=== PATIENT | male | born 1980 | race Two or more races ===

== ENCOUNTER → 2020-03-10 08:53 | Outpatient (BNVA) | payer BC, OTHER, SELFPAY | PROVIDERS: PCP Nurse Practitioner Family; Visit Provider Surgery Vascular Surgery | DX: Z76.89 Persons encountering health services in other specified circumstances (principal) ==

== ENCOUNTER 2020-03-29 12:49 | Outpatient (REF) | payer OTHER, BC, SELFPAY ==
--- NOTE | 2020-03-29 12:57 | US_ITS ---
EXAMINATION: US LOWER EXTREMITY VENOUS ULTRASOUND (REFLUX EXAM), BILATERAL CLINICAL INDICATION: Varicose veins of right lower extremity with inflammation. COMPARISON: 03/17/2019 TECHNIQUE: Color flow triplex imaging and compression Doppler was performed to evaluate both the deep and the superficial systems bilaterally. To evaluate the superficial system, the examination was performed in the upright position. Color-flow Doppler ultrasound and compression ultrasound were utilized. In addition, maneuvers were utilized to demonstrate reflux. FINDINGS: 1. DEEP VENOUS ULTRASOUND OF THE RIGHT LOWER EXTREMITY: Respiratory variation, normal compression and augmented flow are noted in the right common femoral vein as well as the right popliteal vein, and there is no evidence of deep venous thrombosis at these locations. There is no evidence of reflux in the deep system in either the common femoral vein or the popliteal vein. There is no evidence of a Wei's cyst. 2. SUPERFICIAL ULTRASOUND WITH DOPPLER OF RIGHT LOWER EXTREMITY: The right great saphenous vein at the saphenofemoral junction measures 8 mm, at the mid thigh 3 mm, gnmpg-ele-glbk 3 mm, dgpjl-zsx-bplq 3 mm, at mid calf 3 mm and at the ankle measures 2 mm. The only reflux is identified at the level just dzfkg-idz-xshj measuring 2.8 seconds in duration. No reflux is seen at the saphenofemoral junction. The right small saphenous vein measures 2 mm and shows no reflux. 3. DEEP VENOUS ULTRASOUND OF THE LEFT LOWER EXTREMITY: Respiratory variation, normal compression and augmented flow are noted in the left common femoral vein as well as the left popliteal vein, and there is no evidence of deep venous thrombosis at these locations. There is no evidence of reflux in the deep system in either the common femoral vein or the popliteal vein. There is no evidence of a Wei's cyst. 4. SUPERFICIAL ULTRASOUND WITH DOPPLER OF LEFT LOWER EXTREMITY: There is a duplicated left greater saphenous vein. The small accessory branch laterally measures approximately 3 mm in diameter and does have reflux at the saphenofemoral junction at 1.3 seconds duration. The dominant medial branch of the left great saphenous vein at the saphenofemoral junction measures 7 mm, at the mid thigh 3 mm, ijbds-omz-kxju 3 mm, nmmqx-clb-shmj 2 mm, at mid calf 2 mm and at the ankle measures 3 mm. There is no reflux demonstrated in the main left great saphenous vein. The left small saphenous vein measures 3 mm and shows no reflux. US/US venous duplex LE BI IMPRESSION: 1. No evidence of reflux or thrombus in the common femoral veins or popliteal veins bilaterally. 2. The only level of reflux of the right saphenous vein is at the nbhvu-uxp-bygk level. No reflux in the saphenofemoral junction. 3. The only site of reflux within the left superficial venous system is within a small accessory saphenous vein at the saphenofemoral junction for a duration of 1.3 seconds.
--- NOTE | 2020-03-29 12:57 | US_ITS ---
EXAMINATION: US EXTRACRANIAL CAROTID DUPLEX, BILATERAL CLINICAL INFORMATION: Carotid bruit. Question occlusion and stenosis. COMPARISON: None TECHNIQUE: Real-time ultrasound and Doppler techniques (integrating B-mode 2-D vascular images, Doppler spectral analysis and color-flow Doppler imaging) were utilized to interrogate the extracranial carotid arteries, the vertebral arteries and proximal subclavian arteries bilaterally. The degree of stenosis is determined by criteria similar to NASCET. FINDINGS: Right Side: 1. There is hard atherosclerotic plaque seen in the bifurcation/proximal ICA region. 2. The common carotid artery PSV proximally is 123 cm/s and distally 93.2 cm/s. 3. The proximal internal carotid artery velocities are 91.5 cm/s systolic and 75 cm/s diastolic. 4. The proximal external carotid artery PSV is 108 cm/s. 5. The vertebral artery shows antegrade flow. 6. The subclavian artery waveforms are normal. Left Side: 1. There is hard atherosclerotic plaque seen in the bifurcation/proximal ICA region. 2. The common carotid artery PSV proximally is 144 cm/s and distally 92.7 cm/s. 3. The proximal internal carotid artery velocities are 75 cm/s systolic and 26.4 cm/s diastolic. 4. The proximal external carotid artery PSV is 93.2 cm/s. 5. The vertebral artery shows antegrade flow. 6. The subclavian artery waveforms are normal. US/US carotid duplex BI IMPRESSION: 1. RIGHT: No hemodynamically significant stenosis. The range is 0-49% stenosis. 2. LEFT: No hemodynamically significant stenosis. The range is 0-49% stenosis. 3. Normal antegrade flow seen in both vertebral arteries..
[2020-03-29 15:43] LABS: Alanine Aminotransferase 47 U/L (0-40); Albumin Level 4.2 g/dL (3.5-5.0); Alkaline Phosphatase 67 U/L (39-117); Anion Gap 12 (12-20); Aspartate Amino Transferase 15 U/L (5-37); Bilirubin Total 0.8 mg/dL (0.0-1.0); Blood Urea Nitrogen 16 mg/dL (9-16); Calcium 9.1 mg/dL (8.4-10.2); Carbon Dioxide 31 mmol/L (22-29); Chloride 100 mmol/L (96-108); Estimated Glomerular Filt Rate > 60; Glucose Fasting 260 mg/dL (60-99); Potassium 4.7 mmol/l (3.3-5.1); Sodium 138 mmol/L (135-145); Total Protein 7.5 g/dL (6.5-8.0)
[2020-03-29 15:47] LABS: Estimated Average Glucose 258 mg/dL; Hemoglobin A1c % 10.6 %
[2020-03-29 16:11] LABS: Creatinine Urine 193.31 mg/dL; Protein/Creatinine Ratio, Ur 0.07 (<0.2); Total Protein Urine Random 14 mg/dL (<12)
== END 2020-03-29 12:50 | disposition home or self-care (01) ==
LOC: HO.US 12:49
PROVIDERS: Nurse Practitioner Family; Absent Provider Internal Medicine Hypertension Specialist; PCP Internal Medicine; Visit Provider Surgery Vascular Surgery
DX: I65.23 Occlusion and stenosis of bilateral carotid arteries (principal); I83.893 Varicose veins of bilateral lower extremities with other complications; I10 Essential (primary) hypertension; R80.9 Proteinuria, unspecified; E11.9 Type 2 diabetes mellitus without complications
CPT/HCPCS: 36415; 80053; 83036; 84156; 93880; 93970

== ENCOUNTER → 2020-04-07 09:00 | Outpatient (BNVA) | payer BC, SELFPAY | PROVIDERS: PCP Internal Medicine; Visit Provider Surgery Vascular Surgery ==

== ENCOUNTER → 2020-06-03 08:23 | Outpatient (BNVA) | payer BC, SELFPAY | PROVIDERS: PCP Internal Medicine; Visit Provider Nurse Practitioner Gerontology | DX: E11.9 Type 2 diabetes mellitus without complications (principal); I10 Essential (primary) hypertension; E78.5 Hyperlipidemia, unspecified; E66.01 Morbid (severe) obesity due to excess calories; Z68.39 Body mass index [BMI] 39.0-39.9, adult | CPT/HCPCS: 82947 ==

== ENCOUNTER 2020-11-11 23:01 | Inpatient (IN) | payer BC, SELFPAY ==
--- NOTE | ~2020-11-11 | CT_ITS ---
EXAMINATION: CTA NECK WITH CONTRAST (STROKE) CTA BRAIN WITH CONTRAST (STROKE) CLINICAL INFORMATION: Severe headache, dizziness, stroke in 2019. COMPARISON: 01/31/2019 TECHNIQUE: Initial noncontrast head CT was performed. Test bolus sequences followed by intravenous administration 70 mL of Omnipaque 350. Helical imaging was performed in the axial plane from the thoracic inlet to the skull vertex. Delayed postcontrast imaging of the head was also performed. The data was processed at the biochemistry technologist's workstation for generation of MIP sequences. Angled MIPs and volume rendered reformatted images were also generated at an offline 3D workstation. Stenoses are assessed in accordance with NASCET criteria unless otherwise indicated. DOSE LOWERING TECHNIQUES: This CT examination was performed using dose optimization techniques as appropriate, variously including the following: - Automated exposure control - Adjustment of mA and/or kV according to patient size (this includes techniques or standardized protocols for targeted exams were dose is matched to indication/reason for exam; i.e. extremities or head) - Use of iterative reconstruction technique DLP: 2775 mGy-cm FINDINGS: Neck CTA: There is common origin of the brachiocephalic and left common carotid arteries off the aortic arch. Normal appearance of the visualized aortic arch and proximal branches. No evidence of stenosis at the branch origins. Both vertebral arteries are widely patent throughout their extracranial cervical course. Normal appearance of the common and internal carotid arteries without focal stenosis. Brain CTA: Normal appearance of the intradural vertebral and posterior inferior cerebellar arteries. Redemonstrated persistent left trigeminal artery. Normal appearance of the basilar and superior cerebellar arteries. There is origin of the left posterior cerebral artery. And bilateral posterior cerebral arteries are well-opacified. Normal appearance of the intradural internal carotid arteries without focal stenosis. Normal appearance of the anterior cerebral and middle cerebral arteries without focal occlusion or stenosis. Normal anterior communicating artery. Normal arborization of the middle cerebral arteries. CT Head: There is no evidence of acute intracranial hemorrhage or territorial infarction. Chronic infarcts are noted in the posterior left basal ganglia and periventricular region, in keeping with infarcts seen on 01/31/2019 MRI. No abnormal mass-effect or midline shift is seen. Lee to white matter differentiation is well preserved. No extra-axial fluid collections are identified. The ventricles are normal in size. The osseous structures and soft tissues are normal. There is leftward deviation of the nasal septum. The mastoid air cells and visualized portions of the paranasal sinuses are well-aerated. CT Neck: The thyroid gland and remaining cervical soft tissues are normal in appearance. No cervical spine abnormalities demonstrated. Upper Chest: No abnormalities in the visualized lung apices or upper mediastinum. CT/CT angio head neck stroke IMPRESSION: 1. No acute intracranial findings. Chronic infarcts in the posterior left basal ganglia and periventricular region. 2. No hemodynamically significant stenosis in the major arteries of the neck. No large vessel occlusion or significant stenosis in the intracranial circulation. This stroke protocol result was discussed with Dr. Beryl Gan on 11/12/2020 12:16 AM.
--- NOTE | ~2020-11-11 | MR_ITS ---
EXAMINATION: MRI OF THE BRAIN WITHOUT CONTRAST CLINICAL INFORMATION: Assess for new CVA. COMPARISON: CTA of the head and neck 11/11/2020. MRI scan of the brain 01/31/2019. TECHNIQUE: MRI of the brain was obtained using routine sequences without contrast. FINDINGS: There is a small focus of increased diffusion signal in the right anterior centrum semiovale without restriction, consistent with subacute infarct. There are no diffusion changes suggestive of an acute infarct. No mass effect or midline shift is seen. The ventricles are normal in size. There has been evolution of an infarct adjacent to the trigone of the left lateral ventricle, now with gliosis and adjacent ex vacuo dilatation of the trigone. There are a few scattered foci of hyperintense T2 and FLAIR signal in the periventricular and subcortical white matter, consistent with chronic microvascular ischemic changes. Similar foci are noted in the left thalamus and there is a chronic lacunar infarct in the left basal ganglia. No extra-axial fluid collections are seen. The brainstem and cerebellum are normal. There is a punctate focus of low gradient signal anterior to the left thalamus medially, which is nonspecific. No evidence of acute hemorrhage is demonstrated. The craniovertebral junction, marrow signal, and midline structures are normal. The major intracranial flow-voids at the level of the little shell tribe of [place] are preserved. The dural venous sinus flow-voids are maintained. The mastoid air cells and paranasal sinuses are well-aerated. MR/MR head/brain wo con IMPRESSION: 1. There are no acute bleeds or infarcts. There is a small focus of increased diffusion signal in the right centrum semiovale body consistent with a subacute infarct. No masses are demonstrated. 2. There are sequelae of prior infarct adjacent to the trigone of the left lateral ventricle. There are chronic microvascular ischemic changes. There is a lacunar infarct in the left basal ganglia.
--- NOTE | 2020-11-11 23:00 | PC.NURSE ---
MD at bedside for primary eval due to ?CVA.
[2020-11-11 23:09] VITALS: BP 164/75; PULSE 65; RESP 16; TEMP 36.6; O2SAT 99; BMI 39.1
--- NOTE | 2020-11-11 23:23 | ECG_ITS ---
Test Reason : SYNCOPE Blood Pressure : / mmHG Vent. Rate : 062 BPM Atrial Rate : 062 BPM P-R Int : 226 ms QRS Dur : 094 ms QT Int : 418 ms P-R-T Axes : 024 042 010 degrees QTc Int : 424 ms Sinus rhythm with 1st degree A-V block Minimal voltage criteria for LVH, may be normal variant Cannot rule out Anterior infarct , age undetermined Abnormal ECG When compared with ECG of 02-MAR-2019 19:44, No significant change was found Referred By: Beryl Gan Electronically Signed By:ABDI SPANGLER
--- NOTE | 2020-11-11 23:25 | ED.GENADULT ---
HPI - General Adult General Chief complaint: Syncope Stated complaint: syncope ? tia Time Seen by Provider: 11/11/20 23:14 Source: patient and EMS Mode of arrival: EMS Limitations: no limitations History of Present Illness HPI narrative: Patient comes to the emergency room complaining sudden onset of headache, dizziness described as lightheadedness. Patient reports a syncopal episode that lasted 2-3 seconds. Patient states that his symptoms are similar than in 2019 when he had a stroke. However, last time patient had right-sided deficits, unable to move his right arm and leg. This time, patient has no neurological deficits other than the symptoms stated above. Related Data Home Medications Medication Instructions Recorded Confirmed atorvastatin 80 mg tablet 80 mg PO DAILY 02/22/20 11/12/20 metoprolol succinate 100 mg 100 mg PO DAILY 02/22/20 11/12/20 tablet,extended release 24 hr hydroxyzine HCl 25 mg tablet 50 tab PO BEDTIME 11/12/20 11/12/20 Previous Rx's Medication Instructions Recorded aspirin 81 mg chewable tablet 81 mg PO DAILY 90 Days #90 tab 02/13/20 pioglitazone 45 mg tablet 45 mg PO DAILY 90 Days #90 tab 10/17/20 Allergies Allergy/AdvReac Type Severity Reaction Status Date / Time bee pollen [BEE STINGS] Allergy Intermediate Swelling Verified 11/11/20 23:17 metoclopramide [From REGLAN] AdvReac Intermediate MUSCLE Verified 11/11/20 23:17 SPASMS dulaglutide [From Trulicity] AdvReac Diarrhea Verified 11/11/20 23:17 cymbalta Allergy Intermediate twitching Uncoded 11/11/20 23:17 Ketoconazole Allergy Intermediate urticaria Uncoded 11/11/20 23:17 lisinopril Allergy Intermediate cough Uncoded 11/11/20 23:17 tramadol Allergy Intermediate itchiness Uncoded 11/11/20 23:17 amoxicillin AdvReac Intermediate diarrhea Uncoded 11/11/20 23:17 metformin AdvReac Intermediate diarrhea Uncoded 11/11/20 23:17 [facility] Past Medical History Medical History Diabetes Essential hypertension History of stroke Hyperlipidemia LDL goal <70 Obesity due to excess calories Poison ramirez dermatitis Skin lesion Tinea pedis Type 2 diabetes mellitus without complications Surgical History Hx of vasectomy Family History Family History Father Diabetes Myocardial infarct Mother Diabetes Sister No problems noted. Sister No problems noted. Daughter No problems noted. Son No problems noted. Son No problems noted. Son No problems noted. Son No problems noted. Social History Social History Household Members: Family Alcohol intake: never Advance Directives: No Advance Directives Information Provided: No Physical Exam Vital Signs: Vital Signs: Last Vital Signs Temp 97.8 F 11/11/20 23:09 Pulse 60 11/12/20 04:48 Resp 14 11/12/20 04:48 BP 136/62 11/12/20 01:52 Pulse Ox 99 11/11/20 23:09 Body Mass Index 39.1 Const: Other: Appearance: Alert. Oriented X3. Seems uncomfortable, having headache Eyes: Pupils equal, round and reactive to light. Seems to have photophobia ENT: Pharynx normal. Neck: Normal inspection. Neck supple. No lymph nodes noted. No crepitus CVS: Normal heart rate and rhythm. Pulses normal. Normal S1 and S2 Respiratory: No respiratory distress. Breath sounds normal. No Wheezing. No rales Abdomen: Soft and nontender. No rigidity. No distention. good BS x4 Skin: Skin warm and dry. Normal skin color. Normal skin turgor. Extremities: No lower extremity edema. No lower extremity edema. No Lacerations. No Rash Neuro: Oriented X 3. Cranial nerves 2-12 grossly intact No motor deficit other than the residual weakness in the right and left arm No sensory deficit. Moving all extermities. No slurred speech. NIH Stroke Scale Level of Consciousness: Alert Level of Consciousness Questions: Answers both questions correctly Level of Consciousness Commands: Performs both tasks correctly Best Gaze: Normal Visual: No visual loss Facial Palsy: Normal Motor Arm (Right): No drift Motor Arm (Left): No drift Motor Leg (Right): No drift Motor Leg (Left): No drift Limb Ataxia: Absent Sensory: Normal Best Language: No aphasia Dysarthia: Normal Extinction and Inattention: No abnormality Score: 0 Course Course Course Narrative: At this time, patient having severe headache, only taking aspirin at home. No new neurological deficits, NIH score 0. Patient is very adamant that he is having a new stroke as he had similar symptoms except the neurological deficits. CT and CTA were negative this time, however, in [address] and CTA were normal and the CT and CTA were normal and the MRI did show a stroke. At this time, patient does not have any neurological deficits. MRI has been ordered for the morning. Patient likely being discharge if the MRI is negative. Sign out given to Dr. Dey Medical Decision Making Lab Data Result diagrams: 11/11/20 23:26 11/12/20 01:12 Labs: Lab Results 11/11/20 11/11/20 11/11/20 Range/Units 23:26 23:26 23:26 WBC 7.1 (4.8-10.8) X10*3/uL RBC 4.90 (4.60-5.80) X10*6/uL Hgb 13.3 L (14.0-18.0) g/dl Hct 42.5 (42-52) % MCV 86.7 (80-98) fL MCH 27.1 (27.0-33.0) pg MCHC 31.3 (31.0-36.0) g/dl RDW 14.1 (11.0-16.0) % Plt Count 177 (160-400) X10*3/uL MPV 11.4 (9.4-12.4) fL Immature Gran % (Auto) 0.3 (0.0-0.4) % Neut % (Auto) 35.3 L (45-73) % Lymph % (Auto) 51.2 H (20-40) % [place] % (Auto) 8.5 (2-11) % Eos % (Auto) 4.3 H (0-4) % Baso % (Auto) 0.4 (0-2) % Lymph # (Auto) 3.6 (1.2-4.9) X10*3/uL [place]ett # (Auto) 0.6 (0.1-1.2) X10*3/uL Eos # (Auto) 0.3 (0.0-0.4) X10*3/uL Baso # (Auto) 0.0 (0.0-0.2) X10*3/uL Abs Immat Gran (auto) 0.02 (0.00-0.03) X10*3/uL Absolute Neuts (auto) 2.5 (2.0-8.3) X10*3/uL Absolute Nucleated RBC 0.000 (0.0-0.012) X10*3/uL Nucleated RBC % (auto) 0.0 (0.0-0.2) /100WBC PT 11.9 (9.9-13.0) SEC INR 1.0 (0.9-1.1) Sodium (135-145) mmol/L Potassium (3.3-5.1) mmol/L Chloride (96-108) mmol/L Carbon Dioxide (22-29) mmol/L Anion Gap (12-20) BUN (9-16) mg/dL Creatinine (0.5-1.4) mg/dL Estim Creat Clear Calc Estimated GFR Random Glucose (60-115) mg/dL Calcium (8.4-10.2) mg/dL Total Bilirubin (0.0-1.0) mg/dL Direct Bilirubin (0.0-0.5) mg/dL AST (5-37) U/L ALT (0-40) U/L Alkaline Phosphatase (39-117) U/L Troponin I High Sens < 3.5 (<3.5-35.0) ng/L Total Protein (6.5-8.0) g/dL Albumin (3.5-5.0) g/dL Urine Color Urine Appearance Urine pH (5.0-8.0) Ur Specific [place] (1.005-1.025) Urine Protein (NEG-TRACE) MG/DL Urine Glucose (UA) (NEG) MG/DL Urine Ketones (NEG) MG/DL Urine Blood (NEG) Urine Nitrite (NEG) Ur Leukocyte Esterase (NEG) Urine RBC (0) /HPF Urine WBC (0-4) /HPF Ur Squamous Epith Cells /LPF Calcium Oxalate Crystal /LPF Urine Bacteria /LPF Urine Mucus /LPF Urine Opiates Screen (Not Detect) Urine Fentanyl Screen (Not Detect) Ur Barbiturates Screen (Not Detect) Ur Phencyclidine Scrn (Not Detect) Ur Amphetamines Screen (Not Detect) U Benzodiazepines Scrn (Not Detect) Urine Cocaine Screen (Not Detect) U Marijuana (THC) Screen (Not Detect) Ethyl Alcohol mg/dL COVID-19 (TELMA) (Negative) COVID-19 Clin Com 11/11/20 11/12/20 11/12/20 Range/Units 23:29 01:12 01:13 WBC (4.8-10.8) X10*3/uL RBC (4.60-5.80) X10*6/uL Hgb (14.0-18.0) g/dl Hct (42-52) % MCV (80-98) fL MCH (27.0-33.0) pg MCHC (31.0-36.0) g/dl RDW (11.0-16.0) % Plt Count (160-400) X10*3/uL MPV (9.4-12.4) fL Immature Gran % (Auto) (0.0-0.4) % Neut % (Auto) (45-73) % Lymph % (Auto) (20-40) % [place]ett % (Auto) (2-11) % Eos % (Auto) (0-4) % Baso % (Auto) (0-2) % Lymph # (Auto) (1.2-4.9) X10*3/uL [place] # (Auto) (0.1-1.2) X10*3/uL Eos # (Auto) (0.0-0.4) X10*3/uL Baso # (Auto) (0.0-0.2) X10*3/uL Abs Immat Gran (auto) (0.00-0.03) X10*3/uL Absolute Neuts (auto) (2.0-8.3) X10*3/uL Absolute Nucleated RBC (0.0-0.012) X10*3/uL Nucleated RBC % (auto) (0.0-0.2) /100WBC PT (9.9-13.0) SEC INR (0.9-1.1) Sodium 138 (135-145) mmol/L Potassium 3.9 (3.3-5.1) mmol/L Chloride 103 (96-108) mmol/L Carbon Dioxide 27 (22-29) mmol/L Anion Gap 12 (12-20) BUN 21 H (9-16) mg/dL Creatinine 1.34 (0.5-1.4) mg/dL Estim Creat Clear Calc 92.8 Estimated GFR 59 Random Glucose 171 H (60-115) mg/dL Calcium 9.0 (8.4-10.2) mg/dL Total Bilirubin 0.7 (0.0-1.0) mg/dL Direct Bilirubin 0.3 (0.0-0.5) mg/dL AST 18 (5-37) U/L ALT 21 (0-40) U/L Alkaline Phosphatase 55 (39-117) U/L Troponin I High Sens (<3.5-35.0) ng/L Total Protein 7.0 (6.5-8.0) g/dL Albumin 3.9 (3.5-5.0) g/dL Urine Color Urine Appearance Urine pH (5.0-8.0) Ur Specific [place] (1.005-1.025) Urine Protein (NEG-TRACE) MG/DL Urine Glucose (UA) (NEG) MG/DL Urine Ketones (NEG) MG/DL Urine Blood (NEG) Urine Nitrite (NEG) Ur Leukocyte Esterase (NEG) Urine RBC (0) /HPF Urine WBC (0-4) /HPF Ur Squamous Epith Cells /LPF Calcium Oxalate Crystal /LPF Urine Bacteria /LPF Urine Mucus /LPF Urine Opiates Screen (Not Detect) Urine Fentanyl Screen (Not Detect) Ur Barbiturates Screen (Not Detect) Ur Phencyclidine Scrn (Not Detect) Ur Amphetamines Screen (Not Detect) U Benzodiazepines Scrn (Not Detect) Urine Cocaine Screen (Not Detect) U Marijuana (THC) Screen (Not Detect) Ethyl Alcohol < 10 mg/dL COVID-19 (TELMA) Negative (Negative) COVID-19 Clin Com See Note 11/12/20 11/12/20 Range/Units 01:13 01:13 WBC (4.8-10.8) X10*3/uL RBC (4.60-5.80) X10*6/uL Hgb (14.0-18.0) g/dl Hct (42-52) % MCV (80-98) fL MCH (27.0-33.0) pg MCHC (31.0-36.0) g/dl RDW (11.0-16.0) % Plt Count (160-400) X10*3/uL MPV (9.4-12.4) fL Immature Gran % (Auto) (0.0-0.4) % Neut % (Auto) (45-73) % Lymph % (Auto) (20-40) % Harnett % (Auto) (2-11) % Eos % (Auto) (0-4) % Baso % (Auto) (0-2) % Lymph # (Auto) (1.2-4.9) X10*3/uL [place] # (Auto) (0.1-1.2) X10*3/uL Eos # (Auto) (0.0-0.4) X10*3/uL Baso # (Auto) (0.0-0.2) X10*3/uL Abs Immat Gran (auto) (0.00-0.03) X10*3/uL Absolute Neuts (auto) (2.0-8.3) X10*3/uL Absolute Nucleated RBC (0.0-0.012) X10*3/uL Nucleated RBC % (auto) (0.0-0.2) /100WBC PT (9.9-13.0) SEC INR (0.9-1.1) Sodium (135-145) mmol/L Potassium (3.3-5.1) mmol/L Chloride (96-108) mmol/L Carbon Dioxide (22-29) mmol/L Anion Gap (12-20) BUN (9-16) mg/dL Creatinine (0.5-1.4) mg/dL Estim Creat Clear Calc Estimated GFR Random Glucose (60-115) mg/dL Calcium (8.4-10.2) mg/dL Total Bilirubin (0.0-1.0) mg/dL Direct Bilirubin (0.0-0.5) mg/dL AST (5-37) U/L ALT (0-40) U/L Alkaline Phosphatase (39-117) U/L Troponin I High Sens (<3.5-35.0) ng/L Total Protein (6.5-8.0) g/dL Albumin (3.5-5.0) g/dL Urine Color DARK YELLOW Urine Appearance CLEAR Urine pH 6.0 (5.0-8.0) Ur Specific [place] 1.025 (1.005-1.025) Urine Protein TRACE (NEG-TRACE) MG/DL Urine Glucose (UA) NEG (NEG) MG/DL Urine Ketones NEG (NEG) MG/DL Urine Blood TRACE (NEG) Urine Nitrite NEG (NEG) Ur Leukocyte Esterase NEG (NEG) Urine RBC 0-2 (0) /HPF Urine WBC 0-2 (0-4) /HPF Ur Squamous Epith Cells TRACE /LPF Calcium Oxalate Crystal 2+ /LPF Urine Bacteria TRACE /LPF Urine Mucus 3+ /LPF Urine Opiates Screen Not Detected (Not Detect) Urine Fentanyl Screen Not Detected (Not Detect) Ur Barbiturates Screen Not Detected (Not Detect) Ur Phencyclidine Scrn Not Detected (Not Detect) Ur Amphetamines Screen Not Detected (Not Detect) U Benzodiazepines Scrn Not Detected (Not Detect) Urine Cocaine Screen Not Detected (Not Detect) U Marijuana (THC) Screen POSITIVE H (Not Detect) Ethyl Alcohol mg/dL COVID-19 (TELMA) (Negative) COVID-19 Clin Com Discharge Plan Discharge Clinical Impression: Near syncope, Headache Patient Disposition: Home, Self-Care Instructions: Near Syncope (ED) Additional Instructions: Please follow-up with your primary care physician tomorrow. If you have any worsening or new symptoms, please return to the emergency room or call 911 Prescriptions: No Action aspirin 81 mg tablet,chewable 81 mg PO DAILY 90 Days Qty: 90 RF: 3 pioglitazone 45 mg tablet 45 mg PO DAILY 90 Days Qty: 90 RF: 2 hydroxyzine HCl 25 mg tablet 50 tab PO BEDTIME RF: 0 metoprolol succinate 100 mg tablet extended release 24 hr 100 mg PO DAILY RF: 0 atorvastatin 80 mg tablet 80 mg PO DAILY RF: 0
[2020-11-11 23:34] LABS: MANUAL DIFF FLAG NO
--- NOTE | 2020-11-11 23:35 | PC.NURSE ---
IV established, labs and Covid obtained. oil heat technician at bedside for EKG. Pt off to CT on hospital bed.
[2020-11-11 23:36] LABS: Basophils Percent Auto 0.4 % (0-2); Eosinophils Absolute Auto 0.3 X10*3/uL (0.0-0.4); Eosinophils Percent Auto 4.3 % (0-4); Hematocrit 42.5 % (42-52); Hemoglobin 13.3 g/dl (14.0-18.0); Imm Gran Abs Auto 0.02 X10*3/uL (0.00-0.03); Imm Gran Pct Auto 0.3 % (0.0-0.4); Lymphocytes Absolute Auto 3.6 X10*3/uL (1.2-4.9); Lymphocytes Percent Auto 51.2 % (20-40); Mean Corpuscular HGB Conc 31.3 g/dl (31.0-36.0); Mean Corpuscular Hemoglobin 27.1 pg (27.0-33.0); Mean Corpuscular Volume 86.7 fL (80-98); Mean Platelet Volume 11.4 fL (9.4-12.4); Monocytes Absolute Auto 0.6 X10*3/uL (0.1-1.2); Monocytes Percent Auto 8.5 % (2-11); Neutrophils Absolute Auto 2.5 X10*3/uL (2.0-8.3); Neutrophils Percent Auto 35.3 % (45-73); Platelet Count 177 X10*3/uL (160-400); Red Cell Distribution Width 14.1 % (11.0-16.0); White Blood Count 7.1 X10*3/uL (4.8-10.8)
[2020-11-11 23:42] LABS: Prothrombin Time 11.9 SEC (9.9-13.0)
[2020-11-11] MEDS: iohexoL 350 MG/ML 100 ML INFUS..BTL 70 ML IV (23:55)
--- NOTE | 2020-11-11 23:55 | PC.NURSE ---
Pt returns from CT at this time. VSS. Pt aware of plan for UA, provided with bedside urinal.
[2020-11-11 23:56] VITALS: BP 134/70; PULSE 74; RESP 16
[2020-11-12] VITALS (8 sets, daily range): BP systolic 117–173; BP diastolic 52–97; PULSE 60–71; RESP 14–20; TEMP 36.3–36.8; O2SAT 96–99
[2020-11-12 00:03] LABS: COVID-19 Test Negative (Negative)
[2020-11-12 00:11] LABS: Troponin-I High Sensitivity < 3.5 ng/L (<3.5-35.0)
--- NOTE | 2020-11-12 01:20 | PC.NURSE ---
Repeat labs and UA obtained and sent. [facility] Rec completed at bedside with pt. VSS at this time.
--- NOTE | 2020-11-12 01:43 | PC.NURSE ---
Pt reports a recent miscarriage of twins on 09/15-09/16, states she underwent a D&C. Pt also reports having a f/u U/S to insure that she was not retaining. Pt reports having minimal bleeding afterwards with her LMP being 10/29. Pt reporting bilat lower abdominal pain beginning Saturday, worse on left side. Pt denies vaginal bleeding at this time. Labs and UA obtained by engineering technology instructor. Awaiting primary MD ramos.
[2020-11-12 01:59] LABS: Ethanol < 10 mg/dL
[2020-11-12 02:03] LABS: Alanine Aminotransferase 21 U/L (0-40); Albumin Level 3.9 g/dL (3.5-5.0); Alkaline Phosphatase 55 U/L (39-117); Anion Gap 12 (12-20); Aspartate Amino Transferase 18 U/L (5-37); Bilirubin Direct 0.3 mg/dL (0.0-0.5); Bilirubin Total 0.7 mg/dL (0.0-1.0); Blood Urea Nitrogen 21 mg/dL (9-16); Carbon Dioxide 27 mmol/L (22-29); Chloride 103 mmol/L (96-108); Creatinine Clr Calc Pharmacy 92.8; Estimated Glomerular Filt Rate 59; Glucose Random 171 mg/dL (60-115); Potassium 3.9 mmol/L (3.3-5.1); Sodium 138 mmol/L (135-145)
[2020-11-12 02:12] LABS: Appearance Urine CLEAR; Color Urine DARK YELLOW; Glucose Urine UA NEG (NEG); Leukocyte Esterase Urine NEG (NEG); Nitrite Urine NEG (NEG); Specific Gravity - Urine 1.025 (1.005-1.025); UACC Culture Trigger NO; Urine Blood TRACE (NEG); Urine Ketones NEG (NEG); Urine Protein TRACE MG/DL (NEG-TRACE)
[2020-11-12 02:24] LABS: Amphetamine Screen Urine Not Detected (Not Detect); Barbiturates, Urine Not Detected (Not Detect); Benzodiazepines Screen Urine Not Detected (Not Detect); Cannabinoid Screen Urine POSITIVE (Not Detect); Cocaine Screen Urine Not Detected (Not Detect); Fentanyl, urine Not Detected (Not Detect); Opiate Screen Urine Not Detected (Not Detect); Phencyclidine Screen Urine Not Detected (Not Detect)
[2020-11-12] MEDS: ondansetron HCL 4 MG/2 ML VIAL IVPUSH (02:34)
[2020-11-12] MEDS: diphenhydrAMINE HCL 50 MG/ML VIAL IVPUSH (02:34)
[2020-11-12] MEDS: Ketorolac Tromethamine 15 MG/ML VIAL 30 MG IVPUSH (02:35)
[2020-11-12 02:36] LABS: Bacteria Urine TRACE /LPF; Calcium Oxalate Crystals Urine 2+ /LPF; Mucus Urine 3+ /LPF; RBC Urine 0-2 /HPF (0); Squamous Epithelial Cell Urine TRACE /LPF; WBC Urine 0-2 /HPF (0-4)
--- NOTE | 2020-11-12 02:41 | PC.NURSE ---
Medicated per MAR for a 5/10 HANKINS. uncertain of dispo at this time.
--- NOTE | 2020-11-12 03:23 | PC.NURSE ---
Family calling this RN into room, stating pt is having a reaction to Toradol. Pt found sitting on the edge of the bed, cracking neck and turning head left to right. MD at bedside for eval. Pt reassured his symptoms were r/t anxiety. Plan for medicate for anxiety. Awaiting order.
[2020-11-12] MEDS: LORazepam 2 MG/ML VIAL IVPUSH (03:32)
--- NOTE | 2020-11-12 03:56 | PC.NURSE ---
Pts found sleeping in bed at this time, per family all reaction symptoms have subsided. Pt medicated per MAY with Ativan.
--- NOTE | 2020-11-12 04:47 | PC.NURSE ---
Family called this RN into room, stating that pt was twitching. Pt sleeping in bed in NAD at this time. VSS. Continue to monitor.
--- NOTE | 2020-11-12 05:36 | PC.NURSE ---
Per MD, plan for MRI in the morning. Pt remains asleep in bed at this time.
--- NOTE | 2020-11-12 09:04 | MHC.STROKE ---
EMS PRE-NOTIFIED POSSIBLE STROKE ON 11/11/20 2256. ARRIVED 2301. AT 2200 SUDDEN ONSET OF HANKINS, DIZZY, LIGHTHEADED THAT LASTED ONLY 2-[address] FOR CT HEAD AND CTA H/N. NO BLEED, NO LVO HOWEVER OLD LEFT POSTERIOR BASAL GANGLIA ISCHEMIC STROKE IDENTIFIED (RIGHT ARM AND LEG WEAKNESS AT THAT TIME). PATIENT IS KNOWN TO THE STROKE SERVICE AND DR CARLIN, FROM CVA IN 01/2019, (SEE PREVIOUS NOTES). RISK FACTORS INCLUDE PRIOR CVA, MIGRAINES, HTN, HLD, DM, AN MRI IN PENDING FOR THIS AM. NIHSS = 0, EXCLUDED FROM TPA DUE TO THIS. CHECK SWALLOW SCREEN (ADDED). I WILL CONTINUE TO FOLLOW.
--- NOTE | 2020-11-12 12:53 | PM.IMHP ---
History of Present Illness Date of Service: 11/12/20 Chief Complaint: Dizziness, syncope, weakness 40 years old male with PMH of CVA, diabetes, HTN, obesity among others who presented to the hospital after having a syncopal episode. The patient reports feeling unwell for the last 2 days with episodes of dizziness and lightheadedness. 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 This morning when he woke up he felt again dizzy and unsteady and called his for held. When she got there he was very sweaty and he collapse became almost syncopized for a minute with no abnormal movement or loss of sphincter control. He denies any focal deficit and report he is feeling to normal but overall weakness and afraid of standing for possible dizziness. He reports this is the 2nd time he is going through the same symptoms previously in 2019 which was found to be a stroke at the time with remnant right-sided weakness. The emergency CTA and MRI were done showing subacute stroke. Admitted for further evaluation and treatment. Review of Systems Review of Systems: No fever, chills but reports weakness No chest pain, palpitation No shortness of breath or coughing No abdominal pain, nausea or vomiting No urinary symptoms No any rash or wounds COUNTS INCLUDE 234 BEDS AT THE [facility] Medical History Diabetes Essential hypertension History of stroke Hyperlipidemia LDL goal <70 Obesity due to excess calories Poison ramirez dermatitis Skin lesion Tinea pedis Type 2 diabetes mellitus without complications Family History Father Diabetes Myocardial infarct Mother Diabetes Sister No problems noted. Sister No problems noted. Daughter No problems noted. Son No problems noted. Son No problems noted. Son No problems noted. Son No problems noted. Surgical History Hx of vasectomy Social History Household Members: Family Alcohol intake: never Smoked in Last 30 Days: No Use of substances other than those prescribed or required for medical reasons: No Advance Directives: No Advance Directives Information Provided: No Meds Allergies Allergy/AdvReac Type Severity Reaction Status Date / Time bee pollen [BEE STINGS] Allergy Intermediate Swelling Verified 11/11/20 23:17 metoclopramide [From REGLAN] AdvReac Intermediate MUSCLE Verified 11/11/20 23:17 SPASMS dulaglutide [From Trulicity] AdvReac Diarrhea Verified 11/11/20 23:17 cymbalta Allergy Intermediate twitching Uncoded 11/11/20 23:17 Ketoconazole Allergy Intermediate urticaria Uncoded 11/11/20 23:17 lisinopril Allergy Intermediate cough Uncoded 11/11/20 23:17 tramadol Allergy Intermediate itchiness Uncoded 11/11/20 23:17 amoxicillin AdvReac Intermediate diarrhea Uncoded 11/11/20 23:17 metformin AdvReac Intermediate diarrhea Uncoded 11/11/20 23:17 Active Medications: Current Medications Generic Name Dose Route Start Last Admin Trade Name Freq PRN Reason Stop Dose Admin Acetaminophen 650 mg 11/12/20 12:44 Acetaminophen 325 Mg Tablet PO Q6H PRN Pain, Mild (Pain Scale 1-3) Aspirin 81 mg 11/13/20 09:00 Aspirin 81 Mg Tab.Chew PO DAILY [facility] Atorvastatin Calcium 80 mg 11/13/20 09:00 Atorvastatin Calcium 80 Mg Tablet PO DAILY [facility] Clopidogrel Bisulfate 75 mg 11/12/20 12:50 Clopidogrel Bisulfate 75 Mg Tablet PO DAILY [facility] Heparin Sodium (Porcine) 5,000 unit 11/12/20 22:00 Heparin Sodium,Porcine 5,000 Unit/Ml Vial SUBCUT Q8H [facility] Hydroxyzine HCl 1,250 mg 11/12/20 21:00 Hydroxyzine Hcl 25 Mg Tablet PO BEDTIME [facility] Insulin Human Lispro 0 unit 11/12/20 16:30 Insulin Lispro 100 Unit/Ml 3 Ml Vial SUBCUT QIDACHS [facility] Protocol Metoprolol Succinate 100 mg 11/13/20 09:00 Metoprolol Succinate Er 100 Mg Tab.Er.24h PO DAILY [facility] Protocol Ondansetron HCl 4 mg 11/12/20 12:44 Ondansetron Hcl 4 Mg/2 Ml Vial IVPUSH Q8H PRN Nausea and Vomiting Pioglitazone HCl 45 mg 11/13/20 09:00 Pioglitazone Hcl 45 Mg Tablet PO DAILY [facility] Sodium Chloride 3 ml 11/12/20 16:00 0.9 % Sodium Chloride Flush 3 Ml Syringe IVFLUSH QSHIFT [facility] Home Medications Medication Instructions Recorded Confirmed Last Taken Type atorvastatin 80 mg tablet 80 mg PO DAILY 02/22/20 11/12/20 11/11/20 21:00 History metoprolol succinate 100 mg 100 mg PO DAILY 02/22/20 11/12/20 11/11/20 08:00 History tablet,extended release 24 hr hydroxyzine HCl 25 mg tablet 50 tab PO BEDTIME 11/12/20 11/12/20 11/11/20 21:00 History Physical Exam Vital Signs and Narrative: Vital Signs: Last Vital Signs Temp 97.8 F 11/12/20 12:03 Pulse 71 11/12/20 12:03 Resp 18 11/12/20 12:03 BP 126/65 11/12/20 12:03 Pulse Ox 98 11/12/20 12:03 Body Mass Index 39.1 Const: Other: Constitutional : Alert, oriented, not in distress Neck : Normal inspection, Supple Cardiovascular : RRR, S1 S2, no lower extremity edema Respiratory : Good bilateral air entry, no crackles, wheezes or rhonchi Gastrointestinal: soft, lax, Normal bowel sounds, Non tender Skin : Warm, Dry Neurological : Alert & oriented x3, right-sided mild weakness, cranial nerves within normal Results Labs CBC and Chem 7: 11/11/20 23:26 11/12/20 01:12 Labs: Laboratory Results - last 24 hr 11/11/20 11/11/20 11/11/20 23:26 23:26 23:26 MCV 86.7 MCH 27.1 MCHC 31.3 RDW 14.1 Plt Count 177 MPV 11.4 Immature Gran % (Auto) 0.3 Neut % (Auto) 35.3 L Lymph % (Auto) 51.2 H Shannon % (Auto) 8.5 Eos % (Auto) 4.3 H Baso % (Auto) 0.4 Lymph # (Auto) 3.6 Shannon # (Auto) 0.6 Eos # (Auto) 0.3 Baso # (Auto) 0.0 Abs Immat Gran (auto) 0.02 Absolute Neuts (auto) 2.5 Absolute Nucleated RBC 0.000 Nucleated RBC % (auto) 0.0 PT 11.9 INR 1.0 Anion Gap Estim Creat Clear Calc Estimated GFR Random Glucose Calcium Total Bilirubin Direct Bilirubin AST ALT Alkaline Phosphatase Troponin I High Sens < 3.5 Total Protein Albumin Urine Color Urine Appearance Urine pH Ur Specific [place] Urine Protein Urine Glucose (UA) Urine Ketones Urine Blood Urine Nitrite Ur Leukocyte Esterase Urine RBC Urine WBC Ur Squamous Epith Cells Calcium Oxalate Crystal Urine Bacteria Urine Mucus Urine Opiates Screen Urine Fentanyl Screen Ur Barbiturates Screen Ur Phencyclidine Scrn Ur Amphetamines Screen U Benzodiazepines Scrn Urine Cocaine Screen U Marijuana (THC) Screen Ethyl Alcohol COVID-19 ([facility]) COVID-19 Clin Com 11/11/20 11/12/20 11/12/20 23:29 01:12 01:13 MCV MCH MCHC RDW Plt Count MPV Immature Gran % (Auto) Neut % (Auto) Lymph % (Auto) Shannon % (Auto) Eos % (Auto) Baso % (Auto) Lymph # (Auto) Shannon # (Auto) Eos # (Auto) Baso # (Auto) Abs Immat Gran (auto) Absolute Neuts (auto) Absolute Nucleated RBC Nucleated RBC % (auto) PT INR Anion Gap 12 Estim Creat Clear Calc 92.8 Estimated GFR 59 Random Glucose 171 H Calcium 9.0 Total Bilirubin 0.7 Direct Bilirubin 0.3 AST 18 ALT 21 Alkaline Phosphatase 55 Troponin I High Sens Total Protein 7.0 Albumin 3.9 Urine Color Urine Appearance Urine pH Ur Specific [place] Urine Protein Urine Glucose (UA) Urine Ketones Urine Blood Urine Nitrite Ur Leukocyte Esterase Urine RBC Urine WBC Ur Squamous Epith Cells Calcium Oxalate Crystal Urine Bacteria Urine Mucus Urine Opiates Screen Urine Fentanyl Screen Ur Barbiturates Screen Ur Phencyclidine Scrn Ur Amphetamines Screen U Benzodiazepines Scrn Urine Cocaine Screen U Marijuana (THC) Screen Ethyl Alcohol < 10 COVID-19 ([facility]) Negative COVID-19 Clin Com See Note 11/12/20 11/12/20 01:13 01:13 MCV MCH MCHC RDW Plt Count MPV Immature Gran % (Auto) Neut % (Auto) Lymph % (Auto) Shannon % (Auto) Eos % (Auto) Baso % (Auto) Lymph # (Auto) Shannon # (Auto) Eos # (Auto) Baso # (Auto) Abs Immat Gran (auto) Absolute Neuts (auto) Absolute Nucleated RBC Nucleated RBC % (auto) PT INR Anion Gap Estim Creat Clear Calc Estimated GFR Random Glucose Calcium Total Bilirubin Direct Bilirubin AST ALT Alkaline Phosphatase Troponin I High Sens Total Protein Albumin Urine Color DARK YELLOW Urine Appearance CLEAR Urine pH 6.0 Ur Specific [place] 1.025 Urine Protein TRACE Urine Glucose (UA) NEG Urine Ketones NEG Urine Blood TRACE Urine Nitrite NEG Ur Leukocyte Esterase NEG Urine RBC 0-2 Urine WBC 0-2 Ur Squamous Epith Cells TRACE Calcium Oxalate Crystal 2+ Urine Bacteria TRACE Urine Mucus 3+ Urine Opiates Screen Not Detected Urine Fentanyl Screen Not Detected Ur Barbiturates Screen Not Detected Ur Phencyclidine Scrn Not Detected Ur Amphetamines Screen Not Detected U Benzodiazepines Scrn Not Detected Urine Cocaine Screen Not Detected U Marijuana (THC) Screen POSITIVE H Ethyl Alcohol COVID-19 ([facility]) COVID-19 Clin Com Imaging Radiologist's Impressions: Impressions Head/Neck CTA 11/11/20 23:22 IMPRESSION: 1. No acute intracranial findings. Chronic infarcts in the posterior left basal ganglia and periventricular region. 2. No hemodynamically significant stenosis in the major arteries of the neck. No large vessel occlusion or significant stenosis in the intracranial circulation. This stroke protocol result was discussed with Dr. Beryl Gan on 11/12/2020 12:16 AM. Brain MRI 11/12/20 05:13 IMPRESSION: 1. There are no acute bleeds or infarcts. There is a small focus of increased diffusion signal in the right centrum semiovale body consistent with a subacute infarct. No masses are demonstrated. 2. There are sequelae of prior infarct adjacent to the trigone of the left lateral ventricle. There are chronic microvascular ischemic changes. There is a lacunar infarct in the left basal ganglia. Assessment and Plan (1) Stroke: Status: Acute 40 years old male with PMH of CVA, diabetes, HTN, obesity among others who presented to the hospital after having a syncopal episode. Subacute stroke Underlying risk factors of obesity, diabetes, HTN and HLD MRI confirm diagnosis as above Secondary prevention with ASA, add Plavix Continue atorvastatin 80 mg To get an echo To get Neurology evaluation Stroke medication PT, OT Type 2 diabetes SSI Diabetic diet HTN continue metoprolol DVT PPX Heparin Quality Stroke Does the patient have a stroke diagnosis?: Yes Reason for No Anti-thrombotic by Day Two: N/A - Med Ordered VTE Prior VTE?: No VTE Risk Level:: Medical - moderate - high VTE Device Contraindication: N/A - Device Ordered VTE Drug Contraindication: N/A - Med Ordered
[2020-11-12] MEDS: Clopidogrel Bisulfate 75 MG TABLET PO (14:02)
[2020-11-12 15:59] LABS: Glucose, Whole Blood 226 mg/dL (60-115)
[2020-11-12] MEDS: Insulin Lispro 100 UNIT/ML 3 ML VIAL SUBCUT ×2 (16:29→21:20)
[2020-11-12] MEDS: 0.9 % Sodium Chloride Flush 3 ML SYRINGE IVFLUSH (17:23)
[2020-11-12 17:38] LABS: Glucose, Whole Blood 167 mg/dL (60-115)
[2020-11-12] MEDS: Metoprolol Succinate ER 100 MG TAB.ER.24H PO (18:32)
[2020-11-12 20:01] LABS: Glucose, Whole Blood 163 mg/dL (60-115)
[2020-11-12] MEDS: Acetaminophen 325 MG TABLET 650 MG PO (21:19)
[2020-11-12] MEDS: hydrOXYzine HCL 25 MG TABLET 50 MG PO (21:19)
[2020-11-12] MEDS: Atorvastatin Calcium 80 MG TABLET PO (21:19)
[2020-11-12] MEDS: Heparin Sodium,Porcine 5,000 UNIT/ML VIAL 5000 UNIT SUBCUT (21:27)
[2020-11-13] VITALS (9 sets, daily range): BP systolic 126–159; BP diastolic 71–82; PULSE 46–70; RESP 15–20; TEMP 36.2–37; O2SAT 95–99
[2020-11-13] MEDS: 0.9 % Sodium Chloride Flush 3 ML SYRINGE IVFLUSH ×3 (00:53→15:56)
[2020-11-13] MEDS: Heparin Sodium,Porcine 5,000 UNIT/ML VIAL 5000 UNIT SUBCUT ×3 (06:29→21:08)
[2020-11-13 07:21] LABS: Glucose, Whole Blood 125 mg/dL (60-115)
[2020-11-13] MEDS: Metoprolol Succinate ER 100 MG TAB.ER.24H PO (07:28)
[2020-11-13] MEDS: Clopidogrel Bisulfate 75 MG TABLET PO (07:28)
[2020-11-13] MEDS: Aspirin 81 MG TAB.CHEW PO (07:29)
[2020-11-13 07:51] LABS: Anion Gap 10 (12-20); Blood Urea Nitrogen 17 mg/dL (9-16); Calcium 8.6 mg/dL (8.4-10.2); Carbon Dioxide 27 mmol/L (22-29); Chloride 107 mmol/L (96-108); Cholesterol 120 mg/dL; Creatinine Clr Calc Pharmacy 105.4; Estimated Glomerular Filt Rate > 60; Glucose Random 125 mg/dL (60-115); HDL Cholesterol 28 mg/dL; LDL Cholesterol Calculated 77 mg/dl; Potassium 4.1 mmol/L (3.3-5.1); Sodium 140 mmol/L (135-145); Triglycerides 77 mg/dL
--- NOTE | 2020-11-13 10:43 | P.CNNE_ITS ---
History of Present Illness Data of Consult Service Date: 11/12/20 Primary Care Provider: Sheeba Smith MD HPI Reason for consult: Stroke 40 years old man with underlying history of hypertension and hyperlipidemia who had a left hemispheric infarct couple of years ago with right-sided weakness. Apparently no significant reason other than hypertension was found for the stroke. He came to hospital with a new set of symptoms thinking that he had another stroke. He said that he took a gummy laced with marijuana and at some point while he was working on his phone he suddenly felt lightheaded and dizzy. His family was around. He got up and continued to have this feeling. Apparently it continued for 15-20 minutes and during that he became unresponsive with a grunting or gurgling sound. Unresponsiveness lasted for about a minute or 2. Family helped him and give him aspirin afterwards. Whole event lasted for about 20 minutes and since then he was having headache. He denied having any significant headaches except that he had a headache when he had stroke and in young age she used to have headaches with right-sided blurred vision. Review of Systems Review of Systems: He used marijuana before this event started. There was no history of trauma. No cardiac symptoms were reported. [facility] Past Medical History Medical History Diabetes Essential hypertension History of stroke Hyperlipidemia LDL goal <70 Obesity due to excess calories Poison ramirez dermatitis Skin lesion Tinea pedis Type 2 diabetes mellitus without complications Family History Family History Father Diabetes Myocardial infarct Mother Diabetes Sister No problems noted. Sister No problems noted. Daughter No problems noted. Son No problems noted. Son No problems noted. Son No problems noted. Son No problems noted. Surgical History Surgical History Hx of vasectomy Social History Social History Household Members: Spouse and Family Housing: House Do you presently have visiting nurse or other home services: No Alcohol intake: never Patient Tobacco Use Status: Never used Tobacco Smoked in Last 30 Days: No Use of substances other than those prescribed or required for medical reasons: No Substance Use Type: Marijuana Substance Use Frequency: Daily Currently Displaying Signs/Symptoms of Drug Intoxication Withdrawal: No Have you been hit, kicked, punched, or otherwise hurt by someone within the past year? If so, by whom?: No Do you feel safe in your current relationship?: Yes Is there a partner from a previous relationship who is making you feel unsafe now?: No Are you made to feel afraid or neglected: No Advance Directives: No Advance Directives Information Provided: No Do you have thoughts of harming others: None Do you have a plan to hurt others: No Plan Recently lost weight without trying: No Nutrition Risks: No Nutritional Risk Meds Allergies Allergy/AdvReac Type Severity Reaction Status Date / Time bee pollen [BEE STINGS] Allergy Intermediate Swelling Verified 11/11/20 23:17 metoclopramide [From REGLAN] AdvReac Intermediate MUSCLE Verified 11/11/20 23:17 SPASMS dulaglutide [From Trulicity] AdvReac Diarrhea Verified 11/11/20 23:17 cymbalta Allergy Intermediate twitching Uncoded 11/11/20 23:17 Ketoconazole Allergy Intermediate urticaria Uncoded 11/11/20 23:17 lisinopril Allergy Intermediate cough Uncoded 11/11/20 23:17 tramadol Allergy Intermediate itchiness Uncoded 11/11/20 23:17 amoxicillin AdvReac Intermediate diarrhea Uncoded 11/11/20 23:17 metformin AdvReac Intermediate diarrhea Uncoded 11/11/20 23:17 Active Medications: Current Medications Generic Name Dose Route Start Last Admin Trade Name Freq PRN Reason Stop Dose Admin Acetaminophen 650 mg 11/12/20 12:44 11/12/20 21:19 Acetaminophen 325 Mg Tablet PO 650 mg Q6H PRN Administration Pain, Mild (Pain Scale 1-3) Aspirin 81 mg 11/13/20 09:00 11/13/20 07:29 Aspirin 81 Mg Tab.Chew PO 81 mg DAILY [facility] Administration Atorvastatin Calcium 80 mg 11/13/20 21:00 11/12/20 21:19 Atorvastatin Calcium 80 Mg Tablet PO 80 mg BEDTIME [facility] Administration Clopidogrel Bisulfate 75 mg 11/12/20 12:50 11/13/20 07:28 Clopidogrel Bisulfate 75 Mg Tablet PO 75 mg DAILY [facility] Administration Heparin Sodium (Porcine) 5,000 unit 11/12/20 22:00 11/13/20 06:29 Heparin Sodium,Porcine 5,000 Unit/Ml Vial SUBCUT 5,000 unit Q8H [facility] Administration Hydroxyzine HCl 50 mg 11/12/20 21:00 11/12/20 21:19 Hydroxyzine Hcl 25 Mg Tablet PO 50 mg BEDTIME [facility]END[facility] Administration Insulin Human Lispro 0 unit 11/12/20 16:30 11/13/20 07:24 Insulin Lispro 100 Unit/Ml 3 Ml Vial SUBCUT Not Given QIDACHS [facility] Protocol Metoprolol Succinate 100 mg 11/13/20 09:00 11/13/20 07:28 Metoprolol Succinate Er 100 Mg Tab.Er.24h PO 100 mg DAILY [facility] Administration Protocol Ondansetron HCl 4 mg 11/12/20 12:44 Ondansetron Hcl 4 Mg/2 Ml Vial IVPUSH Q8H PRN Nausea and Vomiting Sodium Chloride 3 ml 11/12/20 16:00 11/13/20 10:26 0.9 % Sodium Chloride Flush 3 Ml Syringe IVFLUSH 3 ml QSHIFT [facility] Administration Home Medications Medication Instructions Recorded Confirmed Last Taken Type atorvastatin 80 mg tablet 80 mg PO DAILY 02/22/20 11/12/20 11/11/20 21:00 History metoprolol succinate 100 mg 100 mg PO DAILY 02/22/20 11/12/20 11/11/20 08:00 History tablet,extended release 24 hr hydroxyzine HCl 25 mg tablet 50 mg PO BEDTIME 11/12/20 11/12/20 11/11/20 21:00 History Physical Exam Vital Signs: Vital Signs: Last Vital Signs Temp 98.6 F 11/13/20 07:33 Pulse 57 11/13/20 07:33 Resp 20 11/13/20 07:33 BP 126/71 11/13/20 07:33 Pulse Ox 97 11/13/20 07:33 Body Mass Index 39.1 Neuro: Other: He was alert and awake with normal spontaneity of speech fluency comprehension and affect. Pupils were round reactive to light. Extraocular muscles were intact. Visual yoon are full to confrontation. Face was symmetrical. There was no obvious focal weakness. Results Labs CBC & Chem 7: 11/11/20 23:26 11/13/20 06:23 Labs: BMP 11/13/20 06:23 Sodium 140 Potassium 4.1 Chloride 107 Carbon Dioxide 27 BUN 17 H Creatinine 1.18 Calcium 8.6 His noncontrast MRI of brain did not reveal any significant abnormality to suggest acute infarct. Radiologist suggested a right-sided lesion but I was not convinced that that was convincing enough to call it a new lesion. His MRI was compared to his previous MRI and few microvascular ischemic changes type of stroke in the past and a larger 1 in left hemisphere was noted. CTA did not rev eal any significant vascular lesion. EKG revealed PSC. Assessment and Plan (1) Near syncope: Status: Acute 40 years old man with underlying history of hypertension and treated hypercholesterolemia had a left hemispheric infarct in 2019 resulting in right- sided weakness but with almost complete resolution of symptoms. His MRI at that time had revealed few smaller ischemic lesions typically seen with hypertension. He also reported having episodes and young age that were suggestive of migraine with aura or complex migraine. This time he came to hospital with new onset of lightheadedness and dizziness after eating marijuana laced gummy. Few minutes later he was standing with the family when he was noted to have a gurgling or grunting sound and then he passed out for a minute or 2. After that he had headache that continued to next day. His MRI of brain did not reveal any acute infarct and reveal same lesions noted before. CTA did not reveal any vascular changes. EKG was okay. His blood pressure was not fully control. As far as this episode is concerned, it could be syncopal episode somehow triggered by what he took. Other possibilities would include a subsequent migraine or a seizure. Overall history was not suggestive of a stroke. My recommendation is this time is to inform him to not use any drugs of abuse including marijuana, have an outpatient electroencephalogram, continue anti-platelet agent and statin but pay more attention to blood pressure control. (2) Headache: Status: Acute Procedures Date of Service Date of Service: 11/13/20
--- NOTE | 2020-11-13 11:06 | MHC.CM.PN ---
DC PLAN HOME NO SERVCEIS PT IS INDEPENDT LIVES WITH ,HAS OWN TRANSPORTATION HOME
[2020-11-13 11:32] LABS: Glucose, Whole Blood 211 mg/dL (60-115)
--- NOTE | 2020-11-13 11:41 | PM.CNCAR ---
History of Present Illness History of Present Illness Date of Service: 11/13/20 Requesting physician: Radha Kumar Chief complaint: bradycardia, dizziness Narrative: 40-year-old gentleman with background history of stroke in 2019, diabetes and hypertension who is presenting with episode of dizziness and syncope. He said he ate dinner and then had marijuana laced gummy which she has been using for few months to help him relax and sleep. He said after that he was playing his game on his phone and started feeling somewhat lightheaded and had a mild headache. He said he started walking and felt dizzy at some stage he passed out. The said she was in the room and she did not notice any seizure activity. He on the [employer] service and was in the sun all week with the recent heat wave. He has been seen by Neurology who does not feel the presentation is due to stroke. Telemetry has shown bradycardia at times in 40s to 50s. In his sleep he is in 30s. Denying any symptoms right now. When he walks his heart rate goes up to 80s. No chest discomfort shortness of breath. He takes Toprol-XL 100 mg once a day as well as hydroxyzine at bedtime. [facility] Past Medical History Medical History Diabetes Essential hypertension History of stroke Hyperlipidemia LDL goal <70 Obesity due to excess calories Poison ramirez dermatitis Skin lesion Tinea pedis Type 2 diabetes mellitus without complications Family History Family History Father Diabetes Myocardial infarct Mother Diabetes Sister No problems noted. Sister No problems noted. Daughter No problems noted. Son No problems noted. Son No problems noted. Son No problems noted. Son No problems noted. Surgical History Surgical History Hx of vasectomy Social History Social History Household Members: Spouse and Family Housing: House Do you presently have visiting nurse or other home services: No Alcohol intake: never Patient Tobacco Use Status: Never used Tobacco Smoked in Last 30 Days: No Use of substances other than those prescribed or required for medical reasons: No Substance Use Type: Marijuana Substance Use Frequency: Daily Currently Displaying Signs/Symptoms of Drug Intoxication Withdrawal: No Have you been hit, kicked, punched, or otherwise hurt by someone within the past year? If so, by whom?: No Do you feel safe in your current relationship?: Yes Is there a partner from a previous relationship who is making you feel unsafe now?: No Are you made to feel afraid or neglected: No Advance Directives: No Advance Directives Information Provided: No Do you have thoughts of harming others: None Do you have a plan to hurt others: No Plan Recently lost weight without trying: No Nutrition Risks: No Nutritional Risk service: No Meds Allergies Allergy/AdvReac Type Severity Reaction Status Date / Time bee pollen [BEE STINGS] Allergy Intermediate Swelling Verified 11/11/20 23:17 metoclopramide [From REGLAN] AdvReac Intermediate MUSCLE Verified 11/11/20 23:17 SPASMS dulaglutide [From Trulicity] AdvReac Diarrhea Verified 11/11/20 23:17 cymbalta Allergy Intermediate twitching Uncoded 11/11/20 23:17 Ketoconazole Allergy Intermediate urticaria Uncoded 11/11/20 23:17 lisinopril Allergy Intermediate cough Uncoded 11/11/20 23:17 tramadol Allergy Intermediate itchiness Uncoded 11/11/20 23:17 amoxicillin AdvReac Intermediate diarrhea Uncoded 11/11/20 23:17 metformin AdvReac Intermediate diarrhea Uncoded 11/11/20 23:17 Active Medications: Current Medications Generic Name Dose Route Start Last Admin Trade Name Freq PRN Reason Stop Dose Admin Acetaminophen 650 mg 11/12/20 12:44 11/12/20 21:19 Acetaminophen 325 Mg Tablet PO 650 mg Q6H PRN Administration Pain, Mild (Pain Scale 1-3) Aspirin 81 mg 11/13/20 09:00 11/13/20 07:29 Aspirin 81 Mg Tab.Chew PO 81 mg DAILY WENDY Administration Clopidogrel Bisulfate 75 mg 11/12/20 12:50 11/13/20 07:28 Clopidogrel Bisulfate 75 Mg Tablet PO 75 mg DAILY WENDY Administration Heparin Sodium (Porcine) 5,000 unit 11/12/20 22:00 11/13/20 06:29 Heparin Sodium,Porcine 5,000 Unit/Ml Vial SUBCUT 5,000 unit Q8H WENDY Administration Hydroxyzine HCl 50 mg 11/12/20 21:00 11/12/20 21:19 Hydroxyzine Hcl 25 Mg Tablet PO 50 mg BEDTIME WENDY Administration Insulin Human Lispro 0 unit 11/12/20 16:30 11/13/20 07:24 Insulin Lispro 100 Unit/Ml 3 Ml Vial SUBCUT Not Given QIDACHS [facility] Protocol Metoprolol Succinate 100 mg 11/13/20 09:00 11/13/20 07:28 Metoprolol Succinate Er 100 Mg Tab.Er.24h PO 100 mg DAILY WENDY Administration Protocol Ondansetron HCl 4 mg 11/12/20 12:44 Ondansetron Hcl 4 Mg/2 Ml Vial IVPUSH Q8H PRN Nausea and Vomiting Sodium Chloride 3 ml 11/12/20 16:00 11/13/20 10:26 0.9 % Sodium Chloride Flush 3 Ml Syringe IVFLUSH 3 ml QSHIFT [facility] Administration Home Medications Medication Instructions Recorded Confirmed Last Taken Type atorvastatin 80 mg tablet 80 mg PO DAILY 02/22/20 11/12/20 11/11/20 21:00 History metoprolol succinate 100 mg 100 mg PO DAILY 02/22/20 11/12/20 11/11/20 08:00 History tablet,extended release 24 hr hydroxyzine HCl 25 mg tablet 50 mg PO BEDTIME 11/12/20 11/12/20 11/11/20 21:00 History Physical Exam Vital Signs: Vital Signs: Last Vital Signs Temp 98.6 F 11/13/20 07:33 Pulse 57 11/13/20 07:33 Resp 20 11/13/20 07:33 BP 126/71 11/13/20 07:33 Pulse Ox 97 11/13/20 07:33 Body Mass Index 39.1 GENERAL APPEARANCE: in no acute distress, pleasant. NECK: no carotid bruit, no jugular venous distention. SKIN: no suspicious lesions, warm and dry. HEART: no murmurs, regular rate and rhythm. LUNGS: clear to auscultation bilaterally. ABDOMEN: soft, nontender. EXTREMITIES: no edema. PERIPHERAL PULSES: equal. NEUROLOGIC: No gross deficits, AAO X 3 Results Labs and Meds Result diagrams: 11/11/20 23:26 11/13/20 06:23 Lab results: Laboratory Results - last 24 hr 11/12/20 11/12/20 11/12/20 15:52 17:35 19:50 Sodium Potassium Chloride Carbon Dioxide Anion Gap BUN Creatinine Estim Creat Clear Calc Estimated GFR POC Glucose 226 H 167 H 163 H Random Glucose Calcium Triglycerides Cholesterol LDL Cholesterol, Calc HDL Cholesterol 11/13/20 11/13/20 11/13/20 06:23 07:18 11:28 Sodium 140 Potassium 4.1 Chloride 107 Carbon Dioxide 27 Anion Gap 10 L BUN 17 H Creatinine 1.18 Estim Creat Clear Calc 105.4 Estimated GFR > 60 POC Glucose 125 H 211 H Random Glucose 125 H Calcium 8.6 Triglycerides 77 Cholesterol 120 LDL Cholesterol, Calc 77 HDL Cholesterol 28 Assessment and Plan (1) Near syncope: Status: Acute (2) Sinus bradycardia: Status: Acute 40-year-old gentleman who is presenting for dizziness and noticed to be bradycardic. He is on Toprol-XL 100 mg as well as hydroxyzine at bedtime. His presentation is unlikely due to bradycardia. He has been in the sun a lot and there was a he would favor recently. One possibility can be dehydration. I think we should check orthostatic vital signs and document them. If he truly has orthostasis and he should have fluid resuscitation. I think his Toprol-XL dose should be decreased to 50 mg once a day. He will monitor on telemetry for any heart block. Currently only thing noticed on telemetry is sinus bradycardia which responds to exercise. ECHO tomorrow. Thank you for allowing me to participate in the care of your patient. Please feel free to contact me if you have any questions. Procedures Date of Service Date of Service: 11/13/20
[2020-11-13] MEDS: Insulin Lispro 100 UNIT/ML 3 ML VIAL SUBCUT ×2 (11:49→16:52)
--- NOTE | 2020-11-13 12:46 | P.PNIM_ITS ---
Subjective Subjective Date of Service: 11/13/20 Interval History: The patient was seen and evaluated this morning Laying in bed, feels comfortable overall with no focal weakness reported No recurrence of the near-syncope experience Denies any fever, chills or shortness of breath No reported other overnight events. Systemic review: No fever, chills or weakness No chest pain, palpitation No shortness of breath or coughing No abdominal pain, nausea or vomiting No urinary symptoms No any rash or wounds Physical Exam Vital Signs: Vital Signs: Last Vital Signs Temp 98.6 F 11/13/20 07:33 Pulse 57 11/13/20 07:33 Resp 20 11/13/20 07:33 BP 126/71 11/13/20 07:33 Pulse Ox 97 11/13/20 07:33 Body Mass Index 39.1 Const: Other: Constitutional : Alert, oriented, not in distress Neck : Normal inspection, Supple Cardiovascular : RRR, S1 S2, no lower extremity edema Respiratory : Good bilateral air entry, no crackles, wheezes or rhonchi Gastrointestinal: soft, lax, Normal bowel sounds, Non tender Skin : Warm, Dry Neurological : Alert & oriented x3, no focal weakness, nerves within normal Objective Data Current Medications Generic Name Dose Route Start Last Admin Trade Name Freq PRN Reason Stop Dose Admin Acetaminophen 650 mg 11/12/20 12:44 11/12/20 21:19 Acetaminophen 325 Mg Tablet PO 650 mg Q6H PRN Administration Pain, Mild (Pain Scale 1-3) Aspirin 81 mg 11/13/20 09:00 11/13/20 07:29 Aspirin 81 Mg Tab.Chew PO 81 mg DAILY WENDY Administration Clopidogrel Bisulfate 75 mg 11/12/20 12:50 11/13/20 07:28 Clopidogrel Bisulfate 75 Mg Tablet PO 75 mg DAILY WENDY Administration Heparin Sodium (Porcine) 5,000 unit 11/12/20 22:00 11/13/20 06:29 Heparin Sodium,Porcine 5,000 Unit/Ml Vial SUBCUT 5,000 unit Q8H WENDY Administration Hydroxyzine HCl 50 mg 11/12/20 21:00 11/12/20 21:19 Hydroxyzine Hcl 25 Mg Tablet PO 50 mg BEDTIME WENDY Administration Insulin Human Lispro 0 unit 11/12/20 16:30 11/13/20 11:49 Insulin Lispro 100 Unit/Ml 3 Ml Vial SUBCUT 4 unit QIDACHS WENDY Administration Protocol Metoprolol Succinate 100 mg 11/13/20 09:00 11/13/20 07:28 Metoprolol Succinate Er 100 Mg Tab.Er.24h PO 100 mg DAILY [facility] Administration Protocol Ondansetron HCl 4 mg 11/12/20 12:44 Ondansetron Hcl 4 Mg/2 Ml Vial IVPUSH Q8H PRN Nausea and Vomiting Sodium Chloride 3 ml 11/12/20 16:00 11/13/20 10:26 0.9 % Sodium Chloride Flush 3 Ml Syringe IVFLUSH 3 ml QSHIFT [facility] Administration Labs CBC & Chem 7: 11/11/20 23:26 11/13/20 06:23 Labs: Laboratory Results - last 24 hr 11/12/20 11/12/20 11/12/20 15:52 17:35 19:50 Anion Gap Estim Creat Clear Calc Estimated GFR POC Glucose 226 H 167 H 163 H Random Glucose Calcium Triglycerides Cholesterol LDL Cholesterol, Calc HDL Cholesterol 11/13/20 11/13/20 11/13/20 06:23 07:18 11:28 Anion Gap 10 L Estim Creat Clear Calc 105.4 Estimated GFR > 60 POC Glucose 125 H 211 H Random Glucose 125 H Calcium 8.6 Triglycerides 77 Cholesterol 120 LDL Cholesterol, Calc 77 HDL Cholesterol 28 Assessment and Plan (1) Near syncope: Status: Acute (2) Sinus bradycardia: Status: Acute (3) Headache: Status: Acute Assessment and Plan: 40 years old male with PMH of CVA, diabetes, HTN, obesity among others who presented to the hospital after having a syncopal episode. Near-syncope Underlying risk factors of obesity, diabetes, HTN and HLD Neurologist Dr. Nicholson reviewed MRI and does not think there is a new stroke Secondary prevention with ASA and statin To get an echo Neurology input appreciated, could be secondary to cardiac or related elevated temperature, migraine but no stroke Cardiology input appreciated, decrease metoprolol and check orthostatics pending echo Stroke medication PT, OT Sinus bradycardia Likely result of beta-amisha To decrease the dose Monitor on tele Type 2 diabetes SSI Diabetic diet HTN continue metoprolol DVT PPX Heparin Quality Stroke Does the patient have a stroke diagnosis?: Yes Reason for No Anti-thrombotic by Day Two: N/A - Med Ordered VTE Prior VTE?: No VTE Risk Level:: Medical - moderate - high VTE Device Contraindication: N/A - Device Ordered VTE Drug Contraindication: N/A - Med Ordered
[2020-11-13 16:24] LABS: Glucose, Whole Blood 155 mg/dL (60-115)
[2020-11-13] MEDS: Acetaminophen 325 MG TABLET 650 MG PO (19:07)
[2020-11-13 20:40] LABS: Glucose, Whole Blood 140 mg/dL (60-115)
[2020-11-13] MEDS: hydrOXYzine HCL 25 MG TABLET 50 MG PO (21:08)
[2020-11-13] MEDS: Atorvastatin Calcium 80 MG TABLET PO (22:33)
[2020-11-14] VITALS (7 sets, daily range): BP systolic 138–194; BP diastolic 63–117; PULSE 50–76; RESP 18–20; TEMP 36.3–37; O2SAT 98–99
[2020-11-14] MEDS: 0.9 % Sodium Chloride Flush 3 ML SYRINGE IVFLUSH ×2 (00:47→07:59)
[2020-11-14] MEDS: diphenhydrAMINE HCL 50 MG/ML VIAL 25 MG IVPUSH (01:15)
[2020-11-14] MEDS: Aspirin 81 MG TAB.CHEW PO (07:55)
[2020-11-14] MEDS: Clopidogrel Bisulfate 75 MG TABLET PO (07:56)
[2020-11-14 08:09] LABS: Glucose, Whole Blood 145 mg/dL (60-115)
--- NOTE | 2020-11-14 10:00 | CA_ITS ---
Transthoracic Echocardiogram Patient (Last, First, Middle): Robin Rivera L Gender: Male Date of : 1980 Age: 40 Procedure Date: 11/14/2020 Procedure Type: Transthoracic Echocardiogram Location: [facility] [place] Height: 175.26 cm Weight: 120.2 kg BSA: 2.33 m2 Heart Rate: bpm BP: 138 / 63 mmHg Associate Professor Of Chemistry: Referring MD: Radha Kumar MD Carrier Driver: Nelson Last MD Symptoms: Evaluate for stroke Study Quality: Fair ECG Rhythm: Sinus Conclusions: - Normal study with no evidence of PFO Findings Procedure Information Contrast agent, definity, is being given per protocol without apparent complications. Left Ventricle Normal left ventricular size, thickness, and systolic function. The visually estimated ejection fraction is between 60-65%. There is no evidence of regional wall motion abnormalities. Diastolic function is normal for age. Right Ventricle Normal right ventricular cavity size and systolic function. Atria The left atrium is normal in size. There is no evidence of interatrial shunt by agitated saline. The right atrium is normal in size. Aortic Valve Normal aortic valve structure and function. There is no aortic valve stenosis. There is no aortic valve regurgitation. Mitral Valve Normal mitral valve structure and function. There is trace mitral valve regurgitation. There is no mitral valve stenosis. Pulmonic Valve The pulmonic valve is likely normal. Tricuspid Valve Likely normal tricuspid valve structure and function. There is trace tricuspid valve regurgitation. The right ventricular systolic pressure is normal. The right ventricular systolic pressure is 21 mmHg. Normal right atrial pressure. There is no evidence of pulmonary hypertension. Great Vessels All visible segments of the aorta are normal in size. The pulmonary artery was not well visualized. Venous The inferior vena cava is normal in size and collapses greater than 50% with inspiration. Pericardium/Pleural There is no evidence of pericardial effusion. Prior Study Comparison No significant change compared to prior study dated: 02/02/2019. Measurements 2D Linear Measurements IVSd: 1.06 0.6-0.9/0.6-1.0 cm LVIDd: 5.13 3.9-5.3/4.2-5.9 cm LVIDd Index: 2.20 2.4-3.2/2.2-3.1 cm/m2 LVIDs: 3.11 2.0-3.6 cm LVPWd: 1.04 0.7-1.1 cm Ao Root: 3.50 2.1-3.5 cm LA Diam: 4.30 2.7-3.8/3.0-4.0 cm LAIDs Index: 1.85 1.5-2.3 cm/m2 LV Mass: 252.64 67-162/88-224 g LV Mass Index: 108.43 43-95/49-115 g/m2 LVOT Diam: 2.20 3.0+(-)1.3 cm Mitral Valve MV Pk E: 0.86 MV PK A: 0.62 MV Decel Time: 251.00 E/A: 1.40 E'Medial: 9.79 E/E' Med: 8.80 PHT: 74.00 MVA PHT: 2.97 Decel Cole: 3.41 Aortic Valve AoV Pk Laureano: 1.71 AoV Mn Laureano: 1.00 AoV VTI: 0.41 AoV Pk Grad: 12.00 Aov Mn Grad: 5.00 NITIN Cont.VTI: 2.17 LVOT LVOT Pk Laureano: 1.05 LVOT Mn Laureano: 0.66 LVOT VTI: 0.23 LVOT Pk Grad: 4.00 LVOT Mn Grad: 2.00 LVOT Diam: 2.20 LVOT Area: 3.80 Diastolic Function MV Pk E: 0.86 MV Pk A: 0.62 E/A: 1.40 E'Medial: 9.79 E/E' Med: 8.80 Tricuspid Valve TR Pk Laureano: 2.11 TR Pk Grad: 18.00 RA Press: 3.00 RVSP: 21.00 Great Vessels Aorta Ao Root-2D: 3.50 2.0-3.7 cm Pulmonary Valve PV Pk Laureano: 1.26 Peak PV Grad: 6.00 Updated in Other Vendor System with Status of Final Nelson Last MD electronically signed on 11/14/2020 3:57:46 PM with status of Final
--- NOTE | 2020-11-14 11:11 | PM.PNCARD ---
Subjective Subjective Date of Service: 11/14/20 Principal diagnosis: Syncope Interval history: Patient overnight noted to have mild bradycardia with heart rate in the 50s. His metoprolol 50 mg withheld this morning. Blood pressure is slightly elevated. There is concern about possible subacute infarct on the brain MRI. Neurology input reviewed. Patient is confused about his recurrent stroke. Review of Systems Review of Systems Yes all other systems are reviewed and are negative Physical Exam Vital Signs: Last Vital Signs Temp 97.7 F 11/14/20 07:40 Pulse 55 11/14/20 10:04 Resp 20 11/14/20 07:40 BP 143/69 H 11/14/20 10:04 Pulse Ox 98 11/14/20 07:40 Body Mass Index 39.1 Const General: cooperative, comfortable, alert and awake Nutritional Appearance: obese Orientation/consciousness: patient oriented x3 Neck Neck: Yes trachea midline, Yes supple and Yes no JVD Resp Effort & Inspection: normal respiratory effort Auscultation: clear to auscultation bilaterally Cardio Jugular venous distension: no JVD Palpation: normal PMI Rate: regular rate Rhythm: regular rhythm Heart sounds: S1 normal heart sound present, S2 normal heart sound present, no click, no gallops and no murmurs GI Auscultation: normal bowel sounds Neuro General: patient oriented x3 and no focal motor deficits Extrem General: Yes no clubbing, cyanosis or edema Results Labs and Meds Result diagrams: 11/11/20 23:26 11/13/20 06:23 Lab results: Laboratory Results - last 24 hr 11/13/20 11/13/20 11/13/20 11:28 16:20 20:37 POC Glucose 211 H 155 H 140 H 11/14/20 07:39 POC Glucose 145 H Progress Note: A&P Assessment and plan (1) Near syncope: Status: Acute Assessment and Plan: Patient present with near syncope/syncope. This appears to be more related to orthostatic hypotension/vasovagal reaction. Probably contributed by dehydration. Advised to maintain adequate hydration when he is working especially in hot environments. He understands and agrees. If persists with symptoms, may require further workup with tilt-table testing as outpatient. Will also set up for outpatient Holter monitor for sinus bradycardia. See below. (2) Sinus bradycardia: Status: Acute Assessment and Plan: Patient sinus bradycardia which is asymptomatic. Not a cause for syncope. Reduce metoprolol XL to 25 mg daily. Outpatient Holter monitor as above. Advised to monitor blood pressures outpatient if has elevated blood pressure may add alternative medications such as Diovan/Norvasc to his regimen for better blood pressure control. (3) CVA (cerebral vascular accident): Status: Acute Assessment and Plan: Prior history of CVA with multiple lesions. This raises the concern for possible embolic source. Schedule for echocardiogram with saline bubble contrast. May even pursue CRISTOFER as outpatient. Consider implantable loop recorder if Holter monitor is unrevealing. Will follow with the patient as outpatient. Fall Risk Details Current Medications: Current Medications Generic Name Dose Route Start Last Admin Trade Name Freq PRN Reason Stop Dose Admin Acetaminophen 650 mg 11/12/20 12:44 11/13/20 19:07 Acetaminophen 325 Mg Tablet PO 650 mg Q6H PRN Administration Pain, Mild (Pain Scale 1-3) Aspirin 81 mg 11/13/20 09:00 11/14/20 07:55 Aspirin 81 Mg Tab.Chew PO 81 mg DAILY WENDY Administration Atorvastatin Calcium 80 mg 11/13/20 22:25 11/13/20 22:33 Atorvastatin Calcium 80 Mg Tablet PO 80 mg BEDTIME WENDY Administration Heparin Sodium (Porcine) 5,000 unit 11/12/20 22:00 11/14/20 05:34 Heparin Sodium,Porcine 5,000 Unit/Ml Vial SUBCUT Not Given Q8H WENDY Hydroxyzine HCl 50 mg 11/12/20 21:00 11/13/20 21:08 Hydroxyzine Hcl 25 Mg Tablet PO 50 mg BEDTIME WENDY Administration Insulin Human Lispro 0 unit 11/12/20 16:30 11/14/20 07:59 Insulin Lispro 100 Unit/Ml 3 Ml Vial SUBCUT Not Given QIDACHS WENDY Protocol Metoprolol Succinate 25 mg 11/15/20 09:00 Metoprolol Succinate Er 25 Mg Tab.Er.24h PO DAILY WENDY Protocol Ondansetron HCl 4 mg 11/12/20 12:44 Ondansetron Hcl 4 Mg/2 Ml Vial IVPUSH Q8H PRN Nausea and Vomiting Sodium Chloride 3 ml 11/12/20 16:00 11/14/20 07:59 0.9 % Sodium Chloride Flush 3 Ml Syringe IVFLUSH 3 ml QSHIFT WENDY Administration Time Spent With Patient Time: Total time spent is greater than 50% in coordination of care (as documented) at patient's floor/unit and/or counseling patient: Time with patient: 25 - 35 minutes Progress Note: Quality Stroke Does the patient have a stroke diagnosis?: Yes Reason for No Anti-thrombotic by Day Two: N/A - Med Ordered Procedures Date of Service Date of Service: 11/14/20
[2020-11-14 13:32] LABS: Glucose, Whole Blood 200 mg/dL (60-115)
--- NOTE | 2020-11-14 13:38 | MHC.CM.PN ---
Patient has not yet been medically cleared for dc (Mild Bradycardia overnight, BP slightly elevated). Home is the goal for dc and CM will continue to follow for possible need to adjust the dc plan.
[2020-11-14] MEDS: Metoprolol Succinate ER 25 MG TAB.ER.24H PO (13:42)
[2020-11-14] MEDS: amLODIPine Besylate 5 MG TABLET PO (13:42)
[2020-11-14] MEDS: Heparin Sodium,Porcine 5,000 UNIT/ML VIAL 5000 UNIT SUBCUT (13:43)
[2020-11-14] MEDS: Insulin Lispro 100 UNIT/ML 3 ML VIAL SUBCUT (13:43)
[2020-11-14 16:12] LABS: Glucose, Whole Blood 230 mg/dL (60-115)
--- NOTE | 2020-11-14 16:28 | P.DS_ITS ---
DS: Providers Provider Date of Service: 11/14/20 Date of admission: 11/12/20 12:45 Primary care physician: Sheeba Smith MD Consults: 11/12/20 12:45 Consult to Neurology Routine Consulting Provider: Elena Nicholson Reason for consultation: Subacute stroke 11/13/20 10:59 Consult to Cardiology Routine Consulting Provider: Dario Ewing Reason for consultation: Near syncope episode, for your kind eval. DS: Diagnosis Discharge Diagnosis (1) Near syncope: Status: Acute (2) Sinus bradycardia: Status: Acute DS: Medications Discharge Medications Home Medications: Home Medications Medication Instructions Recorded Confirmed atorvastatin 80 mg tablet 80 mg PO DAILY 02/22/20 11/12/20 hydroxyzine HCl 25 mg tablet 50 mg PO BEDTIME 11/12/20 11/12/20 Previous Rx's Medication Instructions Recorded aspirin 81 mg chewable tablet 81 mg PO DAILY 90 Days #90 tab 02/13/20 pioglitazone 45 mg tablet 45 mg PO DAILY 90 Days #90 tab 10/17/20 amlodipine 5 mg tablet 5 mg PO DAILY 30 Days #30 tab 11/14/20 metoprolol succinate 25 mg 25 mg PO DAILY 30 Days #30 tab 11/14/20 tablet,extended release 24 hr DS: Summary Hospital Course Hospital Course: Admission note HPI 40 years old male with PMH of CVA, diabetes, HTN, obesity among others who presented to the hospital after having a syncopal episode. The patient reports feeling unwell for the last 2 days with episodes of dizziness and lightheadedness.? 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 This morning when he woke up he felt again dizzy and unsteady and called his for held.? When she got there he was very sweaty and he collapse became almost syncopized for a minute with no abnormal movement or loss of sphincter control.? He denies any focal deficit and report he is feeling to normal but overall weakness and afraid of standing for possible dizziness. He reports this is the 2nd time he is going through the same symptoms previously in 2019 which was found to be a stroke at the time with remnant right-sided weakness. The emergency CTA and MRI were done showing subacute stroke. Admitted for further evaluation and treatment. Hospital course Patient was admitted for presumed diagnosis of stroke. started on Plavix on top of Aspirin with high dose steroids. CTA negative for any significant stenosis. Neurology consulted and dr Nicholson does not think the MRI showing a new stroke only the old reported one. His recommendations were to continue ASA and Statin only for secondary prevention. Noticed to have bradycardia as low as 30s mainly at rest and sleeping. Believed to be partially result of Metoprolol home dose which was decreased from 100 to 25 XL. Amlodipine added for BP control. Cardiology recommended outpatient follow up for holter monitoring. Time Spent with Patient Time attestation: Total time spent providing and/or coordinating discharge services: Discharge coordination time: Greater than 30 minutes Quality: Stroke Does the patient have a stroke diagnosis?: No Physical Exam Vital Signs: Vital Signs: Last Vital Signs Temp 97.6 F 11/14/20 15:05 Pulse 50 11/14/20 15:05 Resp 20 11/14/20 15:05 BP 151/72 H 11/14/20 15:05 Pulse Ox 98 11/14/20 15:05 Body Mass Index 39.1 Const: Other: Constitutional : Alert, oriented, not in distress Neck : Normal inspection, Supple Cardiovascular : RRR, S1 S2, no lower extremity edema Respiratory : Good bilateral air entry, no crackles, wheezes or rhonchi Gastrointestinal: soft, lax, Normal bowel sounds, Non tender Skin : Warm, Dry Neurological : Alert & oriented x3, no focal weakness, nerves within normal DS: Data Data Completed and Pending Labs on day of discharge: Laboratory Results - last 24 hr 11/13/20 11/14/20 11/14/20 20:37 07:39 12:53 POC Glucose 140 H 145 H 200 H 11/14/20 16:04 POC Glucose [address] scan - head: Radiologist's impression: ITS Impressions Head/Neck CTA 11/11/20 23:22 IMPRESSION: 1. No acute intracranial findings. Chronic infarcts in the posterior left basal ganglia and periventricular region. 2. No hemodynamically significant stenosis in the major arteries of the neck. No large vessel occlusion or significant stenosis in the intracranial circulation. This stroke protocol result was discussed with Dr. Beryl Gan on 11/12/2020 12:16 AM. Brain MRI 11/12/20 05:13 IMPRESSION: 1. There are no acute bleeds or infarcts. There is a small focus of increased diffusion signal in the right centrum semiovale body consistent with a subacute infarct. No masses are demonstrated. 2. There are sequelae of prior infarct adjacent to the trigone of the left lateral ventricle. There are chronic microvascular ischemic changes. There is a lacunar infarct in the left basal ganglia. Discharge Plan Discharge Patient Disposition: Home, Self-Care Discharge Diagnosis: Near syncope Bradycardia Referrals: Sheeba Reza MD [Primary Care Provider] - 1 Week Discharge Medications: New amlodipine 5 mg Tablet 5 mg PO DAILY 30 Days Qty: 30 RF: 0 metoprolol succinate 25 mg Tablet Extended Release 24 Hr 25 mg PO DAILY 30 Days Qty: 30 RF: 0 Continued aspirin 81 mg tablet,chewable 81 mg PO DAILY 90 Days Qty: 90 RF: 3 pioglitazone 45 mg tablet 45 mg PO DAILY 90 Days Qty: 90 RF: 2 hydroxyzine HCl 25 mg tablet 50 mg PO BEDTIME RF: 0 atorvastatin 80 mg tablet 80 mg PO DAILY RF: 0 Discontinued metoprolol succinate 100 mg tablet extended release 24 hr 100 mg PO DAILY RF: 0 Discharge Orders: Discharge Order (Routine); Ordered 11/14/20 Ordered By: Radha Kumar Diet: advance to usual diet and low salt diet Activity on Discharge: As tolerated Stand Alone Forms: Patient Portal Discharge page Care Plan Goals: Read below Health Concerns: Read below Plan of Treatment: You were admitted to the hospital for evaluation of near syncope episode. MRI images for the brain were concerning for possible stroke. You were evaluated by neurologist dr Nicholson who doesnt think you have a stroke based on his reading for the MRI and your presenting symptoms. ECHO was normal. Your heart rate noted to be slow. evaluated by cosmetic assembler who recommended outpatient follow up for further work up Assessment: Discontinue Metoprolol 100XL Start Amlodipine 5 mg daily with Metoprolol XL 25 mg daily Keep hydrated To follow as outpatient with cardiology office for further work up
== END 2020-11-14 16:52 | disposition home or self-care (01) | DRG 204 ==
LOC: HO.ED 11-12 11:49 → HO.EDOVER 11-12 12:57 → HO.IMC 11-12 14:10
PROVIDERS: Emergency Medicine; Admitting Provider Student in an Organized Health Care Education/Training Program; Emergency Provider Emergency Medicine; PCP Internal Medicine; Visit Provider Student in an Organized Health Care Education/Training Program
DX: R55 Syncope and collapse (principal); I10 Essential (primary) hypertension; R00.1 Bradycardia, unspecified; E78.5 Hyperlipidemia, unspecified; E11.9 Type 2 diabetes mellitus without complications; E66.9 Obesity, unspecified; Z68.39 Body mass index [BMI] 39.0-39.9, adult; T44.7X5A Adverse effect of beta-adrenoreceptor antagonists, initial encounter; Y92.9 Unspecified place or not applicable; Z20.822 Contact with and (suspected) exposure to COVID-19; Z86.73 Personal history of transient ischemic attack (TIA), and cerebral infarction without residual deficits; Z88.0 Allergy status to penicillin; Z88.5 Allergy status to narcotic agent; Z79.899 Other long term (current) drug therapy
CPT/HCPCS: 36415; 70450; 70496; 70498; 70551; 80048; 80061; 80076; 80307; 81001; 81003; 82077; 82947; 84484; 85025; 85610; 87635; 93005; 93306; 96374; 96375; 97162; 97166; 99285; J1200; J1885; J2060; J2405; Q9957; Q9967

== ENCOUNTER → 2020-12-05 11:02 | Outpatient (REF) | payer BC, SELFPAY ==
--- NOTE | 2020-12-05 11:08 | HM_ITS ---
ENROLLMENT PERIOD: From 12/05/2020 to 01/04/2021. REQUESTING PROVIDERS: Nelson Last MD. REASON FOR TEST: Atrial fibrillation. The patient was monitored for a total period of 30 days. Baseline rhythm was normal sinus rhythm with heart rate varying from 62 to 124 beats per minute. There were no atrial fibrillation episode noted. There was 1 episode of PVC noted. The patient reported multiple events of dizziness, which correlated with sinus rhythm. The patient had 1 episode of fluttering correlated with isolated PVCs. The patient's symptoms of chest pain correlated with sinus rhythm. CONCLUSION: 1. Event monitor is remarkable. 2. Baseline normal sinus rhythm. 3. No episodes of atrial fibrillation. 4. One isolated PVCs correlating with patient's symptoms of fluttering. 5. Other patient reported symptoms correlated with sinus rhythm. Nelson Last MD NRS/MODL / [id number]
== END ==
LOC: HO.CARD 11:02
PROVIDERS: PCP Internal Medicine; Visit Provider Internal Medicine Cardiovascular Disease
DX: I48.91 Unspecified atrial fibrillation (principal)
CPT/HCPCS: 93270

== ENCOUNTER → 2020-12-12 11:30 | Outpatient (BNVA) | payer BC, SELFPAY | PROVIDERS: PCP Internal Medicine; Referring Provider Internal Medicine; Visit Provider Internal Medicine Cardiovascular Disease ==

== ENCOUNTER 2020-12-23 09:29 | Emergency (ER) | payer BC, SELFPAY ==
--- NOTE | ~2020-12-23 | CT_ITS ---
EXAMINATION: CT HEAD WITHOUT CONTRAST (STROKE PROTOCOL) CLINICAL INFORMATION: Stroke protocol. Right-sided numbness COMPARISON: Previous head CTA and brain MRI October 2020 TECHNIQUE: Contiguous axial imaging was performed from the skull base to vertex without intravenous administration of contrast. This CT examination was performed using dose optimization techniques as appropriate, variously including the following: *Automated exposure control *Adjustment of mA and/or kV according to patient size (this includes techniques or standardized protocols for targeted exams where dose is matched to indication/reason for exam; i.e. extremities or head) *Use of iterative reconstruction technique DLP: 835 mGy-cm FINDINGS: There is no evidence of an extra-axial collection. There is no evidence of intra or extra-axial hemorrhage. The ventricles and extra-axial CSF spaces are appropriate. There are old left basal ganglia and left periventricular white matter lacunar infarcts that appear unchanged. No mass, mass effect or acute infarct is seen. Review at bone windows is normal. No skull fracture is seen. Paranasal sinuses, mastoid air cells and middle ears are clear. CT/CT head for stroke IMPRESSION: No acute findings. Old left basal ganglia and periventricular white matter lacunar infarcts similar to October 2020 exam. This critical result was discussed with Dr. Bond at 1018 hours on 12/23/2020. It was ascertained that the content and urgency of the report was understood at the time of direct communication.
--- NOTE | ~2020-12-23 | MR_ITS ---
MRI OF THE BRAIN WITHOUT IV CONTRAST INDICATION: Weakness. COMPARISON: Head CT 12/23/2020 and brain MRI 11/12/2020. TECHNIQUE: Multiplanar multisequence MR imaging of the brain was obtained without IV contrast. FINDINGS: There is no hydrocephalus, extra-axial surface collection, or herniation. A chronic left retrolenticular infarct and a chronic lacunar infarct within the left putamen are again noted. There is mild background chronic microangiopathy. The major flow voids at the skull base are preserved. There is no acute infarct on diffusion-weighted imaging. There is no intracranial hemorrhage on the gradient recalled echo acquisition. The midline structures are normal. The cerebellar tonsils are normally positioned. The cerebellum and brainstem are normal. The craniocervical junction is normal. Osseous marrow signal intensity is homogenous. The visualized soft tissues are unremarkable. MR/MR head/brain wo con IMPRESSION: - No acute intracranial findings. No acute infarcts. - A chronic left retrolenticular infarct and a chronic lacunar infarct within the left putamen are again noted. There is mild background chronic microangiopathy.
--- NOTE | 2020-12-23 09:41 | ECG_ITS ---
Test Reason : CHEST PAIN Blood Pressure : / mmHG Vent. Rate : 058 BPM Atrial Rate : 058 BPM P-R Int : 190 ms QRS Dur : 090 ms QT Int : 390 ms P-R-T Axes : 032 063 024 degrees QTc Int : 382 ms Sinus bradycardia Normal ECG When compared with ECG of 11-NOV-2020 23:31, [place] interval has decreased Referred By: Generic ED Physician Electronically Signed By:EVA TYLER MD
--- NOTE | 2020-12-23 09:42 | PC.NURSE ---
EKG DELAYED DUE TO BOTH MACHINES BEING IN USE
[2020-12-23 09:48] VITALS: BP 162/87; PULSE 74; RESP 18; TEMP 36.7; O2SAT 100; BMI 38.0
[2020-12-23 10:02] LABS: Glucose, Whole Blood 131 mg/dL (60-115)
[2020-12-23 10:02] LABS: MANUAL DIFF FLAG NO
[2020-12-23 10:03] LABS: Basophils Percent Auto 0.6 % (0-2); Eosinophils Absolute Auto 0.2 X10*3/uL (0.0-0.4); Eosinophils Percent Auto 2.8 % (0-4); Hematocrit 43.6 % (42-52); Hemoglobin 13.8 g/dl (14.0-18.0); Imm Gran Abs Auto 0.01 X10*3/uL (0.00-0.03); Imm Gran Pct Auto 0.2 % (0.0-0.4); Lymphocytes Percent Auto 36.7 % (20-40); Mean Corpuscular HGB Conc 31.7 g/dl (31.0-36.0); Mean Corpuscular Hemoglobin 26.8 pg (27.0-33.0); Mean Corpuscular Volume 84.7 fL (80-98); Mean Platelet Volume 11.4 fL (9.4-12.4); Monocytes Absolute Auto 0.3 X10*3/uL (0.1-1.2); Monocytes Percent Auto 5.9 % (2-11); Neutrophils Absolute Auto 2.9 X10*3/uL (2.0-8.3); Neutrophils Percent Auto 53.8 % (45-73); Platelet Count 209 X10*3/uL (160-400); Red Blood Count 5.15 X10*6/uL (4.60-5.80); White Blood Count 5.4 X10*3/uL (4.8-10.8)
[2020-12-23 10:08] LABS: INTERNATIONAL NORM RATIO 1.1 (0.9-1.1); Prothrombin Time 12.3 SEC (9.9-13.0)
[2020-12-23 10:26] LABS: Troponin-I High Sensitivity < 3.5 ng/L (<3.5-35.0)
[2020-12-23 10:31] LABS: COVID-19 Test Negative (Negative)
[2020-12-23 10:43] LABS: Alanine Aminotransferase 34 U/L (0-40); Albumin Level 4.3 g/dL (3.5-5.0); Alkaline Phosphatase 61 U/L (39-117); Anion Gap 9 (12-20); Aspartate Amino Transferase 20 U/L (5-37); Bilirubin Total 1.1 mg/dL (0.0-1.0); Blood Urea Nitrogen 15 mg/dL (9-16); Calcium 9.6 mg/dL (8.4-10.2); Carbon Dioxide 31 mmol/L (22-29); Chloride 103 mmol/L (96-108); Creatinine Clr Calc Pharmacy 93.6; Estimated Glomerular Filt Rate > 60; Glucose Random 174 mg/dL (60-115); Potassium 4.2 mmol/L (3.3-5.1); Sodium 139 mmol/L (135-145); Total Protein 7.7 g/dL (6.5-8.0)
--- NOTE | 2020-12-23 10:56 | ED_ITS ---
HPI - Neuro Symptoms/Deficit General Chief Complaint: Stroke Stated Complaint: chest pain Time Seen by Provider: 12/23/20 09:57 History of Present Illness HPI Narrative: 40-year-old male presents today with having tingling sensation to his right hand. Also right chest pain. Patient was sitting at the time has sudden onset of symptoms. Had a previous history of stroke which left him with tingling sensation to that right hand in the past. Patient thinks that it is slightly worse. Came into the ED for further evaluation. He has a history of diabete, hypertension, previous history of CVA. No cough no congestion or upper respiratory symptoms. No diaphoresis. Patient is from home. No nausea no vomiting. No specific trigger. History of similar symptoms in the past. Patient also complaining of headache on the right side of his head. Patient not on blood thinners. Immunized for COVID no cough no congestion no upper respiratory symptoms. Related Data Previous Rx's Medication Instructions Recorded aspirin 81 mg chewable tablet 81 mg PO DAILY 90 Days #90 tab 02/13/20 pioglitazone 45 mg tablet 45 mg PO DAILY 90 Days #90 tab 10/17/20 amlodipine 5 mg tablet 5 mg PO BID 90 Days #180 tab 11/23/20 atorvastatin 80 mg tablet 80 mg PO DAILY 90 Days #90 tab 11/23/20 metoprolol succinate 25 mg 25 mg PO DAILY 90 Days #90 tab 12/04/20 tablet,extended release 24 hr Allergies Allergy/AdvReac Type Severity Reaction Status Date / Time bee pollen [BEE STINGS] Allergy Intermediate Swelling Verified 12/12/20 11:39 metoclopramide [From REGLAN] AdvReac Intermediate MUSCLE Verified 12/12/20 11:39 SPASMS dulaglutide [From Trulicity] AdvReac Diarrhea Verified 12/12/20 11:39 cymbalta Allergy Intermediate twitching Uncoded 12/12/20 11:39 Ketoconazole Allergy Intermediate urticaria Uncoded 12/12/20 11:39 lisinopril Allergy Intermediate cough Uncoded 12/12/20 11:39 tramadol Allergy Intermediate itchiness Uncoded 12/12/20 11:39 amoxicillin AdvReac Intermediate diarrhea Uncoded 12/12/20 11:39 metformin AdvReac Intermediate diarrhea Uncoded 12/12/20 11:39 Review of Systems Review of Systems: Positive tingling sensation to the right hand. No nausea no vomiting No focal weakness Yes all other systems are reviewed and are negative [facility] Past Medical History Attestation statement: The following information was validated with the patient. Medical History CVA (cerebral vascular accident) Diabetes Essential hypertension History of stroke Hyperlipidemia LDL goal <70 Obesity due to excess calories Poison ramirez dermatitis Skin lesion Tinea pedis Type 2 diabetes mellitus without complications Surgical History Hx of vasectomy Family History Family History Father Diabetes Myocardial infarct Mother Diabetes Mental health disorder Sister No problems noted. Sister No problems noted. Daughter No problems noted. Son No problems noted. Son No problems noted. Son No problems noted. Son No problems noted. Social History Social History Household Members: Spouse and Family Housing: House Do you presently have visiting nurse or other home services: No Alcohol intake: never Patient Tobacco Use Status: Never used Tobacco e-Cigarette/Vaping Use: Never Used Second Hand Smoke Exposure: No Use of substances other than those prescribed or required for medical reasons: No Substance Use Type: Marijuana Advance Directives: Yes Advance Directives Information Provided: Yes Advance Directives on File: No service: No Current occupational status: employed Current occupational exposures/hazards: No Physical Exam Vital Signs: Vital Signs: Last Vital Signs Temp 98.0 F 12/23/20 09:48 Pulse 64 12/23/20 11:49 Resp 12 12/23/20 11:49 BP 150/84 H 12/23/20 11:49 Pulse Ox 100 12/23/20 11:49 Body Mass Index 38.0 Appearance: Alert. Oriented X3. No acute distress. Eyes: Pupils equal, round and reactive to light. ENT: Pharynx normal. Neck: Normal inspection. Neck supple. No lymph nodes noted. No crepitus CVS: Normal heart rate and rhythm. Pulses normal. Normal S1 and S2 Respiratory: No respiratory distress. Breath sounds normal. No Wheezing. No rales Abdomen: Soft and nontender. No rigidity. No distention. good BS x4 Skin: Skin warm and dry. Normal skin color. Normal skin turgor. Extremities: No lower extremity edema. Neurovascular intact to all extremities. No Lacerations. No Rash Neuro: Oriented X 3. No motor deficit. No sensory deficit. Moving all extermities. No slurred speech MDM - Neuro Symptoms/Deficit MDM Narrative Medical decision making narrative: 40 years old presented today with have sing some numbness that is similar to previous bouts of CVA. Associated with nonspecific chest tightness that is been ongoing. Two sets of cardiac enzymes are negative. Patient's EKG showed sinus pattern heart rate is 60 LA QRS QT within normal limits. CT scan of the head was grossly negative for any acute evidence of bleeding. MRI of the head done showed no acute evidence of stroke. Patient's neurological exam intact. NIH stroke scale was 0. Symptoms resolved. Will discharge patient home. Patient seems extremely anxious feels very uncomfortable given. Given history of CVA at such an early young age. Patient reassured told to follow up on an outpatient basis. In stable condition Differential Diagnosis Differential diagnosis: Likely cerebrovascular accident Medical Records Attestation: I reviewed the patient's medical records. Lab Data Attestation: I reviewed the patient's lab results. Result diagrams: 12/23/20 09:57 12/23/20 09:57 Labs: Lab Results 12/23/20 12/23/20 12/23/20 Range/Units 09:54 09:57 09:57 WBC 5.4 (4.8-10.8) X10*3/uL RBC 5.15 (4.60-5.80) X10*6/uL Hgb 13.8 L (14.0-18.0) g/dl Hct 43.6 (42-52) % MCV 84.7 (80-98) fL MCH 26.8 L (27.0-33.0) pg MCHC 31.7 (31.0-36.0) g/dl RDW 14.0 (11.0-16.0) % Plt Count 209 (160-400) X10*3/uL MPV 11.4 (9.4-12.4) fL Immature Gran % (Auto) 0.2 (0.0-0.4) % Neut % (Auto) 53.8 (45-73) % Lymph % (Auto) 36.7 (20-40) % Mcduffie % (Auto) 5.9 (2-11) % Eos % (Auto) 2.8 (0-4) % Baso % (Auto) 0.6 (0-2) % Lymph # (Auto) 2.0 (1.2-4.9) X10*3/uL [place]duffie # (Auto) 0.3 (0.1-1.2) X10*3/uL Eos # (Auto) 0.2 (0.0-0.4) X10*3/uL Baso # (Auto) 0.0 (0.0-0.2) X10*3/uL Abs Immat Gran (auto) 0.01 (0.00-0.03) X10*3/uL Absolute Neuts (auto) 2.9 (2.0-8.3) X10*3/uL Absolute Nucleated RBC 0.000 (0.0-0.012) X10*3/uL Nucleated RBC % (auto) 0.0 (0.0-0.2) /100WBC PT 12.3 (9.9-13.0) SEC INR 1.1 (0.9-1.1) Sodium (135-145) mmol/L Potassium (3.3-5.1) mmol/L Chloride (96-108) mmol/L Carbon Dioxide (22-29) mmol/L Anion Gap (12-20) BUN (9-16) mg/dL Creatinine (0.5-1.4) mg/dL Estim Creat Clear Calc Estimated GFR POC Glucose 131 H (60-115) mg/dL Random Glucose (60-115) mg/dL Calcium (8.4-10.2) mg/dL Total Bilirubin (0.0-1.0) mg/dL AST (5-37) U/L ALT (0-40) U/L Alkaline Phosphatase (39-117) U/L Troponin I High Sens (<3.5-35.0) ng/L Total Protein (6.5-8.0) g/dL Albumin (3.5-5.0) g/dL COVID-19 (TELMA) (Negative) COVID-19 Clin Com 12/23/20 12/23/20 12/23/20 Range/Units 09:57 09:57 09:57 WBC (4.8-10.8) X10*3/uL RBC (4.60-5.80) X10*6/uL Hgb (14.0-18.0) g/dl Hct (42-52) % MCV (80-98) fL MCH (27.0-33.0) pg MCHC (31.0-36.0) g/dl RDW (11.0-16.0) % Plt Count (160-400) X10*3/uL MPV (9.4-12.4) fL Immature Gran % (Auto) (0.0-0.4) % Neut % (Auto) (45-73) % Lymph % (Auto) (20-40) % Mcduffie % (Auto) (2-11) % Eos % (Auto) (0-4) % Baso % (Auto) (0-2) % Lymph # (Auto) (1.2-4.9) X10*3/uL [place]duffie # (Auto) (0.1-1.2) X10*3/uL Eos # (Auto) (0.0-0.4) X10*3/uL Baso # (Auto) (0.0-0.2) X10*3/uL Abs Immat Gran (auto) (0.00-0.03) X10*3/uL Absolute Neuts (auto) (2.0-8.3) X10*3/uL Absolute Nucleated RBC (0.0-0.012) X10*3/uL Nucleated RBC % (auto) (0.0-0.2) /100WBC PT (9.9-13.0) SEC INR (0.9-1.1) Sodium 139 (135-145) mmol/L Potassium 4.2 (3.3-5.1) mmol/L Chloride 103 (96-108) mmol/L Carbon Dioxide 31 H (22-29) mmol/L Anion Gap 9 L (12-20) BUN 15 (9-16) mg/dL Creatinine 1.31 (0.5-1.4) mg/dL Estim Creat Clear Calc 93.6 Estimated GFR > 60 POC Glucose (60-115) mg/dL Random Glucose 174 H D (60-115) mg/dL Calcium 9.6 D (8.4-10.2) mg/dL Total Bilirubin 1.1 H (0.0-1.0) mg/dL AST 20 (5-37) U/L ALT 34 (0-40) U/L Alkaline Phosphatase 61 (39-117) U/L Troponin I High Sens < 3.5 (<3.5-35.0) ng/L Total Protein 7.7 (6.5-8.0) g/dL Albumin 4.3 (3.5-5.0) g/dL COVID-19 (TELMA) Negative (Negative) COVID-19 Clin Com See Note 12/23/20 Range/Units 12:58 WBC (4.8-10.8) X10*3/uL RBC (4.60-5.80) X10*6/uL Hgb (14.0-18.0) g/dl Hct (42-52) % MCV (80-98) fL MCH (27.0-33.0) pg MCHC (31.0-36.0) g/dl RDW (11.0-16.0) % Plt Count (160-400) X10*3/uL MPV (9.4-12.4) fL Immature Gran % (Auto) (0.0-0.4) % Neut % (Auto) (45-73) % Lymph % (Auto) (20-40) % [place]duffie % (Auto) (2-11) % Eos % (Auto) (0-4) % Baso % (Auto) (0-2) % Lymph # (Auto) (1.2-4.9) X10*3/uL [place]ff[place] # (Auto) (0.1-1.2) X10*3/uL Eos # (Auto) (0.0-0.4) X10*3/uL Baso # (Auto) (0.0-0.2) X10*3/uL Abs Immat Gran (auto) (0.00-0.03) X10*3/uL Absolute Neuts (auto) (2.0-8.3) X10*3/uL Absolute Nucleated RBC (0.0-0.012) X10*3/uL Nucleated RBC % (auto) (0.0-0.2) /100WBC PT (9.9-13.0) SEC INR (0.9-1.1) Sodium (135-145) mmol/L Potassium (3.3-5.1) mmol/L Chloride (96-108) mmol/L Carbon Dioxide (22-29) mmol/L Anion Gap (12-20) BUN (9-16) mg/dL Creatinine (0.5-1.4) mg/dL Estim Creat Clear Calc Estimated GFR POC Glucose (60-115) mg/dL Random Glucose (60-115) mg/dL Calcium (8.4-10.2) mg/dL Total Bilirubin (0.0-1.0) mg/dL AST (5-37) U/L ALT (0-40) U/L Alkaline Phosphatase (39-117) U/L Troponin I High Sens < 3.5 (<3.5-35.0) ng/L Total Protein (6.5-8.0) g/dL Albumin (3.5-5.0) g/dL COVID-19 (TELMA) (Negative) COVID-19 Clin Com NIH Stroke Scale Internal: Initial- Upon Arrival Level of Consciousness: Alert Level of Consciousness Questions: Answers both questions correctly Level of Consciousness Commands: Performs both tasks correctly Best Gaze: Normal Visual: No visual loss Facial Palsy: Normal Motor Arm (Right): No drift Motor Arm (Left): No drift Motor Leg (Right): No drift Motor Leg (Left): No drift Limb Ataxia: Absent Sensory: Normal Best Language: No aphasia Dysarthia: Normal Extinction and Inattention: No abnormality Score: 0 Discharge Plan Discharge Clinical Impression: CVA (cerebral vascular accident) Patient Disposition: Home, Self-Care Instructions: Ischemic Stroke (DC) Prescriptions: No Action aspirin 81 mg tablet,chewable 81 mg PO DAILY 90 Days Qty: 90 RF: 3 pioglitazone 45 mg tablet 45 mg PO DAILY 90 Days Qty: 90 RF: 2 atorvastatin 80 mg tablet 80 mg PO DAILY 90 Days Qty: 90 RF: 2 metoprolol succinate 25 mg tablet extended release 24 hr 25 mg PO DAILY 90 Days Qty: 90 RF: 2 amlodipine 5 mg tablet 5 mg PO BID 90 Days Qty: 180 RF: 1 Referrals: Sheeba Reza MD [Primary Care Provider] - 2 days
[2020-12-23 11:49] VITALS: BP 150/84; PULSE 64; RESP 12; O2SAT 100
[2020-12-23 13:25] LABS: Troponin-I High Sensitivity < 3.5 ng/L (<3.5-35.0)
[2020-12-23] MEDS: ondansetron HCL 4 MG/2 ML VIAL IVPUSH (13:57)
--- NOTE | 2020-12-23 13:59 | PHA.MEDREC ---
Pharmacy Consult ? Medication Reconciliation Pharmacy has completed the medication reconciliation. There are no remarkable issues for provider's attention. Jelly Up, FabricioD
[2020-12-23] MEDS: Acetaminophen 325 MG TABLET 650 MG PO (14:25)
--- NOTE | 2020-12-24 10:07 | MHC.STROKE ---
CLARIFICATION ON DISCHARGE DIAGNOSIS: MRI DOES NOT REVEAL A NEW ACUTE STROKE, CHRONIC STROKE NOTED. DR HAZEL NOTIFIED AND HE WILL PUT IN AN ADDENDUM.
== END 2020-12-23 15:42 | disposition home or self-care (01) ==
PROVIDERS: Emergency Provider Emergency Medicine Emergency Medical Services; PCP Internal Medicine
DX: R07.9 Chest pain, unspecified (principal); R29.700 NIHSS score 0; R51.9 Headache, unspecified; R20.0 Anesthesia of skin; F12.90 Cannabis use, unspecified, uncomplicated; I10 Essential (primary) hypertension; E11.9 Type 2 diabetes mellitus without complications; E78.5 Hyperlipidemia, unspecified; Z86.73 Personal history of transient ischemic attack (TIA), and cerebral infarction without residual deficits; Z20.822 Contact with and (suspected) exposure to COVID-19; Z79.899 Other long term (current) drug therapy; Z79.82 Long term (current) use of aspirin
CPT/HCPCS: 36415; 70450; 70551; 80053; 82947; 84484; 85025; 85610; 87635; 93005; 99285; J2405

== ENCOUNTER 2021-03-21 14:09 | Outpatient (REF) | payer BC, SELFPAY ==
[2021-03-21 15:34] LABS: Influenza A PCR NEGATIVE (Negative); Influenza B PCR NEGATIVE (Negative); Resp Syncy Virus RNA Qual PCR NEGATIVE (Negative); SARS COV2 PCR INHOUSE POSITIVE (Negative)
== END 2021-03-21 14:10 | disposition home or self-care (01) ==
LOC: HO.LNP 14:09
PROVIDERS: Visit Provider Family Medicine
DX: B34.9 Viral infection, unspecified (principal); Z20.822 Contact with and (suspected) exposure to COVID-19
CPT/HCPCS: 0241U

== ENCOUNTER 2021-04-10 09:39 | Outpatient (REF) | payer BC, SELFPAY ==
[2021-04-10 12:20] LABS: Alanine Aminotransferase 43 U/L (0-40); Albumin Level 4.3 g/dL (3.5-5.0); Alkaline Phosphatase 63 U/L (39-117); Anion Gap 12 (12-20); Aspartate Amino Transferase 23 U/L (5-37); Blood Urea Nitrogen 18 mg/dL (9-16); Calcium 9.9 mg/dL (8.4-10.2); Carbon Dioxide 31 mmol/L (22-29); Chloride 102 mmol/L (96-108); Estimated Glomerular Filt Rate 60; Glucose Random 112 mg/dL (60-115); Potassium 4.5 mmol/L (3.3-5.1); Sodium 140 mmol/L (135-145)
== END 2021-04-10 09:40 | disposition home or self-care (01) ==
LOC: HO.LAB 09:39
PROVIDERS: Absent Provider Nurse Practitioner Family; PCP Internal Medicine; Referring Provider Internal Medicine; Visit Provider Internal Medicine Cardiovascular Disease
DX: I10 Essential (primary) hypertension (principal)
CPT/HCPCS: 36415; 80053

== ENCOUNTER → 2021-04-19 11:04 | Outpatient (BNVA) | payer SELFPAY | PROVIDERS: PCP Internal Medicine; Visit Provider Physician Assistant Medical | DX: Z02.79 Encounter for issue of other medical certificate (principal) ==

== ENCOUNTER → 2021-04-25 09:30 | Outpatient (BNVA) | payer BC, SELFPAY | PROVIDERS: PCP Internal Medicine; Referring Provider Internal Medicine; Visit Provider Psychiatry & Neurology Neurology ==

== ENCOUNTER → 2021-06-08 20:28 | Outpatient (REF) | payer BC, SELFPAY | LOC: HO.SL 20:28 | PROVIDERS: PCP Internal Medicine; Visit Provider Psychiatry & Neurology Neurology | DX: R25.8 Other abnormal involuntary movements (principal); G47.9 Sleep disorder, unspecified; R40.0 Somnolence; I48.91 Unspecified atrial fibrillation | CPT/HCPCS: 95810 ==

== ENCOUNTER → 2021-06-27 10:55 | Outpatient (BNVA) | payer BC, SELFPAY | PROVIDERS: PCP Internal Medicine; Visit Provider Psychiatry & Neurology Neurology | DX: Z13.89 Encounter for screening for other disorder (principal) ==

== ENCOUNTER 2021-07-07 01:43 | Emergency (ER) | payer BC, SELFPAY ==
[2021-07-07] VITALS (11 sets, daily range): BP systolic 105–139; BP diastolic 73–82; PULSE 82–112; RESP 14–20; TEMP 37.1; O2SAT 95–99; BMI 37.4
--- NOTE | 2021-07-07 01:53 | ECG_ITS ---
Test Reason : SYNCOPE Blood Pressure : / mmHG Vent. Rate : 091 BPM Atrial Rate : 091 BPM P-R Int : 202 ms QRS Dur : 096 ms QT Int : 368 ms P-R-T Axes : 041 072 006 degrees QTc Int : 452 ms Normal sinus rhythm Normal ECG When compared with ECG of 23-DEC-2020 09:42, Vent. rate has increased BY 33 BPM QT has lengthened Referred By: Beryl Gan Electronically Signed By:LULU THOMSON MD
--- NOTE | 2021-07-07 01:56 | ED_ITS ---
HPI - General Adult General Chief complaint: Syncope Stated complaint: syncope Time Seen by Provider: 07/07/21 01:53 Source: patient Mode of arrival: ambulatory Limitations: no limitations History of Present Illness HPI narrative: Patient's emergency room complaining of a near syncopal episode. Patient states that he has been having copious amount of diarrhea today. Patient's family has had similar GI issues throughout the week. Patient denies any fever, no chills, no vomiting or abdominal pain. Patient states that he was in the bathroom having a bowel movement, patient stood up, patient had to lean against the wall because he started feeling lightheaded. Patient did not fall, did not lose consciousness. Patient denies chest pain or shortness of breath. Related Data Previous Rx's Medication Instructions Recorded pioglitazone 45 mg tablet 45 mg PO DAILY 90 Days #90 tab 10/17/20 atorvastatin 80 mg tablet 80 mg PO DAILY 90 Days #90 tab 11/23/20 losartan 100 mg tablet 100 mg PO DAILY 90 Days #90 tab 01/17/21 hydrochlorothiazide 12.5 mg tablet 12.5 mg PO DAILY 30 Days #30 tab 02/16/21 aspirin 81 mg chewable tablet 81 mg PO DAILY 90 Days #90 tab 02/17/21 scopolamine base 1 mg over 3 days 1 patch TRANSDERMAL Q3D PRN 5 Days 04/26/21 transdermal patch #4 ea Allergies Allergy/AdvReac Type Severity Reaction Status Date / Time bee pollen [BEE STINGS] Allergy Intermediate Swelling Verified 06/27/21 11:14 metoclopramide [From REGLAN] AdvReac Intermediate MUSCLE Verified 06/27/21 11:14 SPASMS dulaglutide [From Trulicity] AdvReac Diarrhea Verified 06/27/21 11:14 cymbalta Allergy Intermediate twitching Uncoded 06/27/21 11:14 Ketoconazole Allergy Intermediate urticaria Uncoded 06/27/21 11:14 lisinopril Allergy Intermediate cough Uncoded 06/27/21 11:14 tramadol Allergy Intermediate itchiness Uncoded 06/27/21 11:14 amoxicillin AdvReac Intermediate diarrhea Uncoded 06/27/21 11:14 metformin AdvReac Intermediate diarrhea Uncoded 06/27/21 11:14 Review of Systems Review of Systems: Constitutional : No Weight loss, No Fever, No Chills, No Night Sweats, No Fatigue, No Malaise ENT/Mouth : No Hearing loss, No Ear Pain, No Nasal Congestion, No Sinus Pain, No Hoarseness, No sore throat, No Rhinorrhea, No Swallowing Difficulty Eyes: No Eye Pain, No Swelling, No Redness, No Foreign Body, No Discharge, No Vision Changes Cardiovascular : No Chest Pain, No SOB, No Dyspnea on Exertion, No Orthopnea, No Edema, No Palpitations Respiratory : No Cough, No Sputum, No Wheezing, No Smoke Exposure, No Dyspnea Gastrointestinal : No Nausea, No Vomiting, complaining Diarrhea, No Constipat ion, No abdominal Pain, No Hematochezia, No Melena Genitourinary : No Dysuria, No Urinary Frequency, No Hematuria, No Urinary Incontinence, No Urgency, No Flank Pain, No Urinary Flow Changes, No Hesitancy Musculoskeletal : No joint pain, No Myalgias, No Joint Swelling Skin : No Skin Lesions, No rash Neuro : No Weakness, No Numbness, No Paresthesias, complaining of a near syncopal event, patient did not fall Psych : No Anxiety/Panic, No Depression, No SI/HI/AH/VH, No Social Issues, Heme/Lymph: No Bruising, No Bleeding,No Lymphadenopathy Endocrine : No Polyuria, No Polydipsia, No Temperature Intolerance PMFSH Past Medical History Medical History CVA (cerebral vascular accident) Daytime sleepiness Diabetes Essential hypertension History of stroke Hyperlipidemia LDL goal <70 Obesity due to excess calories Poison ramirez dermatitis Skin lesion Tinea pedis Type 2 diabetes mellitus without complications Surgical History Hx of vasectomy Family History Family History Father Diabetes Myocardial infarct Mother Diabetes Mental health disorder Sister No problems noted. Sister No problems noted. Daughter No problems noted. Son No problems noted. Son No problems noted. Son No problems noted. Son No problems noted. Social History Social History Household Members: Spouse and Family Housing: House Do you presently have visiting nurse or other home services: No Alcohol intake: never Patient Tobacco Use Status: Never used Tobacco e-Cigarette/Vaping Use: Never Used Second Hand Smoke Exposure: No Use of substances other than those prescribed or required for medical reasons: No Substance Use Type: Marijuana Advance Directives: No service: No Current occupational status: employed Current occupational exposures/hazards: No Physical Exam ED Vital Signs: Vital Signs - 24 hr 07/07/21 01:52 07/07/21 01:55 07/07/21 02:32 Temperature 98.7 F 98.7 F Pulse Rate 84 82 85 Respiratory Rate 18 20 Blood Pressure 138/81 114/78 127/74 Pulse Oximetry 97 99 07/07/21 02:34 07/07/21 02:36 07/07/21 03:37 Temperature Pulse Rate 86 88 Respiratory Rate Blood Pressure 136/73 128/74 Pulse Oximetry 98 07/07/21 05:01 07/07/21 05:18 07/07/21 05:45 Temperature 98.7 F Pulse Rate 112 H 92 83 Respiratory Rate 14 Blood Pressure 105/78 121/74 127/73 Pulse Oximetry 95 07/07/21 05:49 07/07/21 05:52 Temperature Pulse Rate 88 112 H Respiratory Rate Blood Pressure 139/82 105/78 Pulse Oximetry BMI result Body Mass Index 37.4 Const Other: Appearance: Alert. Oriented X3. No acute distress. Eyes: Pupils equal, round and reactive to light. ENT: Pharynx normal. Neck: Normal inspection. Neck supple. No lymph nodes noted. No crepitus CVS: Normal heart rate and rhythm. Pulses normal. Normal S1 and S2 Respiratory: No respiratory distress. Breath sounds normal. No Wheezing. No rales Abdomen: Soft and nontender. No rigidity. No distention. Skin: Skin warm and dry. Normal skin color. Normal skin turgor. Extremities: No lower extremity edema. No Lacerations. No Rash Neuro: Oriented X 3. No motor deficit. No sensory deficit. Moving all extremities. No slurred speech. CN 2 through 12 grossly intact Psych: calm, cooperative, normal affect Course Course Course Narrative: Patient receiving IV fluids, loperamide. Labs pending. I discussed the labs with the patient, white blood cell count 13.5 likely reactive leukocytosis from viral syndrome. EKG shows no changes from previous EKGs. Patient asymptomatic now. Patient likely had orthostatic hypotension secondary to the diarrhea. Medical Decision Making Lab Data Result diagrams: 07/07/21 02:07 07/07/21 02:07 Labs: Lab Results 07/07/21 07/07/21 07/07/21 Range/Units 02:07 02:07 02:07 WBC 13.5 H (4.8-10.8) X10*3/uL RBC 5.29 (4.60-5.80) X10*6/uL Hgb 14.4 (14.0-18.0) g/dl Hct 45.1 (42.0-52.0) % MCV 85.3 (80.0-98.0) fL MCH 27.2 (27.0-33.0) pg MCHC 31.9 (31.0-36.0) g/dl RDW 13.7 (11.0-16.0) % Plt Count 194 (160-400) X10*3/uL MPV 11.7 (9.4-12.4) fL Immature Gran % (Auto) 0.2 (0.0-0.4) % Neut % (Auto) 85.8 H (45-73) % Lymph % (Auto) 7.9 L (20-40) % Hudspeth % (Auto) 5.4 (2-11) % Eos % (Auto) 0.5 (0-4) % Baso % (Auto) 0.2 (0-2) % Lymph # (Auto) 1.1 L (1.2-4.9) X10*3/uL [place]eth # (Auto) 0.7 (0.1-1.2) X10*3/uL Eos # (Auto) 0.1 (0.0-0.4) X10*3/uL Baso # (Auto) 0.0 (0.0-0.2) X10*3/uL Abs Immat Gran (auto) 0.03 (0.00-0.03) X10*3/uL Absolute Neuts (auto) 11.6 H (2.0-8.3) x10*3/uL Absolute Nucleated RBC 0.000 (0.0-0.012) X10*3/uL Nucleated RBC % (auto) 0.0 (0.0-0.2) /100WBC PT (9.9-13.0) SEC INR (0.9-1.1) Sodium 137 (135-145) mmol/L Potassium 4.7 (3.3-5.1) mmol/L Chloride 101 (96-108) mmol/L Carbon Dioxide 26 (22-29) mmol/L Anion Gap 15 (12-20) BUN 22 H (9-16) mg/dL Creatinine 1.29 (0.5-1.4) mg/dL Estim Creat Clear Calc 93.2 Estimated GFR > 60 Random Glucose 202 H D (60-115) mg/dL Calcium 9.6 (8.4-10.2) mg/dL Magnesium 1.8 (1.6-2.6) mg/dL Total Bilirubin 1.0 (0.0-1.0) mg/dL Direct Bilirubin 0.3 (0.0-0.5) mg/dL AST 31 (5-37) U/L ALT 41 H (0-40) U/L Alkaline Phosphatase 65 (39-117) U/L Troponin I High Sens < 3.5 (<3.5-35.0) ng/L Total Protein 7.7 (6.5-8.0) g/dL Albumin 4.1 (3.5-5.0) g/dL Lipase 19 (8-78) U/L COVID-19 (TELMA) COVID-19 Clin Com Influenza Type A (ROSA) (Negative) Influenza Type B (ROSA) (Negative) Influenza A & B Note 07/07/21 07/07/21 07/07/21 Range/Units 02:07 02:07 02:07 WBC (4.8-10.8) X10*3/uL RBC (4.60-5.80) X10*6/uL Hgb (14.0-18.0) g/dl Hct (42.0-52.0) % MCV (80.0-98.0) fL MCH (27.0-33.0) pg MCHC (31.0-36.0) g/dl RDW (11.0-16.0) % Plt Count (160-400) X10*3/uL MPV (9.4-12.4) fL Immature Gran % (Auto) (0.0-0.4) % Neut % (Auto) (45-73) % Lymph % (Auto) (20-40) % Hudspeth % (Auto) (2-11) % Eos % (Auto) (0-4) % Baso % (Auto) (0-2) % Lymph # (Auto) (1.2-4.9) X10*3/uL [place] # (Auto) (0.1-1.2) X10*3/uL Eos # (Auto) (0.0-0.4) X10*3/uL Baso # (Auto) (0.0-0.2) X10*3/uL Abs Immat Gran (auto) (0.00-0.03) X10*3/uL Absolute Neuts (auto) (2.0-8.3) x10*3/uL Absolute Nucleated RBC (0.0-0.012) X10*3/uL Nucleated RBC % (auto) (0.0-0.2) /100WBC PT (9.9-13.0) SEC INR (0.9-1.1) Sodium (135-145) mmol/L Potassium (3.3-5.1) mmol/L Chloride (96-108) mmol/L Carbon Dioxide (22-29) mmol/L Anion Gap (12-20) BUN (9-16) mg/dL Creatinine (0.5-1.4) mg/dL Estim Creat Clear Calc Estimated GFR Random Glucose (60-115) mg/dL Calcium (8.4-10.2) mg/dL Magnesium (1.6-2.6) mg/dL Total Bilirubin (0.0-1.0) mg/dL Direct Bilirubin (0.0-0.5) mg/dL AST (5-37) U/L ALT (0-40) U/L Alkaline Phosphatase (39-117) U/L Troponin I High Sens (<3.5-35.0) ng/L Total Protein (6.5-8.0) g/dL Albumin (3.5-5.0) g/dL Lipase (8-78) U/L COVID-19 (TELMA) Cancelled Negative COVID-19 Clin Com Cancelled See Note Influenza Type A (ROSA) Negative (Negative) Influenza Type B (ROSA) Negative (Negative) Influenza A & B Note See Note 07/07/21 Range/Units 03:43 WBC (4.8-10.8) X10*3/uL RBC (4.60-5.80) X10*6/uL Hgb (14.0-18.0) g/dl Hct (42.0-52.0) % MCV (80.0-98.0) fL MCH (27.0-33.0) pg MCHC (31.0-36.0) g/dl RDW (11.0-16.0) % Plt Count (160-400) X10*3/uL MPV (9.4-12.4) fL Immature Gran % (Auto) (0.0-0.4) % Neut % (Auto) (45-73) % Lymph % (Auto) (20-40) % [place]udspeth % (Auto) (2-11) % Eos % (Auto) (0-4) % Baso % (Auto) (0-2) % Lymph # (Auto) (1.2-4.9) X10*3/uL [place] # (Auto) (0.1-1.2) X10*3/uL Eos # (Auto) (0.0-0.4) X10*3/uL Baso # (Auto) (0.0-0.2) X10*3/uL Abs Immat Gran (auto) (0.00-0.03) X10*3/uL Absolute Neuts (auto) (2.0-8.3) x10*3/uL Absolute Nucleated RBC (0.0-0.012) X10*3/uL Nucleated RBC % (auto) (0.0-0.2) /100WBC PT 12.3 (9.9-13.0) SEC INR 1.1 (0.9-1.1) Sodium (135-145) mmol/L Potassium (3.3-5.1) mmol/L Chloride (96-108) mmol/L Carbon Dioxide (22-29) mmol/L Anion Gap (12-20) BUN (9-16) mg/dL Creatinine (0.5-1.4) mg/dL Estim Creat Clear Calc Estimated GFR Random Glucose (60-115) mg/dL Calcium (8.4-10.2) mg/dL Magnesium (1.6-2.6) mg/dL Total Bilirubin (0.0-1.0) mg/dL Direct Bilirubin (0.0-0.5) mg/dL AST (5-37) U/L ALT (0-40) U/L Alkaline Phosphatase (39-117) U/L Troponin I High Sens (<3.5-35.0) ng/L Total Protein (6.5-8.0) g/dL Albumin (3.5-5.0) g/dL Lipase (8-78) U/L COVID-19 (TEMLA) COVID-19 Clin Com Influenza Type A (ROSA) (Negative) Influenza Type B (ROSA) (Negative) Influenza A & B Note Discharge Plan Discharge Clinical Impression: Diarrhea, Near syncope Patient Disposition: Home, Self-Care Instructions: Near Syncope (ED), Acute Diarrhea (ED) Additional Instructions: Please follow-up with your primary care physician tomorrow. If you have any worsening or new symptoms, please return to the emergency room or call 911 Prescriptions: No Action pioglitazone 45 mg tablet 45 mg PO DAILY 90 Days Qty: 90 2RF atorvastatin 80 mg tablet 80 mg PO DAILY 90 Days Qty: 90 2RF losartan 100 mg tablet 100 mg PO DAILY 90 Days Qty: 90 1RF hydrochlorothiazide 12.5 mg tablet 12.5 mg PO DAILY 30 Days Qty: 30 6RF aspirin 81 mg tablet,chewable 81 mg PO DAILY 90 Days Qty: 90 3RF scopolamine base 1 mg over 3 days patch 3 day 1 patch transdermal Q3D PRN (Reason: nausea and vomiting) 5 Days Qty: 4 0RF
[2021-07-07] MEDS: Loperamide HCl 2 MG CAPSULE 4 MG PO (02:50)
[2021-07-07] MEDS: 0.9 % Sodium Chloride 1,000 ML 999 ML IVCONT (02:51)
[2021-07-07 02:55] LABS: COVID-19 Test Negative (Negative); IDNOW Serial# 55D5AD1C; Influenza A Negative (Negative); Influenza B2 Negative (Negative)
--- NOTE | 2021-07-07 03:03 | PC.NURSE ---
difficult iv stick. multiple attempts by 3 rns.
[2021-07-07 03:13] LABS: Basophils Percent Auto 0.2 % (0-2); Eosinophils Absolute Auto 0.1 X10*3/uL (0.0-0.4); Eosinophils Percent Auto 0.5 % (0-4); Hematocrit 45.1 % (42.0-52.0); Hemoglobin 14.4 g/dl (14.0-18.0); Imm Gran Abs Auto 0.03 X10*3/uL (0.00-0.03); Imm Gran Pct Auto 0.2 % (0.0-0.4); Lymphocytes Absolute Auto 1.1 X10*3/uL (1.2-4.9); Lymphocytes Percent Auto 7.9 % (20-40); MANUAL DIFF FLAG NO; Mean Corpuscular HGB Conc 31.9 g/dl (31.0-36.0); Mean Corpuscular Hemoglobin 27.2 pg (27.0-33.0); Mean Corpuscular Volume 85.3 fL (80.0-98.0); Mean Platelet Volume 11.7 fL (9.4-12.4); Monocytes Absolute Auto 0.7 X10*3/uL (0.1-1.2); Monocytes Percent Auto 5.4 % (2-11); Neutrophils Absolute Auto 11.6 x10*3/uL (2.0-8.3); Neutrophils Percent Auto 85.8 % (45-73); Platelet Count 194 X10*3/uL (160-400); Red Blood Count 5.29 X10*6/uL (4.60-5.80); Red Cell Distribution Width 13.7 % (11.0-16.0); White Blood Count 13.5 X10*3/uL (4.8-10.8)
[2021-07-07 03:35] LABS: Alanine Aminotransferase 41 U/L (0-40); Albumin Level 4.1 g/dL (3.5-5.0); Alkaline Phosphatase 65 U/L (39-117); Anion Gap 15 (12-20); Aspartate Amino Transferase 31 U/L (5-37); Bilirubin Direct 0.3 mg/dL (0.0-0.5); Blood Urea Nitrogen 22 mg/dL (9-16); Calcium 9.6 mg/dL (8.4-10.2); Carbon Dioxide 26 mmol/L (22-29); Chloride 101 mmol/L (96-108); Creatinine Clr Calc Pharmacy 93.2; Estimated Glomerular Filt Rate > 60; Glucose Random 202 mg/dL (60-115); Lipase 19 U/L (8-78); Magnesium 1.8 mg/dL (1.6-2.6); Potassium 4.7 mmol/L (3.3-5.1); Sodium 137 mmol/L (135-145); Total Protein 7.7 g/dL (6.5-8.0)
[2021-07-07 03:42] LABS: Troponin-I High Sensitivity < 3.5 ng/L (<3.5-35.0)
[2021-07-07 03:55] LABS: INTERNATIONAL NORM RATIO 1.1 (0.9-1.1); Prothrombin Time 12.3 SEC (9.9-13.0)
--- NOTE | 2021-07-07 04:00 | PC.NURSE ---
Pt IV infiltrated, IV discontinued, Dr Gan made aware.
== END 2021-07-07 06:16 | disposition home or self-care (01) ==
PROVIDERS: Emergency Provider Emergency Medicine; PCP Internal Medicine
DX: R55 Syncope and collapse (principal); R19.7 Diarrhea, unspecified; Z20.822 Contact with and (suspected) exposure to COVID-19; Z79.899 Other long term (current) drug therapy
CPT/HCPCS: 36415; 80048; 80076; 83690; 83735; 84484; 85025; 85610; 87502; 87635; 93005; 96360; 99284; 99285

== ENCOUNTER 2021-08-02 08:29 | Outpatient (REF) | payer BC, SELFPAY ==
[2021-08-02 09:37] LABS: Alanine Aminotransferase 31 U/L (0-40); Alkaline Phosphatase 63 U/L (39-117); Anion Gap 9 (12-20); Aspartate Amino Transferase 19 U/L (5-37); Blood Urea Nitrogen 15 mg/dL (9-16); Calcium 9.5 mg/dL (8.4-10.2); Carbon Dioxide 31 mmol/L (22-29); Chloride 103 mmol/L (96-108); Cholesterol 118 mg/dL; Estimated Glomerular Filt Rate > 60; Glucose Fasting 142 mg/dL (60-99); HDL Cholesterol 29 mg/dL; LDL Cholesterol Calculated 77 mg/dl; Potassium 4.3 mmol/L (3.3-5.1); Sodium 139 mmol/L (135-145); Total Protein 7.4 g/dL (6.5-8.0); Triglycerides 62 mg/dL
[2021-08-02 10:49] LABS: Creatinine Urine 513.44 mg/dL; Microalbum/Creatinine Ratio Ur 4.4 ug/mg cr
== END 2021-08-02 08:30 | disposition home or self-care (01) ==
LOC: HO.LAB 08:29
PROVIDERS: PCP Internal Medicine; Visit Provider Student in an Organized Health Care Education/Training Program
DX: I63.9 Cerebral infarction, unspecified (principal); E11.9 Type 2 diabetes mellitus without complications; E78.5 Hyperlipidemia, unspecified
CPT/HCPCS: 36415; 80053; 80061; 82043

== ENCOUNTER 2021-12-20 08:08 | Outpatient (REF) | payer BC, SELFPAY ==
[2021-12-20 09:36] LABS: Alanine Aminotransferase 83 U/L (0-40); Albumin Level 4.3 g/dL (3.5-5.0); Alkaline Phosphatase 76 U/L (39-117); Anion Gap 17 (12-20); Aspartate Amino Transferase 43 U/L (5-37); Bilirubin Total 0.8 mg/dL (0.0-1.0); Blood Urea Nitrogen 10 mg/dL (9-16); Calcium 9.4 mg/dL (8.4-10.2); Carbon Dioxide 27 mmol/L (22-29); Chloride 99 mmol/L (96-108); Cholesterol 120 mg/dL; Estimated Glomerular Filt Rate > 60; Glucose Fasting 223 mg/dL (60-99); HDL Cholesterol 26 mg/dL; LDL Cholesterol Calculated 77 mg/dl; Potassium 5.1 mmol/L (3.3-5.1); Sodium 138 mmol/L (135-145); Total Protein 7.7 g/dL (6.5-8.0); Triglycerides 85 mg/dL
[2021-12-20 10:52] LABS: Microalbum/Creatinine Ratio Ur 3.9 ug/mg cr
== END 2021-12-20 08:09 | disposition home or self-care (01) ==
LOC: HO.LAB 08:08
PROVIDERS: PCP Internal Medicine; Visit Provider Internal Medicine
DX: E11.9 Type 2 diabetes mellitus without complications (principal); E78.5 Hyperlipidemia, unspecified
CPT/HCPCS: 36415; 80053; 80061; 82043

== ENCOUNTER → 2022-03-21 14:41 | Outpatient (BNVA) | payer BC, SELFPAY | PROVIDERS: PCP Internal Medicine; Visit Provider Internal Medicine Cardiovascular Disease | DX: I10 Essential (primary) hypertension (principal); G43.909 Migraine, unspecified, not intractable, without status migrainosus; Z86.73 Personal history of transient ischemic attack (TIA), and cerebral infarction without residual deficits | CPT/HCPCS: 93005 ==

== ENCOUNTER 2022-04-04 08:49 | Outpatient (REF) | payer BC, SELFPAY ==
--- NOTE | ~2022-04-04 | MR_ITS ---
EXAMINATION: MR head/brain wo con CLINICAL INFORMATION: Stroke. Self-reported episodes of nausea and feeling like passing out. History of stroke in 2019. History of right-sided weakness with prior stroke which came back but not to 100%. COMPARISON: MRI brain 12/23/2020, CT head 12/23/2020, MRI brain 11/12/2020. TECHNIQUE: Routine unenhanced MRI of the brain FINDINGS: Diffusion-weighted images demonstrate no evidence of acute infarcts. Focal encephalomalacia is again noted in the left retrolenticular region extending into the posterior limb of left internal capsule. Punctate focal encephalomalacia is present in the posterior aspect of the left lentiform nucleus. These findings are unchanged compared with 12/23/2020. Elsewhere, a minimal number of punctate subcortical and periventricular white matter T2 hyperintensities are noted and may represent minimal chronic microangiopathic ischemic changes. These findings are nonspecific in appearance, for example punctate T2 hyperintensity within the anterior right frontal lobe series 5 image 20. Aside from findings above, the ventricles and sulci are normal in size and configuration. Susceptibility weighted images reveal no evidence of acute or chronic hemorrhage within the brain parenchyma. The craniocervical junction cerebellar tonsils are normal in configuration. No suspicious marrow abnormalities. Normal flow-related signal intensity is identified in the major intracranial vessels and dural sinuses. Normal appearance of the orbits and globes. No significant mucosal thickening or retained secretions within the paranasal sinuses, mastoid air cells and middle ear cavities. MR/MR head/brain wo con IMPRESSION: 1. No change compared with 12/23/2020. Chronic left retrolenticular infarct and chronic lacunar infarct within the left lentiform nucleus.
== END 2022-04-04 08:50 | disposition home or self-care (01) ==
LOC: HO.MRI 08:49
PROVIDERS: PCP Internal Medicine; Visit Provider Psychiatry & Neurology Neurology
DX: I63.9 Cerebral infarction, unspecified (principal)
CPT/HCPCS: 70551

== ENCOUNTER → 2022-05-04 10:32 | Outpatient (BNVA) | payer SELFPAY | PROVIDERS: PCP Internal Medicine; Visit Provider Physician Assistant Medical | DX: Z02.79 Encounter for issue of other medical certificate (principal) ==

== ENCOUNTER 2022-05-05 07:11 | Outpatient (REF) | payer BC, SELFPAY ==
[2022-05-05 08:25] LABS: Creatinine Urine 295.97 mg/dL; Microalbum/Creatinine Ratio Ur 4.3 ug/mg cr
[2022-05-05 08:27] LABS: Alanine Aminotransferase 46 U/L (0-40); Albumin Level 4.2 g/dL (3.5-5.0); Alkaline Phosphatase 67 U/L (39-117); Anion Gap 13 (12-20); Aspartate Amino Transferase 21 U/L (5-37); Blood Urea Nitrogen 14 mg/dL (9-16); Calcium 9.5 mg/dL (8.4-10.2); Carbon Dioxide 31 mmol/L (22-29); Chloride 101 mmol/L (96-108); Cholesterol 139 mg/dL; Estimated Glomerular Filt Rate > 60; Glucose Fasting 133 mg/dL (60-99); HDL Cholesterol 28 mg/dL; LDL Cholesterol Calculated 98 mg/dl; Potassium 4.5 mmol/L (3.3-5.1); Sodium 140 mmol/L (135-145); Total Protein 7.2 g/dL (6.5-8.0); Triglycerides 66 mg/dL
== END 2022-05-05 07:12 | disposition home or self-care (01) ==
LOC: HO.LAB 07:11
PROVIDERS: PCP Internal Medicine; Visit Provider Internal Medicine
DX: I63.9 Cerebral infarction, unspecified (principal); E78.5 Hyperlipidemia, unspecified; E11.9 Type 2 diabetes mellitus without complications
CPT/HCPCS: 36415; 80053; 80061; 82043

== ENCOUNTER 2022-05-07 11:01 | Outpatient (REF) | payer BC, SELFPAY ==
[2022-05-07 12:10] LABS: Appearance Urine Clear; Color Urine Yellow; Glucose Urine UA 500 mg/dL (Negative); Leukocyte Esterase Urine Negative (Negative); Nitrite Urine Negative (Negative); Specific Gravity - Urine 1.025 (1.005-1.025); Urine Blood Negative (Negative); Urine Ketones Trace mg/dL (Negative); Urine Protein Trace mg/dL (Neg-Trace)
== END 2022-05-07 11:02 | disposition home or self-care (01) ==
LOC: HO.LAB 11:01
PROVIDERS: PCP Internal Medicine; Visit Provider Internal Medicine
DX: R30.0 Dysuria (principal)
CPT/HCPCS: 81003

== ENCOUNTER 2022-07-21 07:47 | Outpatient (REF) | payer BC, SELFPAY ==
[2022-07-21 08:53] LABS: Estimated Average Glucose 209 mg/dL; Hemoglobin A1c % 8.9 %
[2022-07-21 09:45] LABS: Folate 13.1 ng/mL (> or = 4.0); Vitamin B12 345 pg/mL (200-900)
== END 2022-07-21 07:48 | disposition home or self-care (01) ==
LOC: HO.LAB 07:47
PROVIDERS: Visit Provider Nurse Practitioner Family
DX: E11.9 Type 2 diabetes mellitus without complications (principal); E55.9 Vitamin D deficiency, unspecified; D72.829 Elevated white blood cell count, unspecified; G43.909 Migraine, unspecified, not intractable, without status migrainosus; R42 Dizziness and giddiness; I48.91 Unspecified atrial fibrillation
CPT/HCPCS: 36415; 82306; 82607; 82746; 83036; 84443

== ENCOUNTER → 2022-09-06 13:30 | Outpatient (BNVA) | payer BC, SELFPAY | PROVIDERS: PCP Internal Medicine; Referring Provider Internal Medicine; Visit Provider Internal Medicine Cardiovascular Disease ==

== ENCOUNTER 2022-10-03 09:30 | Outpatient (AMB) | payer BC, SELFPAY ==
[2022-10-03 09:34] VITALS: BP 126/84; BMI 34.3
--- NOTE | 2022-10-03 09:34 | MHC.PC.OV ---
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 Accompanied by: Self / Same As Patient Allergies pioglitazone Allergy (Severe, Verified 10/03/22 09:43) Dizziness bee pollen [BEE STINGS] Allergy (Intermediate, Verified 10/03/22 09:43) Swelling metoclopramide [From REGLAN] Adverse Reaction (Intermediate, Verified 10/03/22 09:43) MUSCLE SPASMS dulaglutide [From Trulicity] Adverse Reaction (Verified 10/03/22 09:43) Diarrhea cymbalta Allergy (Intermediate, Uncoded 10/03/22 09:43) twitching Ketoconazole Allergy (Intermediate, Uncoded 10/03/22 09:43) urticaria lisinopril Allergy (Intermediate, Uncoded 10/03/22 09:43) cough tramadol Allergy (Intermediate, Uncoded 10/03/22 09:43) itchiness amoxicillin Adverse Reaction (Intermediate, Uncoded 10/03/22 09:43) diarrhea metformin Adverse Reaction (Intermediate, Uncoded 10/03/22 09:43) diarrhea Medication List - Last Reconciled 10/03/22 by Sheeba Smith MD acarbose 50 mg PO TID 30 days amlodipine 2.5 mg PO DAILY aspirin 81 mg PO DAILY 90 days atorvastatin 80 mg PO DAILY 90 days cholecalciferol (vitamin D3) 25 mcg PO DAILY dulaglutide (Trulicity) 0.75 mg (0.5 mL) subcut QWEEK 90 days ezetimibe 10 mg PO DAILY 90 days flash glucose scanning reader (FreeStyle Gabriel 14 Day [place]ons) As directed flash glucose sensor (FreeStyle Gabriel 14 Day Sensor kit) As directed hydrochlorothiazide 12.5 mg PO DAILY 30 days insulin glargine (Basaglar KwikPen U-100 Insulin) 12 units (0.12 mL) subcut QPM 90 days losartan 100 mg PO DAILY 90 days pen needle, diabetic (1st Tier Unifine Pentips) Use 1 pen needle once a day Tobacco use date assessed: 05/25/22 Dental Screening Dental Screen Date: 10/03/22 Did you have a dental visit in the last 12 months?: No Did you have a dental problem in the last 6 months where you did not have access to dental care?: No Was dental information given to patient?: Patient has dentist HPI HPI Comments History of Present Illness Details This is a 42-year-old male with diabetes mellitus type 2 on long-term current use of insulin, hypertension, hyperlipidemia and low vitamin-D that comes today for follow-up on his conditions. A1c elevated but has improved and insulin was recently increased from 10 units to 12 units. Blood pressure stable. LDL close to goal. Vitamin-D has improved with supplements. No chest pain or shortness of breath. [facility] Medical History CVA (cerebral vascular accident) Daytime sleepiness Diabetes Essential hypertension History of stroke Hyperlipidemia LDL goal <70 Obesity due to excess calories Poison ramirez dermatitis Skin lesion Tinea pedis Type 2 diabetes mellitus without complications Surgical History Hx of vasectomy Family History Father Diabetes Myocardial infarct Mother Diabetes Mental health disorder Sister No problems noted. Sister No problems noted. Daughter No problems noted. Son No problems noted. Son No problems noted. Son No problems noted. Son No problems noted. Social History Household Members: Spouse and Family Housing: House Do you presently have visiting nurse or other home services: No Alcohol intake: never Patient Tobacco Use Status: Never used Tobacco e-Cigarette/Vaping Use: Never Used Second Hand Smoke Exposure: No Substance Use Type: Marijuana service: No Current occupational status: employed Current occupational exposures/hazards: No Cognitive needs: No Hearing needs: No Vision needs: No Questionnaire Thrive Questionnaire Date Thrive assessed: 05/25/22 ZACH-7 AMB Questionnaire ZACH-7 Date ZACH - 7 assessed: 05/25/22 Source: Developed by Drs. Jatinder Silva, Keyana Potts, Jorge Del Toro and colleagues, with an educational nate from [employer] Review of Systems Const All systems reviewed & are unremarkable except as noted in HPI and below Eyes Reports no additional complaints, Denies change in vision and Denies other visual disturbances Card Denies chest pain at rest, Denies chest pain with activity, Denies edema, Denies irregular heart rhythm, Denies claudication, Denies dyspnea, Denies dyspnea on exertion, Denies orthopnea, Denies paroxysmal nocturnal dyspnea and Denies slow heart rate Resp Denies cough, Denies dyspnea and Denies dyspnea on exertion GI Denies abdominal pain, Denies change in bowel habits, Denies excessive flatus, Denies nausea and Denies vomiting Denies urinary hesitancy, Denies urinary incontinence and Denies urinary urgency Musc Denies abnormal gait, Denies atrophy, Denies deformity and Denies limited range of motion Skin/Breast Denies bleeding lesions, Denies changing lesions and Denies rash Neuro Denies abnormal gait and Denies lack of coordination Physical exam (Primary Care) Vital Signs: Last Vital Signs BP 126/84 10/03/22 09:34 BMI result Body Mass Index 34.3 Tobacco/Smoking Status: Tobacco use Status Tobacco use date assessed 05/25/22 10/03/22 09:39 Patient Tobacco Use Status Never used Tobacco 10/03/22 09:39 e-Cigarette/Vaping Use Never Used 10/03/22 09:39 Thrive Assessment: Date of Thrive Assessment Date Thrive assessed 05/25/22 10/03/22 09:39 Eyes General: appearance normal, both eyes and all related structures Eyelids: Yes eyelids normal Conjunctivae: conjunctivae normal Neck Neck: Yes normal visual inspection and Yes supple Resp Effort & Inspection: normal respiratory effort Auscultation: clear to auscultation bilaterally Cardio Jugular venous distension: no JVD Rate: regular rate Rhythm: regular rhythm Heart sounds: S1 normal heart sound present and S2 normal heart sound present Extrem General: Yes full ROM Assessment and Plan Assessment & Plan (1) Type 2 diabetes mellitus without complications: Code(s): E11.9 - Type 2 diabetes mellitus without complications Qualifiers: Diabetes mellitus skilled nursing insulin use: without skilled nursing use Qualified Code(s): E11.9 - Type 2 diabetes mellitus without complications Plan: Be compliant with acarbose. Continue Trulicity and insulin. A1c goal is equal or less than 7%. (2) Hyperlipidemia LDL goal <70: Code(s): E78.5 - Hyperlipidemia, unspecified Plan: Continue statins. LDL goal is less than 70. (3) Essential hypertension: Code(s): I10 - Essential (primary) hypertension Plan: Continue amlodipine, losartan and hydrochlorothiazide. Blood pressure goal is equal or less than 130/80. (4) Low vitamin D level: Code(s): R79.89 - Other specified abnormal findings of blood chemistry Plan: Continue vitamin-D supplements. Orders: Orders Comprehensive [place]. Panel Fast 4 Months E11.9 - Type 2 diabetes mellitus without complications Lipid Panel 4 Months E78.5 - Hyperlipidemia, unspecified Vitamin D 25-OH Total 4 Months E55.9 - Vitamin D deficiency, unspecified Microalbumin, Random (w Creat) 4 Months E11.9 - Type 2 diabetes mellitus without complications Complete Blood Count Auto Diff 4 Months D72.829 - Elevated white blood cell count, unspecified Medications: Refilled cholecalciferol (vitamin D3) 25 mcg PO DAILY 90 tabs 0RF R79.89 - Other specified abnormal findings of blood chemistry Coding Level of Care Code Est Pt Level 4 (22307) Diagnoses Type 2 diabetes mellitus without complications E11.9 Diabetes mellitus skilled nursing insulin use: without ocean transportation intermediary use Hyperlipidemia LDL goal <70 E78.5 Essential hypertension I10 Low vitamin D level R79.89 Time Spent (min) 23
== END 2022-10-03 10:00 | disposition home or self-care (01) ==
PROVIDERS: PCP Internal Medicine; Visit Provider Internal Medicine
DX: E11.9 Type 2 diabetes mellitus without complications (principal); E78.5 Hyperlipidemia, unspecified; I10 Essential (primary) hypertension; R79.89 Other specified abnormal findings of blood chemistry
CPT/HCPCS: 99214

== ENCOUNTER 2023-01-07 09:13 | Emergency (ER) | payer BC, SELFPAY ==
[2023-01-07 09:39] VITALS: BP 156/93; PULSE 60; RESP 18; TEMP 36.6; O2SAT 99; BMI 34.7
[2023-01-07 11:04] LABS: Anion Gap 14 (12-20); Blood Urea Nitrogen 15 mg/dL (9-16); Calcium 9.4 mg/dL (8.4-10.2); Carbon Dioxide 26 mmol/L (22-29); Chloride 105 mmol/L (96-108); Creatinine Clr Calc Pharmacy 105.1; Estimated Glomerular Filt Rate > 60; Glucose Random 166 mg/dL (60-115); Potassium 4.5 mmol/L (3.3-5.1); Sodium 140 mmol/L (135-145)
[2023-01-07 13:55] VITALS: BP 191/106; PULSE 68; RESP 18; O2SAT 100
--- NOTE | 2023-01-07 13:55 | ED.GENADULT ---
HPI - General Adult General Chief complaint: General Medical Stated complaint: blood in stools Time Seen by Provider: 01/07/23 16:11 Source: patient Mode of arrival: ambulatory Limitations: no limitations History of Present Illness HPI narrative: 42 yo male with history of CVA on ASA 81, HTN, DM, HLD, obesity who presents to the ER for evaluation of bloody BM's x3 since yesterday. He states he has had bright red blood in the toilet and when he wipes with his last 3 bowel movements. He has had some rectal pain and itching as well. He reports history of hemorrhoids in the past. No abdominal pain, N/V. He was lightheaded when he saw the blood. He is not on blood thinners. No melena. MD complaint: rectal bleeding Onset (ago): day(s) (1) Location: buttocks Radiation: non-radiation Severity: moderate Pain Consistency: intermittent Relieving factors: none Exacerbating factors: none Associated symptoms: denies other symptoms Treatments prior to arrival: none Related Data Previous Rx's Medication Instructions Recorded pen needle, diabetic 31 gauge x #100 ea 12/20/2107/31 (1st Tier Unifine Pentips) amlodipine 2.5 mg tablet 2.5 mg PO DAILY #90 tabs 03/21/22 losartan 100 mg tablet 100 mg PO DAILY 90 days #90 tabs 04/19/22 flash glucose scanning reader #1 ea 05/07/22 (FreeStyle Gabriel 14 Day [place]) atorvastatin 80 mg tablet 80 mg PO DAILY 90 days #90 tabs 05/22/22 hydrochlorothiazide 12.5 mg tablet 12.5 mg PO DAILY 30 days #30 tabs 07/08/22 acarbose 50 mg tablet 50 mg PO TID 30 days #90 tabs 09/16/22 ezetimibe 10 mg tablet 10 mg PO DAILY 90 days #90 tabs 11/01/22 flash glucose sensor (FreeStyle #6 kits 11/06/22 Gabriel 14 Day Sensor kit) insulin glargine 100 unit/mL (3 12 unit (0.12 mL) subcut QPM 90 11/12/22 mL) subcutaneous pen (agl #10.8 mL KwikPen U-100 Insulin) aspirin 81 mg chewable tablet 81 mg PO DAILY 90 days #90 tabs 11/19/22 cholecalciferol (vitamin D3) 25 25 mcg PO DAILY #90 tabs 01/04/23 mcg (1,000 unit) tablet dulaglutide 0.75 mg/0.5 mL 0.75 mg (0.5 mL) subcut QWEEK 90 01/05/23 subcutaneous pen injector days #6.5 mL (Trulicity) hydrocortisone 1 %-pramoxine 1 % 1 appl [place] DAILY #10 grams 01/07/23 rectal foam (Proctofoam HC) Allergies Allergy/AdvReac Type Severity Reaction Status Date / Time pioglitazone Allergy Severe Dizziness Verified 10/03/22 09:43 bee pollen [BEE STINGS] Allergy Intermediate Swelling Verified 10/03/22 09:43 metoclopramide [From REGLAN] AdvReac Intermediate MUSCLE Verified 10/03/22 09:43 SPASMS dulaglutide [From Trulicity] AdvReac Diarrhea Verified 10/03/22 09:43 cymbalta Allergy Intermediate twitching Uncoded 10/03/22 09:43 Ketoconazole Allergy Intermediate urticaria Uncoded 10/03/22 09:43 lisinopril Allergy Intermediate cough Uncoded 10/03/22 09:43 tramadol Allergy Intermediate itchiness Uncoded 10/03/22 09:43 amoxicillin AdvReac Intermediate diarrhea Uncoded 10/03/22 09:43 metformin AdvReac Intermediate diarrhea Uncoded 10/03/22 09:43 Review of Systems Review of Systems: Yes all other systems are reviewed and are negative [facility] Past Medical History Medical History CVA (cerebral vascular accident) Daytime sleepiness Diabetes Essential hypertension History of stroke Hyperlipidemia LDL goal <70 Obesity due to excess calories Poison ramirez dermatitis Skin lesion Tinea pedis Type 2 diabetes mellitus without complications Surgical History Hx of vasectomy Family History Family History Father Diabetes Myocardial infarct Mother Diabetes Mental health disorder Sister No problems noted. Sister No problems noted. Daughter No problems noted. Son No problems noted. Son No problems noted. Son No problems noted. Son No problems noted. Social History Social History (Reviewed 10/03/22 @ 09:50 by JESSICA Tobin Household Members: Spouse and Family Housing: House Do you presently have visiting nurse or other home services: No Alcohol intake: never Patient Tobacco Use Status: Never used Tobacco e-Cigarette/Vaping Use: Never Used Second Hand Smoke Exposure: No Substance Use Type: Marijuana Advance Directives: Yes Advance Directives on File: Yes Advance Directives Date on File: 10/18/20 service: No Current occupational status: employed Current occupational exposures/hazards: No Cognitive needs: No Hearing needs: No Vision needs: No Physical Exam ED Vital Signs: Vital Signs - 24 hr 01/07/23 09:39 01/07/23 13:55 01/07/23 16:50 Temperature 97.9 F Pulse Rate 60 68 72 Respiratory Rate 18 18 18 Blood Pressure 156/93 H 191/106 H 145/84 H Pulse Oximetry 99 100 98 Oxygen Delivery Method Room Air Room Air Room Air BMI result Body Mass Index 34.7 Appearance: Alert. Oriented X3. No acute distress. HEENT: normal external inspection Neck: Normal inspection. CVS: Normal heart rate and rhythm. Pulses normal. Respiratory: No respiratory distress. Breath sounds normal. Abdomen: Soft and nontender. +BS x4 JOSE LUIS: small nonthrombosed hemorrhoid, not bleeding at 4 oclock. nontender rectal exam with no stool in rectal vault Skin: Skin warm and dry. Normal skin color. Normal skin turgor. No rashes. Extremities: No lower extremity edema. No joint swelling. Neuro/psych: Oriented X 3. grossly normal, nonfocal Course Course Course Narrative: RME performed by Deena Boateng PA-C. Patient is a 42 year old assigned male at presenting to the emergency department with bright red blood in his stools. Labs ordered. Patient placed back in the waiting room pending room availability and results. Medical Decision Making Medical Decision Making MDM Narrative: 42 yo male presenting with BRBPR x3 at home. Hypertensive on arrival, did not take his meds today. Repeat VS improved without treatment. no chest pain, headache or abd pain. JOSE LUIS w/ nonbleeding, nonthrombosed hemorrhoids. no stool in rectal vault. H/H normal. comfortable w/ discharge home w/ treatment for hemorrhoids. dx, tx and return precautions discussed with the patient. Differential Diagnosis Differential Diagnoses: The differential diagnosis associated with the presentation includes hemorrhoidal bleeding. diverticular bleeding, rectal mass, FB, low clinical suspicion for brisk upper UGIB Admission/Observation Consideration of admission/observation: Escalation of care including admission/observation considered gi bleeding, considered observation vs admit on arrival however workup and exam reassuring Lab Data MDM Lab Attestation statement: I reviewed the patient's lab results. no anemia 01/07/23 16:38 01/07/23 10:25 Labs: Lab Results 01/07/23 01/07/23 Range/Units 10:25 16:38 WBC 9.0 (4.8-10.8) X10*3/uL RBC 5.23 (4.60-5.80) X10*6/uL Hgb 13.8 L (14.0-18.0) g/dl Hct 43.2 (42.0-52.0) % MCV 82.6 (80.0-98.0) fL MCH 26.4 L (27.0-33.0) pg MCHC 31.9 (31.0-36.0) g/dl RDW 13.1 (11.0-16.0) % Plt Count 223 (160-400) X10*3/uL MPV 11.0 (9.4-12.4) fL Immature Gran % (Auto) 0.3 (0.0-0.4) % Neut % (Auto) 65.5 (45-73) % Lymph % (Auto) 27.0 (20-40) % [place] % (Auto) 5.1 (2-11) % Eos % (Auto) 1.7 (0-4) % Baso % (Auto) 0.4 (0-2) % Lymph # (Auto) 2.4 (1.2-4.9) X10*3/uL [place] # (Auto) 0.5 (0.1-1.2) X10*3/uL Eos # (Auto) 0.2 (0.0-0.4) X10*3/uL Baso # (Auto) 0.0 (0.0-0.2) X10*3/uL Abs Immat Gran (auto) 0.03 (0.00-0.03) X10*3/uL Absolute Neuts (auto) 5.9 (2.0-8.3) x10*3/uL Absolute Nucleated RBC 0.000 (0.0-0.012) X10*3/uL Nucleated RBC % (auto) 0.0 (0.0-0.2) /100WBC Sodium 140 (135-145) mmol/L Potassium 4.5 (3.3-5.1) mmol/L Chloride 105 (96-108) mmol/L Carbon Dioxide 26 (22-29) mmol/L Anion Gap 14 (12-20) BUN 15 (9-16) mg/dL Creatinine 1.09 (0.5-1.4) mg/dL Estim Creat Clear Calc 105.1 Estimated GFR > 60 Random Glucose 166 H (60-115) mg/dL Calcium 9.4 (8.4-10.2) mg/dL External Record Review External record reviewed: Prior outpatient labs Tests considered The following testing was considered but not selected: CT scan GI Bleed protocol considered but no active bleeding at this time Prescription Management I considered prescription management with: Other (proctofoam) Chronic Conditions Patient?s care impacted by: Hypertension Critical Care Time Critical Care Time Critical Care Time: No Discharge Plan Discharge Clinical Impression: Bleeding hemorrhoids Patient Disposition: Home, Self-Care Instructions: Hemorrhoids (DC) Additional Instructions: You lab workup today was unremarkable. no anemia Use the prescribed medication as directed for hemorrhoids Recommend over the counter colace 100 mg two times per day to keep the stools soft Also recommend miralax as needed to keep stools soft Follow up with General Surgyer for further evaluation and treatment if symptoms persist If you develop new or worsening symptoms call 911 or come back to the ER for further evaluation. Prescriptions: New Proctofoam HC 1-1 % foam 1 appl [place] DAILY Qty: 10 0RF No Action losartan 100 mg tablet 100 mg PO DAILY 90 Days Qty: 90 1RF (DME) FreeStyle Gabriel 14 Day [place] Misc See Rx Instructions .ROUTE .MEDSUPPLY Qty: 1 0RF Rx Instructions: As directed atorvastatin 80 mg tablet 80 mg PO DAILY 90 Days Qty: 90 2RF hydrochlorothiazide 12.5 mg tablet 12.5 mg PO DAILY 30 Days Qty: 30 6RF acarbose 50 mg tablet 50 mg PO TID 30 Days Qty: 90 1RF ezetimibe 10 mg tablet 10 mg PO DAILY 90 Days Qty: 90 1RF (DME) FreeStyle Gabriel 14 Day Sensor Kit See Rx Instructions .ROUTE .MEDSUPPLY Qty: 6 3RF Rx Instructions: As directed insulin glargine [Basaglar KwikPen U-100 Insulin] 100 unit/mL (3 mL) insulin pen 12 unit subcut QPM 90 Days Qty: 10.8 0RF aspirin 81 mg tablet,chewable 81 mg PO DAILY 90 Days Qty: 90 3RF cholecalciferol (vitamin D3) 25 mcg (1,000 unit) tablet 25 mcg PO DAILY Qty: 90 0RF Trulicity 0.75 mg/0.5 mL pen injector 0.75 mg subcut QWEEK 90 Days Qty: 6.5 1RF (DME) pen needle, diabetic [1st Tier Unifine Pentips] 31 gauge x 5/16 needle See Rx Instructions .Route Qty: 100 3RF Rx Instructions: Use 1 pen needle once a day amlodipine 2.5 mg tablet 2.5 mg PO DAILY Qty: 90 3RF [place] [facility] [place] [facility] [place] Group] (hemorrhoids) Sheeba Reza MD [Primary Care Provider] - Interventions: ED Discharge Assessment Last Done: 01/07/23 17:55 Discharge Date/Time: 01/07/23 17:55
[2023-01-07 16:47] LABS: MANUAL DIFF FLAG NO
[2023-01-07 16:50] VITALS: BP 145/84; PULSE 72; RESP 18; O2SAT 98
[2023-01-07 16:56] LABS: Basophils Percent Auto 0.4 % (0-2); Eosinophils Absolute Auto 0.2 X10*3/uL (0.0-0.4); Eosinophils Percent Auto 1.7 % (0-4); Hematocrit 43.2 % (42.0-52.0); Hemoglobin 13.8 g/dl (14.0-18.0); Imm Gran Abs Auto 0.03 X10*3/uL (0.00-0.03); Imm Gran Pct Auto 0.3 % (0.0-0.4); Lymphocytes Absolute Auto 2.4 X10*3/uL (1.2-4.9); Mean Corpuscular HGB Conc 31.9 g/dl (31.0-36.0); Mean Corpuscular Hemoglobin 26.4 pg (27.0-33.0); Mean Corpuscular Volume 82.6 fL (80.0-98.0); Monocytes Absolute Auto 0.5 X10*3/uL (0.1-1.2); Monocytes Percent Auto 5.1 % (2-11); Neutrophils Absolute Auto 5.9 x10*3/uL (2.0-8.3); Neutrophils Percent Auto 65.5 % (45-73); Platelet Count 223 X10*3/uL (160-400); Red Blood Count 5.23 X10*6/uL (4.60-5.80); Red Cell Distribution Width 13.1 % (11.0-16.0)
== END 2023-01-07 17:55 | disposition home or self-care (01) ==
PROVIDERS: Emergency Provider Emergency Medicine Emergency Medical Services; PCP Internal Medicine
DX: K64.8 Other hemorrhoids (principal); I10 Essential (primary) hypertension; Z79.899 Other long term (current) drug therapy; Z86.73 Personal history of transient ischemic attack (TIA), and cerebral infarction without residual deficits
CPT/HCPCS: 36415; 80048; 85025; 99282; 99283

== ENCOUNTER 2023-03-16 04:14 | Emergency (ER) | payer BC, SELFPAY ==
--- NOTE | 2023-03-16 | ECG_ITS ---
Test Reason : NEURO Blood Pressure : / mmHG Vent. Rate : 108 BPM Atrial Rate : 108 BPM P-R Int : 198 ms QRS Dur : 094 ms QT Int : 312 ms P-R-T Axes : 053 072 015 degrees QTc Int : 418 ms Sinus tachycardia with occasional Premature ventricular complexes Nonspecific ST abnormality Abnormal ECG When compared with ECG of 07-JUL-2021 01:53, Premature ventricular complexes are now Present Referred By: Generic ED Physician Electronically Signed By:LEOPOLDO BOWERS
[2023-03-16 04:18] VITALS: PULSE 102; O2SAT 98; BMI 34.3
[2023-03-16 04:22] VITALS: BP 128/90; PULSE 99; RESP 14; TEMP 37.6; O2SAT 94
--- NOTE | 2023-03-16 04:33 | PC.NURSE ---
#20 PIV initiated to right forearm. Dr Gan made aware of pt based on pt previous presentations with syncope.
[2023-03-16 04:34] LABS: MANUAL DIFF FLAG NO
[2023-03-16 04:35] LABS: Basophils Percent Auto 0.5 % (0-2); Eosinophils Absolute Auto 0.1 X10*3/uL (0.0-0.4); Eosinophils Percent Auto 1.6 % (0-4); Hematocrit 43.1 % (42.0-52.0); Hemoglobin 14.3 g/dl (14.0-18.0); Imm Gran Abs Auto 0.02 X10*3/uL (0.00-0.03); Imm Gran Pct Auto 0.3 % (0.0-0.4); Lymphocytes Absolute Auto 1.4 X10*3/uL (1.2-4.9); Lymphocytes Percent Auto 21.4 % (20-40); Mean Corpuscular HGB Conc 33.2 g/dl (31.0-36.0); Mean Corpuscular Hemoglobin 26.5 pg (27.0-33.0); Mean Corpuscular Volume 79.8 fL (80.0-98.0); Monocytes Absolute Auto 0.7 X10*3/uL (0.1-1.2); Monocytes Percent Auto 11.3 % (2-11); Neutrophils Absolute Auto 4.2 x10*3/uL (2.0-8.3); Neutrophils Percent Auto 64.9 % (45-73); Platelet Count 176 X10*3/uL (160-400); Red Cell Distribution Width 12.8 % (11.0-16.0); White Blood Count 6.4 X10*3/uL (4.8-10.8)
[2023-03-16 04:40] LABS: INTERNATIONAL NORM RATIO 1.1 (0.9-1.1); Prothrombin Time 13.3 SEC (11.1-13.3)
--- NOTE | 2023-03-16 04:42 | ED.NEUROSD ---
HPI - Neuro Symptoms/Deficit General Chief Complaint: Neuro Symptoms/Deficit Stated Complaint: SYNCOPE Time Seen by Provider: 03/16/23 04:32 Source: patient and family Mode of arrival: ambulatory Limitations: no limitations History of Present Illness HPI Narrative: Patient came to the emergency room complaining a syncopal episode around 3 in the morning. Patient states that he got up to the bathroom, urinated, on his way back, started feeling lightheaded and nearly passed out. Patient states that his was with him, this lasted about 3 seconds. Patient states that he was able to lower himself to the ground, did not hit his head or lost consciousness. Patient has had many similar episodes in the past. The 1st time this happened, patient had a stroke. The subsequent times that this happened, patient was brought to the emergency room, admitted to hospital, MRIs done, no new strokes. Patient states that at this time he feels back to baseline, has no new neurological deficits, no numbness or tingling extremities or face, no chest pain or shortness of breath. Related Data Previous Rx's Medication Instructions Recorded pen needle, diabetic 31 gauge x #100 ea 12/20/2107/31 (1st Tier Unifine Pentips) amlodipine 2.5 mg tablet 2.5 mg PO DAILY #90 tabs 03/21/22 atorvastatin 80 mg tablet 80 mg PO DAILY 90 days #90 tabs 05/22/22 acarbose 50 mg tablet 50 mg PO TID 30 days #90 tabs 09/16/22 flash glucose sensor (FreeStyle #6 kits 11/06/22 Gabriel 14 Day Sensor kit) insulin glargine 100 unit/mL (3 12 unit (0.12 mL) subcut QPM 90 11/12/22 mL) subcutaneous pen (Basaglar days #10.8 mL KwikPen U-100 Insulin) cholecalciferol (vitamin D3) 25 25 mcg PO DAILY #90 tabs 01/04/23 mcg (1,000 unit) tablet dulaglutide 0.75 mg/0.5 mL 0.75 mg (0.5 mL) subcut QWEEK 90 01/05/23 subcutaneous pen injector days #6.5 mL (Trulicity) hydrocortisone 1 %-pramoxine 1 % 1 appl [place] DAILY #10 grams 01/07/23 rectal foam (Proctofoam HC) losartan 100 mg tablet 100 mg PO DAILY 90 days #90 tabs 01/22/23 ezetimibe 10 mg tablet 10 mg PO DAILY 90 days #90 tabs 02/05/23 hydrochlorothiazide 12.5 mg tablet 12.5 mg PO DAILY 30 days #30 tabs 02/18/23 aspirin 81 mg chewable tablet 81 mg PO DAILY 90 days #90 tabs 03/13/23 flash glucose scanning reader #1 ea 03/13/23 ([employer] Gabriel 14 Day [place]) Allergies Allergy/AdvReac Type Severity Reaction Status Date / Time pioglitazone Allergy Severe Dizziness Verified 10/03/22 09:43 bee pollen [BEE STINGS] Allergy Intermediate Swelling Verified 10/03/22 09:43 metoclopramide [From REGLAN] AdvReac Intermediate MUSCLE Verified 10/03/22 09:43 SPASMS dulaglutide [From Trulicity] AdvReac Diarrhea Verified 10/03/22 09:43 cymbalta Allergy Intermediate twitching Uncoded 10/03/22 09:43 Ketoconazole Allergy Intermediate urticaria Uncoded 10/03/22 09:43 lisinopril Allergy Intermediate cough Uncoded 10/03/22 09:43 tramadol Allergy Intermediate itchiness Uncoded 10/03/22 09:43 amoxicillin AdvReac Intermediate diarrhea Uncoded 10/03/22 09:43 metformin AdvReac Intermediate diarrhea Uncoded 10/03/22 09:43 Review of Systems Review of Systems: Constitutional : No Weight loss, No Fever, No Chills, No Night Sweats, No Fatigue, No Malaise ENT/Mouth : No Hearing loss, No Ear Pain, No Nasal Congestion, No Sinus Pain, No Hoarseness, No sore throat, No Rhinorrhea, No Swallowing Difficulty Eyes: No Eye Pain, No Swelling, No Redness, No Foreign Body, No Discharge, No Vision Changes Cardiovascular : No Chest Pain, No SOB, No Dyspnea on Exertion, No Orthopnea, No Edema, No Palpitations Respiratory : No Cough, No Sputum, No Wheezing, No Smoke Exposure, No Dyspnea Gastrointestinal : No Nausea, No Vomiting, No Diarrhea, No Constipation, No abdominal Pain, No Hematochezia, No Melena Genitourinary : no irregular bleeding, No Dysuria, No Urinary Frequency, No Hematuria, No Urinary Incontinence, No Urgency, No Flank Pain, No Urinary Flow Changes, No Hesitancy Musculoskeletal : No joint pain, No Myalgias, No Joint Swelling Skin : No Skin Lesions, No rash Neuro : No Weakness, No Numbness, No Paresthesias, complaining of 1 syncopal episode, lightheadedness, no headache, denies any new neurological deficits Psych : No Anxiety/Panic, No Depression, No SI/HI/AH/VH, No Social Issues, Heme/Lymph: No Bruising, No Bleeding,No Lymphadenopathy Endocrine : No Polyuria, No Polydipsia, No Temperature Intolerance [facility] Past Medical History Medical History Daytime sleepiness CVA (cerebral vascular accident) Poison ramirez dermatitis Skin lesion Obesity due to excess calories Type 2 diabetes mellitus without complications Essential hypertension Hyperlipidemia LDL goal <70 History of stroke Tinea pedis Diabetes Surgical History Hx of vasectomy Family History Family History Father Diabetes Myocardial infarct Mother Diabetes Mental health disorder Sister No problems noted. Sister No problems noted. Daughter No problems noted. Son No problems noted. Son No problems noted. Son No problems noted. Son No problems noted. Social History Social History Household Members: Spouse and Family Housing: House Do you presently have visiting nurse or other home services: No Alcohol intake: never Patient Tobacco Use Status: Never used Tobacco e-Cigarette/Vaping Use: Never Used Second Hand Smoke Exposure: No Substance Use Type: Marijuana Advance Directives: Yes Advance Directives on File: Yes Advance Directives Date on File: 10/18/20 service: No Current occupational status: employed Current occupational exposures/hazards: No Cognitive needs: No Hearing needs: No Vision needs: No Physical Exam Vital Signs: Vital Signs: Last Vital Signs Temp 99.7 F 03/16/23 04:22 Pulse 116 H 03/16/23 05:01 Resp 14 03/16/23 04:22 BP 139/83 03/16/23 05:01 Pulse Ox 94 03/16/23 04:22 O2 Del Method Room Air 03/16/23 04:22 BMI result Body Mass Index 34.3 Const: Other: Appearance: Alert. Oriented X3. No acute distress. Eyes: Pupils equal, round and reactive to light. ENT: Pharynx normal. Neck: Normal inspection. Neck supple. No lymph nodes noted. No crepitus CVS: Normal heart rate and rhythm. Pulses normal. Normal S1 and S2 Respiratory: No respiratory distress. Breath sounds normal. No Wheezing. No rales Abdomen: Soft and nontender. No rigidity. No distention. Skin: Skin warm and dry. Normal skin color. Normal skin turgor. Extremities: No lower extremity edema. No Lacerations. No Rash Neuro: Oriented X 3. No motor deficit. No sensory deficit. Moving all extremities. No slurred speech. CN 2 through 12 grossly intact Psych: calm, cooperative, normal affect Course Course Course Narrative: -patient likely had a vasovagal episode. Possible orthostatic hypotension -patient asymptomatic at this time -of patient's vital stable -of patient's labs pending Medical Decision Making Medical Decision Making [facility] Narrative: -my interpretation of labs, normal hematology, normal chemistry, negative dimer, troponin negative, ETOH negative -my interpretation of EKG: Normal sinus rhythm, heart rate 108, incomplete left bundle-branch block, nonspecific ST abnormalities, QTC 418 -orthostatic vitals negative -patient has history of vasovagal syncope after micturition. Differential Diagnosis Differential Diagnoses: The differential diagnosis associated with the presentation includes (Vasovagal syncope, orthostatic hypotension) Lab Data [facility] Lab Attestation statement: I reviewed the patient's lab results. 03/16/23 04:30 03/16/23 04:30 Labs: Lab Results 03/16/23 Range/Units 04:30 WBC 6.4 (4.8-10.8) X10*3/uL RBC 5.40 (4.60-5.80) X10*6/uL Hgb 14.3 (14.0-18.0) g/dl Hct 43.1 (42.0-52.0) % MCV 79.8 L (80.0-98.0) fL MCH 26.5 L (27.0-33.0) pg MCHC 33.2 (31.0-36.0) g/dl RDW 12.8 (11.0-16.0) % Plt Count 176 (160-400) X10*3/uL MPV 11.0 (9.4-12.4) fL Immature Gran % (Auto) 0.3 (0.0-0.4) % Neut % (Auto) 64.9 (45-73) % Lymph % (Auto) 21.4 (20-40) % [place] % (Auto) 11.3 H (2-11) % Eos % (Auto) 1.6 (0-4) % Baso % (Auto) 0.5 (0-2) % Lymph # (Auto) 1.4 (1.2-4.9) X10*3/uL [place] # (Auto) 0.7 (0.1-1.2) X10*3/uL Eos # (Auto) 0.1 (0.0-0.4) X10*3/uL Baso # (Auto) 0.0 (0.0-0.2) X10*3/uL Abs Immat Gran (auto) 0.02 (0.00-0.03) X10*3/uL Absolute Neuts (auto) 4.2 (2.0-8.3) x10*3/uL Absolute Nucleated RBC 0.000 (0.0-0.012) X10*3/uL Nucleated RBC % (auto) 0.0 (0.0-0.2) /100WBC PT 13.3 (11.1-13.3) SEC INR 1.1 (0.9-1.1) APTT 27.4 (26.0-36.4) SEC D-Dimer High Sensitivty 174 NG/ML Sodium 136 (135-145) mmol/L Potassium 3.7 (3.3-5.1) mmol/L Chloride 101 (96-108) mmol/L Carbon Dioxide 23 (22-29) mmol/L Anion Gap 16 (12-20) BUN 14 (9-16) mg/dL Creatinine 1.34 (0.5-1.4) mg/dL Estim Creat Clear Calc 85.0 Estimated GFR 58 Random Glucose 236 H (60-115) mg/dL Calcium 8.9 (8.4-10.2) mg/dL Magnesium 1.6 (1.6-2.6) mg/dL Total Bilirubin 0.5 (0.0-1.0) mg/dL AST 27 (5-37) U/L ALT 38 (0-40) U/L Alkaline Phosphatase 62 (39-117) U/L Troponin I High Sens < 2.7 (<3.5-35.0) ng/L Total Protein 7.4 (6.5-8.0) g/dL Albumin 3.8 (3.5-5.0) g/dL Ethyl Alcohol < 10 mg/dL Independent Interpretation I performed an independent interpretation of an: EKG NIH Stroke Scale Internal: Initial- Upon Arrival Level of Consciousness: Alert Level of Consciousness Questions: Answers both questions correctly Level of Consciousness Commands: Performs both tasks correctly Best Gaze: Normal Visual: No visual loss Facial Palsy: Normal Motor Arm (Right): No drift Motor Arm (Left): No drift Motor Leg (Right): No drift Motor Leg (Left): No drift Limb Ataxia: Absent Sensory: Normal Best Language: No aphasia Dysarthia: Normal Extinction and Inattention: No abnormality Score: 0 Discharge Plan Discharge Clinical Impression: Vasovagal syncope Patient Disposition: Home, Self-Care Instructions: Syncope (ED) Additional Instructions: Please follow-up with your primary care physician tomorrow. If you have any worsening or new symptoms, please return to the emergency room or call 911 Prescriptions: No Action atorvastatin 80 mg tablet 80 mg PO DAILY 90 Days Qty: 90 2RF acarbose 50 mg tablet 50 mg PO TID 30 Days Qty: 90 1RF (DME) FreeStyle Gabriel 14 Day Sensor Kit See Rx Instructions .ROUTE .MEDSUPPLY Qty: 6 3RF Rx Instructions: As directed insulin glargine [Basaglar KwikPen U-100 Insulin] 100 unit/mL (3 mL) insulin pen 12 unit subcut QPM 90 Days Qty: 10.8 0RF cholecalciferol (vitamin D3) 25 mcg (1,000 unit) tablet 25 mcg PO DAILY Qty: 90 0RF Trulicity 0.75 mg/0.5 mL pen injector 0.75 mg subcut QWEEK 90 Days Qty: 6.5 1RF losartan 100 mg tablet 100 mg PO DAILY 90 Days Qty: 90 1RF ezetimibe 10 mg tablet 10 mg PO DAILY 90 Days Qty: 90 1RF hydrochlorothiazide 12.5 mg tablet 12.5 mg PO DAILY 30 Days Qty: 30 6RF (DME) FreeStyle Gabriel 14 Day [place] Misc See Rx Instructions .ROUTE .MEDSUPPLY Qty: 1 11RF Rx Instructions: As directed aspirin 81 mg tablet,chewable 81 mg PO DAILY 90 Days Qty: 90 3RF Proctofoam HC 1-1 % foam 1 appl [place] DAILY Qty: 10 0RF (DME) pen needle, diabetic [1st Tier Unifine Pentips] 31 gauge x 5/16 needle See Rx Instructions .Route Qty: 100 3RF Rx Instructions: Use 1 pen needle once a day amlodipine 2.5 mg tablet 2.5 mg PO DAILY Qty: 90 3RF Referrals: Phil Rosenthal MD [Physician] - 03/19/23 (Multiple episodes of syncope)
[2023-03-16 04:43] LABS: Partial Thromboplastin Time 27.4 SEC (26.0-36.4)
[2023-03-16 04:50] LABS: Alanine Aminotransferase 38 U/L (0-40); Albumin Level 3.8 g/dL (3.5-5.0); Alkaline Phosphatase 62 U/L (39-117); Anion Gap 16 (12-20); Aspartate Amino Transferase 27 U/L (5-37); Bilirubin Total 0.5 mg/dL (0.0-1.0); Blood Urea Nitrogen 14 mg/dL (9-16); Calcium 8.9 mg/dL (8.4-10.2); Carbon Dioxide 23 mmol/L (22-29); Chloride 101 mmol/L (96-108); Estimated Glomerular Filt Rate 58; Ethanol < 10 mg/dL; Glucose Random 236 mg/dL (60-115); Magnesium 1.6 mg/dL (1.6-2.6); Potassium 3.7 mmol/L (3.3-5.1); Sodium 136 mmol/L (135-145); Total Protein 7.4 g/dL (6.5-8.0)
[2023-03-16 05:00] VITALS: BP 125/77; PULSE 96
[2023-03-16 05:01] VITALS: BP 129/78; BP 139/83; PULSE 113; PULSE 116
[2023-03-16 05:04] LABS: Troponin-I High Sensitivity < 2.7 ng/L (<3.5-35.0)
[2023-03-16 05:24] LABS: D Dimer High Sensitivity 174 NG/ML
[2023-03-16 08:12] LABS: Glucose, Whole Blood 222 mg/dL (60-115)
== END 2023-03-16 06:51 | disposition home or self-care (01) ==
PROVIDERS: Emergency Provider Emergency Medicine
DX: R55 Syncope and collapse (principal); R00.0 Tachycardia, unspecified; Z79.899 Other long term (current) drug therapy
CPT/HCPCS: 36415; 80053; 80307; 82947; 83735; 84484; 85025; 85379; 85610; 85730; 93005; 99283; 99285

== ENCOUNTER → 2023-03-16 04:28 | Outpatient (BNV) | payer BC, SELFPAY | PROVIDERS: Emergency Provider Emergency Medicine; Visit Provider Internal Medicine | DX: R00.0 Tachycardia, unspecified (principal) | CPT/HCPCS: 93010 ==

== ENCOUNTER 2023-03-22 09:34 | Outpatient (AMB) | payer BC, SELFPAY ==
--- NOTE | 2023-03-22 09:50 | MHC.OFFVIS ---
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: No Accompanied by: Self / Same As Patient Allergies pioglitazone Allergy (Severe, Verified 03/22/23 09:53) Dizziness bee pollen [BEE STINGS] Allergy (Intermediate, Verified 03/22/23 09:53) Swelling metoclopramide [From REGLAN] Adverse Reaction (Intermediate, Verified 03/22/23 09:53) MUSCLE SPASMS dulaglutide [From Trulicity] Adverse Reaction (Verified 03/22/23 09:53) Diarrhea cymbalta Allergy (Intermediate, Uncoded 03/22/23 09:53) twitching Ketoconazole Allergy (Intermediate, Uncoded 03/22/23 09:53) urticaria lisinopril Allergy (Intermediate, Uncoded 03/22/23 09:53) cough tramadol Allergy (Intermediate, Uncoded 03/22/23 09:53) itchiness amoxicillin Adverse Reaction (Intermediate, Uncoded 03/22/23 09:53) diarrhea metformin Adverse Reaction (Intermediate, Uncoded 03/22/23 09:53) diarrhea Medication List - Last Reconciled 03/22/23 by Amita Chaparro NP-C acarbose 50 mg PO TID amlodipine 2.5 mg PO DAILY aspirin 81 mg PO DAILY 90 days atorvastatin 80 mg PO DAILY 90 days cholecalciferol (vitamin D3) 25 mcg PO DAILY dulaglutide (Trulicity) 0.75 mg (0.5 mL) subcut QWEEK 90 days ezetimibe 10 mg PO DAILY 90 days flash glucose scanning reader (FreeStyle Gabriel 14 Day Spring) As directed flash glucose sensor (FreeStyle Gabriel 14 Day Sensor kit) As directed hydrochlorothiazide 12.5 mg PO DAILY 30 days hydrocortisone-pramoxine 1-1 % (Proctofoam HC) 1 appl CA DAILY insulin glargine (Basaglar KwikPen U-100 Insulin) 12 units (0.12 mL) subcut QPM 90 days losartan 100 mg PO DAILY 90 days pen needle, diabetic (1st Tier Unifine Pentips) Use 1 pen needle once a day HPI 6 month f/u HPI Details Robin is 42-year-old male with past medical history of obesity, diabetes, hyperlipidemia, hypertension, CVA who presents for follow-up after recent ER visit for syncopal event. Today he reports that he got up in the night to urinate and proceeded to have lightheadedness, sweating and syncopal event. His called EMS and he was evaluated in the emergency room without acute findings. He tells me he has had a similar event before. He describes that on other times he will feel the lightheadedness and sweaty however does not have full syncope. He does not have symptoms like this in the daytime. He denies any heart palpitations, shortness of breath or chest discomfort. No PND, orthopnea or edema. He is taking all meds as directed. He monitored his blood pressure at home and finds it averages around 120/80. He is fearful that his events are indicative of another CVA. He reports with his prior CVA they did not identify a cause for it. He does have residual right-sided weakness which he says is 80% back to normal. [facility] Medical History Daytime sleepiness CVA (cerebral vascular accident) Poison ramirez dermatitis Skin lesion Obesity due to excess calories Type 2 diabetes mellitus without complications Essential hypertension Hyperlipidemia LDL goal <70 History of stroke Tinea pedis Diabetes Surgical History Hx of vasectomy Family History Father Diabetes Myocardial infarct Mother Diabetes Mental health disorder Sister No problems noted. Sister No problems noted. Daughter No problems noted. Son No problems noted. Son No problems noted. Son No problems noted. Son No problems noted. Social History Household Members: Spouse and Family Housing: House Do you presently have visiting nurse or other home services: No Alcohol intake: never Patient Tobacco Use Status: Never used Tobacco e-Cigarette/Vaping Use: Never Used Second Hand Smoke Exposure: No Substance Use Type: Marijuana Advance Directives Date on File: 10/18/20 service: No Current occupational status: employed Current occupational exposures/hazards: No Cognitive needs: No Hearing needs: No Vision needs: No Review of Systems Const All systems reviewed & are unremarkable except as noted in HPI and below Card Denies chest pain, Denies dyspnea and Denies dyspnea on exertion Resp Denies dyspnea and Denies dyspnea on exertion Details: Lightheaded after urination in the nighttime Psych Reports anxiety Physical Exam Vital Signs: Last Vital Signs Pulse 88 03/22/23 09:52 BP 108/70 03/22/23 09:52 BMI result Body Mass Index 33.5 Const General: cooperative, healthy appearing, comfortable and no acute distress Orientation/consciousness: patient oriented x3 Neck Neck: Yes normal visual inspection Resp Effort & Inspection: normal respiratory effort Auscultation: clear to auscultation bilaterally, no crackles, no rales, no rhonchi and no wheezes Cardio Jugular venous distension: no JVD Rate: regular rate Rhythm: regular rhythm Heart sounds: S1 normal heart sound present, S2 normal heart sound present, no murmurs and no rubs Neuro General: patient oriented x3 Extrem General: Yes normal to inspection and No no pedal edema Psych Appearance: grossly normal Mental Status: mental status grossly normal Speech and movement: Normal speech and movement present Assessment & Plan Assessment & Plan (1) Syncope: Code(s): R55 - Syncope and collapse Plan: 2 reported episodes of syncope after urinating in the night. He describes having other episodes of lightheadedness but no full syncope. Recent ER evaluation for this showed no acute findings. EKG showed sinus tachycardia, no acute ST or T-wave abnormalities. Blood pressure in the ER 139/83, heart rate 116. At that time suspected to have micturition syncope, vasovagal syncope. Today he reports that his episodes have only occurred during the night. Instructed on using caution when getting up in the night for urination, sit to urinate. Lay down if he becomes symptomatic. Instructed on good hydration. He is orthostatic on my examination with blood pressure 122/76 sitting and 108/68 standing. He is currently on hydrochlorothiazide for hypertension. Will have him stop that and monitor blood pressure at home. If home readings become more elevated then his amlodipine dose can be increased. Currently on 2.5 mg daily. Will update an echocardiogram on him as well as Holter monitor to assess for other causes of syncope. If he continues to have recurrent events will check a tilt-table test. Cardiology follow-up in 2 months, sooner if needed (2) CVA (cerebral vascular accident): Code(s): I63.9 - Cerebral infarction, unspecified Plan: Report of prior CVA with residual right-sided weakness. He states unknown cause of the CVA, possibly stress. Cardiac evaluation done at that time, 2020, did not reveal cardiac findings Plan Time spent on chart review, documentation, interview and assessment Medications: Changed From acarbose 50 mg PO TID 30 days 90 tabs 1RF E11.9 - Type 2 diabetes mellitus without complications To acarbose 50 mg PO TID E11.9 - Type 2 diabetes mellitus without complications Coding Level of Care Code Est Pt Level 4 (51748) Diagnoses Syncope R55 Cerebrovascular accident (CVA) due to embolism of other cerebral artery I63.9 Time Spent (min) 28
[2023-03-22 09:52] VITALS: BP 108/70; PULSE 88; BMI 33.5
== END 2023-03-22 10:38 | disposition home or self-care (01) ==
PROVIDERS: PCP Internal Medicine; Visit Provider Nurse Practitioner Family
DX: R55 Syncope and collapse (principal); I63.9 Cerebral infarction, unspecified
CPT/HCPCS: 99214

== ENCOUNTER → 2023-03-22 09:34 | Outpatient (BNVA) | payer BC, SELFPAY | PROVIDERS: PCP Internal Medicine; Visit Provider Nurse Practitioner Family ==

== ENCOUNTER 2023-04-09 14:05 | Outpatient (AMB) | payer BC, SELFPAY ==
[2023-04-09 14:06] VITALS: BP 144/90; PULSE 66; O2SAT 99; BMI 34.1
--- NOTE | 2023-04-09 14:06 | A.OFFPC_ITS ---
Vital Signs 04/09/23 14:06 Height 5 ft 9 in Weight 231 lb BMI 34.1 BP 144/90 H Blood Pressure Location Lt brachial Position Sitting Pulse 66 Pulse Source Pulse Oximeter Pulse Oximetry (%) 99 Oxygen Delivery Method Room Air Intake Visit Reasons: Problem with my hands Intake Note: pt states bilateral hand pain [id number] Allergies pioglitazone Allergy (Severe, Verified 04/09/23 14:11) Dizziness bee pollen [BEE STINGS] Allergy (Intermediate, Verified 04/09/23 14:11) Swelling metoclopramide [From REGLAN] Adverse Reaction (Intermediate, Verified 04/09/23 14:11) MUSCLE SPASMS dulaglutide [From Trulicity] Adverse Reaction (Verified 04/09/23 14:11) Diarrhea cymbalta Allergy (Intermediate, Uncoded 04/09/23 14:11) twitching Ketoconazole Allergy (Intermediate, Uncoded 04/09/23 14:11) urticaria lisinopril Allergy (Intermediate, Uncoded 04/09/23 14:11) cough tramadol Allergy (Intermediate, Uncoded 04/09/23 14:11) itchiness amoxicillin Adverse Reaction (Intermediate, Uncoded 04/09/23 14:11) diarrhea metformin Adverse Reaction (Intermediate, Uncoded 04/09/23 14:11) diarrhea Tobacco use date assessed: 04/09/23 Dental Screening Dental Screen Date: 04/09/23 HPI Problem with my hands HPI Details 42-year-old obese male with multiple med ical problems diabetes mellitus hypercholesterolemia hypertension history of CVA. Last hemoglobin A1c was in July with 8.9. Patient sees Cardiology March 2023 CVA with right-sided weakness at the present time concern about vasovagal syncope patient was orthostatic on that examination on hydrochlorothiazide for hypertension and advised to stop that medication. for months complains of R 2ng finger pain on moving medially and deny fall or trauma also on the L 4th finger trigger finger PFSH Medical History Daytime sleepiness CVA (cerebral vascular accident) Poison ramirez dermatitis Skin lesion Obesity due to excess calories Type 2 diabetes mellitus without complications Essential hypertension Hyperlipidemia LDL goal <70 History of stroke Tinea pedis Diabetes Surgical History Hx of vasectomy Family History Father Diabetes Myocardial infarct Mother Diabetes Mental health disorder Sister No problems noted. Sister No problems noted. Daughter No problems noted. Son No problems noted. Son No problems noted. Son No problems noted. Son No problems noted. Social History Household Members: Spouse and Family Housing: House Do you presently have visiting nurse or other home services: No Alcohol intake: never Patient Tobacco Use Status: Never used Tobacco e-Cigarette/Vaping Use: Never Used Second Hand Smoke Exposure: No Substance Use Type: Marijuana Advance Directives Date on File: 10/18/20 service: No Current occupational status: employed Current occupational exposures/hazards: No Cognitive needs: No Hearing needs: No Vision needs: No Questionnaire Thrive Questionnaire Date Thrive assessed: 04/09/23 ZACH-7 AMB Questionnaire ZACH-7 Date ZACH - 7 assessed: 04/09/23 Source: Developed by Drs. Jatinder Silva, Keyana Potts, Jorge Del Toro and colleagues, with an educational nate from [employer]. Physical exam (Primary Care) Vital Signs: Last Vital Signs Pulse 66 04/09/23 14:06 BP 144/90 H 04/09/23 14:06 Pulse Ox 99 04/09/23 14:06 Oxygen Delivery Method Room Air 04/09/23 14:06 BMI result Body Mass Index 34.1 Tobacco/Smoking Status: Tobacco use Status Tobacco use date assessed 04/09/23 04/09/23 14:13 Patient Tobacco Use Status Never used Tobacco 04/09/23 14:13 e-Cigarette/Vaping Use Never Used 04/09/23 14:13 Thrive Assessment: Date of Thrive Assessment Date Thrive assessed 04/09/23 04/09/23 14:13 Const General: alert; No acute distress Eyes Conjunctivae: conjunctivae normal Resp Auscultation: clear to auscultation bilaterally Cardio Rate: regular rate Rhythm: regular rhythm GI Inspection: Yes normal to inspection Extrem General: Yes normal to inspection and No edema Assessment and Plan Assessment & Plan (1) Type 2 diabetes mellitus with hyperglycemia: Comment: [place] Code(s): E11.65 - Type 2 diabetes mellitus with hyperglycemia Plan: Decrease the amount of carbohydrate intake, pasta, bread, rice and potatoes are all sugar and that is aside from all the sweet stuff, remember that fruits are good but they are Sweet also. Hemoglobin A1c goal of less than 6.5. Patient on carbo 50 mg t.i.d. Trulicity 0.75 mg every week Basaglar insulin 12 units at bedtime (2) Essential hypertension: Code(s): I10 - Essential (primary) hypertension Plan: Continue with blood pressure medication. Decrease salt intake and exercise patient was recently taken off hydrochlorothiazide. Presently on losartan 100 mg once a day amlodipine 2.5 mg once a day (3) CVA (cerebral vascular accident): Code(s): I63.9 - Cerebral infarction, unspecified Plan: Aspirin to continue, Control the cholesterol, weight, blood pressure, diabetes (4) Obesity (BMI 30-39.9): Code(s): E66.9 - Obesity, unspecified Plan: Diet and exercise (5) Hyperlipidemia LDL goal <70: Code(s): E78.5 - Hyperlipidemia, unspecified Plan: Avoid fried foods, chicken skin, eggs, butter margarine, pastries and meat. Be it pork or beef they have a lot of cholesterol LDL goal of less than 70 and triglyceride of less than 150. Patient on atorvastatin 80 mg once a day (6) Finger pain, right: Code(s): M79.644 - Pain in right finger(s) Plan: With the 2 months of having pain will order for an x-ray of the fingers. (7) Trigger finger of left hand: Code(s): M65.30 - Trigger finger, unspecified finger Plan: Trigger finger discussed about conservative management of popsicle stick/splint, if persist though will need referral to orthopedics. (8) Renal insufficiency: Code(s): N28.9 - Disorder of kidney and ureter, unspecified Plan: Concern about the elevated renal function and advised to retest this keep well hydrated avoid NSAID Orders: Orders AMB Hemoglobin A1c Today E11.9 - Type 2 diabetes mellitus without complications XR hand RT 2V Today M79.644 - Pain in right finger(s) Comprehensive Met. Panel Today N28.9 - Disorder of kidney and ureter, unspecified Lipid Panel Today E11.9 - Type 2 diabetes mellitus without complications, E78.00 - Pure hypercholesterolemia, unspecified Creatinine Urine Today E11.65 - Type 2 diabetes mellitus with hyperglycemia, E11.9 - Type 2 diabetes mellitus without complications Free T4 (Free Thyroxine) Today E11.9 - Type 2 diabetes mellitus without complications Thyroid Stimulating Hormone Today E11.9 - Type 2 diabetes mellitus without complications Hemoglobin A1c Today E11.9 - Type 2 diabetes mellitus without complications Microalbumin, Random (w Creat) Today E11.65 - Type 2 diabetes mellitus with hyperglycemia, E11.9 - Type 2 diabetes mellitus without complications Complete Blood Count Auto Diff Today E11.9 - Type 2 diabetes mellitus without complications Vitamin B12 and Folate Today E11.9 - Type 2 diabetes mellitus without complications Medications: Changed From dulaglutide (Trulicity) 0.75 mg (0.5 mL) subcut QWEEK 90 days 6.5 mL 1RF E11.9 - Type 2 diabetes mellitus without complications To dulaglutide 1.5 mg (0.5 mL) subcut QWEEK 90 days 6.5 mL 1RF E11.9 - Type 2 diabetes mellitus without complications Refilled flash glucose sensor (FreeStyle Gabriel 14 Day Sensor kit) As directed 6 kits 3RF E11.65 - Type 2 diabetes mellitus with hyperglycemia Coding Level of Care Code Est Pt Level 4 (03569) Diagnoses Type 2 diabetes mellitus with hyperglycemia E11.65 Essential hypertension I10 Cerebrovascular accident (CVA) due to embolism of other cerebral artery I63.9 Obesity (BMI 30-39.9) E66.9 Hyperlipidemia LDL goal <70 E78.5 Finger pain, right M79.644 Trigger finger of left hand M65.30 Renal insufficiency N28.9
== END 2023-04-09 14:44 | disposition home or self-care (01) ==
PROVIDERS: PCP Internal Medicine; Visit Provider Internal Medicine
DX: E11.65 Type 2 diabetes mellitus with hyperglycemia (principal); I10 Essential (primary) hypertension; I69.351 Hemiplegia and hemiparesis following cerebral infarction affecting right dominant side; E78.5 Hyperlipidemia, unspecified; M79.644 Pain in right finger(s); M65.30 Trigger finger, unspecified finger; N28.9 Disorder of kidney and ureter, unspecified
CPT/HCPCS: 99214

== ENCOUNTER 2023-04-12 07:53 | Outpatient (REF) | payer BC, SELFPAY ==
--- NOTE | ~2023-04-12 | XR_ITS ---
EXAMINATION: XR HAND, RIGHT CLINICAL INFORMATION: Pain in right index finger. COMPARISON: None available. TECHNIQUE: PA, lateral, and oblique views of the right hand. FINDINGS: The bones and soft tissues are normal. No fracture. Alignment is anatomic. Joint spaces are maintained. No erosions or soft tissue calcifications. XR/XR hand RT min 3V IMPRESSION: Normal right hand.
[2023-04-12 08:29] LABS: MANUAL DIFF FLAG NO
[2023-04-12 09:20] LABS: Basophils Percent Auto 0.3 % (0-2); Eosinophils Absolute Auto 0.2 X10*3/uL (0.0-0.4); Eosinophils Percent Auto 3.4 % (0-4); Hematocrit 43.2 % (42.0-52.0); Hemoglobin 13.9 g/dl (14.0-18.0); Imm Gran Abs Auto 0.01 X10*3/uL (0.00-0.03); Imm Gran Pct Auto 0.2 % (0.0-0.4); Lymphocytes Absolute Auto 1.7 X10*3/uL (1.2-4.9); Lymphocytes Percent Auto 26.8 % (20-40); Mean Corpuscular HGB Conc 32.2 g/dl (31.0-36.0); Mean Corpuscular Hemoglobin 26.4 pg (27.0-33.0); Mean Corpuscular Volume 82.1 fL (80.0-98.0); Mean Platelet Volume 11.1 fL (9.4-12.4); Monocytes Absolute Auto 0.4 X10*3/uL (0.1-1.2); Monocytes Percent Auto 5.6 % (2-11); Neutrophils Percent Auto 63.7 % (45-73); Platelet Count 187 X10*3/uL (160-400); Red Blood Count 5.26 X10*6/uL (4.60-5.80); White Blood Count 6.2 X10*3/uL (4.8-10.8)
[2023-04-12 09:26] LABS: Estimated Average Glucose 263 mg/dL; Hemoglobin A1c % 10.8 % (<6.0)
[2023-04-12 10:11] LABS: Creatinine Urine 202.13 mg/dL; Microalbum/Creatinine Ratio Ur 4.4 ug/mg cr (<30)
[2023-04-12 10:32] LABS: Alanine Aminotransferase 29 U/L (0-40); Albumin Level 3.8 g/dL (3.5-5.0); Alkaline Phosphatase 60 U/L (39-117); Anion Gap 13 (12-20); Aspartate Amino Transferase 16 U/L (5-37); Bilirubin Total 0.9 mg/dL (0.0-1.0); Blood Urea Nitrogen 16 mg/dL (9-16); Calcium 8.9 mg/dL (8.4-10.2); Carbon Dioxide 24 mmol/L (22-29); Chloride 107 mmol/L (96-108); Cholesterol 83 mg/dL (<200); Estimated Glomerular Filt Rate > 60; Glucose Random 161 mg/dL (60-115); HDL Cholesterol 23 mg/dL (>40); LDL Cholesterol Calculated 53 mg/dL (<100); Potassium 4.1 mmol/L (3.3-5.1); Sodium 140 mmol/L (135-145); Triglycerides 36 mg/dL (<150)
[2023-04-12 10:40] LABS: Folate 10.5 ng/mL (> or = 4.0); Free T4 (Free Thyroxine) 0.96 ng/dL (0.71-1.85); Thyroid Stimulating Hormone 1.73 uIU/mL (0.32-4.0); Vitamin B12 336 pg/mL (200-900)
== END 2023-04-12 07:54 | disposition home or self-care (01) ==
LOC: HO.XRAY 07:53
PROVIDERS: PCP Internal Medicine; Visit Provider Internal Medicine
DX: E11.65 Type 2 diabetes mellitus with hyperglycemia (principal); N28.9 Disorder of kidney and ureter, unspecified; E78.00 Pure hypercholesterolemia, unspecified; M79.644 Pain in right finger(s)
CPT/HCPCS: 36415; 73130; 80053; 80061; 82043; 82570; 82607; 82746; 83036; 84439; 84443; 85025

== ENCOUNTER → 2023-04-15 09:00 | Outpatient (REF) | payer BC, SELFPAY ==
--- NOTE | 2023-04-15 09:03 | CA_ITS ---
Transthoracic Echocardiogram Patient (Last, First, Middle): Robin Rivera L Gender: Male Date of : 1980 Age: 42 Procedure Date: 04/15/2023 Procedure Type: Transthoracic Echocardiogram Location: OP Height: 175.26 cm Weight: 104.33 kg BSA: 2.19 m2 Heart Rate: bpm BP: 128 / 80 mmHg [employer] Contractor: MARIA ELENA Referring MD: Amita Chaparro NP-Alexey Document Clerk: Nelson Last MD Symptoms: R55 - Syncope and collapse Study Quality: Good ECG Rhythm: Sinus Conclusions: - 1. Low normal LV ejection fraction 50-55% 2. Normal cardiac valvular Doppler 3. Normal RV systolic pressure 4. No gross pericardial effusion Findings Left Ventricle Normal left ventricular cavity size. There is normal left ventricular wall thickness. The left ventricular systolic function is low normal. The visually estimated ejection fraction is between 50-55%. Spectral Doppler is indicative of a normal filling pattern. Right Ventricle Normal right ventricular cavity size and systolic function. Atria The left atrium is likely dilated. There is no evidence of interatrial shunt. The right atrium is normal in size. Aortic Valve Normal aortic valve structure and function. There is no aortic valve stenosis. There is no aortic valve regurgitation. Mitral Valve Normal mitral valve structure and function. There is trace mitral valve regurgitation. There is no mitral valve stenosis. Pulmonic Valve The pulmonic valve is likely normal. Tricuspid Valve Normal tricuspid valve structure. There is trace tricuspid valve regurgitation. The right ventricular systolic pressure is normal. The right ventricular systolic pressure is 20 mmHg. Normal right atrial pressure. There is no evidence of pulmonary hypertension. Great Vessels The pulmonary artery was not well visualized. There is no dilatation of the ascending aorta measuring 3.10 cm. Venous The inferior vena cava is normal in size and collapses greater than 50% with inspiration. Pericardium/Pleural There is no evidence of pericardial effusion. Prior Study Comparison Changes noted compared to prior study dated: 11/14/2020. LV systolic function is marginally reduced. Delayed reporting due to technical issues Measurements 2D Linear Measurements IVSd: 1.02 0.6-0.9/0.6-1.0 cm LVIDd: 4.45 3.9-5.3/4.2-5.9 cm LVIDd Index: 2.03 2.4-3.2/2.2-3.1 cm/m2 LVIDs: 2.91 2.0-3.6 cm LVPWd: 1.02 0.7-1.1 cm Ao Root: 3.10 2.1-3.5 cm LA Diam: 3.80 2.7-3.8/3.0-4.0 cm LAIDs Index: 1.74 1.5-2.3 cm/m2 LV Mass: 192.65 67-162/88-224 g LV Mass Index: 87.97 43-95/49-115 g/m2 LVOT Diam: 2.20 3.0+(-)1.3 cm 2D Systolic Function EF 4C: 49.10 >55% EF 2C: 53.00 >55% EF BiP: 50.50 >55% Mitral Valve MV Pk E: 0.74 MV PK A: 0.57 MV Decel Time: 170.00 E/A: 1.30 E'Lateral: 13.40 E'Medial: 8.16 E/E' Med: 9.00 E/E' Lat: 5.50 PHT: 50.00 MVA PHT: 4.40 Decel Leon: 4.34 Aortic Valve AoV Pk Laureano: 1.26 AoV Mn Laureano: 0.84 AoV VTI: 0.25 AoV Pk Grad: 6.00 Aov Mn Grad: 3.00 NITIN Cont.VTI: 2.62 LVOT LVOT Pk Laureano: 0.89 LVOT Mn Laureano: 0.54 LVOT VTI: 0.17 LVOT Pk Grad: 3.00 LVOT Mn Grad: 1.00 LVOT Diam: 2.20 LVOT Area: 3.80 Diastolic Function MV Pk E: 0.74 MV Pk A: 0.57 E/A: 1.30 E'Medial: 8.16 E/E' Med: 9.00 E' Laterial: 13.40 E/E' Lat: 5.50 Right Ventricle TAPSE (mm): 25.00 TVS' Laureano: 11.00 Tricuspid Valve TR Pk Laureano: 2.07 TR Pk Grad: 17.00 RA Press: 3.00 RVSP: 20.00 Great Vessels Aorta Ao Root-2D: 3.10 2.0-3.7 cm Ao Asc: 3.10 2.1-3.4 cm Pulmonary Valve PV Pk Laureano: 0.98 Peak PV Grad: 4.00 Updated in Other Vendor System with Status of Final Nelson Last MD electronically signed on 04/18/2023 1:31:14 PM with status of Final
--- NOTE | 2023-04-15 09:03 | HM_ITS ---
Conclusion: 1. Patient was monitored for total period of 2 days and 23 hours 2. Baseline was normal sinus with average heart of 77 beats per minute 3. Rare PACs noted 4. No significant pauses noted 5. No patient reported events MTDD
== END ==
LOC: HO.CARD 09:00
PROVIDERS: PCP Internal Medicine; Visit Provider Nurse Practitioner Family
DX: R55 Syncope and collapse (principal)
CPT/HCPCS: 93242; 93306

== ENCOUNTER → 2023-04-15 09:03 | Outpatient (BNV) | payer BC, SELFPAY | PROVIDERS: PCP Internal Medicine; Visit Provider Internal Medicine Cardiovascular Disease | DX: I49.1 Atrial premature depolarization (principal) | CPT/HCPCS: 93244; 93306 ==

== ENCOUNTER 2023-05-21 09:17 | Outpatient (AMB) | payer BC, SELFPAY ==
[2023-05-21 09:52] VITALS: BP 132/74; PULSE 75; BMI 34.4
--- NOTE | 2023-05-21 09:52 | A.OFFVIS_ITS ---
Intake Vital Signs 05/21/23 09:52 Height 5 ft 9 in Weight 232 lb 12.93 oz BMI 34.4 BP 132/74 Blood Pressure Location Lt brachial Position Sitting Pulse 75 Pulse Source Pulse Oximeter Intake Visit Reasons: 2 month fu after holter/echo Tobacco Shaker Required: No Allergies pioglitazone Allergy (Severe, Verified 05/21/23 09:54) Dizziness bee pollen [BEE STINGS] Allergy (Intermediate, Verified 05/21/23 09:54) Swelling metoclopramide [From REGLAN] Adverse Reaction (Intermediate, Verified 05/21/23 09:54) MUSCLE SPASMS dulaglutide [From Trulicity] Adverse Reaction (Verified 05/21/23 09:54) Diarrhea cymbalta Allergy (Intermediate, Uncoded 05/21/23 09:54) twitching Ketoconazole Allergy (Intermediate, Uncoded 05/21/23 09:54) urticaria lisinopril Allergy (Intermediate, Uncoded 05/21/23 09:54) cough tramadol Allergy (Intermediate, Uncoded 05/21/23 09:54) itchiness amoxicillin Adverse Reaction (Intermediate, Uncoded 05/21/23 09:54) diarrhea metformin Adverse Reaction (Intermediate, Uncoded 05/21/23 09:54) diarrhea HPI 2 month fu after holter/echo HPI Details Robin is a 42-year-old male with past medical history of obesity, diabetes, hyperlipidemia, hypertension, CVA, syncope who presents for follow-up after recent echocardiogram and Holter monitor. Today he reports he has not had any recurrent syncopal events since his last visit. He has been feeling well with no concerning symptoms. 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 Currently no chest discomfort at rest or with activity. No shortness of breath, palpitations, lightheaded ness, presyncope, syncope, PND, orthopnea or edema. Taking meds as directed. Reports home blood pressures typically range in the 120 systolic. [facility] Medical History Daytime sleepiness CVA (cerebral vascular accident) Poison ramirez dermatitis Skin lesion Obesity due to excess calories Type 2 diabetes mellitus without complications Essential hypertension Hyperlipidemia LDL goal <70 History of stroke Tinea pedis Diabetes Surgical History Hx of vasectomy Family History Father Diabetes Myocardial infarct Mother Diabetes Mental health disorder Sister No problems noted. Sister No problems noted. Daughter No problems noted. Son No problems noted. Son No problems noted. Son No problems noted. Son No problems noted. Social History Household Members: Spouse and Family Housing: House Do you presently have visiting nurse or other home services: No Alcohol intake: never Patient Tobacco Use Status: Never used Tobacco e-Cigarette/Vaping Use: Never Used Second Hand Smoke Exposure: No Substance Use Type: Marijuana Advance Directives Date on File: 10/18/20 service: No Current occupational status: employed Current occupational exposures/hazards: No Cognitive needs: No Hearing needs: No Vision needs: No Review of Systems Const All systems reviewed & are unremarkable except as noted in HPI and below ENT Denies dizziness Card Denies chest pain, Denies chest pain at rest, Denies chest pain with activity, Denies rapid heart rate, Denies pedal edema, Denies edema, Denies leg edema, Denies lightheadedness, Denies palpitations, Denies dyspnea, Denies dyspnea on exertion and Denies orthopnea Resp Denies cough, Denies dyspnea and Denies dyspnea on exertion GI Denies hematochezia and Denies change in stool character Musc Denies abnormal gait, Denies limited range of motion, Denies muscle cramps, Denies muscle weakness, Denies numbness, Denies radiating pain into limb, Denies stiffness and Denies tingling Neuro Denies abnormal gait, Denies dizziness, Denies numbness and Denies tingling Endo Denies palpitations Physical Exam Vital Signs: Last Vital Signs Pulse 75 05/21/23 09:52 BP 132/74 05/21/23 09:52 BMI result Body Mass Index 34.4 Const General: cooperative, healthy appearing, comfortable and no acute distress Orientation/consciousness: patient oriented x3 Neck Neck: Yes normal visual inspection Resp Effort & Inspection: normal respiratory effort Auscultation: clear to auscultation bilaterally, no crackles, no rales, no rhonchi and no wheezes Cardio Jugular venous distension: no JVD Rate: regular rate Rhythm: regular rhythm Heart sounds: S1 normal heart sound present, S2 normal heart sound present, no murmurs and no rubs Neuro General: patient oriented x3 Extrem General: Yes normal to inspection and No no pedal edema Psych Appearance: grossly normal Mental Status: mental status grossly normal Speech and movement: Normal speech and movement present Assessment & Plan Assessment & Plan (1) Syncope: Code(s): R55 - Syncope and collapse Plan: 2 reported episodes of syncope after urinating in the night. He describes jimenez ving other episodes of lightheadedness but no full syncope. Recent ER evaluation for this showed no acute findings. EKG showed sinus tachycardia, no acute ST or T-wave abnormalities. Blood pressure in the ER 139/83, heart rate 116. At that time suspected to have micturition syncope, vasovagal syncope. Today he reports that his episodes have only occurred during the night. Instructed on using caution when getting up in the night for urination, sit to urinate. Lay down if he becomes symptomatic. Instructed on good hydration. He was orthostatic on my examination with blood pressure 122/76 sitting and 108/68 standing. On last visit his hydrochlorothiazide was discontinued. He has been monitoring his blood pressure at home and tells me is still in the normal range. He has not had any recurrent syncopal events in the last 3 months. A Holter monitor was done on 04/15/2023 for 3 days showing sinus rhythm with average heart rate 77, rare PACs. An echocardiogram was done 04/15/2023 showing EF 50-55%, normal valves. Unclear cause of his mildly reduced EF. He denies any known sleep apnea. No alcohol use. Blood pressure seems well controlled. He will continue to monitor symptoms and notify this office if anything concerning. Cardiology office visit in 6 months, sooner if needed. (2) CVA (cerebral vascular accident): Code(s): I63.9 - Cerebral infarction, unspecified Plan: Report of prior CVA with residual right-sided weakness. He states unknown cause of the CVA, possibly stress. Cardiac evaluation done at that time, 2020, did not reveal cardiac findings Plan Time spent on chart review, documentation, interview and assessment Coding Level of Care Code Est Pt Level 3 (17681) Diagnoses Syncope R55 Cerebrovascular accident (CVA) due to embolism of other cerebral artery I63.9 Time Spent (min) 24
== END 2023-05-21 10:23 | disposition home or self-care (01) ==
PROVIDERS: PCP Internal Medicine; Referring Provider Internal Medicine; Visit Provider Nurse Practitioner Family
DX: R55 Syncope and collapse (principal); I63.9 Cerebral infarction, unspecified
CPT/HCPCS: 99213

== ENCOUNTER → 2023-05-21 09:17 | Outpatient (BNVA) | payer BC, SELFPAY | PROVIDERS: PCP Internal Medicine; Visit Provider Nurse Practitioner Family ==

== ENCOUNTER 2023-06-05 09:13 | Outpatient (AMB) | payer BC, SELFPAY ==
--- NOTE | 2023-06-05 09:15 | A.OFFPC_ITS ---
Vital Signs 06/05/23 09:16 Height 5 ft 9 in Weight 231 lb BMI 34.1 BP 130/80 Blood Pressure Location Lt brachial Position Sitting Intake Visit Reasons: Annual exam Intake Note: Patient here for an annual physical exam Development And Housing Director Required: No Accompanied by: Self / Same As Patient Allergies pioglitazone Allergy (Severe, Verified 06/05/23 09:29) Dizziness bee pollen [BEE STINGS] Allergy (Intermediate, Verified 06/05/23 09:29) Swelling metoclopramide [From REGLAN] Adverse Reaction (Intermediate, Verified 06/05/23 09:29) MUSCLE SPASMS dulaglutide [From Trulicity] Adverse Reaction (Verified 06/05/23 09:29) Diarrhea cymbalta Allergy (Intermediate, Uncoded 06/05/23 09:29) twitching Ketoconazole Allergy (Intermediate, Uncoded 06/05/23 09:29) urticaria lisinopril Allergy (Intermediate, Uncoded 06/05/23 09:29) cough tramadol Allergy (Intermediate, Uncoded 06/05/23 09:29) itchiness amoxicillin Adverse Reaction (Intermediate, Uncoded 06/05/23 09:29) diarrhea metformin Adverse Reaction (Intermediate, Uncoded 06/05/23 09:29) diarrhea Medication List - Last Reconciled 06/05/23 by Sheeba Smith MD acarbose 50 mg PO TID amlodipine 2.5 mg PO DAILY aspirin 81 mg PO DAILY 90 days atorvastatin 80 mg PO DAILY 90 days cholecalciferol (vitamin D3) 25 mcg PO DAILY dulaglutide 1.5 mg (0.5 mL) subcut QWEEK 90 days ezetimibe 10 mg PO DAILY 90 days flash glucose scanning reader (FreeStyle Gabriel 14 Day [place]) As directed flash glucose sensor (FreeStyle Gabriel 14 Day Sensor kit) As directed hydrocortisone-pramoxine 1-1 % (Proctofoam HC) 1 appl IA DAILY insulin glargine (Basaglar KwikPen U-100 Insulin) 12 units (0.12 mL) subcut QPM 90 days losartan 100 mg PO DAILY 90 days pen needle, diabetic (1st Tier Unifine Pentips) Use 1 pen needle once a day Tobacco use date assessed: 04/09/23 Dental Screening Dental Screen Date: 06/05/23 Did you have a dental visit in the last 12 months?: No Did you have a dental problem in the last 6 months where you did not have access to dental care?: No Was dental information given to patient?: Patient has dentist HPI HPI Comments History of Present Illness Details This is a 42-year-old male with diabetes mellitus type 2 on long-term current use of insulin and history of cerebrovascular accident few years ago with no significant residual deficit that comes for his physical exam. A1c is not on goal and I will change Trulicity to Ozempic. Blood pressure stable. LDL within goal. On aspirin for secondary prophylaxis of stroke. [facility] Medical History (Updated 06/05/23 @ 10:52 by Sheeba Smith MD) Afib Daytime sleepiness CVA (cerebral vascular accident) Poison ramirez dermatitis Skin lesion Obesity due to excess calories Type 2 diabetes mellitus without complications Essential hypertension Hyperlipidemia LDL goal <70 History of stroke Tinea pedis Diabetes Surgical History Hx of vasectomy Family History (Updated 06/05/23 @ 09:36 by Sheeba Smith MD) Father Diabetes Myocardial infarct Mother Diabetes Mental health disorder Lung cancer Sister No problems noted. Sister No problems noted. Daughter No problems noted. Son No problems noted. Son No problems noted. Son No problems noted. Son No problems noted. Social History Household Members: Spouse and Family Housing: House Do you presently have visiting nurse or other home services: No Alcohol intake: never Patient Tobacco Use Status: Never used Tobacco e-Cigarette/Vaping Use: Never Used Second Hand Smoke Exposure: No Substance Use Type: Marijuana Advance Directives Date on File: 10/18/20 service: No Current occupational status: employed Current occupational exposures/hazards: No Cognitive needs: No Hearing needs: No Vision needs: No Questionnaire PHQ-9 Over the last 2 weeks, how often have you been bothered by any of the following problems? 1. Little interest or pleasure in doing things: not at all 2. Feeling down, depressed, or hopeless: more than half the days 3. Trouble falling or staying asleep, or sleeping too much: not at all 4. Feeling tired or having little energy: several days 5. Poor appetite or overeating: not at all 6. Feeling bad about yourself - or that you are a failure or have let yourself or your family down: not at all 7. Trouble concentrating on things, such as reading the newspaper or watching television: not at all 8. Moving or speaking so slowly that other people could have noticed. Or the opposite - being so fidgety or restless that you have been moving around a lot more than usual: not at all 9. Thoughts that you would be better off or of hurting yourself in some way: not at all Total score: 3 Depression Screening Interpretation: Negative Depression Screening Done: Yes 61188 - PHQ-9 Billing: Yes Source: Developed by Drs. Jatinder Silva, Keyana Potts, Jorge Del Toro and colleagues, with an educational nate from [employer]. Thrive Questionnaire Date Thrive assessed: 06/05/23 I am a: Patient What is your living situation today?: I have a steady place to live Within the past 12 months, did the food you bought not last and you didn't have the money to get more?: Never true Within the past 12 months, did you worry whether your food would run out before you got money to buy more?: Never true Do you have trouble paying for medicines?: No Do you have trouble getting transportation to medical appointments?: No Do you have trouble paying your heating and electricity bill?: No Do you have trouble taking care of your child, family member or friend?: No Do you have trouble with day-to-day activities such as bathing, preparing meals, shopping, managing finances, etc.?: No Are you currently unemployed and looking for a job?: No Are you interested in more education?: No Please select the resources that you would like help with: None Currently or been in a relationship where the following occur: no concerns reported THRIVE Score: 0 AUDIT C Alcohol Use Questionnaire (AUDIT-C) 1. How often do you have a drink containing alcohol?: Never Total Score: 0 ZACH-7 AMB Questionnaire ZACH-7 Date ZACH - 7 assessed: 04/09/23 Feeling nervous, anxious, or on edge: 1 = Several days Not being able to stop or control worryin = Not at all Worrying too much about different things: 1 = Several days Trouble relaxin = Not at all Being so restless that it is hard to sit still: 0 = Not at all Becoming easily annoyed or irritable: 0 = Not at all Feeling afraid as if something awful might happen: 0 = Not at all Total ZACH-7 score (0-4 normal; 5-9 mild; 10-14 moderate; 15-21 severe): 2 Source: Developed by Drs. Jatinder Silva, Keyana Potts, Jorge Del Toro and colleagues, with an educational nate from [employer]. ZACH-7 Assessment Billing ZACH-7 Assessment Tool: ZACH-7 Assessment 21602 Review of Systems Const All systems reviewed & are unremarkable except as noted in HPI and below Eyes Reports no additional complaints, Denies change in vision and Denies other visual disturbances Card Denies chest pain at rest, Denies chest pain with activity, Denies edema, Denies irregular heart rhythm, Denies claudication, Denies dyspnea, Denies dyspnea on exertion, Denies orthopnea, Denies paroxysmal nocturnal dyspnea and Denies slow heart rate Resp Denies cough, Denies dyspnea and Denies dyspnea on exertion GI Denies abdominal pain, Denies change in bowel habits, Denies excessive flatus, Denies nausea and Denies vomiting Denies urinary hesitancy, Denies urinary incontinence and Denies urinary urgency Musc Denies abnormal gait, Denies atrophy, Denies deformity and Denies limited range of motion Neuro Denies abnormal gait, Denies behavioral changes, Denies confusion and Denies lack of coordination Psych Denies behavioral changes and Denies confusion Physical exam (Primary Care) Vital Signs: Last Vital Signs BP 130/80 06/05/23 09:16 BMI result Body Mass Index 34.1 Tobacco/Smoking Status: Tobacco use Status Tobacco use date assessed 04/09/23 06/05/23 09:24 Patient Tobacco Use Status Never used Tobacco 06/05/23 09:24 e-Cigarette/Vaping Use Never Used 06/05/23 09:24 PHQ-9: PHQ-9 Score PHQ-9: Total score 3 06/05/23 09:36 Depression Screening Interpretation: Negative Thrive Assessment: Date of Thrive Assessment Date Thrive assessed 06/05/23 06/05/23 09:24 Currently or been in a relationship where the following occur: no concerns reported Const General: No confusion Orientation/consciousness: patient oriented x3 and No confusion HENID Head: Yes normal to inspection, Yes normocephalic and Yes atraumatic Ears: external ears normal Eyes General: appearance normal, both eyes and all related structures Eyelids: Yes eyelids normal Conjunctivae: conjunctivae normal Neck Neck: Yes normal visual inspection and Yes supple Resp Effort & Inspection: normal respiratory effort Auscultation: clear to auscultation bilaterally Cardio Jugular venous distension: no JVD Rate: regular rate Rhythm: regular rhythm Heart sounds: S1 normal heart sound present and S2 normal heart sound present GI Inspection: Yes normal to inspection Palpation (GI): Soft to palpation and nontender Auscultation: normal bowel sounds Skin General skin exam: no rashes or lesions noted Neuro General: patient oriented x3, no focal motor deficits and No confusion Extrem General: Yes full ROM Psych Appearance: grossly normal Assessment and Plan Assessment & Plan (1) Adult general medical exam: Code(s): Z00.00 - Encounter for general adult medical examination without abnormal findings Plan: Repeat in a year. (2) Type 2 diabetes mellitus without complications: Code(s): E11.9 - Type 2 diabetes mellitus without complications Qualifiers: Diabetes mellitus intermediate manager insulin use: without intermediate manager use Qualified Code(s): E11.9 - Type 2 diabetes mellitus without complications Plan: Continue insulin. Start Ozempic. A1c goal is equal or less than 7% (3) CVA (cerebral vascular accident): Code(s): I63.9 - Cerebral infarction, unspecified Plan: Continue aspirin for secondary prophylaxis. Keep LDL less than 70. Orders: Orders Lipid Panel Today E78.5 - Hyperlipidemia, unspecified Microalbumin, Random (w Creat) Today E11.9 - Type 2 diabetes mellitus without complications Vitamin D 25-OH Total Today E55.9 - Vitamin D deficiency, unspecified Comprehensive [place]. Panel Fast Today Z00.00 - Encounter for general adult medical examination without abnormal findings Medications: New semaglutide (Ozempic) for 4 weeks 0.25 mg (0.368 mL) subcut QWEEK 30 days 1.84 mL 0RF E11.9 - Type 2 diabetes mellitus without complications Changed 2 From insulin glargine (Basaglar KwikPen U-100 Insulin) 12 units (0.12 mL) subcut QPM 90 days 10.8 mL 0RF E11.9 - Type 2 diabetes mellitus without complications To insulin glargine (Basaglar KwikPen U-100 Insulin) 14 units (0.14 mL) subcut QPM 90 days 12.6 mL 3RF E11.9 - Type 2 diabetes mellitus without complications Discontinued dulaglutide Discontinued Reason: Patient Completed Course 1.5 mg (0.5 mL) subcut QWEEK 90 days 6.5 mL 1RF E11.9 - Type 2 diabetes mellitus without complications Coding Level of Care Code Est Pt Prev Care 40-64y(38710) Diagnoses Adult general medical exam Z00.00 Type 2 diabetes mellitus without complication, without long-term current use of insulin E11.9 Diabetes mellitus detention insulin use: without intermediate manager use Cerebrovascular accident (CVA) due to embolism of other cerebral artery I63.9 Additional Codes ZACH-7 Assessment Billing - ZACH-7 Assessment Tool: ZACH-7 Assessment 13987 ([id number]) Time Spent (min) 34
[2023-06-05 09:16] VITALS: BP 130/80; BMI 34.1
== END 2023-06-05 09:43 | disposition home or self-care (01) ==
PROVIDERS: Visit Provider Internal Medicine
DX: Z00.00 Encounter for general adult medical examination without abnormal findings (principal); E11.9 Type 2 diabetes mellitus without complications; I63.9 Cerebral infarction, unspecified
CPT/HCPCS: 99396

== ENCOUNTER 2023-10-07 08:12 | Outpatient (AMB) | payer BC, SELFPAY ==
[2023-10-07 08:17] VITALS: BP 130/86; BMI 33.7
--- NOTE | 2023-10-07 08:17 | A.OFFPC_ITS ---
Vital Signs 10/07/23 08:17 Height 5 ft 9 in Weight 228 lb BMI 33.7 BP 130/86 Blood Pressure Location Lt brachial Position Sitting Intake Visit Reasons: dm Intake Note: patient here for a follow up DM [employer] Manager Required: No Accompanied by: Self / Same As Patient Allergies pioglitazone Allergy (Severe, Verified 10/07/23 08:24) Dizziness bee pollen [BEE STINGS] Allergy (Intermediate, Verified 10/07/23 08:24) Swelling metoclopramide [From REGLAN] Adverse Reaction (Intermediate, Verified 10/07/23 08:24) MUSCLE SPASMS dulaglutide [From Trulicity] Adverse Reaction (Verified 10/07/23 08:24) Diarrhea cymbalta Allergy (Intermediate, Uncoded 10/07/23 08:24) twitching Ketoconazole Allergy (Intermediate, Uncoded 10/07/23 08:24) urticaria lisinopril Allergy (Intermediate, Uncoded 10/07/23 08:24) cough tramadol Allergy (Intermediate, Uncoded 10/07/23 08:24) itchiness amoxicillin Adverse Reaction (Intermediate, Uncoded 10/07/23 08:24) diarrhea metformin Adverse Reaction (Intermediate, Uncoded 10/07/23 08:24) diarrhea Medication List - Last Reconciled 10/07/23 by Sheeba Smith MD acarbose 50 mg PO TID 30 days amlodipine 2.5 mg PO DAILY aspirin 81 mg PO DAILY 90 days atorvastatin 80 mg PO DAILY 90 days cholecalciferol (vitamin D3) 25 mcg PO DAILY ezetimibe 10 mg PO DAILY 90 days flash glucose scanning reader (FreeStyle Gabriel 14 Day [place]) As directed flash glucose sensor (FreeStyle Gabriel 14 Day Sensor kit) As directed hydrocortisone-pramoxine 1-1 % (Proctofoam HC) 1 appl [place] DAILY insulin glargine (Basaglar KwikPen U-100 Insulin) 14 units (0.14 mL) subcut QPM 90 days losartan 100 mg PO DAILY 90 days pen needle, diabetic (1st Tier Unifine Pentips) Use 1 pen needle once a day semaglutide (Ozempic) 0.5 mg (0.736 mL) subcut QWEEK 4 weeks Tobacco use date assessed: 04/09/23 Dental Screening Dental Screen Date: 06/05/23 HPI HPI Comments History of Present Illness Details This is a 43-year-old male with diabetes mellitus type 2 on long-term current use of insulin, hypertension, hyperlipidemia and low vitamin-D that comes today for follow-up on his conditions. A1c elevated and I will increase Ozempic from 0.5 to 1 mg. I will also increase insulin from 14 units to 17 units once a day. Will be referred to Endocrinology. Blood pressure stable. Last LDL was within goal. On vitamin-D supplements for his low vitamin-D. Complains of occasional light-headedness when changing from sitting to standing position or moving his head. Had a stroke few years ago with mild right-sided weakness but able to walk with no assistive device. [facility] Medical History (Updated 10/07/23 @ 09:04 by Sheeba Smith MD) Afib Daytime sleepiness CVA (cerebral vascular accident) Poison ramirez dermatitis Skin lesion Obesity due to excess calories Type 2 diabetes mellitus without complications Essential hypertension Hyperlipidemia LDL goal <70 History of stroke Tinea pedis Diabetes Surgical History Hx of vasectomy Family History Father Diabetes Myocardial infarct Mother Diabetes Mental health disorder Lung cancer Sister No problems noted. Sister No problems noted. Daughter No problems noted. Son No problems noted. Son No problems noted. Son No problems noted. Son No problems noted. Social History Household Members: Spouse and Family Housing: House Do you presently have visiting nurse or other home services: No Alcohol intake: never Patient Tobacco Use Status: Never used Tobacco e-Cigarette/Vaping Use: Never Used Second Hand Smoke Exposure: No Substance Use Type: Marijuana Advance Directives Date on File: 10/18/20 service: No Current occupational status: employed Current occupational exposures/hazards: No Cognitive needs: No Hearing needs: No Vision needs: No Questionnaire Thrive Questionnaire Date Thrive assessed: 06/05/23 ZACH-7 AMB Questionnaire ZACH-7 Date ZACH - 7 assessed: 04/09/23 Source: Developed by Drs. Jatinder Silva, Keyana Potts, Jorge Del Toro and colleagues, with an educational nate from [employer]. Review of Systems Const All systems reviewed & are unremarkable except as noted in HPI and below Card Denies chest pain at rest, Denies chest pain with activity, Denies edema, Denies irregular heart rhythm, Denies claudication, Denies dyspnea, Denies dyspnea on exertion, Denies orthopnea, Denies paroxysmal nocturnal dyspnea and Denies slow heart rate Resp Denies cough, Denies dyspnea and Denies dyspnea on exertion Physical exam (Primary Care) Vital Signs: Last Vital Signs BP 130/86 10/07/23 08:17 BMI result Body Mass Index 33.7 BMI Assessment/Plan discussion: High BMI High, discussed plan: lifestyle, weight reduction, dietary and physical activity Tobacco/Smoking Status: Tobacco use Status Tobacco use date assessed 04/09/23 10/07/23 08:24 Patient Tobacco Use Status Never used Tobacco 10/07/23 08:24 e-Cigarette/Vaping Use Never Used 10/07/23 08:24 Thrive Assessment: Date of Thrive Assessment Date Thrive assessed 06/05/23 10/07/23 08:24 Resp Effort & Inspection: normal respiratory effort Auscultation: clear to auscultation bilaterally Cardio Jugular venous distension: no JVD Rate: regular rate Rhythm: regular rhythm Heart sounds: S1 normal heart sound present and S2 normal heart sound present Extrem General: Yes full ROM Results AMB Hemoglobin A1c AMB Hemoglobin A1c 10.1 % Last Edit by ALEXX Michelle on 10/07/23 08: 34 Results Reviewed Results Reviewed: Laboratory Last Values Hgb A1c (Clinic) 10.1 % (4.0-6.0) H 10/07/23 08:16 Assessment and Plan Assessment & Plan (1) Diabetes mellitus with hyperglycemia, with long-term current use of insulin: Code(s): E11.65 - Type 2 diabetes mellitus with hyperglycemia; Z79.4 - intermediate card tender (current) use of insulin Qualifiers: Diabetes mellitus type: type 2 Qualified Code(s): E11.65 - Type 2 diabetes mellitus with hyperglycemia; Z79.4 - intermediate card tender (current) use of insulin Plan: Increase Ozempic to 1 mg. Increase insulin to 17 units. Referred to Endocrinology. A1c goal is equal or less than 7%. (2) Low vitamin D level: Code(s): R79.89 - Other specified abnormal findings of blood chemistry Plan: Continue vitamin-D supplements. (3) Essential hypertension: Code(s): I10 - Essential (primary) hypertension Plan: Continue losartan and amlodipine. Blood pressure goal is equal or less than 130/80. (4) Hyperlipidemia LDL goal <70: Code(s): E78.5 - Hyperlipidemia, unspecified Plan: Continue statins and Zetia. LDL goal is less than 70. Orders: Orders Lipid Panel 4 Months E78.5 - Hyperlipidemia, unspecified Microalbumin, Random (w Creat) 4 Months E11.9 - Type 2 diabetes mellitus without complications AMB Hemoglobin A1c Today E11.9 - Type 2 diabetes mellitus without complications Vitamin D 25-OH Total 4 Months E55.9 - Vitamin D deficiency, unspecified Comprehensive [place]. Panel Fast 4 Months E11.65 - Type 2 diabetes mellitus with hyperglycemia, Z79.4 - [facility] (current) use of insulin Referrals Endocrinology Referral E11.65 - Type 2 diabetes mellitus with hyperglycemia, Z79.4 - [facility]PC (current) use of insulin Medications: New semaglutide (Ozempic) 1 mg (0.75 mL) subcut QWEEK 4 weeks 3 mL 0RF E11.9 - Type 2 diabetes mellitus without complications Changed From insulin glargine (Basaglar KwikPen U-100 Insulin) 14 units (0.14 mL) subcut QPM 90 days 12.6 mL 3RF E11.9 - Type 2 diabetes mellitus without complications To insulin glargine (Basaglar KwikPen U-100 Insulin) 17 units (0.17 mL) subcut QPM 90 days 15.3 mL 3RF E11.9 - Type 2 diabetes mellitus without complications Discontinued semaglutide (Ozempic) Discontinued Reason: Patient Completed Course 0.5 mg (0.736 mL) subcut QWEEK 4 weeks 2.944 mL 0RF Coding Level of Care Code Est Pt Level 4 (69802) Complex EM visit Add On G2211 Diagnoses Type 2 diabetes mellitus with hyperglycemia, with long-term current use of insulin E11.65; Z79.4 Diabetes mellitus type: type 2 Low vitamin D level R79.89 Essential hypertension I10 Hyperlipidemia LDL goal <70 E78.5 Time Spent (min) 23
== END 2023-10-07 08:45 | disposition home or self-care (01) ==
PROVIDERS: PCP Internal Medicine; Visit Provider Internal Medicine
DX: E11.65 Type 2 diabetes mellitus with hyperglycemia (principal); Z79.4 Long term (current) use of insulin; R79.89 Other specified abnormal findings of blood chemistry; I10 Essential (primary) hypertension; E78.5 Hyperlipidemia, unspecified; E11.9 Type 2 diabetes mellitus without complications
CPT/HCPCS: 83036; 99214

== ENCOUNTER 2023-10-09 14:18 | Outpatient (AMB) | payer BC, SELFPAY ==
--- NOTE | 2023-10-09 14:24 | A.OFFVIS_ITS ---
Vital Signs 10/09/23 14:26 Height 5 ft 9 in Weight 227 lb 1.218 oz BMI 33.5 BP 118/80 Blood Pressure Location Rt brachial Position Sitting Pulse 75 Pulse Source Pulse Oximeter Intake Visit Reasons: T2DM/LVM Intake Note: New Patient presents today for to estabish treatment for Type 2 Diabetes Mellitus: Last Diabetic eye exam was on:: DUE Last Podiatry exam was on: Does not see a Grazing Aide Most recent HbA1c: 10.1%, 10/07/2023 Random Glucose- 127mg/dL, Today Treasury Agent Required: No Accompanied by: Self / Same As Patient Allergies pioglitazone Allergy (Severe, Verified 10/09/23 14:25) Dizziness bee pollen [BEE STINGS] Allergy (Intermediate, Verified 10/09/23 14:25) Swelling metoclopramide [From REGLAN] Adverse Reaction (Intermediate, Verified 10/09/23 14:25) MUSCLE SPASMS dulaglutide [From Trulicity] Adverse Reaction (Verified 10/09/23 14:25) Diarrhea cymbalta Allergy (Intermediate, Uncoded 10/09/23 14:25) twitching Ketoconazole Allergy (Intermediate, Uncoded 10/09/23 14:25) urticaria lisinopril Allergy (Intermediate, Uncoded 10/09/23 14:25) cough tramadol Allergy (Intermediate, Uncoded 10/09/23 14:25) itchiness amoxicillin Adverse Reaction (Intermediate, Uncoded 10/09/23 14:25) diarrhea metformin Adverse Reaction (Intermediate, Uncoded 10/09/23 14:25) diarrhea Medication List - Last Reconciled 10/13/23 by Afsaneh Flores MD acarbose 50 mg PO TID 30 days amlodipine 2.5 mg PO DAILY aspirin 81 mg PO DAILY 90 days atorvastatin 80 mg PO DAILY 90 days cholecalciferol (vitamin D3) 25 mcg PO DAILY ciclopirox 8% (Ciclodan) 1 appl topical BEDTIME 4 weeks ezetimibe 10 mg PO DAILY 90 days flash glucose scanning reader (FreeStyle Gabriel 14 Day [place]) As directed flash glucose sensor (FreeStyle Gabriel 14 Day Sensor kit) As directed hydrocortisone-pramoxine 1-1 % (Proctofoam HC) 1 appl [place] DAILY insulin glargine (Basaglar KwikPen U-100 Insulin) 20 units (0.2 mL) subcut QPM 90 days losartan 100 mg PO DAILY 90 days pen needle, diabetic (1st Tier Unifine Pentips) Use 1 pen needle once a day semaglutide (Ozempic) 1 mg (0.75 mL) subcut QWEEK 4 weeks HPI Comments Details: This is a 43-year-old male with IDDM, hypertension, hyperlipidemia CVA presenting for follow up diabetes Micro and macrovascular complications: +neuropathy, +h/o CVA Current medication prescribed: acarbose, basaglar 17u (just increased from 14u), ozempic 1mg (has not started the 1mg, last dose of 0.5mg) Last A1C 10/07/23-10.1% CGM has not put on new sensor. Did not bring in. Reports last 4 readings 203, 281, 162, 148. Lowest readings 130s prior to increasing basaglar from 14. Hypoglycemia: Feels when BG 130s. Has seen ophtho but overdue No podiatry. Has mild toenail fungus Exercise: work/labor ROS CONSTITUTIONAL: Denies weight loss, fever and chills. HEENT: Denies changes in vision and hearing. RESPIRATORY: Denies SOB and cough. CV: Denies palpitations and CP GI: Denies abdominal pain, nausea, vomiting and diarrhea. : Denies dysuria and urinary frequency. MSK: Denies new myalgia and joint pain. SKIN: see HPI NEUROLOGICAL: Denies headache PSYCHIATRIC: Denies recent changes in mood. PHYSICAL EXAM: GENERAL: Alert and oriented x 3. NAD EYES: EOMI. Anicteric. HENT: Moist mucous membranes. No scleral icterus. No cervical lymphadenopathy. LUNGS: Clear to auscultation bilaterally. CARDIOVASCULAR: Regular rate and rhythm. No murmur. No JVD. ABDOMEN: Soft, non-tender +bs EXTREMITIES: No edema. Non-tender. +dp pulses SKIN: mild onychomycoses NEUROLOGIC: No new focal neurological deficits. PSYCHIATRIC: Cooperative. Appropriate mood and affect [facility] Medical History Afib Daytime sleepiness CVA (cerebral vascular accident) Poison ramierz dermatitis Skin lesion Obesity due to excess calories Type 2 diabetes mellitus without complications Essential hypertension Hyperlipidemia LDL goal <70 History of stroke Tinea pedis Diabetes Surgical History Hx of vasectomy Family History Father Diabetes Myocardial infarct Mother Diabetes Mental health disorder Lung cancer Sister No problems noted. Sister No problems noted. Daughter No problems noted. Son No problems noted. Son No problems noted. Son No problems noted. Son No problems noted. Social History Household Members: Spouse and Family Housing: House Do you presently have visiting nurse or other home services: No Alcohol intake: never Patient Tobacco Use Status: Never used Tobacco e-Cigarette/Vaping Use: Never Used Second Hand Smoke Exposure: No Substance Use Type: Marijuana Advance Directives Date on File: 10/18/20 service: No Current occupational status: employed Current occupational exposures/hazards: No Cognitive needs: No Hearing needs: No Vision needs: No Physical Exam Vital Signs: Last Vital Signs Pulse 75 10/09/23 14:26 BP 118/80 10/09/23 14:26 BMI result Body Mass Index 33.5 Results Reviewed Results Reviewed: Laboratory Last Values Glucose (Clinic) 127 mg/dL (60-115) H 10/09/23 14:31 Assessment & Plan Assessment & Plan (1) Diabetes mellitus with hyperglycemia, with long-term current use of insulin: Code(s): E11.65 - Type 2 diabetes mellitus with hyperglycemia; Z79.4 - long term care social worker (current) use of insulin Category: Medical Qualifiers: Diabetes mellitus type: type 2 Qualified Code(s): E11.65 - Type 2 diab etes mellitus with hyperglycemia; Z79.4 - long term care social worker (current) use of insulin Plan: Recent changes with improved glycemic control Will increase basaglar to 20u He will start the ozempic 1mg with next injection Continue acarbose Ongoing efforts for weight loss. (2) CVA (cerebral vascular accident): Code(s): I63.9 - Cerebral infarction, unspecified Category: Medical Qualifiers: CVA mechanism: unspecified Qualified Code(s): I63.9 - Cerebral infarction, unspecified Plan: History of CVA On lipitor 80mg daily (3) Tinea pedis: Code(s): B35.3 - Tinea pedis Category: Medical Qualifiers: Laterality: unspecified laterality Qualified Code(s): B35.3 - Tinea pedis Plan: topical lacquer sent Advised antifungal cream (4) Carotid stenosis, bilateral: Code(s): I65.23 - Occlusion and stenosis of bilateral carotid arteries Category: Medical Plan: High dose statin. Strict LDL goal Orders: Orders Microalbumin, Random (w Creat) 3 Months E11.65 - Type 2 diabetes mellitus with hyperglycemia, Z79.4 - skilled nursing (current) use of insulin Hemoglobin A1c 3 Months E11.65 - Type 2 diabetes mellitus with hyperglycemia, Z79.4 - skilled nursing (current) use of insulin Lipid Panel 3 Months E11.65 - Type 2 diabetes mellitus with hyperglycemia, Z79.4 - long term care social worker (current) use of insulin Comprehensive Met. Panel 3 Months E11.65 - Type 2 diabetes mellitus with hyperglycemia, Z79.4 - long term care social worker (current) use of insulin Medications: New ciclopirox 8% (Ciclodan) 1 appl topical BEDTIME 4 weeks 6.6 mL 6RF Changed From insulin glargine (Basaglar KwikPen U-100 Insulin) 17 units (0.17 mL) subcut QPM 90 days 15.3 mL 3RF E11.9 - Type 2 diabetes mellitus without complications To insulin glargine (Basaglar KwikPen U-100 Insulin) 20 units (0.2 mL) subcut QPM 90 days 18 mL 3RF E11.9 - Type 2 diabetes mellitus without complications Coding Level of Care Code Est Pt Level 5 (75896) Diagnoses Type 2 diabetes mellitus with hyperglycemia, with long-term current use of insulin E11.65; Z79.4 Diabetes mellitus type: type 2 Cerebrovascular accident (CVA), unspecified mechanism I63.9 CVA mechanism: unspecified Tinea pedis, unspecified laterality B35.3 Laterality: unspecified laterality Carotid stenosis, bilateral I65.23 Time Spent (min) 48
[2023-10-09 14:26] VITALS: BP 118/80; PULSE 75; BMI 33.5
[2023-10-09 14:37] LABS: Glucose, Whole Blood 127 mg/dL (60-115)
== END 2023-10-09 15:01 | disposition home or self-care (01) ==
PROVIDERS: PCP Internal Medicine; Referring Provider Internal Medicine; Visit Provider Internal Medicine
DX: E11.65 Type 2 diabetes mellitus with hyperglycemia (principal); Z79.4 Long term (current) use of insulin; I63.9 Cerebral infarction, unspecified; B35.3 Tinea pedis; I65.23 Occlusion and stenosis of bilateral carotid arteries
CPT/HCPCS: 99215

== ENCOUNTER → 2023-10-09 14:18 | Outpatient (BNVA) | payer BC, SELFPAY | PROVIDERS: PCP Internal Medicine; Visit Provider Internal Medicine | DX: E11.65 Type 2 diabetes mellitus with hyperglycemia (principal); B35.3 Tinea pedis; I65.23 Occlusion and stenosis of bilateral carotid arteries; Z86.73 Personal history of transient ischemic attack (TIA), and cerebral infarction without residual deficits; Z79.4 Long term (current) use of insulin; Z79.899 Other long term (current) drug therapy | CPT/HCPCS: 82947 ==

== ENCOUNTER 2023-11-03 02:49 | Emergency (ER) | payer BC, SELFPAY ==
[2023-11-03 02:55] VITALS: BP 172/94; PULSE 70; O2SAT 100
[2023-11-03 03:06] VITALS: BP 141/89; PULSE 69; RESP 14; TEMP 36.7; O2SAT 97; BMI 33.8
--- NOTE | 2023-11-03 03:26 | ED.NAVMDI ---
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 working in the heat lately Related Data Previous Rx's ?Medication ?Instructions ?Recorded hydrocortisone 1 %-pramoxine 1 % 1 appl [place] DAILY #10 grams 01/07/23 rectal foam (Proctofoam HC) aspirin 81 mg chewable tablet 81 mg PO DAILY 90 days #90 tabs 03/13/23 flash glucose scanning reader #1 ea 03/13/23 (FreeStyle Gabriel 14 Day Arbuckle) amlodipine 2.5 mg tablet 2.5 mg PO DAILY #90 tabs 03/19/23 atorvastatin 80 mg tablet 80 mg PO DAILY 90 days #90 tabs 04/21/23 pen needle, diabetic 31 gauge x #100 ea 05/01/2307/31 (1st Tier Unifine Pentips) acarbose 50 mg tablet 50 mg PO TID 30 days #90 tabs 06/15/23 losartan 100 mg tablet 100 mg PO DAILY 90 days #90 tabs 07/22/23 ezetimibe 10 mg tablet 10 mg PO DAILY 90 days #90 tabs 08/04/23 flash glucose sensor (FreeStyle #6 kits 09/11/23 Gabriel 14 Day Sensor kit) ciclopirox 8 % topical solution 1 appl topical BEDTIME 4 weeks 10/09/23 (Ciclodan) #6.6 mL insulin glargine 100 unit/mL (3 20 unit (0.2 mL) subcut QPM 90 10/09/23 mL) subcutaneous pen (agl days #18 mL KwikPen U-100 Insulin) semaglutide 1 mg/dose (4 mg/3 mL) 1 mg (0.75 mL) subcut QWEEK 4 10/14/23 subcutaneous pen injector (Ozempic) weeks #3 mL cholecalciferol (vitamin D3) 25 25 mcg PO DAILY #90 tabs 10/20/23 mcg (1,000 unit) tablet lorazepam 0.5 mg tablet (Ativan) 0.5 mg PO BEDTIME PRN 11/03/23 anxiety/sleep #14 tabs Allergies Allergy/AdvReac Type Severity Reaction Status Date / Time pioglitazone Allergy Severe Dizziness Verified 11/03/23 03:09 bee pollen [BEE STINGS] Allergy Intermediate Swelling Verified 11/03/23 03:09 metoclopramide [From REGLAN] AdvReac Intermediate MUSCLE Verified 11/03/23 03:09 SPASMS dulaglutide [From Trulicity] AdvReac Diarrhea Verified 11/03/23 03:09 cymbalta Allergy Intermediate twitching Uncoded 11/03/23 03:09 Ketoconazole Allergy Intermediate urticaria Uncoded 11/03/23 03:09 lisinopril Allergy Intermediate cough Uncoded 11/03/23 03:09 tramadol Allergy Intermediate itchiness Uncoded 11/03/23 03:09 amoxicillin AdvReac Intermediate diarrhea Uncoded 11/03/23 03:09 metformin AdvReac Intermediate diarrhea Uncoded 11/03/23 03:09 Review of Systems Review of Systems: Yes all other systems are reviewed and are negative [facility] Past Medical History Medical History Afib Daytime sleepiness CVA (cerebral vascular accident) Poison ramirez dermatitis Skin lesion Obesity due to excess calories Type 2 diabetes mellitus without complications Essential hypertension Hyperlipidemia LDL goal <70 History of stroke Tinea pedis Diabetes Surgical History Hx of vasectomy Family History Family History Father Diabetes Myocardial infarct Mother Diabetes Mental health disorder Lung cancer Sister No problems noted. Sister No problems noted. Daughter No problems noted. Son No problems noted. Son No problems noted. Son No problems noted. Son No problems noted. Social History Social History Household Members: Spouse and Family Housing: House Do you presently have visiting nurse or other home services: No Alcohol intake: never Patient Tobacco Use Status: Never used Tobacco Smoked in Last 30 Days: No e-Cigarette/Vaping Use: Never Used Second Hand Smoke Exposure: No Use of substances other than those prescribed or required for medical reasons: No Substance Use Type: Marijuana Advance Directives: Yes Advance Directives on File: Yes Advance Directives Date on File: 10/18/20 service: No Current occupational status: employed Current occupational exposures/hazards: No Cognitive needs: No Hearing needs: No Vision needs: No Physical Exam Vital Signs: Vital Signs: Last Vital Signs Temp 98.3 F 11/03/23 05:01 Pulse 67 11/03/23 05:01 Resp 16 11/03/23 05:01 BP 133/94 H 11/03/23 05:01 Pulse Ox 100 11/03/23 05:01 O2 Del Method Room Air 11/03/23 05:01 BMI result Body Mass Index 33.8 Appearance: Alert. Oriented X3. No acute distress. Eyes: PERRLA, No Nystagmus ENT: Pharynx normal. Oral Mucosa moist Neck: Normal inspection. Neck supple. CVS: Normal heart rate and rhythm. Pulses normal. Respiratory: No respiratory distress. Equal air entry bilateral, no wheezing/rales/rhonchi Abdomen: Soft and nontender. Bowel sounds are present, no mass palpable, no CVA tenderness Skin: Skin warm and dry. Normal skin color. Normal skin turgor. Extremities: No lower extremity edema. No calf tenderness Neuro: Oriented X 3. No motor deficit. No sensory deficit.No cerebellar signs , cranial nerves II-XII intact Medications Administered Discontinued Medications Generic Name Dose Route Start Last Admin Trade Name Freq PRN Reason Stop Dose Admin Acetaminophen 650 mg 11/03/23 04:37 11/03/23 04:47 Acetaminophen 325 Mg Tablet PO 11/03/23 04:38 650 mg ONCE ONE Administration Sodium Chloride 1,000 mls @ 999 mls/hr 11/03/23 03:36 11/03/23 04:46 Ns IV 11/03/23 04:36 Not Given .Q1H1M ONE Lorazepam 1 mg 11/03/23 04:37 11/03/23 04:48 Lorazepam 1 Mg Tablet PO 11/03/23 04:38 1 mg ONCE ONE Administration Medical Decision Making Medical Decision Making [facility] Narrative: Patient with diffuse body aches with increased stress and poor sleep workup essentially negative patient refused IV fluids possibly had heat exhaustion Differential Diagnosis Differential Diagnoses: The differential diagnosis associated with the presentation includes Lab Data [facility] Lab Attestation statement: I reviewed the patient's lab results. 11/03/23 03:58 11/03/23 03:58 Labs: Lab Results 11/03/23 11/03/23 Range/Units 03:52 03:58 WBC 7.6 (4.8-10.8) X10*3/uL RBC 4.87 (4.60-5.80) X10*6/uL Hgb 13.1 L (14.0-18.0) g/dl Hct 40.1 L (42.0-52.0) % MCV 82.3 (80.0-98.0) fL MCH 26.9 L (27.0-33.0) pg MCHC 32.7 (31.0-36.0) g/dl RDW 13.1 (11.0-16.0) % Plt Count 219 (160-400) X10*3/uL MPV 10.3 (9.4-12.4) fL Immature Gran % (Auto) 0.3 (0.0-0.4) % Neut % (Auto) 63.7 (45-73) % Lymph % (Auto) 24.3 (20-40) % [place] % (Auto) 8.0 (2-11) % Eos % (Auto) 3.2 (0-4) % Baso % (Auto) 0.5 (0-2) % Lymph # (Auto) 1.8 (1.2-4.9) X10*3/uL [place] # (Auto) 0.6 (0.1-1.2) X10*3/uL Eos # (Auto) 0.2 (0.0-0.4) X10*3/uL Baso # (Auto) 0.0 (0.0-0.2) X10*3/uL Abs Immat Gran (auto) 0.02 (0.00-0.03) X10*3/uL Absolute Neuts (auto) 4.8 (2.0-8.3) x10*3/uL Absolute Nucleated RBC 0.000 (0.0-0.012) X10*3/uL Nucleated RBC % (auto) 0.0 (0.0-0.2) /100WBC Sodium 141 (135-145) mmol/L Potassium 4.0 (3.3-5.1) mmol/L Chloride 105 (96-108) mmol/L Carbon Dioxide 30 H (22-29) mmol/L Anion Gap 10 L (12-20) BUN 15 (9-16) mg/dL Creatinine 1.22 (0.5-1.4) mg/dL Estim Creat Clear Calc 91.6 Estimated GFR > 60 Random Glucose 169 H (60-115) mg/dL Calcium 9.2 (8.4-10.2) mg/dL Magnesium 1.8 (1.6-2.6) mg/dL Total Bilirubin 0.9 (0.0-1.0) mg/dL AST 21 (5-37) U/L ALT 34 (0-40) U/L Alkaline Phosphatase 61 (39-117) U/L Total Protein 7.0 (6.5-8.0) g/dL Albumin 3.9 (3.5-5.0) g/dL Lipase 22 (8-78) U/L Urine Color Yellow Urine Appearance Clear Urine pH 5.5 (5.0-9.0) Ur Specific [place] 1.015 (1.005-1.025) Urine Protein Negative (Neg-Trace) mg/dL Urine Glucose (UA) Negative (Negative) mg/dL Urine Ketones Negative (Negative) mg/dL Urine Blood Negative (Negative) Urine Nitrite Negative (Negative) Ur Leukocyte Esterase Negative (Negative) COVID-19 (TELMA) Negative (Negative) COVID-19 Clin Com See Note Discharge Plan Discharge Clinical Impression: Heat exhaustion, Anxiety Patient Disposition: Home, Self-Care Instructions: Heat Exhaustion (ED), Anxiety (ED) Additional Instructions: Your symptoms likely from anxiety and lack of fluid intake and working outside in the heat Drink plenty of fluids stay in cool shaded area Take medication for anxiety/sleep as prescribed Follow up with your PCP Prescriptions: New lorazepam [Ativan] 0.5 mg tablet 0.5 mg PO BEDTIME PRN (Reason: anxiety/sleep) Qty: 14 0RF No Action (DME) FreeStyle Gabriel 14 Day Arbuckle Misc See Rx Instructions .ROUTE .MEDSUPPLY Qty: 1 11RF Rx Instructions: As directed aspirin 81 mg tablet,chewable 81 mg PO DAILY 90 Days Qty: 90 3RF amlodipine 2.5 mg tablet 2.5 mg PO DAILY Qty: 90 3RF atorvastatin 80 mg tablet 80 mg PO DAILY 90 Days Qty: 90 2RF (DME) pen needle, diabetic [1st Tier Unifine Pentips] 31 gauge x 5/16 needle See Rx Instructions .Route Qty: 100 3RF Rx Instructions: Use 1 pen needle once a day acarbose 50 mg tablet 50 mg PO TID 30 Days Qty: 90 1RF losartan 100 mg tablet 100 mg PO DAILY 90 Days Qty: 90 1RF ezetimibe 10 mg tablet 10 mg PO DAILY 90 Days Qty: 90 1RF (DME) FreeStyle Gabriel 14 Day Sensor Kit See Rx Instructions .ROUTE .MEDSUPPLY Qty: 6 3RF Rx Instructions: As directed Ozempic 1 mg/dose (4 mg/3 mL) pen injector 1 mg subcut QWEEK 28 Days Qty: 3 0RF cholecalciferol (vitamin D3) 25 mcg (1,000 unit) tablet 25 mcg PO DAILY Qty: 90 0RF Proctofoam HC 1-1 % foam 1 appl [place] DAILY Qty: 10 0RF insulin glargine [Basaglar KwikPen U-100 Insulin] 100 unit/mL (3 mL) insulin pen 20 unit subcut QPM 90 Days Qty: 18 3RF ciclopirox [Ciclodan] 8 % solution 1 appl topical BEDTIME 28 Days Qty: 6.6 6RF Interventions: ED Discharge Assessment Last Done: 11/03/23 05:01 Discharge Date/Time: 11/03/23 05:01 Print Language: Tunisian
--- NOTE | 2023-11-03 03:54 | PC.NURSE ---
pt refusing medication for nausea, refusing IV for IVF. lab work being obtained, UA sent. pt encouraged to drink fluids PO. aware
[2023-11-03 04:00] VITALS: BP 132/87; PULSE 63; RESP 16; TEMP 37; O2SAT 98
[2023-11-03 04:05] LABS: Basophils Percent Auto 0.5 % (0-2); Eosinophils Absolute Auto 0.2 X10*3/uL (0.0-0.4); Eosinophils Percent Auto 3.2 % (0-4); Hematocrit 40.1 % (42.0-52.0); Hemoglobin 13.1 g/dl (14.0-18.0); Imm Gran Abs Auto 0.02 X10*3/uL (0.00-0.03); Imm Gran Pct Auto 0.3 % (0.0-0.4); Lymphocytes Absolute Auto 1.8 X10*3/uL (1.2-4.9); Lymphocytes Percent Auto 24.3 % (20-40); MANUAL DIFF FLAG NO; Mean Corpuscular HGB Conc 32.7 g/dl (31.0-36.0); Mean Corpuscular Hemoglobin 26.9 pg (27.0-33.0); Mean Corpuscular Volume 82.3 fL (80.0-98.0); Mean Platelet Volume 10.3 fL (9.4-12.4); Monocytes Absolute Auto 0.6 X10*3/uL (0.1-1.2); Neutrophils Absolute Auto 4.8 x10*3/uL (2.0-8.3); Neutrophils Percent Auto 63.7 % (45-73); Platelet Count 219 X10*3/uL (160-400); Red Blood Count 4.87 X10*6/uL (4.60-5.80); Red Cell Distribution Width 13.1 % (11.0-16.0); White Blood Count 7.6 X10*3/uL (4.8-10.8)
[2023-11-03 04:06] LABS: Appearance Urine Clear; Color Urine Yellow; Glucose Urine UA Negative (Negative); Leukocyte Esterase Urine Negative (Negative); Nitrite Urine Negative (Negative); PH 5.5 (5.0-9.0); Specific Gravity - Urine 1.015 (1.005-1.025); Urine Blood Negative (Negative); Urine Ketones Negative (Negative); Urine Protein Negative (Neg-Trace)
[2023-11-03 04:18] LABS: Alanine Aminotransferase 34 U/L (0-40); Albumin Level 3.9 g/dL (3.5-5.0); Alkaline Phosphatase 61 U/L (39-117); Anion Gap 10 (12-20); Aspartate Amino Transferase 21 U/L (5-37); Bilirubin Total 0.9 mg/dL (0.0-1.0); Blood Urea Nitrogen 15 mg/dL (9-16); Calcium 9.2 mg/dL (8.4-10.2); Carbon Dioxide 30 mmol/L (22-29); Chloride 105 mmol/L (96-108); Creatinine Clr Calc Pharmacy 91.6; Estimated Glomerular Filt Rate > 60; Glucose Random 169 mg/dL (60-115); Lipase 22 U/L (8-78); Magnesium 1.8 mg/dL (1.6-2.6); Sodium 141 mmol/L (135-145)
[2023-11-03 04:19] LABS: COVID-19 Test Negative (Negative); IDNOW Serial# 152EDE1D
[2023-11-03] MEDS: Acetaminophen 325 MG TABLET 650 MG PO (04:47)
[2023-11-03] MEDS: LORazepam 1 MG TABLET PO (04:48)
[2023-11-03 05:00] VITALS: BP 133/94; PULSE 67; RESP 16; TEMP 36.8; O2SAT 100
[2023-11-03 05:01] VITALS: BP 133/94; PULSE 67; RESP 16; TEMP 36.8; O2SAT 100
== END 2023-11-03 05:01 | disposition home or self-care (01) ==
PROVIDERS: Emergency Provider Internal Medicine; PCP Internal Medicine
DX: R11.2 Nausea with vomiting, unspecified (principal); F41.9 Anxiety disorder, unspecified; T67.3XXA Heat exhaustion, anhydrotic, initial encounter; X58.XXXA Exposure to other specified factors, initial encounter; Y93.89 Activity, other specified; Y92.89 Other specified places as the place of occurrence of the external cause; Y99.8 Other external cause status; Z11.52 Encounter for screening for COVID-19; Z79.899 Other long term (current) drug therapy
CPT/HCPCS: 80053; 81003; 83690; 83735; 85025; 87635; 96361; 96374; 99284

== ENCOUNTER 2024-01-08 13:39 | Outpatient (AMB) | payer BC, SELFPAY ==
--- NOTE | 2024-01-08 13:49 | A.OFFVIS_ITS ---
Vital Signs 01/08/24 13:53 Height 5 ft 9 in Weight 224 lb 13.944 oz BMI 33.2 BP 120/80 Blood Pressure Location Rt brachial Position Sitting Pulse 85 Pulse Source Pulse Oximeter Intake Visit Reasons: DM/LVM Intake Note: Patient presents today for a follow-up on Type 2 Diabetes Mellitus: Last Diabetic eye exam was on: DUE Last Podiatry exam was on: Does not see a Section Chief Most recent HbA1c: 9.7%, 01/08/2024 Random Glucose- 245 mg/dL, Today Train Braker Required: No Accompanied by: Self / Same As Patient Allergies pioglitazone Allergy (Severe, Verified 01/08/24 13:50) Dizziness bee pollen [BEE STINGS] Allergy (Intermediate, Verified 01/08/24 13:50) Swelling metoclopramide [From REGLAN] Adverse Reaction (Intermediate, Verified 01/08/24 13:50) MUSCLE SPASMS dulaglutide [From Trulicity] Adverse Reaction (Verified 01/08/24 13:50) Diarrhea cymbalta Allergy (Intermediate, Uncoded 01/08/24 13:50) twitching Ketoconazole Allergy (Intermediate, Uncoded 01/08/24 13:50) urticaria lisinopril Allergy (Intermediate, Uncoded 01/08/24 13:50) cough tramadol Allergy (Intermediate, Uncoded 01/08/24 13:50) itchiness amoxicillin Adverse Reaction (Intermediate, Uncoded 01/08/24 13:50) diarrhea metformin Adverse Reaction (Intermediate, Uncoded 01/08/24 13:50) diarrhea HPI Comments Details: This is a 43-year-old male with IDDM, hypertension, hyperlipidemia CVA presenting for follow up diabetes Current medication prescribed: acarbose, basaglar 20u (increased from 17 which was increased from 14u), ozempic 0.5mg (increased to 1mg but got nausea, vomiting) Last A1C today at 9.7%, previous 10/07/23-10.1% CGM has not put on new sensor. Did not bring in. Asking for refills. Denies hypoglycemia with the exception Micro and macrovascular complications: +neuropathy, +h/o CVA Hypoglycemia: Feels when BG 130s. Has seen ophtho but overdue No podiatry. Has mild toenail fungus Exercise: work/labor ROS CONSTITUTIONAL: Denies weight loss, fever and chills. HEENT: Denies changes in vision and hearing. RESPIRATORY: Denies SOB and cough. CV: Denies palpitations and CP GI: Denies abdominal pain, nausea, vomiting and diarrhea. : Denies dysuria and urinary frequency. MSK: Denies new myalgia and joint pain. SKIN: see HPI NEUROLOGICAL: Denies headache PSYCHIATRIC: Denies recent changes in mood. PHYSICAL EXAM: GENERAL: Alert and oriented x 3. NAD EYES: EOMI. Anicteric. HENT: Moist mucous membranes. No scleral icterus. No cervical lymphadenopathy. LUNGS: Clear to auscultation bilaterally. CARDIOVASCULAR: Regular rate and rhythm. No murmur. No JVD. ABDOMEN: Soft, non-tender +bs EXTREMITIES: No edema. Non-tender. +dp pulses SKIN: mild onychomycoses NEUROLOGIC: No new focal neurological deficits. PSYCHIATRIC: Cooperative. Appropriate mood and affect [facility] Medical History Afib Daytime sleepiness CVA (cerebral vascular accident) Poison ramirez dermatitis Skin lesion Obesity due to excess calories Type 2 diabetes mellitus without complications Essential hypertension Hyperlipidemia LDL goal <70 History of stroke Tinea pedis Diabetes Surgical History Hx of vasectomy Family History Father Diabetes Myocardial infarct Mother Diabetes Mental health disorder Lung cancer Sister No problems noted. Sister No problems noted. Daughter No problems noted. Son No problems noted. Son No problems noted. Son No problems noted. Son No problems noted. Social History Household Members: Spouse and Family Housing: House Do you presently have visiting nurse or other home services: No Alcohol intake: never Patient Tobacco Use Status: Never used Tobacco e-Cigarette/Vaping Use: Never Used Second Hand Smoke Exposure: No Substance Use Type: Marijuana Advance Directives Date on File: 10/18/20 service: No Current occupational status: employed Current occupational exposures/hazards: No Cognitive needs: No Hearing needs: No Vision needs: No Physical Exam Vital Signs: BMI result Body Mass Index 33.2 Results AMB Hemoglobin A1c AMB Hemoglobin A1c 9.7 % Last Edit by ALEXX Lopez on 01/08/24 14:11 Assessment & Plan Assessment & Plan (1) Diabetes mellitus with hyperglycemia, with long-term current use of insulin: Code(s): E11.65 - Type 2 diabetes mellitus with hyperglycemia; Z79.4 - USP (current) use of insulin Category: Medical Qualifiers: Diabetes mellitus type: type 2 Qualified Code(s): E11.65 - Type 2 diabetes mellitus with hyperglycemia; Z79.4 - USP (current) use of insulin Plan: uncontrolled Different options for med increases/additions discussed with patient He really wants to try going up on the ozempic again to 1mg. sent him some zofran. said 0.5 initially made him nauseous then he acclimated to it. Increase insulin to 26 units Sensors sent. Return in 4 weeks Orders: Orders AMB Hemoglobin A1c Today E11.9 - Type 2 diabetes mellitus without complications Medications: New Ozempic (semaglutide) 1 mg (0.75 mL) subcut QWEEK 3 mL 3RF NS E11.65 - Type 2 diabetes mellitus with hyperglycemia, Z79.4 - oil heaterman (current) use of insulin ondansetron HCl 4 mg PO Q8H PRN 60 tabs 3RF nausea and vomiting Changed From insulin glargine (Basaglar KwikPen U-100 Insulin) 20 units (0.2 mL) subcut QPM 90 days 18 mL 3RF E11.9 - Type 2 diabetes mellitus without complications To Basaglar KwikPen U-100 Insulin (insulin glargine) 26 units (0.26 mL) subcut QPM 26 days 30 mL 3RF NS E11.9 - Type 2 diabetes mellitus without complications From flash glucose sensor (FreeStyle Gabriel 14 Day Sensor kit) As directed 6 kits 0RF E11.65 - Type 2 diabetes mellitus with hyperglycemia To FreeStyle Gabriel 14 Day Sensor (flash glucose sensor) every 14 days 6 ea 3RF NS E11.65 - Type 2 diabetes mellitus with hyperglycemia Refilled FreeStyle Gabriel 14 Day Sensor (flash glucose sensor) every 14 days 6 ea 3RF NS E11.65 - Type 2 diabetes mellitus with hyperglycemia Discontinued Ozempic (semaglutide) Discontinued Reason: Doctor's Order 0.5 mg (0.736 mL) subcut QWEEK 3 mL 3RF NS E11.65 - Type 2 diabetes mellitus with hyperglycemia, Z79.4 - USP (current) use of insulin Coding Level of Care Code Est Pt Level 4 (66391) Diagnoses Type 2 diabetes mellitus with hyperglycemia, with long-term current use of insulin E11.65; Z79.4 Diabetes mellitus type: type 2
[2024-01-08 13:53] VITALS: BP 120/80; PULSE 85; BMI 33.2
[2024-01-08 14:05] LABS: Glucose, Whole Blood 245 mg/dL (60-115)
== END 2024-01-08 14:33 | disposition home or self-care (01) ==
PROVIDERS: PCP Internal Medicine; Visit Provider Internal Medicine
DX: E11.65 Type 2 diabetes mellitus with hyperglycemia (principal); Z79.4 Long term (current) use of insulin; E11.9 Type 2 diabetes mellitus without complications

== ENCOUNTER → 2024-01-08 13:39 | Outpatient (BNVA) | payer BC, SELFPAY | PROVIDERS: PCP Internal Medicine; Visit Provider Internal Medicine | DX: E11.65 Type 2 diabetes mellitus with hyperglycemia (principal); Z79.4 Long term (current) use of insulin; Z79.85 Long-term (current) use of injectable non-insulin antidiabetic drugs | CPT/HCPCS: 82947; 83036 ==

== ENCOUNTER 2024-02-20 14:23 | Outpatient (AMB) | payer BC, SELFPAY ==
--- NOTE | 2024-02-20 14:37 | A.OFFVIS_ITS ---
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 Accompanied by: Self / Same As Patient Allergies pioglitazone Allergy (Severe, Verified 02/20/24 14:41) Dizziness bee pollen [BEE STINGS] Allergy (Intermediate, Verified 02/20/24 14:41) Swelling metoclopramide [From REGLAN] Adverse Reaction (Intermediate, Verified 02/20/24 14:41) MUSCLE SPASMS dulaglutide [From Trulicity] Adverse Reaction (Verified 02/20/24 14:41) Diarrhea cymbalta Allergy (Intermediate, Uncoded 02/20/24 14:41) twitching Ketoconazole Allergy (Intermediate, Uncoded 02/20/24 14:41) urticaria lisinopril Allergy (Intermediate, Uncoded 02/20/24 14:41) cough tramadol Allergy (Intermediate, Uncoded 02/20/24 14:41) itchiness amoxicillin Adverse Reaction (Intermediate, Uncoded 02/20/24 14:41) diarrhea metformin Adverse Reaction (Intermediate, Uncoded 02/20/24 14:41) diarrhea HPI Comments Details: This is a 43-year-old male with IDDM, hypertension, hyperlipidemia CVA presenting for follow up diabetes Current medication prescribed: acarbose, lantus 6-14u, ozempic 1mg. Latter does cause some nausea-usually day after shot, more with any greasy foods. Last A1C today at 9.7%, previous 10/07/23-10.1% CGM -GMI 7.7%, TGT 57%, high 43% no lows. Micro and macrovascular complications: +neuropathy, +h/o CVA Hypoglycemia: Feels when BG 130s. Has seen ophtho but overdue No podiatry. Has mild toenail fungus Exercise: work/labor ROS CONSTITUTIONAL: Denies weight loss, fever and chills. HEENT: Denies changes in vision and hearing. RESPIRATORY: Denies SOB and cough. CV: Denies palpitations and CP GI: Denies abdominal pain, nausea, vomiting and diarrhea. : Denies dysuria and urinary frequency. MSK: Denies new myalgia and joint pain. SKIN: see HPI NEUROLOGICAL: Denies headache PSYCHIATRIC: Denies recent changes in mood. PHYSICAL EXAM: GENERAL: Alert and oriented x 3. NAD EYES: EOMI. Anicteric. HENT: Moist mucous membranes. No scleral icterus. No cervical lymphadenopathy. LUNGS: Clear to auscultation bilaterally. CARDIOVASCULAR: Regular rate and rhythm. No murmur. No JVD. ABDOMEN: Soft, non-tender +bs EXTREMITIES: No edema. Non-tender. +dp pulses SKIN: mild onychomycoses NEUROLOGIC: No new focal neurological deficits. PSYCHIATRIC: Cooperative. Appropriate mood and affect [facility] Medical History Afib Daytime sleepiness CVA (cerebral vascular accident) Poison ramirez dermatitis Skin lesion Obesity due to excess calories Type 2 diabetes mellitus without complications Essential hypertension Hyperlipidemia LDL goal <70 History of stroke Tinea pedis Diabetes Surgical History Hx of vasectomy Family History Father Diabetes Myocardial infarct Mother Diabetes Mental health disorder Lung cancer Sister No problems noted. Sister No problems noted. Daughter No problems noted. Son No problems noted. Son No problems noted. Son No problems noted. Son No problems noted. Social History Household Members: Spouse and Family Housing: House Do you presently have visiting nurse or other home services: No Alcohol intake: never Patient Tobacco Use Status: Never used Tobacco e-Cigarette/Vaping Use: Never Used Second Hand Smoke Exposure: No Substance Use Type: Marijuana Advance Directives Date on File: 10/18/20 service: No Current occupational status: employed Current occupational exposures/hazards: No Cognitive needs: No Hearing needs: No Vision needs: No Physical Exam Vital Signs: Last Vital Signs Pulse 78 02/20/24 14:38 BP 130/82 02/20/24 14:38 BMI result Body Mass Index 33.2 Results Reviewed Results Reviewed: Laboratory Last Values Glucose (Clinic) 164 mg/dL (60-115) H 02/20/24 14:40 Assessment & Plan Assessment & Plan (1) Diabetes mellitus with hyperglycemia, with long-term current use of insulin: Code(s): E11.65 - Type 2 diabetes mellitus with hyperglycemia; Z79.4 - long-term (current) use of insulin Category: Medical Qualifiers: Diabetes mellitus type: type 2 Qualified Code(s): E11.65 - Type 2 diabetes mellitus with hyperglycemia; Z79.4 - terminal gauger (current) use of insulin Plan: Improving glycemic control Increase lantus up to 14 u daily as tolerated. continue ozempic 1mg Return in 3 months or sooner as needed (2) Type 2 diabetes mellitus without complications: Code(s): E11.9 - Type 2 diabetes mellitus without complications Category: Medical Qualifiers: Diabetes mellitus fdc insulin use: without fdc use Qualified Code(s): E11.9 - Type 2 diabetes mellitus without complications Plan: see above Medications: Refilled cholecalciferol (vitamin D3) 25 mcg PO DAILY 90 tabs 3RF R79.89 - Other specified abnormal findings of blood chemistry Coding Level of Care Code Est Pt Level 4 (19051) Diagnoses Type 2 diabetes mellitus with hyperglycemia, with long-term current use of insulin E11.65; Z79.4 Diabetes mellitus type: type 2 Type 2 diabetes mellitus without complication, without long-term current use of insulin E11.9 Diabetes mellitus fdc insulin use: without long term care administrator use
[2024-02-20 14:38] VITALS: BP 130/82; PULSE 78; BMI 33.2
[2024-02-20 14:48] LABS: Glucose, Whole Blood 164 mg/dL (60-115)
--- OUTSIDE RECORDS SUMMARY | 2024-02-26 03:57 | XMS_ITS | Encounter Summary ---
Author Name [facility] [place] [facility] [place] Address [address] [place] [address] Care Team Providers Care Clay Molder Name Role Phone MILLIE EUGENE Primary Care Provider Unavailabl e Insurance Providers: All historical and current Section Date Range: From patient's date of to the date document was created. This section includes the names of all active insurance providers for the patient. Insurance Provider Type of Coverage Plan Name Start of Policy Coverage End of Policy Coverage Group Number Member ID Insurance Provider's Telephone Number Policy Young's Name Patient's Relationship to Policy Young [place] [employer] (OPT/PROF ) [facility] Sep 16, 2015 [id number] GRANT OCASIO SPOUSE [place] (BLU[place]ARD) [facility] CE ORGANIZAT ION [facility] Sep 16, 2015 [id number] [phone] GRANT OCASIO SPOUSE [facility] CE ORGANIZAT ION [facility] Sep 16, 2015 [id number] [phone] GRANT OCASIO SPOUSE MARCELABS MA [facility] CE ORGANIZ [facility] Jun 02, 2013 [id number] [phone] GRANT OCASIO SPOUSE BCBS MA [facility] CE ORGANIZ [facility] Jun 02, 2013 [id number] [phone] GRANT OCASIO SPOUSE BCBS OF [facility] CE ORGANIZAT ION [place] [facility] Sep 16, 2015 [id number] [phone] AMARJIT ,GRANT SPOUSE [place] PRES[employer] ION RX Mar 18, 2022 [id number] [phone] LIS OCASIO PATIENT [place] PRES[employer] [place] Mar 18, 2022 [id number] [phone] AMARJIT ,GRANT SPOUSE [place] PRESCRIPT ION RX22M B Mar 18, 2022 [id number] GRANT OCASIO SPOUSE [place] [facility] Sep 16, 2015 [id number] AMARJIT ,GRANT SPOUSE [employer] ([id number]) PRESCRIPT ION NONE Sep 16, 2015 [id number] AMARJIT ,GRANT SPOUSE [employer] ([id number]) PRESCRIPT ION L4TA* Jun 02, 2013 [id number] GRANT OCASIO SPOUSE [employer] ([id number]) PRESCRIPT ION L4TA* Jun 02, 2013 [id number] GRANT OCASIO SPOUSE Selected Encounter This section includes the information on record at [place] for the Encounter. Date/Time Encounter Type Encounter Description Reason Provider Source Apr 11, 2023 09:30 AM OFFICE O/P EST MOD 30 MIN PRIMARY CARE/MEDICINE ICD-10-CM E78.5 Hyperlipidemia, unspecified MILLIE EUGENE Sha Encounter Template Text not used by [place] Assessments - Encounter Diagnoses This section includes the primary and secondary diagnoses documented for the Encounter. Date/Time Primary/Secondary Diagnosis Diagnosis Name Provider Source Apr 20, 2023 08:42 AM PRIMARY Hyperlipidemia, unspecified REJI MARLEY Apr 20, 2023 08:42 AM SECONDARY Gastro-esophageal reflux disease without esophagitis REJI MARLEY MAIN[facility] Apr 20, 2023 08:42 AM SECONDARY Obesity, unspecified REJI MARLEY MAINOR Apr 20, 2023 08:42 AM SECONDARY Type 2 diabetes mellitus without complications REJI MARLEY [facility] Social History: Smoking Status (Most current) and Tobacco Use (All prior to encounter date) This section includes the most current, and the historical, smoking and tobacco- related health factors from the [place] facility where the Encounter took place. Current Smoking Status This section includes the most current smoking, or tobacco-related health factor, from the [place] facility where the Encounter took place. Date/Time Current Smoking Status Comment Susana ity Apr 11, 2023 09:30 AM VA-TOBACCO NEVER USED [facility] Tobacco Use History This section includes a history of the smoking, or tobacco-related health factors, that were collected on or before the date of the Encounter. The data comes from the [place] facility where the Encounter took place. Date/Time Smoking Status/Tobacco Use Comment F acsusan Apr 11, 2022 11:00 AM AL-TOBACCO NEVER USED [facility] Apr 11, 2018 09:24 AM VA-TOBACCO NEVER USED [facility] Feb 26, 2017 10:29 AM LIFETIME NON-TOBACCO USER [facility] Mar 16, 2010 10:48 AM LIFETIME NON-TOBACCO USER [facility] Encounter Notes: All associated encounter notes This section contains the clinical notes associated to the Encounter. Date/Time Encounter Note(s) Provider Source Apr 11, 2023 09:52 AM PREVENTIVE MEDICIN E NURSING NOTE: LOCAL TITLE: CLINICAL REMINDERS/NURSING STANDARD TITLE: PREVENTIVE MEDICINE NURSING NOTE DATE OF NOTE: APR 11, 2023@09:52 ENTRY DATE: APR 11, 2023@09:52:24 AUTHOR: MAYA MARLEY EXP COSIGNER: URGENCY: STATUS: COMPLETED Advance Directive Screen MH AD: Patient does not have a completed advance directive on file at any facility, [place] or outside. S/he is not interested in completing one at this time. The patient received education about Advance Directives and written notification of his/her rights. Suicide Screen: C-SSRS Screening [place] Suicide Severity Rating Scale (C-SSRS) screener 1. Over the past month, have you wished you were or wished you could go to sleep and not wake up? No 2. Over the past month, have you had any actual thoughts of killing yourself? No 3. Over the past month, have you been thinking about how you might do this? Response not required due to responses to other questions. 4. Over the past month, have you had these thoughts and had some intention of acting on them? Response not required due to responses to other questions. 5. Over the past month, have you started to work out or worked out the details of how to kill yourself? Response not required due to responses to other questions. 6. If yes, at any time in the past month did you intend to carry out this plan? Response not required due to responses to other questions. 7. In your lifetime, have you ever done anything, started to do anything, or prepared to do anything to end your life (for example, collected pills, obtained a gun, gave away valuables, went to the roof but didn't jump)? No 8. If YES, was this within the past 3 months? Response not required due to responses to other questions. Homelessness/Food Insecurity Screen: In the past 2 months, have you been living in stable housing that you own, rent, or stay in as part of a household? Yes - Living in stable housing. Are you worried or concerned that in the next 2 months you may NOT have stable housing that you own, rent, or stay in as part of a household? No - Not worried about housing near future The reports the following: Within the past 12 months, you worried whether your food would run out before you got money to buy more. Never true Within the past 12 months, the food you bought just didn't last and you didn't have money to get more. Never true Depression Screening: Perform PHQ-2 A PHQ-2 screen was performed. The score was 0 which is a negative screen for depression. Over the past two weeks, how often have you been bothered by the following problems? 1. Little interest or pleasure in doing things Not at all 2. Feeling down, depressed, or hopeless Not at all Hepatitis B Serology/Immunization: The patient declines to receive the recommended dose of Hepatitis B vaccine. Immunization: HEP B, UNSPECIFIED FORMULATION Refusal Reason: PATIENT DECISION Patient refuses all immunization(s) in the HepB group Date Documented: 04/11/23 09:53 Pneumococcal Conjugate Vaccine (PCV15/PCV20): Refuses PCV vaccine Immunization: PNEUMOCOCCAL CONJUGATE, UNSPECIFIED FORMULATION Refusal Reason: PATIENT DECISION Patient refuses all immunization(s) in the PneumoPCV group Date Documented: 04/11/23 09:53 Tobacco Use Screening: The patient has never used tobacco. Influenza Immunization: The patient declines to receive the recommended dose of seasonal influenza vaccine. Immunization: INFLUENZA, UNSPECIFIED FORMULATION Refusal Reason: PATIENT DECISION Patient refuses all immunization(s) in the FLU group Date Documented: 04/11/23 09:55 Td / Tdap Immunization: The patient declines to receive the recommended dose of Td/Tdap vaccine. Immunization: TD(ADULT) UNSPECIFIED FORMULATION Refusal Reason: PATIENT DECISION Patient refuses all immunization(s) in the Td group Date Documented: 04/11/23 09:55 Alcohol Use Screen (AUDIT-C): Alcohol Screen: SCREEN FOR ALCOHOL (AUDIT-C) An alcohol screening test (AUDIT-C) was negative (score=0). 1. How often did you have a drink containing alcohol in the past year? Consider a drink to be a 12 ounce can or bottle of regular beer, 8 ounces of malt liquor, a 5 ounce glass of table wine, or a 1.5 ounce shot of liquor (like scotch, gin, or vodka). Never 2. How many drinks containing alcohol did you have on a typical day when you were drinking in the past year? Response not required due to responses to other questions. 3. How often did you have six or more drinks on one occasion in the past year? Response not required due to responses to other questions. COVID-19 Immunization: Defer vaccine, reassess in 1 year Reason: decline Sexual Orientation: The patient thinks of their sexual orientation as: Straight or Heterosexual Diabetes: Kidney Health Evaluation: Last eGFR: EGFR No data available for: eGFR(CKD-EPI 2020) eGFR Last uACR: No uACR found within the past year eGFR and uACR (estimated Glomerular Filtration Rate and Urine Albumin-Creatinine Ratio)* Patient declines having lab(s) done PAVE Foot Check: Patient refused limb care exam. : decline The patient was advised the [facility] mandates all patients with diabetes mellitus, end stage renal disease, peripheral vascular disease, or sensory neuropathy should have a complete foot check completed annually. This includes a visual exam of the skin, pedal pulses and a sensory exam. Patients with any abnormality noted during the foot check should be referred to a specialist. Eye Care At-Risk Screen : Patient identified to be at risk for the following eye condition(s): DIABETIC RETINOPATHY: Diabetes Diagnosis Information: Encounter Diagnosis: 04/11/2023@09:30 E11.9 (ICD-10-CM) Type 2 Diabetes Mellitus without Complications rank: SECONDARY Prov. Narr. - Type 2 diabetes mellitus controlled by diet ([facility] [id number]) Action: Referral Ordered: Comprehensive Eye Exam Patient has an exclusion to Tele-Eye Screening. Schedule for a comprehensive eye exam ordered. /tiffany/ MAYA MARLEY LPN PACPraful 10 Signed: 04/11/2023 09:58 MAYA MARLEY [facility] Apr 11, 2023 06:05 AM PHYSICIAN NOTE: LOCAL TITLE: MD NOTE STANDARD TITLE: PHYSICIAN NOTE DATE OF NOTE: APR 11, 2023@06:05 ENTRY DATE: APR 11, 2023@06:05:14 AUTHOR: MILLIE EUGENE EXP COSIGNER: URGENCY: STATUS: COMPLETED HISTORY OF PRESENT ILLNESS: VIKBRYAN OCASIO, is a 42 yo MALE [place], who presents at the [facility] for his annual visit. [facility] maintains a nonVA PCP: Dr Funes in [place]. He utilizes and optometry services at the [place]. He had labs completed at [facility] on 03/16/23 which I reviewed in detail. Active problems - Computerized Problem List is the source for the followin. Cerebrovascular accident 2. Type 2 diabetes mellitus controlled by diet 3. Insomnia 4. Posttraumatic stress disorder 5. Obesity 6. Anxiety disorder 7. History of Kidney Stones 8. Primary Care Physician 9. Gastroesophageal reflux disease 10. Depressive disorder 11. Low back pain 12. Hyperlipidemia Active and Recently Outpatient Medications (including Supplies): Active Non-VA Medications Status ======= 1) Non-VA ACARBOSE 50MG TAB 50MG BY MOUTH ONCE DAILY ACTIVE 2) Non-VA AMLODIPINE BESYLATE 2.5MG TAB 2.5MG BY MOUTH ACTIVE 3) Non-VA ASPIRIN 81MG EC TAB 81MG BY MOUTH ONCE DAILY ACTIVE 4) Non-VA ATORVASTATIN CALCIUM 80MG TAB 80MG BY MOUTH AT ACTIVE BEDTIME 5) Non-VA DULAGLUTIDE 1.5MG/0.5ML INJ PEN 1.5MG ACTIVE SUBCUTANEOUSLY ONCE A WEEK 6) Non-VA HYDROCHLOROTHIAZIDE 25MG TAB 12.5MG BY MOUTH ACTIVE EVERY MORNING ALLERGIES: ========= Patient has answered NKA HISTORY: PERIOD OF SERVICE - SYRIACPhotos to Photos FROM Feb TO Mar COMBAT SERVICE INDICATED: No VITAL SIGNS: Blood Pressure 117/81 (04/11/2023 09:51) Pulse 68 (04/11/2023 09:51) Respiration 16 (04/11/2023 09:51) Pulse Oximetry 100% (04/11/2023 09:51) Temperature 98.2 F [36.8 C] (04/11/2023 09:51) Pain 0 (04/11/2023 09:51) Height 69 in [175.3 cm] (04/11/2023 09:51) Weight 230.2 lb [104.42 kg] (04/11/2023 09:51) BMI BMI: 34.1 REVIEW OF SYSTEMS: ENT: No sore throat, no cough CARDIOVASCULAR: No chest pain, no palpitations RESPIRATORY: No SOB, no wheezing GASTROINTESTINAL: No abd pain, no N/V/D GENITOURINARY: No dysuria, no hematuria MUSCULOSKELETAL: No joint pain, no joint swelling PSYCHIATRIC: + anxiety, no trouble sleeping, + depression NEUROLOGIC: No H/A, no numbness, no weakness, no tingling EXAMINATION: GENERAL: WD/WN , pleasant & in NAD HEENT: Moist mucosa NECK: Supple,no carotid bruits HEART: RRR, S1-S2, no murmurs LUNGS: CTA B/L, no wheezes ABDOMEN: Soft, NT/ND, + BS x 4 Quads PERIPH PULSES: 2+ B/L EXTREMITIES: FROM x 4, no edema NEUROLOGIC: AAO x3, no focal findings PSYCHIATRIC: Good eye contact, affect normal ASSESSMENT/PLAN: 1. Hx CVA - 02/03/19 w/right sided hemiparesis, managed by Dr Amaya in [place], on ASA 81mg/day 2. Hypertension: well controlled on amlodipine 2.5mg/day and HCTZ 12.5mg/day 3. Hyperlipidemia: on atorvastatin 80mg/QHS 4. DM II: dxed 2017, both parents have DM, seen by nutrition & DM education previously, (intolerant to metformin), on Trulicity 1.5mg Qwkly and acarbose 50mg/day Eye Exam: 06/06/21 [facility] Podiatry Exam: 2021 - nonVA PCP - neg DPN or PVD 5. Obesity: BMI 34, counseled on weight loss 6. Depression and Anxiety: managed by [facility] FOLLOW UP 1 year - Annual - vet to bring PCP labs ========= No barriers; Patient understands and agrees to current treatment plan. If pt has any questions, concerns, or changes in current health status he/she will call or come in to the VA. BMI>30/>24.99 High Risk: Patient declines to discuss weight management. Patient declined weight discussion. Discussed revisiting at a future visit. Hemoglobin A1C: Patient declines Hemoglobin A1C testing at this time. Hepatitis C Testing: Patient declines HCV lab test. Lipid Screening: Patient was educated about cardiac risk factors related to cholesterol control, which includes, all elements of the Lipid Panel including HDL, LDL and Triglycerides. The declined testing at this time. Medication Reconciliation: Outpatient: Has the patient been taking medications as documented in the EMLR? YES: The patient has been taking medications as documented in the EMLR. Essential Medication List for Review used to complete this medication reconciliation. INCLUDED IN THIS LIST: Alphabetical list of active outpatient prescriptions dispensed from this VA (local) and dispensed from another AL or DoD facility (remote) as well as inpatient orders (local, pending and active), local clinic medications, locally documented non-VA medications, and local prescriptions that have or been discontinued in the past 90 days. - All changes in medications, including all non-VA/Herbal/OTC medications were entered into CPRS. - If there were any medications the patient should no longer take, they were discontinued. - The patient/caregiver was instructed to update this list, discard old lists, and take this list to the next appointment, whether with a VA or non-VA provider. JLV Link Data on this list may not be complete. Please check JLV. Allergies/ADRs (Tool #5) FACILITY ALLERGY/ADR -------- No Remote Allergy/ADR Data available for this patient [place] [facility] No Known Allergies Med Recon NoGloary (Tool #1) INCLUDED IN THIS LIST: Alphabetical list of active outpatient prescriptions dispensed from this AL (local) and dispensed from another AL or DoD facility (remote) as well as inpatient orders (local pending and active), local clinic medications, locally documented non-VA medications, and local prescriptions that have or been discontinued in the past 90 days. Non-VA Meds Last Documented On: Apr 11, 2022 NOTE The display of VA prescriptions dispensed from another VA or DoD facility (remote) is limited to active outpatient prescription entries matched to National Drug File at the originating site and may not include some items such as investigational drugs, compounds, etc. NOT INCLUDED IN THIS LIST: Medications self-entered by the patient into personal health records (i.e. Card Capture Services) are NOT included in this list. Non-VA medications documented outside this AL, remote inpatient orders (regardless of status) and remote clinic medications are NOT included in this list. The patient and provider must always discuss medications the patient is taking, regardless of where the medication was dispensed or obtained. ------ Non-VA ACARBOSE 50MG TAB TAKE ONE TABLET BY MOUTH ONCE DAILY Patient wants to buy from Non-VA pharmacy. Medication prescribed by Non-VA provider. Non-VA ASPIRIN 81MG EC TAB TAKE ONE TABLET BY MOUTH ONCE DAILY Medication prescribed by Non-VA provider. Non-VA ATORVASTATIN CALCIUM 80MG TAB TAKE ONE TABLET BY MOUTH AT BEDTIME Medication prescribed by Non-VA provider. Non-VA DULAGLUTIDE 0.75MG/0.5ML INJ PEN INJECT 0.75MG SUBCUTANEOUSLY ONCE A WEEK Medication prescribed by Non-VA provider. Non-VA HYDROCHLOROTHIAZIDE 25MG TAB TAKE ONE-HALF TABLET BY MOUTH EVERY MORNING Patient wants to buy from Non-VA pharmacy. Medication prescribed by Non-VA provider. Non-VA LOSARTAN 100MG TAB TAKE ONE TABLET BY MOUTH ONCE DAILY Patient wants to buy from Non-VA pharmacy. Medication prescribed by Non-VA provider. ------ SUPPLIES ------ /tiffany/ MILLIE EUGENE MD Primary Care Physician Signed: 04/11/2023 10:20 MILLIE EUGENE [facility]
--- OUTSIDE RECORDS SUMMARY | 2024-02-26 03:57 | XMS_ITS | Continuity of Care Document ---
Author Name [facility] Organization [facility] Care Team Providers Care Senior Industrial Engineer Name Role Phone [facility] Unavailable Unavailable Problems Combined list of problems from Department of Defense and Veterans Affairs facilities. It does not include entries that were removed or entered in error. Problem Status Onset Date Problem Type Date of Resolution Comments Source Anxiety disorder Active [facility] Cerebrovascular accident Active Condition May 12, 2020 Entered By: MILLIE EUGENE Comment: 02/03/19 - right sided hemiparesis, CTA Head did not show any atherosclerotic lesionsFe2020 Entered By: MILLIE EUGENE Comment: Brain MRI: small areas of restricted diffusion c/w acute infarction in left post basal ganglia and post left periventricular region, no evidence of hemorrhagic transformationFe2020 Entered By: MILLIE EUGENE Comment: CTA Neck revealed patent vessels in anterior & posterior circulations [facility] Depressive disorder [facility] Gastroesophageal reflux disease Active Condition Feb 26, 2017 Entered By: MILLIE EUGENE Comment: Dr Joaquin Rodriguez [facility] [place] History of Kidney Stones Active Condition [facility] Hyperlipidemia Active Condition [facility] Insomnia Active Condition [facility] Low back pain Active Condition Feb Entered By: MILLIE EUGENE Comment: Intermittent [facility] Obesity Active Condition [facility] Posttraumatic stress disorder Active Condition Apr 11, 2018 Entered By: OLENA SINGH Comment: reviewed [facility] Primary Care Physician Active Condition Feb 26, 2017 Entered By: MILLIE EUGNEE Comment: Dr. Candi Funes----[facility] [place] [facility] Type 2 diabetes mellitus controlled by diet Active Condition Mar 14, 2 021 Entered By: TEJINDER MEDEIROS Comment: Last Eye Exam Erin MAR 07; [facility] Hand Injuries * (ICD-9-CM 959.4) Inactive Condition 02/26/2017 [facility] [place] [facility] Retinal Disorder (ICD-9-CM 362.89/362.9) Inactive Condition 02/26/2017 [facility] [place] [facility] Rotator cuff (capsule) sprain or strain (ICD-9-CM 840.4) Inactive Condition 02/26/2017 [facility] [place] [facility] Other Physical Therapy Active Condition DoD Combined Systolic And Diastolic Elevation Inactive Condition DoD numbness (hypesthesia) Inactive Condition DoD limb pain Active Condition DoD joint pain, localized in the knee Active Condition DoD accident caused by exposure to radiation - lasers Inactive Condition DoD astigmatism Inactive Condition DoD refractive error - hypermetropia Inactive Condition DoD seeing objects distorted in size or shape Inactive Condition DoD hordeolum externum Inactive Condition Do D eye pain Inactive Condition DoD myalgia and myositis Active Condition DoD vomiting Inactive Condition DoD diarrhea Active Condition DoD rhinitis Active Condition DoD foot sprain left Inactive Condition DoD prehypertension Active Condition DoD viral syndrome Inactive Condition DoD other specified family circumstances Active Condition DoD keratoconus Active Condition Mild OD. Recommend pt. be fit in conatact lens OD in an attempt to resolve diplopia. Consult to network to be fit by doctor in [place]. DoD Need For Vaccination Typhoid Inactive Condition DoD visit for: services physical Inactive Condition DoD exposure to streptococcus group A Active Condition DoD lower back sprain Inactive Condition DoD pharyngitis Inactive Condition DoD Need For Vaccination Against Bacterial Diseases Inactive Condition DoD closed fracture right ring finger MCP Active Condition DoD headache Active Condition Pt. subjec tive complaints greater than objective findings. No ocular abnormalities found to indicate pathology ie. no dry eye, no pupil abnormalities, no uveitis. Pt. ed. to follow up with PCM if HANKINS continue or worsen. Small refraction found on retinoscopy (-0.50 - 1.00 x 180) no improvement in vision. No evidence of keratoconus or corneal abnormalities noted today on topography. Possible malingerer. DoD Patient Training And Self-Care Skills Active Condition DoD vision problems Active Condition INST RUCTED ON DISCHARGE SHEET TO GO [facility] AT NEXT AVAIL TIME. DoD closed fx R 4th metacarpal base intra-articular w/ disloc Active Condition [facility] joint pain, localized Inactive Condition [facility] fracture metacarpal bone(s) Active Condition [facility] backache Inactive Condition [facility] Diagnosis: ICD-10-CM K08.9 Disorder of teeth and supporting structures, unspecified [facility] Diagnosis: ICD-10-CM E78.5 Hyperlipidemia, unspecified Active Diagnosis [facility] Medications Combined list of outpatient medications from Department of Defense and Veterans Affairs facilities.Medications provided include 1) outpatient medications from the last 15 months, and 2) patient-reported medications. Medication Details Route Status Patient Instructions Prescription Expires Prescription Number Last Dispense Date Ordering Provider Order Date Order Qty Source ACARBOSE 50MG TAB TAKE ONE TABLET BY MOUTH ONCE DAILY ORAL ACTIVE ОЛЕГ EUGENE SA REE [facility] AMLODIPINE BESYLATE 2.5MG TAB TAKE ONE TABLET BY MOUTH ORAL ACTIVE ОЛЕГ EUGENE SA REE 2023 [facility] IELD ASPIRIN 81MG TAB,EC TAKE ONE TABLET BY MOUTH ONCE DAILY ORAL ACTIVE ОЛЕГ EUGENE SA REE [facility] ATORVASTATI N [place] 80MG TAB TAKE ONE TABLET BY MOUTH AT BEDTIME ORAL ACTIVE ОЛЕГ EUGENE SA REE [facility] DULAGLUTIDE 1.5MG/0.5ML INJ,SOLN,PE N INJECT 1.5MG SUBCUTAN EOUSLY ONCE A WEEK SUBCUT ANEOUS ACTIVE ОЛЕГ EUGENE SA 2023 [facility] IELD HYDROCHLORO THIAZIDE 25MG TAB TAKE ONE-HALF TABLET BY MOUTH EVERY MORNING ORAL ACTIVE ОЛЕГ EUGENE SA 2022 [facility] [place] Allergies, Adverse Reactions, Alerts Combined list of allergies from Department of Defense and Veterans Affairs facilities. It does not include entries that were removed or entered in error. Substance Category Reaction Severity Reaction type Status Date Reported Comments Source NO OUTPUT FOR NCID [id number] Drug allergy (disorder) active 05/27/2006 Luisa MOHAN Immunizations Combined list of available immunizations from the Department of Defense and Veterans Affairs facilities. Immunization Series Date Given Administered By Site Reaction Lot Number CVX Code Drug Bulk Station Operator Status Comments Source INFLUENZA, UNSPECIFIED FORMULATION 2022 88 complet ed [facility] COVID-19 (PFIZER), MRNA, LNP-S, PF, 30 MCG/0.3 ML DOSE 3 2020 208 complet ed [facility] COVID-19 (PFIZER), MRNA, LNP-S, PF, 30 MCG/0.3 ML DOSE 2 2020 208 complet ed [facility] COVID-19 (PFIZER), MRNA, LNP-S, PF, 30 MCG/0.3 ML DOSE 1 2020 208 complet ed [facility] INFLUENZA, SEASONAL, INJECTABLE [address] Funes [facility] [place] INFLUENZA, SEASONAL, INJECTABLE 2016 141 complet ed [facility] FLU,3 YRS (HISTORICAL) 2010 88 complet ed [facility] DTAP, UNSPECIFIED FORMULATION 2009 107 complet ed [place] [facility] FLU,3 YRS (HISTORICAL) 2009 88 complet ed [place] [facility] TD(ADULT) UNSPECIFIED FORMULATION 2009 139 complet ed [place] NON-CAT CHMENT FLU,3 YRS (HISTORICAL) 2009 88 complet ed [employer] anthrax vaccine 2 2008 [id number] [employer] [place] ([facility]) complet ed anthrax vaccine DoD Novel influenza-H1N 1-09, injectable 1 2008 [id number] 127 [employer] Stevie. (NOV) complet ed Novel influenza -H1Q7-72, injectabl e DoD influenza virus vaccine, split virus (incl. purified surface antigen)-reti red CODE 1 2008 [id number] 15 Unknown (UNK) complet ed influenza virus vaccine, split virus (incl. purified surface antigen)- retired CODE DoD anthrax vaccine 1 2008 [id number] [employer] [place] (MIP) complet ed anthrax vaccine DoD hepatitis A vaccine, adult dosage 3 2008 [id number] 52 Smithine (SKB) complet ed hepatitis A vaccine, adult dosage DoD typhoid Vi capsular polysaccharid e vaccine 1 2008 [id number] Sanofi Pasteur ([facility]) complet ed typhoid Vi capsular polysacch aride vaccine DoD hepatitis B vaccine, adult dosage 3 2008 [id number] 43 Smithine (SKB) complet ed hepatitis B vaccine, adult dosage DoD influenza virus vaccine, split virus (incl. purified surface antigen)-reti red CODE 1 2007 UNK 15 Unknown (UNK) comple t ed influenza virus vaccine, split virus (incl. purified surface antigen)- retired CODE DoD typhoid Vi capsular polysaccharid e vaccine 1 2006 [id number] Sanofi Pasteur ([facility]) complet ed typhoid Vi capsular polysacch aride vaccine DoD hepatitis A and hepatitis B vaccine 2 2005 [id number] 104 [place] (SK) complet ed hepatitis A and hepatitis B vaccine DoD measles, mumps and rubella virus vaccine 1 2005 UNK 03 Unknown (UNK) Not Given measles, mumps and rubella virus vaccine DoD varicella virus vaccine 1 2005 UNK 21 Unknown (UNK) Not Given varicella virus vaccine DoD influenza virus vaccine, live, attenuated, for intranasal use 1 2005 [id number] [employer] (MED) complet ed influenza virus vaccine, live, attenuate d, for intranasa l use DoD hepatitis A and hepatitis B vaccine 1 2005 UNK 104 Unknown (UNK) comple t ed hepatitis A and hepatitis B vaccine DoD tetanus and diphtheria toxoids, adsorbed, preservative free, for adult use (2 Lf of tetanus toxoid and 2 Lf of diphtheria toxoid) 1 2005 UNK 09 Unknown (UNK) comple t ed tetanus and diphtheri a toxoids, adsorbed, preservat lynnette free, for adult use (2 Lf of tetanus toxoid and 2 Lf of diphtheri a toxoid) DoD poliovirus vaccine, inactivated 1 2005 UNK 10 Unknown (UNK) comple t ed polioviru s vaccine, inactivat ed DoD meningococcal polysaccharid e vaccine (MPSV4) 1 2005 UNK 32 Unknown (UNK) comple t ed meningoco ccal polysacch aride vaccine (MPSV4) DoD vaccinia (smallpox) vaccine 1 2005 UNK 75 Unknown (UNK) comple t ed vaccinia (smallpox ) vaccine DoD Vital Signs Combined list of inpatient and outpatient Vital Signs from Department of Defense and Veterans Affairs, ranging from 12 months to all on record, depending upon the facility. Vital Sign Value Date Comments Source SYSTOLIC BLOOD PRESSURE 130 12/10/19 24 10:42:29 [facility] DIASTOLIC BLOOD PRESSURE 83 024 10:42:29 [facility] PULSE OXIMETRY 100 12/10/2023 10:42:29 [facility] PAIN 0 12/10/2023 10:42:29 [facility] PULSE 78 12/10/2023 10:42:29 [facility] SYSTOLIC BLOOD PRESSURE 117 04/11/19 24 09:51:37 [facility] [place] DIASTOLIC BLOOD PRESSURE 81 024 09:51:37 [facility] PULSE OXIMETRY 100 04/11/2023 09:51:37 [facility] WEIGHT 230.2 04/11/2023 09:51:37 [facility] BMI 34kg/m2 04/11/2023 09:51:37 [facility] PAIN 0 04/11/2023 09:51:37 [facility] HEIGHT 69 04/11/2023 09:51:37 [facility] TEMPERATURE 98.2 04/11/2023 09:51:37 [facility] PULSE 68 04/11/2023 09:51:37 [facility] RESPIRATION 16 04/11/2023 09:51:37 [facility] Encounters Combined list of: 1) Encounters from Department of Veterans Affairs facilities going back up to thelast 18 months. 2) Encounters from the Department of Defense facilities going back up to 280 months. Location Location Details Encounter Type Encounter Number Reason For Visit Attending Provider ADM Date DC Date Status Disposition Source MARQUES Aviles([facility]) OUTPATIENT [id number] f/u from er ZOHAIB GENE A 10/22 Released w/o Limitations Luisa Mainox, [place]([facility]) Luisa Mainox, [place]([facility]) OUTPATIENT [id number] f/u ZOHAIB GENE Lawson 10/23 Released w/o Limitations Luisa Mainox, [place]([facility]) Luisa Mainox, [place]([facility]) OUTPATIENT [id number] MILAN BANKS 11/26 Released with Work/Duty Limitations Luisa Mainox, [place](Orth opedic) Luisa Mainox, [place](Orthop edic) OUTPATIENT [id number] ABDI RAMACHANDRAN 11/27 Released with Work/Duty Limitations Lu[place] [id number] xop ABDI RAMACHANDRAN 12/13 Released with Work/Duty Limitations [place] [facility] [place]C-T[facility] Er Module[place] OUTPATIENT [id number] bad headach e and vision problem KEO MAZA 12/28 Released w/o Limitations [facility] [place] [facility] [place] ) OUTPATIENT [id number] Blurry vision/ Headach es GUILLE MACKAY 12/31 Released w/o Limitations [facility] [place] [facility] [place]) OUT[place] [id number] Cast removal -traine e from PATRICIA Pardo 01/15 Released w/o Limitations [facility] [place] [facility](C-TMC Er Module) OUTPATIENT [id number] SINDY Handy 01/29 Released w/o Limitations [facility] N[facility] [place](C-TM C Er Module) [facility] [place](C-TMC Er Module) OUTPATIENT [id number] IVETTE Hicks XENIA FLANNERY W 02/02 Released w/o Limitations [facility] [place](C-TM C Er Module) [facility] [place](C-TMC Er Module) OUTPATIENT [id number] fever/s ore throat SUSY BRISCOE 02/06 Sick at Home/Quarter s [facility] [place](C-TM C Er Module) [facility] [place](C-TMC Er Module) OUTPATIENT [id number] BACK PAIN XENIA FLANNERY W 02/13 Released with Work/Duty Limitations [facility] [place](C-TM C Er Module) [employer] [facility](VC[facility] Physical Exam) OUTPATIENT [id number] inYVES Amaya 04/09 Released w/o Limitations [facility] Physica l Exam) [employer] [facility] Optometry ) OUTPATIENT [id number] double vision GARRETT GREY 04/09 Released w/o Limitations [facility] C(VCZ Optomet ry) [employer] [facility](ZZZVS K Social Work) OUTPATIENT [id number] initial appoint ment RAMONITA RODRIGUEZ 04/17 Released w/o Limitations [facility](ZZZ VSK Social Work) [employer]([facility]) OUTPATIENT [id number] flu symptom s AVILES, POORLORENZA V 01/11 Sick at Home/Quarter s [employer](F [facility] Primary Care) [employer]([facility]) OUTPATIENT [id number] left foot injury and dry fingers JANE FRAGOSO 01/17 Released with Work/Duty Limitations [employer](F D [facility] Primary Care) [employer](FD [facility] Primary Care) OUTPATIENT [id number] flu like symptom s x 3 days FERN, FERN N 04/06 Sick at Home/Quarter s [employer](F D [facility] Primary Care) [facility] OUTPATIENT [id number] 06/23 Released w/o Limitations [facility] OUT[facility] [id number] 06/30 Immediate Referral [facility] OUTPATIENT [id number] 06/30 Released w/o Limitations [facility] OUTPATIENT [id number] 07/13 Released w/o Limitations [facility] OUTPATIENT [id number] 08/03 Sick at Home/Quarter s [facility] OUTPATIENT [id number] 08/06 Released with Work/Duty Limitations [facility] OUTPATIENT [id number] 08/08 Sick at Home/Quarter s [facility] OUTPATIENT [id number] 08/11 Released with Work/Duty Limitations [facility] OUTPATIENT [id number] 09/03 Released w/o Limitations [facility] OUTPATIENT [id number] 09/12 Released with Work/Duty Limitations [facility] OUTPATIENT [id number] 09/14 Released w/o Limitations [facility] OUTPATIENT [id number] 10/06 Released w/o Limitations [facility] OUTPATIENT [id number] 10/19 Released w/o Limitations [facility] OUTPATIENT [id number] 10/20 Released with Work/Duty Limitations [facility] OUTPATIENT [id number] 10/25 Released w/o Limitations [facility] OUTPATIENT [id number] 10/27 Released w/o Limitations [facility] OUTPATIENT [id number] 11/01 Released w/o Limitations [facility] OUTPATIENT [id number] 11/03 Released w/o Limitations [facility] Outpatient Encounter [id number] 03/16 [facility] [place] OFF[facility] O/P EST MOD 30 MIN [id number] Diagnos is: ICD-10- CM E78.5 Hyperli pidemia , unspeci fied
ANGELICA EUGENE 04/11 [place] [facility] Out[facility] Encounter [id number] 11/26 [facility] En[facility] [id number] 11/27 [facility] Encounter [id number] 12/08 [facility] DENTAL BITEWING SINGLE IMAGE [id number] Diagnos is: ICD-10- CM K08.9 Disorde r of teeth and support ing structu res, unspeci fied
YAHAIRA RAIN AM 12/09 [facility] En[facility] [id number] 12/23 [facility] Out[facility] Encounter [id number] [facility] Procedures Combined list of: 1) Procedures from Department of Veterans Affairs facilities going back up to thelast 18 months, not all VA non-surgical procedures are included; 2) All procedures from the Department of Defense facilities. Procedure Procedure Type Code Date Perfomer Comments [facility] Clinical Social Work Individual Outpatient Counseling 75-80 Minutes Clinical Social Work Individual Outpatient Counseling 75-80 Minutes 41137 7 RAMONITA RODRIGUEZ [facility] Clinical Social Work Individual Outpatient Counseling 45 Minutes Clinical Social Work Individual Outpatient Counseling 45 Minutes 38858 7 RAMONITA RODRIGUEZ [facility] Determination Of Refractive State Determination Of Refractive State 11550 7 GARRETT GREY [facility] Ophthalmological New Patient Start Intermediate Level Care Ophthalmological New Patient Start Intermediate Level Care [id number] 7 GARRETT GREY [facility] Audiogram (Screening) Audiogram (Screening) 86387 7 YVES TONG [facility] Typhoid Vaccine Acetone-Killed, Dried (U.S. ) Typhoid Vaccine Acetone-Killed, Dried (U.S. ) 75699 7 YVES TONG [facility] Physician Supervised Injection Intramuscular Antibiotic Physician Supervised Injection Intramuscular Antibiotic 27329 6 XENIA FLANNERY Patient Training And Self-Care Skills Patient Training And Self-Care Skills 50630 6 XENIA FLANNERY Patient Training And Self-Care Skills Patient Training And Self-Care Skills 72167 6 SUSY BRISCOE [facility] Physician Supervised Injection Intramuscular Antibiotic Physician Supervised Injection Intramuscular Antibiotic 58351 6 SINDY OBRIEN [facility] Closed Treatment Of Fracture Of Metacarpal Bone Closed Treatment Of Fracture Of Metacarpal Bone 86505 6 PATRICIA VICKERS [facility] Computerized corneal topography, unilateral 6 GUILLE MILES [facility] Ophthalmological New Patient Start Comprehensive Care Ophthalmological New Patient Start Comprehensive Care 79584 6 GUILLE MILES Determination Of Refractive State Determination Of Refractive State 97662 6 GUILLE MILES [facility] Orthopedic Casting Short Arm Orthopedic Casting Short Arm 20325 6 ABDI RAMACHANDRAN [facility] SELF-CARE/HOME MANAGMENT TRAIN (EG,ACT OF DAILY LIVING (ADL) &COMPENSAT TRAIN,MEAL PREPARATION,SAFETY PROCS,AND INSTRUCT IN USE OF ASST TECHNOLOGY DEV/ADPT EQUIP) DIR ONE-ON-ONE CONT,EA 15 MINUTES 6 [facility] HEPATITIS A AND HEPATITIS B VACCINE (HEPA-HEPB), ADULT DOSAGE, FOR INTRAMUSCULAR USE 6 [facility] SELF-CARE/HOME MANAGMENT TRAIN (EG,ACT OF DAILY LIVING (ADL) &COMPENSAT TRAIN,MEAL PREPARATION,SAFETY PROCS,AND INSTRUCT IN USE OF ASST TECHNOLOGY DEV/ADPT EQUIP) DIR ONE-ON-ONE CONT,EA 15 MINUTES 6 [facility] THERAPEUTIC, PROPHYLACTIC OR DIAGNOSTIC INJECTION (SPECIFY SUBSTANCE OR DRUG); SUBCUTANEOUS OR INTRAMUSCULAR 6 [facility] THERAPEUTIC, PROPHYLACTIC OR DIAGNOSTIC INJECTION (SPECIFY SUBSTANCE OR DRUG); SUBCUTANEOUS OR INTRAMUSCULAR 6 [facility] INFLUENZA VIRUS VACCINE, TRIVALENT, LIVE (LAIV3), FOR INTRANASAL USE 6 [facility] CLOSED TREATMENT OF METACARPAL FRACTURE, SINGLE; WITHOUT MANIPULATION, EACH BONE 6 [facility] COMPUTERIZED CORNEAL TOPOGRAPHY, UNILATERAL 6 [facility] THERAPEUTIC, PROPHYLACTIC OR DIAGNOSTIC INJECTION (SPECIFY SUBSTANCE OR DRUG); SUBCUTANEOUS OR INTRAMUSCULAR 6 [facility] APPLICATION, CAST; ELBOW TO FINGER 6 [facility] APPLICATION OF SHORT ARM SPLINT (FOREARM TO HAND); STATIC 6 [facility] OSTEOPATHIC MANIPULATIVE TREATMENT (OMT); 1-2 BODY REGIONS INVOLVED 6 [facility] OSTEOPATHIC MANIPULATIVE TREATMENT (OMT); 1-2 BODY REGIONS INVOLVED 6 [facility] SKIN TEST; TUBERCULOSIS, INTRADERMAL 0 [facility] SCREENING TEST OF VISUAL ACUITY, QUANTITATIVE, BILATERAL 9 [facility] INDIVIDUAL PSYCHOTHERAPY, INSIGHT ORIENTED, BEHAVIOR MODIFYING AND/OR SUPPORTIVE, IN AN OFFICE OR OUTPATIENT FACILITY, APPROXIMATELY 45 TO 50 MINUTES [id number] WITH THE PATIENT 7 [facility] DETERMINATION OF REFRACTIVE STATE 7 [facility] TYPHOID VACCINE, ACETONE-KILLED, DRIED (AKD), FOR SUBCUTANEOUS USE (U.S. ) 7 [facility] Social History Combined list of available smoking, tobacco, and other social history from Department of Defense and Veterans Affairs facilities. Social History Type Response Date Comment [facility] e Tobacco smoking status ALIS NE-TOBACCO NEVER USED 04/11/19 24 [place] History of tobacco use NE-TOBACCO NEVER USED 04/11/2022 [place] History of tobacco use NE-TOBACCO NEVER USED 04/11/2018 [place] History of tobacco use LIFETIME NON-TOBACCO USER 7 [place] History of tobacco use LIFETIME NON-TOBACCO USER 0 [place] This section is an empty social history section. [facility] Plan of Care List of future care activities from [facility] facilities. Additional future care activities may be listed in the Assessment and Plan section. Date/Time Care Activity Care Activity Detail Facili ty 04/09/2024 AMBULATORY - MEDICINE AMBULATORY - MEDICI NE [facility] 01/13/2024 Consult Order COMMUNITY CARE-D ENTAL GENERAL Cons [employer] Delivery Driver's Choice [facility]
--- OUTSIDE RECORDS SUMMARY | 2024-02-26 03:59 | XMS_ITS ---
Author Name [facility] [place] Organization [place] Address [address] [place] [address] Care Team Providers Care Store Team Member Name Role Phone MILLIE EUGENE Primary Care [...] BCBS OF CT MEDICAL EXPENSE (OPT/PROF ) [facility] Sep 16, 2015 [id number] [phone] GRANT OCASIO SPOUSE MYRON BCBS OF CT (BLUECARD) [facility] CE ORGANIZAT ION [facility] Sep 16, 2015 [id number] AMARJIT ,GRANT SPOUSE BCBS [place] [facility] CE ORGANIZAT ION [facility] Sep 16, 2015 [id number] GRANT OCASIO SPOUSE BCBS [facility] CE ORGANIZ [facility] SHARE ACTIV E Jun 02, 2013 [id number] [phone] GRANT OCASIO SPOUSE BCBS [facility] CE ORGANIZ [facility] RETI Jun 02, 2013 [id number] [phone] AMARJIT ,GRANT SPOUSE [facility] CE ORGANIZAT ION [facility] Sep 16, 2015 [id number] AMARJIT ,GRANT SPOUSE CAREMARK PRESCRIPT ION RX Mar 18, 2022 [id number] [phone] LIS OCASIO PATIENT CAREMARK PRESCRIPT ION RX22M B Mar 18, 2022 [id number] GRANT OCASIO SPOUSE [place] PRESCRIPT ION [place] OF [place] Mar 18, 2022 [id number] [phone] GRANT OCASIO SPOUSE [place]EM[place] PRESCRIPT [facility]ON [facility] Sep 16, 2015 [id number] GRANT OCASIO SPOUSE EXPRESS SCRIPTS ([id number]) PRESCRIPT ION NONE Sep 16, 2015 L4TA [id number] GRANT OCASIO SPOUSE EXPRESS SCRIPTS ([id number]) PRESCRIPT ION L4TA* Jun 02, 2013 L4TA [id number] GRANT OCASIO SPOUSE EXPRESS SCRIPTS ([id number]) PRESCRIPT ION L4TA* Jun 02, 2013 L4TA [id number] GRANT OCASIO SPOUSE Selected Encounter This section includes the information on record at [place] for the Encounter. Date/Time Encounter Type Encounter Description Reason Pro vider Source Mar 16, 2023 12:00 AM Outpatient Encounter EVENT (HISTORICAL) IHE Encounter Template Text not used by [facility] Plan of Treatment: Future Appointments (+ 6 months) and Future Tests (+/- 45 days) The Plan of Treatment section includes future care activities for the patient from all VA treatmentfacilities. This section includes future appointments and future orders which are active, pending or scheduled. Future Appointments This section includes appointments that were scheduled to occur 6 months from the date of the Encounter, up to a maximum of 20 appointments. The data comes from all [place] treatment facilities. Appointment Date/Time Appointment Type Appointme nt Facility Name Apr 11, 2023 09:30 AM AMBULATORY - MEDICINE [facility] [place] [facility] Encounter Notes: All associated encounter notes This section contains the clinical notes associated to the Encounter. Date/Time Encounter Note(s) Provider Source Mar 16, 2023 12:00 AM NONVA NOTE: LOCAL TITLE: NON-VA HOSPITALIZATIONS/ER STANDARD TITLE: NONVA NOTE DATE OF NOTE: MAR 16, 2023 ENTRY DATE: APR 15, 2023@11:20:28 AUTHOR: MIGDALIA THOMPSON EXP COSIGNER: URGENCY: STATUS: COMPLETED VistA Imaging - Scanned Document SCANNED DOCUMENT SIGNATURE NOT REQUIRED Electronically Filed: 04/15/2023 by: MIGDALIA THOMPSON KEY CARRIER MIGDALIA THOMPSON DE [facility]
--- OUTSIDE RECORDS SUMMARY | 2024-02-26 04:00 | XMS_ITS | Encounter Summary ---
Author Name [place] Organization [place] Address [address] [place] [address] Care Team Providers Care Dental Practice Manager Name Role Phone MILLIE EUGENE Primary Care [...] BCBS OF CT MEDICAL EXPENSE (OPT/PROF ) [facility] Sep 16, 2015 [id number] GRANT OCASIO SPOUSE MY[place] BCBS OF CT (BLUECARD) [facility] CE ORGANIZAT ION [facility] Sep 16, 2015 [id number] [phone] GRANT OCASIO SPOUSE MARCELABS BIN [facility] CE ORGANIZAT ION [facility] Sep 16, 2015 [id number] [phone] GRANT OCASIO SPOUSE MARCELABS [facility] CE ORGANIZ [facility] SHARE ACTIV E Jun 02, 2013 [id number] GRANT OCASIO SPOUSE MARCELABS [facility] CE ORGANIZ [facility] RETI Jun 02, 2013 [id number] [phone] GRANT OCASIO SPOUSE BCBS [facility] CE ORGANIZAT ION [facility] Sep 16, 2015 [id number] AMARJIT ,GRANT SPOUSE CAREMARK PRESCRIPT ION RX Mar 18, 2022 [id number] [phone] LIS OCASIO PATIENT [place]ARK PRESCRIPT ION [place] Mar 18, 2022 [id number] AMARJIT ,GRANT SPOUSE CAREMARK PRESCRIPT ION RX22M B Mar 18, 2022 [id number] GRANT OCASIO SPOUSE CAREMARK PRESCRIPT ION [facility] Sep 16, 2015 [id number] GRANT OCASIO SPOUSE EXPRESS SCRIPTS ([id number]) PRESCRIPT ION NONE Sep 16, 2015 [id number] GRANT OCASIO SPOUSE EXPRESS SCRIPTS ([id number]) PRESCRIPT ION L4TA* Jun 02, 2013 L4TA [id number] GRANT OCASIO SPOUSE EXPRESS SCRIPTS ([id number]) PRESCRIPT ION L4TA* Jun 02, 2013 L4TA [id number] [phone] GRANT OCASIO SPOUSE Selected Encounter This section includes the information on record at [place] for the Encounter. Date/Time Encounter Type Encounter Description Reason Provider Source Dec 10, 2023 10:00 AM DENTAL BITEWING SINGLE IMAGE DENTAL ICD-10-CM K08.9 Disorder of teeth and supporting structures, unspecified KEANU RAIN Sha Encounter Template Text not used by [place] Assessments - Encounter Diagnoses This section includes the primary and secondary diagnoses documented for the Encounter. Date/Time Primary/Secondary Diagnosis Diagnosis Name Provider Source Dec 10, 2023 03:15 PM PRIMARY Disorder of teeth and supporting structures, unspecified KEANU RAIN [facility] [facility] Plan of Treatment: Future Appointments (+ 6 [...] 20 appointments. The data comes from all [facility]. Appointment Date/Time Appointment Type Appointme nt Facility Name Dec 24, 2023 01:45 PM AMBULATORY - MEDICINE [facility] Dec 26, 2023 02:00 PM AMBULATORY MEDICINE [facility] [place] [facility] Jan 24, 2024 11:00 AM AMBULATORY MEDICINE [facility] [place] [facility] Apr 09, 2024 09:30 AM [facility]ORY [facility] Active, Pending, and Scheduled Orders This section includes a listing of several types of active, pending, and scheduled orders, including clinic medications orders, diagnostic test orders, procedure orders and consult orders; where the start date of the order is 45 days before the date of the Encounter or 45 days after the date of theEncounter. The data comes from all [facility]. Test Date/Time Test Type Test Details Facility Name Jan 13, 2024 12:52 PM Consult Order COMMUNITY CARE-DENTAL GENERAL Cons [employer] Repairer's Choice [facility] Vital Signs: All taken on the encounter date This section contains inpatient and outpatient Vital Signs collected on the date of the Encounter. Date/Time Temperature Pulse Blood Pressure Respiratory Rate SP02 Pain Height Weight Body Mass Index Source Dec 10, 2023 10:42 AM 78 130/83 100 0 [facility] Encounter Notes: All associated encounter notes This section contains the clinical notes associated to the Encounter. Date/Time Encounter Note(s) Provider Source Dec 10, 2023 03:25 PM DENTISTRY CONSULT: LOCAL TITLE: CONSULT REPORT/DENTAL STANDARD TITLE: DENTISTRY CONSULT DATE OF NOTE: DEC 10, 2023@15:25 ENTRY DATE: DEC 10, 2023@15:25:22 AUTHOR: KEANU RAIN EXP COSIGNER: URGENCY: STATUS: COMPLETED was seen for dental evaluation. /tiffany/ KEANU RAIN DMD Staff Dentist Signed: 12/10/2023 15:25 KEANU RAIN [facility] Dec 10, 2023 03:15 PM DENTISTRY CONSULT: LOCAL TITLE: CONSULT REPORT/DENTAL STANDARD TITLE: DENTISTRY CONSULT DATE OF NOTE: DEC 10, 2023@15:15 ENTRY DATE: DEC 10, 2023@15:15:40 AUTHOR: KEANU RAIN EXP COSIGNER: URGENCY: STATUS: COMPLETED Please refer to dental note. /tiffany/ KEANU RAIN DMD Staff Dentist Signed: 12/10/2023 15:16 KEANU RAIN [facility] [place] [facility] Dec 10, 2023 03:00 PM DENTISTRY NOTE: LOCAL TITLE: DENTAL NOTE STANDARD TITLE: DENTISTRY NOTE DATE OF NOTE: DEC 10, 2023@15:00 ENTRY DATE: DEC 10, 2023@15:15:25 AUTHOR: KEANU RAIN EXP COSIGNER: URGENCY: STATUS: COMPLETED Patient Name: LIS OCASIO, : 1980, Age: 43 Visit: S: Dec 10, 2023@10:00 [facility] DENTAL DMD 1. Primary PCE Diagnosis: K08.9 (DISORDER OF TEETH AND SUPPORTING STRUCTURES, UNSPECIFIED). Dental Category: 15-OPC, Class IV. Treatment Status: Active. Completed Care: (D0140) LIMIT ORAL EVAL PROBLM FOCUS. DX: K08.9 Disorder of Teeth and Supporting Structures, unspecified (D0220) INTRAORAL PERIAPICAL FIRST. Tooth: 5. DX: K08.9 Disorder of Teeth and Supporting Structures, unspecified (D0230) INTRAORAL PERIAPICAL EA ADD. Tooth: 9. DX: K08.9 Disorder of Teeth and Supporting Structures, unspecified (D0230) INTRAORAL PERIAPICAL EA ADD. Tooth: 14. DX: K08.9 Disorder of Teeth and Supporting Structures, unspecified (D0270) DENTAL BITEWING SINGLE IMAGE. DX: K08.9 Disorder of Teeth and Supporting Structures, unspecified Presentation/Chief Complaint: Patient presented to dental clinic for limited oral evaluation. Pain in upper left back tooth, hurts when eating. Doesn't hurt as much now. Broke front tooth (points to tooth #9), and broken root canal tooth (points to tooth #5). In the past they did root canal on that tooth to save it but the tooth broke. Time out performed. Used full name and date. Checked and confirmed sterilization monitors in instrument packs. Vital Signs: Dental Pain (0-10): 6 12/10/2023 10:42 General Pain (0-10): 0 12/10/2023 10:42 Blood Pressure (mmHg): 130/83 12/10/2023 10:42 Pulse (BPM): 78 12/10/2023 10:42 POX: 100% 12/10/2023 10:42 Reviewed medical history. Medications and allergies were reviewed and reconciled within scope of dental service. Past Medical History and Medications: No significant changes since the last dental visit Active Problems: Cerebrovascular accident ([facility] [id number]) Type 2 diabetes mellitus controlled by diet ([facility] [id number]) Insomnia ([facility] [id number]) Posttraumatic stress disorder ([facility] [id number]) Obesity ([facility] [id number]) Anxiety disorder ([facility] [id number]) History of Kidney Stones (ICD-10-CM R69.) Primary Care Physician (ICD-10-CM R69.) Gastroesophageal reflux disease ([facility] [id number]) Depressive disorder ([facility] [id number]) Low back pain ([facility] [id number]) Hyperlipidemia ([facility] [id number]) Active Medications: ---- Outpatient Medication ---- ASPIRIN 81MG EC TAB - (ACTIVE) ATORVASTATIN CALCIUM 80MG TAB - (ACTIVE) HYDROCHLOROTHIAZIDE 25MG TAB - (ACTIVE) ACARBOSE 50MG TAB - (ACTIVE) DULAGLUTIDE 1.5MG/0.5ML INJ PEN - (ACTIVE) AMLODIPINE BESYLATE 2.5MG TAB - (ACTIVE) Active Allergies: No Known Allergies Intraoral and Extraoral Screening Exam Findings: 12/10/2023 Head and neck assessment with oral cancer screening is negative: no apparent pathology noted. No swelling. Limited Oral Examination: Dental Examination: Missing Teeth: 13, 16, 18. Caries: 4(M), 5, 8(ML), 9(MID), 14(DOL), 17(O). Endodontically Treated: 5(bl) Javier Percha. Cracked: 9(F). Chipped: 5(MODBL), 9(MIFDL), 14(DOL). #14 is sensitive on percussion. Teeth #5 and #9 are asymptomatic. No swelling. No significant tooth mobility noted. Existing Dental Restorations: Restored: 19(OB) Amalgam, 14(DO) Amalgam, 15(O) Amalgam, 10(M) Resin. Assessment/Plan: Caries risk: high Tooth #9: Caries, significant coronal portion of tooth #9 fractured off, cracked facial wall prone to further fracture, insufficient ferrule for restoring successfully Tooth #14: Distal-lingual caries extending subgingivally to alveolar bone. Tooth #5: Endodontically-treated roots of tooth #5 remain, root caries. Plan: Extractions of teeth #5, #9, #14. No contraindications for planned procedure(s). Final treatment plan to be completed at a later time Planned Procedures: Phase 1 (D0150) COMPREHENSVE ORAL EVALUATION: . DX: (). (D7210) SURG REM ERUPTED TOOTH: 5. DX: (). (D7210) SURG REM ERUPTED TOOTH: 9. DX: (). (D7210) SURG REM ERUPTED TOOTH: 14. DX: (). Sequencing Notes: 12/10/2023: Referring to [facility] for extractions of teeth #5, #9, #14. Due to wait time, patient opted into course of general dental community care. Referring to [facility]. Reviewed findings, risks/benefits/alternatives associated with the proposed treatment plan. Discussed need for additional radiographs, comprehensive oral evaluation and further treatment planning. Discussed phased care and that current priority and phase of treatment is disease management, and that planning for definitive replacement of teeth is in later phase. Patient indicated understanding and agreement to treatment plan as discussed. Opportunity was provided for questions. Questions answered. Advised him to call if he has concerns. Disposition: Next dental visits: - Comprehensive oral evaluation in general dental community care ([facility]) - Consult for extractions at [facility]. Patient to follow up here after completion of dental community care. - - - - - - - - - - - - - - - - - - - - - - - - - - - - - - /tiffany/ KEANU RAIN DMD Staff Dentist Signed: 12/10/2023 15:15 KEANU RAIN [facility]
--- OUTSIDE RECORDS SUMMARY | 2024-02-26 04:00 | XMS_ITS | Encounter Summary ---
Author Name [place] Address [address] [place] [address] Care Team Providers Care Agriculture Internship Name Role Phone MILLIE EUGENE Primary Care [...] BCBS OF CT MEDICAL EXPENSE (OPT/PROF ) [facility] Sep 16, 2015 [id number] GRANT OCASIO SPOUSE MY[place] BCBS OF CT (BLUECARD) [facility] ORGANIZAT ION [facility] Sep 16, 2015 [id number] [phone] GRANT OCASIO SPOUSE MARCELABS [place] [facility] ORGAN[facility] ION [facility] Sep 16, 2015 [id number] [phone] GRANT OCASIO SPOUSE MARCELABS [facility] CE ORGANIZ [facility] SHARE ACTIV E Jun 02, 2013 [id number] [phone] GRANT OCASIO SPOUSE BCBS [place] [facility] CE ORGANIZ [facility] Jun 02, 2013 [id number] [phone] GRANT OCASIO SPOUSE BCBS OF [facility] CE ORGANIZAT ION [facility] Sep 16, 2015 [id number] [phone] AMARJIT ,GRANT SPOUSE CAREMARK PRESCRIPT ION RX Mar 18, 2022 [id number] LIS OCASIO PATIENT CAREMARK PRESCRIPT ION [place] Mar 18, 2022 [id number] AMARJIT ,GRANT SPOUSE CAREMARK PRESCRIPT ION RX22M B Mar 18, 2022 [id number] GRANT OCASIO SPOUSE CAREMARK PRESCRIPT ION [facility] Sep 16, 2015 [id number] GRANT OCASIO SPOUSE EXPRESS SCRIPTS ([id number]) PRESCRIPT ION NONE Sep 16, 2015 L4TA [id number] GRANT OCASIO SPOUSE EXPRESS SCRIPTS ([id number]) PRESCRIPT ION L4TA* Jun 02, 2013 L4TA [id number] GRANT OCASIO SPOUSE EXPRESS SCRIPTS ([id number]) PRESCRIPT ION L4TA* Jun 02, 2013 L4TA [id number] GRANT OCASIO SPOUSE Selected Encounter This section includes the information on record at [place] for the Encounter. Date/Time Encounter Type Encounter Description Reason Pro vider Source Nov 28, 2023 08:31 AM Outpatient Encounter DENTAL IHE Encounter Template Text not used by [place] Plan of Treatment: Future Appointments (+ 6 months) and Future Tests (+/- 45 days) The Plan of Treatment section includes future care activities for the patient from all [place] treatmentfacilities. This section includes future appointments and future orders which are active, pending or scheduled. Future Appointments This section includes appointments that were scheduled to occur 6 months from the date of the Encounter, up to a maximum of 20 appointments. The data comes from all [place] treatment facilities. Appointment Date/Time Appointment Type Appointme nt Facility Name Dec 10, 2023 10:00 AM AMBULATORY - NONE [place] [facility] Dec 24, 2023 01:45 PM AMBULATORY - MEDICINE [facility] Dec 26, 2023 02:00 PM AMBULATORY - MEDICINE [facility] Jan 24, 2024 11:00 AM AMBULATORY - MEDICINE [facility] Apr 09, 2024 09:30 AM AMBULATORY - MEDICINE [facility] Encounter Notes: All associated encounter notes This section contains the clinical notes associated to the Encounter. Date/Time Encounter Note(s) Provider Source Nov 28, 2023 08:31 AM DENTISTRY TELEPHON E ENCOUNTER NOTE: LOCAL TITLE: TELEPHONE NOTE/DENTAL STANDARD TITLE: DENTISTRY TELEPHONE ENCOUNTER NOTE DATE OF NOTE: NOV 28, 2023@08:31 ENTRY DATE: NOV 28, 2023@08:31:33 AUTHOR: MAI RUIZ COSIGNER: URGENCY: STATUS: COMPLETED [facility] Toll Free Number Primary Care Telephone Assistance can be reached at ext. [phone] option 2 [facility] scheduling can be reached at ext. [phone] option 2 [facility] scheduling can be reached at ext. [phone] option 3 NOV 28, 2023 LIS OCASIO [address] [place], [place] [address] Dear LIS OCASIO Our records indicate you are due for an appointment in Dental Clinic Thank you for choosing the Department of [facility] ([place]) [facility] as your primary choice for health care. As a partner in your health care, we are contacting you in writing since we have been unsuccessful in our attempts to reach you to date. We want to assure you we are doing everything possible to schedule Veterans for their VA medical care appointments. If you would like to be seen, please contact [place] Call Center at [phone] Ext. [phone] Option 3 to schedule an appointment. Thank you for your service to our nation, and we look forward to hearing from you soon. Sincerely, [facility] [address] [facility] [address] [place] [address] [place] [address] ext. [phone] [facility] [address] [place] [address] [address] [place], [place] [id number] [place] [address] [phone] [facility] [address] [address] [place] [address] ext. [phone] [facility] [address] [place] [address] ext. [phone] /es/ MAI RUIZ ADVANCED DEVELOPMENT EDUCATOR Signed: 11/28/2023 08:31 MAI URIZ CN[facility]L [facility]
--- OUTSIDE RECORDS SUMMARY | 2024-02-26 04:00 | XMS_ITS | Encounter Summary ---
Author Name [place] Address [address] [place] [address] Care Team Providers Care Mobile Equipment Operator Name Role Phone MILLIE EUGENE Primary Care [...] BCBS OF [place] MEDICAL EXPENSE (OPT/PROF ) [facility] Sep 16, 2015 [id number] [phone] GRANT OCASIO SPOUSE [place] BCBS OF CT (BLUECARD) [facility] ORGANIZAT ION [facility] Sep 16, 2015 [id number] GRANT OCASIO SPOUSE MARCELABS [place] [facility] ORGANIZAT ION [facility] Sep 16, 2015 [id number] [phone] GRANT OCASIO SPOUSE MARCELABS [facility] ORGANIZ [facility] SHARE ACTIV E Jun 02, 2013 [id number] GRANT OCASIO SPOUSE BCBS [place] [facility] CE ORGANIZ [facility] Jun 02, 2013 [id number] GRANT OCASIO SPOUSE BC[facility] OF [facility] ORGANIZAT ION [facility] Sep 16, 2015 [id number] AMARJIT ,GRANT SPOUSE CAR[place]ARK PRESCRIPT ION RX Mar 18, 2022 [id number] [phone] LIS OCASIO PATIENT [place] PRESCRIPT ION [place] OF [place] Mar 18, 2022 [id number] [phone] AMARJIT ,GRANT SPOUSE CAR[place]ARK PRESCRIPT ION RX22M B Mar 18, 2022 [id number] GRANT OCASIO SPOUSE CAREM[place] PRESCRIPT [facility] Sep 16, 2015 [id number] GRANT OCASIO SPOUSE EXPRESS SCRIPTS ([id number]) PRESCRIPT ION NONE Sep 16, 2015 L4TA [id number] GRANT OCASIO SPOUSE EXPRESS SCRIPTS ([id number]) PRESCRIPT ION L4TA* Jun 02, 2013 L4TA [id number] GRANT OCASIO SPOUSE EXPRESS SCRIPTS ([id number]) PRESCRIPT ION L4TA* Jun 02, 2013 L4TA [id number] GRANT OCASIO SPOUSE Selected Encounter This section includes the information on record at [place] for the Encounter. Date/Time Encounter Type Encounter Description Reason Pro vider Source Dec 09, 2023 08:34 AM Outpatient Encounter DENTAL IHE Encounter Template Text not used by [place] Plan of Treatment: Future Appointments (+ 6 months) and Future Tests (+/- 45 days) The Plan of Treatment section includes future care activities for the patient from all [place] treatmentfacilities. This section includes future appointments and future orders which are active, pending or scheduled. Future Appointments This section includes appointments that were scheduled to occur 6 months from the date of the Encounter, up to a maximum of 20 appointments. The data comes from all [place] treatment facilities. Appointment Date/Time Appointment Type Appointme nt Facility Name Dec 10, 2023 10:00 AM AMBULATORY - NONE [place] [facility] Dec 24, 2023 01:45 PM AM[place]UL[place]ORY [place]ICINE [place] [facility] [facility] Dec 26, 2023 02:00 PM [place]ICINE [place] [facility] [facility] Jan 24, 2024 11:00 AM AMBULATORY - MEDICINE [facility] Apr 09, 2024 09:30 AM AMBULATORY - MEDICINE [facility] Active, Pending, and Scheduled Orders This section includes a listing of several types of active, pending, and scheduled orders, including clinic medications orders, diagnostic test orders, procedure orders and consult orders; where the start date of the order is 45 days before the date of the Encounter or 45 days after the date of theEncounter. The data comes from all [place] treatment facilities. Test Date/Time Test Type Test Details Facility Name Jan 13, 2024 12:52 PM Consult Order COMMUNITY CARE-DENTAL GENERAL Cons Recording Artist's Choice [facility] Encounter Notes: All associated encounter notes This section contains the clinical notes associated to the Encounter. Date/Time Encounter Note(s) Provider Source Dec 09, 2023 08:34 AM DENTISTRY TELEPHON E ENCOUNTER NOTE: LOCAL TITLE: TELEPHONE NOTE/DENTAL STANDARD TITLE: DENTISTRY TELEPHONE ENCOUNTER NOTE DATE OF NOTE: DEC 09, 2023@08:34 ENTRY DATE: DEC 09, 2023@08:35:19 AUTHOR: MAI RUIZ EXP COSIGNER: URGENCY: STATUS: COMPLETED Called pt and LM to confirm dental appointment on 12/10/2023 at 10:00 am. /tiffany/ MAI RUIZ [employer] Signed: 12/09/2023 08:35 MAI RUIZ [facility]
--- OUTSIDE RECORDS SUMMARY | 2024-02-26 04:00 | XMS_ITS | Encounter Summary ---
Author Name [place] Address [address] [place] [address] Care Team Providers Care Combination Worker Name Role Phone MILLIE EUGENE Primary [facility] Provider [facility] Insurance Providers: All historical and current [...] BCBS OF CT MEDICAL EXPENSE (OPT/PROF ) [facility] Sep 16, 2015 [id number] [phone] GRANT OCASIO SPOUSE MY[place] BCBS OF CT (BLUECARD) [facility] CE ORGANIZAT ION [facility] Sep 16, 2015 [id number] [phone] AMARJIT ,GRANT SPOUSE BCBS [place] [facility] CE ORGANIZAT ION [facility] Sep 16, 2015 [id number] [phone] GRANT OCASIO SPOUSE BCBS [facility] CE ORGANIZ [facility] SHARE ACTIV E Jun 02, 2013 [id number] [phone] GRANT OCASIO SPOUSE BCBS [facility] CE ORGANIZ [facility] Jun 02, 2013 [id number] [phone] GRANT OCASIO SPOUSE BCBS OF [facility]ON [facility] Sep 16, 2015 [id number] AMARJIT ,GRANT SPOUSE CAREMARK PRESCRIPT ION RX Mar 18, 2022 [id number] [phone] LIS OCASIO PATIENT [place] PRESCRIPT ION [place] Mar 18, 2022 [id number] AMARJIT ,GRANT SPOUSE CAREMARK PRESCRIPT ION RX22M B Mar 18, 2022 [id number] GRANT OCASIO SPOUSE CAREMARK PRESCRIPT [facility]ON [facility] Sep 16, 2015 [id number] GRANT OCASIO SPOUSE EXPRESS SCRIPTS ([id number]) PRESCRIPT ION NONE Sep 16, 2015 [id number] GRANT OCASIO SPOUSE EXPRESS SCRIPTS ([id number]) PRESCRIPT ION L4TA* Jun 02, 2013 L4TA [id number] GRANT OCASIO SPOUSE EXPRESS SCRIPTS ([id number]) PRESCRIPT ION L4TA* Jun 02, 2013 L4TA [id number] GRANT OCASIO SPOUSE Selected Encounter This section includes the information on record at [place] for the Encounter. Date/Time Encounter Type Encounter Description Reason Pro vider Source Dec 24, 2023 12:00 AM Outpatient Encounter COMMUNITY CARE CONSULT IHE Encounter Template Text not used by [...] 20 appointments. The data comes from all [place] treatment facilities. Appointment Date/Time Appointment Type Appointme nt Facility Name Dec 26, 2023 02:00 PM AMBULATORY - MEDICINE [place] C NTRL [facility] Jan 24, 2024 11:00 AM AMBULATORY - MEDICINE [facility] Apr 09, 2024 09:30 AM AMBULATORY - MEDICINE [facility] Active, Pending, and Scheduled Orders This section includes a listing of several types of active, pending, and scheduled orders, including clinic medications orders, diagnostic test orders, procedure orders and consult orders; where the start date of the order is 45 days before the date of the Encounter or 45 days after the date of theEncounter. The data comes from all [place] treatment facilities. Test Date/Time Test Type Test Details Facility Name Jan 13, 2024 12:52 PM Consult Order COMMUNITY CARE-DENTAL GENERAL Cons Patient Care Director's Choice [facility] Encounter Notes: All associated encounter notes This section contains the clinical notes associated to the Encounter. Date/Time Encounter Note(s) Provider Source Dec 24, 2023 12:00 AM NONVA CONSULT: LOCAL TITLE: COMMUNITY CARE-CONSULT RESULT NOTE STANDARD TITLE: NONVA CONSULT DATE OF NOTE: DEC 24, 2023 ENTRY DATE: JAN 16, 2024@07:14:01 AUTHOR: VICENTE GELLER EXP COSIGNER: URGENCY: STATUS: COMPLETED VistA Imaging - Scanned Document SCANNED DOCUMENT SIGNATURE NOT REQUIRED Electronically Filed: 01/16/2024 by: VICENTE PAN [facility]
--- OUTSIDE RECORDS SUMMARY | 2024-02-26 04:01 | XMS_ITS | Encounter Summary ---
Author Name [place] Address [address] [place] [address] Care Team Providers Care Internal Medicine Veterinary Technician Name Role Phone MILLIE EUGENE Primary [facility] Insurance Providers: All historical and [...] BCBS OF CT MEDICAL EXPENSE (OPT/PROF ) [facility] Sep 16, 2015 [id number] GRANT OCASIO SPOUSE MY[place] BCBS OF CT (BLUECARD) [facility] CE ORGANIZAT ION [facility] Sep 16, 2015 [id number] AMARJIT ,GRANT SPOUSE BCBS [place] [facility] CE ORGANIZAT ION [facility] Sep 16, 2015 [id number] GRANT OCASIO SPOUSE BCBS [facility] ORGANIZ [facility] SHARE ACTIV E Jun 02, 2013 [id number] GRANT OCASIO SPOUSE BCBS [facility] ORGANIZ [facility] RETI Jun 02, 2013 [id number] GRANT OCASIO SPOUSE BCBS OF [facility] ORGANIZ[facility]ON [facility] Sep 16, 2015 [id number] [phone] AMARJIT ,GRANT SPOUSE CAREMARK PRESCRIPT ION RX Mar 18, 2022 [id number] [phone] LIS OCASIO PATIENT [place] PRESCRIPT ION [place] Mar 18, 2022 [id number] AMARJIT ,GRANT SPOUSE CAREMARK PRESCRIPT ION RX22M B Mar 18, 2022 [id number] [id number] GRANT OCASIO SPOUSE CAREMARK PRESCRIPT [facility]ON [facility] Sep 16, 2015 [id number] GRANT OCASIO SPOUSE EXPRESS SCRIPTS ([id number]) PRESCRIPT ION NONE Sep 16, 2015 L4TA [id number] 08 GRANT OCASIO SPOUSE EXPRESS SCRIPTS ([id number]) PRESCRIPT ION L4TA* Jun 02, 2013 L4TA [id number] GRANT OCASIO SPOUSE EXPRESS SCRIPTS ([id number]) PRESCRIPT ION L4TA* Jun 02, 2013 L4TA [id number] GRANT OCASIO SPOUSE Selected Encounter This section includes the information on record at [place] for the Encounter. Date/Time Encounter Type Encounter Description Reason Pro vider Source Dec 26, 2023 12:00 AM Outpatient Encounter COMMUNITY CARE [...] 20 appointments. The data comes from all [place] treatment facilities. Appointment Date/Time Appointment Type Appointme nt Facility Name Jan 24, 2024 11:00 AM AMBULATORY [place] MEDICINE [place] [facility] Apr 09, 2024 09:30 AM AMBULATORY - MEDICINE [facility] Active, Pending, and Scheduled Orders This section includes a listing of several types of active, pending, and scheduled orders, including clinic medications orders, diagnostic test orders, procedure orders and consult orders; where the start date of the order is 45 days before the date of the Encounter or 45 days after the date of theEncounter. The data comes from all [place] treatment facilities. Test Date/Time Test Type Test Details Facility Name Jan 13, 2024 12:52 PM Consult Order COMMUNITY CARE-DENTAL GENERAL Cons Credit Operations Processor's Choice [facility] Encounter Notes: All associated encounter notes This section contains the clinical notes associated to the Encounter. Date/Time Encounter Note(s) Provider Source Dec 26, 2023 12:00 AM NONVA CONSULT: LOCAL TITLE: COMMUNITY CARE-CONSULT RESULT NOTE STANDARD TITLE: NONVA CONSULT DATE OF NOTE: DEC 26, 2023 ENTRY DATE: JAN 20, 2024@09:20:25 AUTHOR: VICENTE GELLER EXP COSIGNER: URGENCY: STATUS: COMPLETED VistA Imaging - Scanned Document SCANNED DOCUMENT SIGNATURE NOT REQUIRED Electronically Filed: 01/20/2024 by: VICENTE PAN [facility]
--- OUTSIDE RECORDS SUMMARY | 2024-02-26 04:03 | XMS_ITS | Data Portability ---
Author Organization [employer] Address [address] [place] [address] Care Team Providers Care Biodiesel Plant Superintendent Name Role Phone [facility] OTHER [phone] [facility] OTHER Assessment Encounter Date Assessment Date Assessment LastModified by Organization Details LastModified Time 01/23/2024 01/23/2024 I have reviewed and agree with the Assessment and Plan as documented by the Aco Coordinator. I provided real-time medical direction via phone for this encounter, and was available for additional phone based assistance as needed. I would add/emphasize: Patient discharged from hospital with diagnosis of pneumonia yesterday seen for report of worsening shortness of breath. Ill-appearing, tachypneic, tachycardic with labored respirations. Pale/clammy per report. Given respiratory distress 911 activated and patient transported back to the emergency department for further evaluation and management. pallfather Not available 01/24/2024 07:50:57 Plan of Treatment Reminders Order Date Submit Date Provider Last Modified By Organization Details Last Modified Time Details Appointments None record ed. Lab None record ed. Referral None record ed. Procedures None record ed. Surgeries None record ed. Imaging None record ed. Medication Orders None record ed. Patient TargetsNo targets recorded. Patient InstructionsNo instructions recorded. Reason for Referral None Reported. Medical Equipment None Reported. Allergies No known drug allergies Medications Name Sig Start Date Stop Date Status Note LastModified by Organization Details LastModified Time clonidine HCl 0.1 mg tablet TAKE 2 TABLET 3 TIMES A DAY FOR 30 DAYS active Not Available Not Available Not Available Glucagon Emergency Kit 1 mg solution for injection 1 MG SUBCUTANEOU S INJECTION ONCE active Not Available Not Available No t Available cyanocobalam in (vit B-12) 1,000 mcg tablet active Not Available Not Available N ot Available thiamine HCl (vitamin B1) 100 mg tablet TAKE 1 TABLET BY MOUTH EVERY DAY active Not Available Not Available No t Available melatonin 3 mg tablet TAKE 2 TABLETS BY MOUTH EVERY DAY X14 DAYS AT BEDTIME active Not Available Not Available No t Available valproic acid 250 mg capsule TAKE 1 CAPSULE BY MOUTH THREE TIMES A DAY active Not Available Not Available Not Available omeprazole 40 mg capsule,marylou yed release TAKE 1 CAPSULE BY MOUTH TWICE A DAY BEFORE A MEAL active Not Available Not Available No t Available aspirin 81 mg tablet,delay ed release TAKE 1 TABLET BY MOUTH EVERY DAY active Not Available Not Available No t Available tramadol 50 mg tablet TAKE 1 TABLET BY MOUTH EVERY 4 HOURS NEEDED FOR SEVERE PAIN FOR UP TO 7 DAYS active Not Available Not Available No t Available acetaminophe n 500 mg tablet TAKE 1 TABLET BY MOUTH EVERY 4 HOURS NEEDED TAKE TOGETHER WITH TRAMADOL active Not Available Not Available No t Available metformin 1,000 mg tablet TAKE 1 TABLET BY MOUTH TWICE DAILY IN THE MORNING AND IN THE EVENING WITH MEALS active Not Available Not Available N ot Available docusate sodium 100 mg capsule TAKE 1 CAPSULE BY MOUTH TWICE A DAY NEEDED FOR CONSTIPATIO N active Not Available Not Available No t Available folic acid 1 mg tablet active Not Available Not Available No t Available hydrochlorot hiazide 25 mg tablet TAKE 1 TABLET BY MOUTH EVERY DAY IN THE MORNING active Not Available Not Available No t Available furosemide 20 mg tablet TAKE 1 TABLET BY MOUTH EVERY DAY active Not Available Not Available No t Available metoprolol succinate ER 25 mg tablet,exten ded release 24 hr TAKE 1/2 OF A TABLET BY MOUTH DAILY FOR 30 DAYS active Not Available Not Available Not Available insulin lispro (U-100) 100 unit/mL subcutaneous solution PLEASE SEE ATTACHED FOR DETAILED DIRECTIONS active Not Available Not Available N ot Available albuterol sulfate HFA 90 mcg/actuatio n aerosol inhaler TAKE 2 PUFFS BY MOUTH 4 TIMES A DAY NEEDED FOR WHEEZE FOR SHORTNESS OF BREATH active Not Available Not Available No t Available oxycodone 5 mg tablet TAKE 1 TABLET BY MOUTH EVERY 6 HOURS NEEDED FOR SEVERE PAIN FOR 5 DAYS active Not Available Not Available N ot Available valsartan 40 mg tablet TAKE 1 TABLET BY MOUTH EVERY DAY active Not Available Not Available No t Available Novolog FlexPen U-100 Insulin aspart 100 unit/mL (3 mL) subcutaneous INJECT 46 UNITS SUBCUTANEOU SLY THREE TIMES DAILY WITH MEALS active Not Available Not Available N ot Available quetiapine 400 mg tablet TAKE 1 TABLET BY MOUTH EVERYDAY AT BEDTIME active Not Available Not Available No t Available Sure Comfort Pen Needle 31 gauge x 3/16 USE FOUR TIMES DAILY DIRECTED active Not Available Not Available Not Available FreeStyle Lite Strips TEST BLOOD SUGAR SIX TIMES DAILY active Not Available Not Available Not Available Lantus Solostar U-100 Insulin 100 unit/mL (3 mL) subcutaneous pen INJECT 22 UNITS SUBCUTANEOU S INJECTION DAILY IN AM,X30 DAYS active Not Available Not Available Not Available FreeStyle [place] Lite kit USE DIRECTED TO TEST BLOOD SUGAR THREE TIMES DAILY active Not Available Not Available Not Available Gavilax 17 gram/dose oral powder MIX WITH WATER AND TAKE 17 GRAMS BY MOUTH DAILY FOR 14 DAYS NEEDED FOR CONSTIPATIO N active Not Available Not Available No t Available Trulicity 1.5 mg/0.5 mL subcutaneous pen injector INJECT ONE PEN (=1.5MG) SUBCUTANEOU SLY ONCE A WEEK DIRECTED active Not Available Not Available No t Available Trulicity 0.75 mg/0.5 mL subcutaneous pen injector INJECT ONE PEN (=0.75MG) SUBCUTANEOU SLY ONCE A WEEK DIRECTED active Not Available Not Available No t Available multivitamin with minerals-lela rodolfo fumarate 15 mg iron tablet TAKE 1 TABLET BY MOUTH EVERY DAY active Not Available Not Available No t Available Trulicity 3 mg/0.5 mL subcutaneous pen injector INJECT 3MG SUBCUTANEOU SLY ONCE A WEEK active Not Available Not Available No t Available Vitals Date Recorded Body weight Body temperature Respiratory rate Heart rate Oxygen saturation Oxygen saturation in Arterial blood by Pulse oximetry Systolic blood pressure Diastolic blood pressure Provider Name and Address Organization Details Last Updated DateTime 4 04704.5 12 g 97.5 [degF] 20 /min 102 /min 97 % 97 % 154 mm[Hg] 86 mm[Hg] Not Available [employer] 4 12:25:04 Social History None recorded. Functional Status None recorded. Mental Status None recorded. Family History Nothing Reported. Medical History No medical history recorded. Past Encounters Encounter ID Performer Location Encounter Start Date Encounter Closed Date Diagnosis/Indication Diagnosis SNOMED-CT Code Diagnosis ICD10 Code [id number] Jan Jarrell MD Main - [facility] [address] [place] [address] 01/23/2024 12:25:01 01/24/2024 11:29:34 Acute respiratory distress 742511218 R06.03 Health Concerns Section Related Observation LastModified by Organization Detai ls LastModified Time None Recorded Concern Status LastModified by Organization Details LastModified Time None Recorded Advance Directives Directive None Recorded Payers Encounter Date Sequence Insurance Name Policy Number Policy Young Covered Member ID Young Member ID Guarantor Name 01/23/2024 1 [facility] - DOS ON OR AFTER 2022 - DUAL ELIGIBLE - [employer] OPTIONS AND ONE C[employer] (MEDICARE REPLACEMENT/AD VANTAGE - HMO) Robin Rivera [id number] Robin Rivera Notes Date Note Type Note Provider Name and Address Organization Details Recorded Time 4 text/html HPI: Per [facility] note pt dx with SOB, acute hypoxic respiratory failure, pneumonia. Started on Folic Acid (folic acid 1 mg oral tablet)?1?Milligram?By Mouth?DailyCyanocobalami n (cyanocobalamin 1000 mcg oral tablet)?1,000?Microgr am?By Mouth?Daily . Medications DiscontinuedValsartanPt admitted on 01/12-alled pt per request of cna caregiver due to pt not sounding well. Spoke with Deo who is caregiver. Pt seen by [facility] who checked O2 and was 92%. Pt getting SOB with short exertion this morning. Pt not discharged with any abx. Not discharged with any O2 supplement. Pt had [facility] intake today. Advised of dispositon, agrees to instED referral for evaluation today. Given HDF with team provider within 2 weeks. Advised to follow up sooner pRN or return to ER if sx worsen after instED visit. ........................... ........................... ........................... ........................... ........................... ...... [facility] Nurse Triage Notes (Michelle Medina): Chief Complaints: Breathing problems PMH: Hypertension, Diabetes Mellitus Type 2, Asthma Comments: [facility] RN did not require any additional information to process this visit. ........................... ........................... ........................... ........................... ........................... ...... Aco Coordinator Note From Nelson Reilly: Pt co difficulty Breathing. Pt released from [facility] yesterday with pneumonia. Pt not sent home with antibiotic or inhaler. Upon arrival pt was gasping for oxygen and had audible wheezing. Pt was spitting up large amounts of brown colored mucus. Pt was pale and clammy. Pt denied CP, fever, NVD, abdominal pain. Pt was given duo neg upon arrival. Right pt med, dose date, and route. Baseline vitals assessed, WNL, Afebrile. Lungs full of rhonchi throughout and wheezing. [facility] contacted and advised pt to return to the ED.Pt agreeable, 911 called, EMS arrived report given and pt care transferred, Pt transported back to [facility]. ........................... ........................... ........................... ........................... ........................... ...... [facility] Consulted: Jan Jarrell ........................... ........................... ........................... ........................... ........................... ...... Disposition: Fulfilled Jan Jarrell MD [address] [facility],[address], [place], [address], KIKI ARRINGTON 01/24/2024 07:51:08
--- OUTSIDE RECORDS SUMMARY | 2024-02-26 04:03 | XMS_ITS | Continuity of Care Document ---
Author Organization [email or web address] [facility] [employer] Address [address] [place] [address] Care Team Providers Care Phlebotomy Lab Assistant Name Role Phone [facility] OTHER [facility] OTHER Assessment Encounter Date Assessment Date Assessment LastModified by Organization Details LastModified Time 01/23/2024 01/23/2024 I have reviewed and agree with the Assessment and Plan as documented by the Environmental Science Instructor. I provided real-time medical direction via phone [...] Not Available Not Available Not Available [employer] Lite kit USE DIRECTED TO TEST BLOOD [...] Address Organization Details Last Updated DateTime 4 79514.5 12 g 97.5 [degF] 20 /min 102 /min 97 % 97 % 154 mm[Hg] 86 mm[Hg] Not Available [employer] 4 12:25:04 Social History None recorded. Functional Status None recorded. Mental Status None recorded. Family History Nothing Reported. Medical History No medical history recorded. Past Encounters Encounter ID Performer Location Encounter Start Date Encounter Closed Date Diagnosis/Indication Diagnosis SNOMED-CT Code Diagnosis ICD10 Code [id number] Jan Jarrell MD [address] [place] [address] 01/23/2024 12:25:01 01/24/2024 11:29:34 Acute respiratory distress 468696303 R06.03 Health Concerns Section Related Observation LastModified by Organization Detai ls LastModified Time None Recorded Concern Status LastModified by Organization Details LastModified Time None Recorded Payers Encounter Date Sequence Insurance Name Policy Number Policy Young Covered Member ID Young Member ID Guarantor Name 01/23/2024 1 [facility] - DOS ON OR AFTER 2022 - DUAL ELIGIBLE - [employer] AND ONE [employer] (MEDICARE REPLACEMENT/AD VANTAGE - HMO) Robin Rivera [id number] Robin Rivera Notes Date Note Type Note Provider Name and Address Organization Details Recorded Time 4 text/html HPI: Per [facility] note pt dx with SOB, acute hypoxic respiratory failure, pneumonia. Started on Folic Acid (folic acid 1 mg oral tablet)?1?Milligram?By Mouth?DailyCyanocobalami n (cyanocobalamin 1000 mcg oral tablet)?1,000?Microgr am?By Mouth?Daily . Medications DiscontinuedValsartanPt admitted on 01/12-alled pt per request of rn intensive care unit due to pt not sounding well. Spoke [...] visit. ........................... ........................... ........................... ........................... ........................... ...... Environmental Science Instructor Note From Nelson Reilly: Pt co difficulty Breathing. [place] [facility] [place] with [place]. Pt not sent home [...] Lungs full of rhonchi throughout and wheezing. [facility] [place] advised pt to return to the ED.Pt agreeable, 911 called, EMS arrived report given and pt care transferred, Pt transported back [place] [facility]. ........................... ........................... ........................... ........................... ........................... ...... [facility] Consulted: Jan Jarrell ........................... ........................... ........................... ........................... ........................... ...... Disposition: Fulfilled Jan Jarrell MD [address] [facility],[address], [place], [address], [facility] - KIKI RAPP 01/24/2024 07:51:08
== END 2024-02-20 15:08 | disposition home or self-care (01) ==
PROVIDERS: PCP Internal Medicine; Visit Provider Internal Medicine
DX: E11.65 Type 2 diabetes mellitus with hyperglycemia (principal); Z79.4 Long term (current) use of insulin; E11.9 Type 2 diabetes mellitus without complications

== ENCOUNTER → 2024-02-20 14:23 | Outpatient (BNVA) | payer BC, SELFPAY | PROVIDERS: PCP Internal Medicine; Visit Provider Internal Medicine | DX: E11.65 Type 2 diabetes mellitus with hyperglycemia (principal); E78.5 Hyperlipidemia, unspecified; I10 Essential (primary) hypertension; R79.89 Other specified abnormal findings of blood chemistry; Z86.73 Personal history of transient ischemic attack (TIA), and cerebral infarction without residual deficits; Z79.4 Long term (current) use of insulin; Z79.899 Other long term (current) drug therapy | CPT/HCPCS: 82947 ==

== ENCOUNTER 2024-04-08 08:50 | Outpatient (AMB) | payer BC, SELFPAY ==
[2024-04-08 08:59] VITALS: BP 116/76; PULSE 72; BMI 34.2
--- NOTE | 2024-04-08 08:59 | A.OFFVIS_ITS ---
Vital Signs 04/08/24 08:59 Height 5 ft 9 in Weight 231 lb 7.766 oz BMI 34.2 BP 116/76 Blood Pressure Location Rt brachial Position Sitting Pulse 72 Pulse Source Pulse Oximeter Intake Visit Reasons: T2DM Intake Note: Patient presents today for a follow-up on Type 2 Diabetes Mellitus: Last Diabetic eye exam was on: DUE Last Podiatry exam was on: Does not see a Field Representatives Director Most recent HbA1c: 8.8%, 04/08/2024 Random Glucose- 209 mg/dL, Today Experienced Truck Driver Required: No Accompanied by: Self / Same As Patient Allergies pioglitazone Allergy (Severe, Verified 04/08/24 09:01) Dizziness bee pollen [BEE STINGS] Allergy (Intermediate, Verified 04/08/24 09:01) Swelling metoclopramide [From REGLAN] Adverse Reaction (Intermediate, Verified 04/08/24 09:01) MUSCLE SPASMS dulaglutide [From Trulicity] Adverse Reaction (Verified 04/08/24 09:01) Diarrhea cymbalta Allergy (Intermediate, Uncoded 04/08/24 09:01) twitching Ketoconazole Allergy (Intermediate, Uncoded 04/08/24 09:01) urticaria lisinopril Allergy (Intermediate, Uncoded 04/08/24 09:01) cough tramadol Allergy (Intermediate, Uncoded 04/08/24 09:01) itchiness amoxicillin Adverse Reaction (Intermediate, Uncoded 04/08/24 09:01) diarrhea metformin Adverse Reaction (Intermediate, Uncoded 04/08/24 09:01) diarrhea Medication List - Last Reconciled 04/08/24 by Afsaneh Flores MD acarbose 50 mg PO TID 30 days amlodipine 2.5 mg PO DAILY aspirin 81 mg PO DAILY 90 days atorvastatin 80 mg PO DAILY 90 days Bryant Ren U-100 Insulin (insulin glargine) 26 units (0.26 mL) subcut QPM 26 days NS cholecalciferol (vitamin D3) 25 mcg PO DAILY ciclopirox 8% (Ciclodan) 1 appl topical BEDTIME 4 weeks ezetimibe 10 mg PO DAILY 90 days flash glucose scanning reader (Free[employer] Gabriel 14 Day [place]) As directed Free[employer] Gabriel 14 Day Sensor (flash glucose sensor) every 14 days NS hydrocortisone-pramoxine 1-1 % (Proctofoam HC) 1 appl ID DAILY lorazepam (Ativan) 0.5 mg PO BEDTIME PRN 30 days losartan 100 mg PO DAILY 90 days ondansetron HCl 4 mg PO Q8H PRN Ozempic (semaglutide) 1 mg (0.75 mL) subcut QWEEK NS pen needle, diabetic (1st Tier Unifine Pentips) Use 1 pen needle once a day HPI Comments Details: This is a 43-year-old male with IDDM, hypertension, hyperlipidemia CVA pre senting for follow up diabetes Current medication prescribed: basaglar 16 units-taking pm will sometimes omit if BG 150s, 160s, ozempic 1mg-has just gotten adjusted to this dose. A1C today at 8.8 from 12/2023 9.7%,from 10/07/23-10.1% CGM use only 25%, TGT 38%, high 62% no lows. Has been getting less exercise-slow time at work Micro and macrovascular complications: +neuropathy, +h/o CVA Hypoglycemia: Feels when BG 130s. Has seen ophtho but overdue No podiatry. Has mild toenail fungus Exercise: work/labor ROS CONSTITUTIONAL: Denies weight loss, fever and chills. HEENT: Denies changes in vision and hearing. RESPIRATORY: Denies SOB and cough. CV: Denies palpitations and CP GI: Denies abdominal pain, nausea, vomiting and diarrhea. : Denies dysuria and urinary frequency. MSK: Denies new myalgia and joint pain. SKIN: see HPI NEUROLOGICAL: Denies headache PSYCHIATRIC: Denies recent changes in mood. PHYSICAL EXAM: GENERAL: Alert and oriented x 3. NAD EYES: EOMI. Anicteric. HENT: Moist mucous membranes. No scleral icterus. No cervical lymphadenopathy. LUNGS: Clear to auscultation bilaterally. CARDIOVASCULAR: Regular rate and rhythm. No murmur. No JVD. ABDOMEN: Soft, non-tender +bs EXTREMITIES: No edema. Non-tender. +dp pulses SKIN: mild onychomycoses NEUROLOGIC: No new focal neurological deficits. PSYCHIATRIC: Cooperative. Appropriate mood and affect [facility] Medical History Afib Daytime sleepiness CVA (cerebral vascular accident) Poison ramirez dermatitis Skin lesion Obesity due to excess calories Type 2 diabetes mellitus without complications Essential hypertension Hyperlipidemia LDL goal <70 History of stroke Tinea pedis Diabetes Surgical History Hx of vasectomy Family History Father Diabetes Myocardial infarct Mother Diabetes Mental health disorder Lung cancer Sister No problems noted. Sister No problems noted. Daughter No problems noted. Son No problems noted. Son No problems noted. Son No problems noted. Son No problems noted. Social History Household Members: Spouse and Family Housing: House Do you presently have visiting nurse or other home services: No Alcohol intake: never Patient Tobacco Use Status: Never used Tobacco e-Cigarette/Vaping Use: Never Used Second Hand Smoke Exposure: No Substance Use Type: Marijuana Advance Directives Date on File: 10/18/20 service: No Current occupational status: employed Current occupational exposures/hazards: No Cognitive needs: No Hearing needs: No Vision needs: No Physical Exam Vital Signs: Last Vital Signs Pulse 72 04/08/24 08:59 BP 116/76 04/08/24 08:59 BMI result Body Mass Index 34.2 Results Reviewed Results Reviewed: Laboratory Last Values Glucose (Clinic) 209 mg/dL (60-115) H 04/08/24 09:06 Assessment & Plan Assessment & Plan (1) Diabetes mellitus with hyperglycemia, with long-term current use of insulin: Code(s): E11.65 - Type 2 diabetes mellitus with hyperglycemia; Z79.4 - nursing home (current) use of insulin Category: Medical Qualifiers: Diabetes mellitus type: type 2 Qualified Code(s): E11.65 - Type 2 diabetes mellitus with hyperglycemia; Z79.4 - 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
--- OUTSIDE RECORDS SUMMARY | 2024-04-08 09:07 | XMS_ITS | Clinical Summary ---
Author Organization [facility] Address [address] [place] [address] Care Team Providers Care Product Developer Name Role Phone Jarrett Torres MD Primary Care Provider [phone] Allergies No known active allergies Family History Medical History Relation Name Comments Diabetes Father Heart attack Father in 60's Hypertension Father Breast cancer Mother Diabetes Mother Hypertension Mother Relation Name Status Comments Father Mother Social History Tobacco Use Types Packs/Day Years Used Date Smoking Tobacco: Never Alcohol Use Standard Drinks/Week Comments No 0 (1 standard drink = 0.6 oz pur e alcohol) Sex and Gender Information Value Date Recorded Sex Assigned at Not on file Gender Identity Not on file Sexual Orientation Not on file Obstetrics History Plan of Treatment Health Maintenance Due Date Last Done Comments DTaP,Tdap,and Td Vaccines (1 - Tdap) 06/26/1998 Hepatitis B Vaccines (1 of 3 - 19+ 3-dose series) 06/26/1998 COVID-19 Vaccine (2023-2 5 season) 2023 Influenza Vaccine (#1) 2023 Cholesterol Screening (Lipid Panel) 03/20/2024 Depression Screening 03/20/2024 HIV Screening 03/20/2024 Hepatitis C Screening 03/20/2024 Social Influencers of Health Screening 03/20/2024 HIB Vaccines Aged Out No longer eligi ble based on patient's age to complete this topic HPV Vaccines Aged Out No longer eligi ble based on patient's age to complete this topic Hepatitis A Vaccines Aged Out No long er eligible based on patient's age to complete this topic IPV Vaccines Aged Out No longer eligi ble based on patient's age to complete this topic MMR Vaccines Aged Out No longer eligi ble based on patient's age to complete this topic Meningococcal ACWY Vaccine Aged Out N o longer eligible based on patient's age to complete this topic Pneumococcal Vaccine: Pediat rics (0 to 5 Years) and At-Risk Patients (6 to 64 Years) Aged Out No longer eligible b ased on patient's age to complete this topic RSV Immunization Patients Un evan 20 months Aged Out No longer eligible b ased on patient's age to complete this topic Varicella Vaccines Aged Out No longer eligible based on patient's age to complete this topic Care Teams Product Developer Relationship Specialty Start Date End Date Jarrett Torres MD PCP - General 06/25/05
[2024-04-08 09:11] LABS: Glucose, Whole Blood 209 mg/dL (60-115)
== END 2024-04-08 09:34 | disposition home or self-care (01) ==
PROVIDERS: PCP Internal Medicine; Visit Provider Internal Medicine
DX: E11.65 Type 2 diabetes mellitus with hyperglycemia (principal); Z79.4 Long term (current) use of insulin

== ENCOUNTER → 2024-04-08 08:50 | Outpatient (BNVA) | payer BC, SELFPAY | PROVIDERS: PCP Internal Medicine; Visit Provider Internal Medicine | DX: E11.65 Type 2 diabetes mellitus with hyperglycemia (principal); Z79.4 Long term (current) use of insulin | CPT/HCPCS: 82947 ==

== ENCOUNTER 2024-06-09 08:26 | Outpatient (AMB) | payer BC, SELFPAY ==
--- NOTE | 2024-06-09 08:43 | A.OFFPC_ITS ---
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 Work Inspector Required: No Accompanied by: Self / Same As Patient Allergies pioglitazone Allergy (Severe, Verified 06/09/24 09:02) Dizziness bee pollen [BEE STINGS] Allergy (Intermediate, Verified 06/09/24 09:02) Swelling metoclopramide [From REGLAN] Adverse Reaction (Intermediate, Verified 06/09/24 09:02) MUSCLE SPASMS dulaglutide [From Trulicity] Adverse Reaction (Verified 06/09/24 09:02) Diarrhea cymbalta Allergy (Intermediate, Uncoded 06/09/24 09:02) twitching Ketoconazole Allergy (Intermediate, Uncoded 06/09/24 09:02) urticaria lisinopril Allergy (Intermediate, Uncoded 06/09/24 09:02) cough tramadol Allergy (Intermediate, Uncoded 06/09/24 09:02) itchiness amoxicillin Adverse Reaction (Intermediate, Uncoded 06/09/24 09:02) diarrhea metformin Adverse Reaction (Intermediate, Uncoded 06/09/24 09:02) diarrhea Medication List - Last Reconciled 06/09/24 by Sheeba Smith MD acarbose 50 mg PO TID 30 days amlodipine 2.5 mg PO DAILY aspirin 81 mg PO DAILY 90 days atorvastatin 80 mg PO DAILY 90 days Basaglar KwikPen U-100 Insulin (insulin glargine) 26 units (0.26 mL) subcut QPM 26 days NS cholecalciferol (vitamin D3) 25 mcg PO DAILY ciclopirox 8% (Ciclodan) 1 appl topical BEDTIME 4 weeks ezetimibe 10 mg PO DAILY 90 days flash glucose scanning reader (FreeStyle Gabriel 14 Day Fenton) As directed FreeStyle Gbariel 14 Day Sensor (flash glucose sensor) every 14 days NS hydrocortisone-pramoxine 1-1 % (Proctofoam HC) 1 appl TN DAILY lorazepam (Ativan) 0.5 mg PO BEDTIME PRN 30 days losartan 100 mg PO DAILY 90 days ondansetron HCl 4 mg PO Q8H PRN Ozempic (semaglutide) 0.6 mg (0.45 mL) subcut QWEEK NS pen needle, diabetic (1st Tier Unifine Pentips) Use 1 pen needle once a day Tobacco use date assessed: 06/09/24 Dental Screening Dental Screen Date: 06/09/24 Did you have a dental visit in the last 12 months?: Yes Did you have a dental problem in the last 6 months where you did not have access to dental care?: No Was dental information given to patient?: Patient has dentist HPI HPI Comments History of Present Illness Details The patient is a 43-year-old male presenting for his physical exam. The patient?s diabetes management includes a regimen of Lantus now adjusted to 20 units and Ozempic 1 mg. He reports a Hemoglobin A1c of 8.5, indicating less optimal control; however, modifications to his diabetic medications are maintaining his condition. He has self-discontinued Acarbose, following adverse experiences and no refills, which could influence current glucose control. Blood pressure control is maintained with Amlodipine 2.5 mg and Losartan, showing good efficacy and blood pressure records of 132/86 mmHg. His treatment with Atorvastatin 80 mg is for hyperlipidemia management. He reports anxiety managed efficaciously through Lorazepam, while having a very mild depression currently untreated with medication. A history of allergies to several medications further influences management choices. He requires vitamin D supplementation and reports a vasectomy as the only surgical procedure, with no smoking history and occasional alcohol use. - TDAP vaccine administered in 2022 - Awaiting blood work results: Fasting b lood test ordered [facility] Medical History (Updated 06/09/24 @ 09:37 by Sheeba Smith MD) Afib Daytime sleepiness CVA (cerebral vascular accident) Poison ramirez dermatitis Skin lesion Obesity due to excess calories Type 2 diabetes mellitus without complications Essential hypertension Hyperlipidemia LDL goal <70 History of stroke Tinea pedis Diabetes Surgical History Hx of vasectomy Family History Father Diabetes Myocardial infarct Mother Diabetes Mental health disorder Lung cancer Sister No problems noted. Sister No problems noted. Daughter No problems noted. Son No problems noted. Son No problems noted. Son No problems noted. Son No problems noted. Social History Household Members: Spouse and Family Housing: House Do you presently have visiting nurse or other home services: No Alcohol intake: never Patient Tobacco Use Status: Never used Tobacco e-Cigarette/Vaping Use: Never Used Second Hand Smoke Exposure: No Substance Use Type: Marijuana Advance Directives Date on File: 10/18/20 service: No Current occupational status: employed Current occupational exposures/hazards: No Cognitive needs: No Hearing needs: No Vision needs: No Questionnaire PHQ-9 Over the last 2 weeks, how often have you been bothered by any of the following problems? 1. Little interest or pleasure in doing things: several days 2. Feeling down, depressed, or hopeless: several days 3. Trouble falling or staying asleep, or sleeping too much: more than half the days 4. Feeling tired or having little energy: several days 5. Poor appetite or overeating: not at all 6. Feeling bad about yourself - or that you are a failure or have let yourself or your family down: not at all 7. Trouble concentrating on things, such as reading the newspaper or watching television: not at all 8. Moving or speaking so slowly that other people could have noticed. Or the opposite - being so fidgety or restless that you have been moving around a lot more than usual: not at all 9. Thoughts that you would be better off or of hurting yourself in some way: not at all Total score: 5 Depression Screening Interpretation: Positive Depression Screening Follow-up: Existing condition and Follow-up Visit Requested Depression Screening Done: Yes 85931 - PHQ-9 Billing: Yes Source: Developed by Drs. Jatinder Silva, Keyana Potts, Jorge Del Toro and colleagues, with an educational nate from [employer]. Thrive Questionnaire Date Thrive assessed: 06/09/24 I am a: Patient What is your living situation today?: I have a steady place to live Within the past 12 months, did the food you bought not last and you didn't have the money to get more?: Never true Within the past 12 months, did you worry whether your food would run out before you got money to buy more?: Never true Do you have trouble paying for medicines?: No Do you have trouble getting transportation to medical appointments?: No Do you have trouble paying your heating and electricity bill?: No Do you have trouble taking care of your child, family member or friend?: No Do you have trouble with day-to-day activities such as bathing, preparing meals, shopping, managing finances, etc.?: No Are you currently unemployed and looking for a job?: No Are you interested in more education?: No Please select the resources that you would like help with: None Currently or been in a relationship where the following occur: No concerns r eported THRIVE Score: 0 AUDIT C Alcohol Use Questionnaire (AUDIT-C) 1. How often do you have a drink containing alcohol?: Never Total Score: 0 Score Reviewed/Action Taken: No ZACH-7 AMB Questionnaire ZACH-7 Date ZACH - 7 assessed: 06/09/24 Feeling nervous, anxious, or on edge: 1 = Several days Not being able to stop or control worryin = Several days Worrying too much about different things: 1 = Several days Trouble relaxin = Several days Being so restless that it is hard to sit still: 1 = Several days Becoming easily annoyed or irritable: 1 = Several days Feeling afraid as if something awful might happen: 0 = Not at all Total ZACH-7 score (0-4 normal; 5-9 mild; 10-14 moderate; 15-21 severe): 6 Source: Developed by Drs. Jatinder Silva, Keyana Potts, Jorge Del Toro and colleagues, with an educational nate from [employer]. ZACH-7 Assessment Billing ZACH-7 Assessment Tool: ZACH-7 Assessment 43201 Review of Systems Const All systems reviewed & are unremarkable except as noted in HPI and below Card Denies chest pain at rest, Denies chest pain with activity, Denies edema, Denies irregular heart rhythm, Denies claudication, Denies dyspnea, Denies dyspnea on exertion, Denies orthopnea, Denies paroxysmal nocturnal dyspnea and Denies slow heart rate Resp Denies cough, Denies dyspnea and Denies dyspnea on exertion GI Denies abdominal pain, Denies change in bowel habits, Denies excessive flatus, Denies nausea and Denies vomiting Denies urinary hesitancy, Denies urinary incontinence and Denies urinary urgency Musc Denies abnormal gait, Denies atrophy, Denies deformity and Denies limited range of motion Skin/Breast Denies bleeding lesions, Denies changing lesions and Denies rash Neuro Denies abnormal gait and Denies lack of coordination Physical exam (Primary Care) Vital Signs: Last Vital Signs BP 132/86 06/09/24 08:46 BMI result Body Mass Index 34.4 Tobacco/Smoking Status: Tobacco use Status Tobacco use date assessed 06/09/24 06/09/24 08:52 Patient Tobacco Use Status Never used Tobacco 06/09/24 08:44 e-Cigarette/Vaping Use Never Used 06/09/24 08:44 PHQ-9: PHQ-9 Score PHQ-9: Total score 5 06/09/24 09:11 Depression Screening Interpretation: Positive Depression Screening Follow-up: Existing condition and Follow-up Visit Requested Thrive Assessment: Date of Thrive Assessment Date Thrive assessed 06/09/24 06/09/24 08:44 Currently or been in a relationship where the following occur: No concerns reported HENMO Head: Yes normal to inspection, Yes normocephalic and Yes atraumatic Ears: external ears normal Eyes General: appearance normal, both eyes and all related structures Eyelids: Yes eyelids normal Conjunctivae: conjunctivae normal Neck Neck: Yes normal visual inspection and Yes supple Resp Effort & Inspection: normal respiratory effort Auscultation: clear to auscultation bilaterally Cardio Jugular venous distension: no JVD Rate: regular rate Rhythm: regular rhythm Heart sounds: S1 normal heart sound present and S2 normal heart sound present GI Inspection: Yes normal to inspection Palpation (GI): Soft to palpation and nontender Auscultation: normal bowel sounds Skin General skin exam: no rashes or lesions noted Neuro General: no focal motor deficits Extrem General: Yes full ROM Psych Appearance: grossly normal Results AMB Hemoglobin A1c AMB Hemoglobin A1c 8.5 % Last Edit by ALEXX Michelle on 06/09/24 08:5 3 Results Reviewed Results Reviewed: Laboratory Last Values Hgb A1c (Clinic) 8.5 % (4.0-6.0) H 06/09/24 08:43 Coding Level of Care Code Est Pt Prev Care 40-64y(20461) Diagnoses Adult general medical exam Z00.00 Type 2 diabetes mellitus with hyperglycemia, with long-term current use of insulin E11.65; Z79.4 Diabetes mellitus type: type 2 Cerebrovascular accident (CVA), unspecified mechanism I63.9 CVA mechanism: unspecified Additional Codes ZACH-7 Assessment Billing - ZACH-7 Assessment Tool: ZACH-7 Assessment 89310 ([id number]) PHQ-9 - 82520 - PHQ-9 Billing: Yes ([id number]) Time Spent (min) 32 Assessment & Plan Assessment & Plan (1) Adult general medical exam: Code(s): Z00.00 - Encounter for general adult medical examination without abnormal findings Category: Medical (2) Diabetes mellitus with hyperglycemia, with long-term current use of insulin: Code(s): E11.65 - Type 2 diabetes mellitus with hyperglycemia; Z79.4 - intermodal dispatcher (current) use of insulin Category: Medical Qualifiers: Diabetes mellitus type: type 2 Qualified Code(s): E11.65 - Type 2 diabetes mellitus with hyperglycemia; Z79.4 - intermodal dispatcher (current) use of insulin (3) CVA (cerebral vascular accident): Code(s): I63.9 - Cerebral infarction, unspecified Category: Medical Qualifiers: CVA mechanism: unspecified Qualified Code(s): I63.9 - Cerebral infarction, unspecified Plan The patient?s Hyperlipidemia is managed through Atorvastatin. Regular medication adherence and monitoring are prescribed, with awareness of medication allergies. Anxiety is managed with Lorazepam, and I will continue to monitor mood given reports of mild depression. A vitamin D refill is needed and logistical changes will permit that. Planned blood work at the patient's convenience will facilitate updated monitoring of his conditions. Adjustments in pharmacy records will occur to align with patient practices.: Patient was informed and verbally consented to the use of an ambient scribe for clinic note documentation during this visit. Orders: Orders AMB Hemoglobin A1c Today E11.65 - Type 2 diabetes mellitus with hyperglycemia, Z79.4 - halfway (current) use of insulin Lipid Panel Today E78.5 - Hyperlipidemia, unspecified Comprehensive [place]. Panel Fast Today E11.65 - Type 2 diabetes mellitus with hyperglycemia, Z79.4 - intermodal dispatcher (current) use of insulin Microalbumin, Random (w Creat) Today R80.9 - Proteinuria, unspecified Vitamin D 25-OH Total Today E55.9 - Vitamin D deficiency, unspecified Medications: Changed From Basaglar KwikPen U-100 Insulin (insulin glargine) 26 units (0.26 mL) subcut QPM 26 days 30 mL 3RF NS E11.9 - Type 2 diabetes mellitus without complications To Bryant Ren U-100 Insulin (insulin glargine) 20 units (0.2 mL) subcut QPM 5.2 mL 3RF 26 days NS E11.9 - Type 2 diabetes mellitus without complications Discontinued acarbose Discontinued Reason: Patient Completed Course 50 mg PO TID 30 days 90 tabs 1RF E11.9 - Type 2 diabetes mellitus without complications Patient Instructions: - Focus on adherence to current diabetic medications and monitor glucose levels. - Continue taking prescribed hypertension and lipid management medications as directed. - Obtain fasting blood work at your nearest convenience. - Ensure your pharmacy details are updated to [facility] for medication refills. - Proceed with obtaining a refill for vitamin D. - Communicate any new symptoms or concerns in between visits as necessitated. - Return precautions discussed and acknowledged.
[2024-06-09 08:46] VITALS: BP 132/86; BMI 34.4
== END 2024-06-09 09:21 | disposition home or self-care (01) ==
PROVIDERS: PCP Internal Medicine; Visit Provider Internal Medicine
DX: Z00.00 Encounter for general adult medical examination without abnormal findings (principal); E11.65 Type 2 diabetes mellitus with hyperglycemia; Z79.4 Long term (current) use of insulin; I63.9 Cerebral infarction, unspecified

== ENCOUNTER → 2024-06-09 08:26 | Outpatient (BNVA) | payer BC, SELFPAY | PROVIDERS: PCP Internal Medicine; Visit Provider Internal Medicine | DX: Z00.00 Encounter for general adult medical examination without abnormal findings (principal); E11.65 Type 2 diabetes mellitus with hyperglycemia; E78.5 Hyperlipidemia, unspecified; Z86.73 Personal history of transient ischemic attack (TIA), and cerebral infarction without residual deficits; Z79.4 Long term (current) use of insulin; Z79.899 Other long term (current) drug therapy | CPT/HCPCS: 83036; 96127 ==

== ENCOUNTER 2024-07-25 10:28 | Outpatient (REF) | payer BC, SELFPAY ==
[2024-07-25 11:24] LABS: Estimated Average Glucose 226 mg/dL; Hemoglobin A1C 299.1793 umol/L; Hemoglobin A1c % 9.5 % (<6.0); Total Hemoglobin (HGBA1C) 3717.2359 umol/L
[2024-07-25 11:48] LABS: Alanine Aminotransferase 42 U/L (0-40); Albumin Level 3.9 g/dL (3.5-5.0); Alkaline Phosphatase 62 U/L (39-117); Anion Gap 11 (12-20); Aspartate Amino Transferase 30 U/L (5-37); Bilirubin Total 0.8 mg/dL (0.0-1.0); Blood Urea Nitrogen 16 mg/dL (9-16); Carbon Dioxide 29 mmol/L (22-29); Chloride 106 mmol/L (96-108); Cholesterol 88 mg/dL (<200); Estimated Glomerular Filt Rate > 60; Glucose Fasting 124 mg/dL (60-99); Glucose Random 124 mg/dL (60-115); HDL Cholesterol 24 mg/dL (>40); LDL Cholesterol Calculated 55 mg/dL (<100); Potassium 4.2 mmol/L (3.3-5.1); Sodium 142 mmol/L (135-145); Total Protein 7.1 g/dL (6.5-8.0); Triglycerides 46 mg/dL (<150)
[2024-07-25 11:50] LABS: Creatinine Urine 272.31 mg/dL; Microalbum/Creatinine Ratio Ur 5.1 ug/mg cr (<30)
== END 2024-07-25 10:29 | disposition home or self-care (01) ==
LOC: HO.LAB 10:28
PROVIDERS: Internal Medicine; PCP Internal Medicine; Visit Provider Internal Medicine
DX: E11.65 Type 2 diabetes mellitus with hyperglycemia (principal); E55.9 Vitamin D deficiency, unspecified; Z79.4 Long term (current) use of insulin
CPT/HCPCS: 36415; 80053; 80061; 82043; 82306; 82570; 83036

== ENCOUNTER 2025-01-08 16:21 | Outpatient (AMB) | payer BC, SELFPAY ==
[2025-01-08 16:25] VITALS: BP 126/80; PULSE 79; O2SAT 97; BMI 33.4
--- NOTE | 2025-01-08 16:25 | MHC.PC.OV ---
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 Accompanied by: Self / Same As Patient Allergies pioglitazone Allergy (Severe, Verified 01/08/25 16:25) Dizziness bee pollen (BEE STINGS) Allergy (Intermediate, Verified 01/08/25 16:25) Swelling metoclopramide (From REGLAN) Adverse Reaction (Intermediate, Verified 01/08/25 16:25) MUSCLE SPASMS dulaglutide (From Trulicity) Adverse Reaction (Verified 01/08/25 16:25) Diarrhea cymbalta Allergy (Intermediate, Uncoded 01/08/25 16:25) twitching Ketoconazole Allergy (Intermediate, Uncoded 01/08/25 16:25) urticaria lisinopril Allergy (Intermediate, Uncoded 01/08/25 16:25) cough tramadol Allergy (Intermediate, Uncoded 01/08/25 16:25) itchiness amoxicillin Adverse Reaction (Intermediate, Uncoded 01/08/25 16:25) diarrhea metformin Adverse Reaction (Intermediate, Uncoded 01/08/25 16:25) diarrhea Tobacco use date assessed: 01/08/25 Dental Screening Dental Screen Date: 01/08/25 Did you have a dental visit in the last 12 months?: Yes Did you have a dental problem in the last 6 months where you did not have access to dental care?: No Was dental information given to patient?: Patient has dentist HPI HPI Comments History of Present Illness Details Patient is a 44-year-old male with history of hypertension, type 2 diabetes on insulin glargine and Ozempic, hyperlipidemia, history of stroke and anxiety who presents today for follow-up his lab results. Patient reports mild left-sided Headache that started 3 weeks ago, 04/27, triggered by neck movement and biting down. Reports not drinking enough fluids throughout the day, about 20 oz a day. He also reports Heart burn started a month ago, aggravated by coffee, and certain foods including spicy food. He reports nausea 2 days after Ozempic injection. Denies vomiting or bloating. Denies smoking, alcohol, illicit drug use. Reports compliance with all medications. [facility] Medical History (Updated 01/08/25 @ 16:55 by Neeta Mahoney MD) Afib Daytime sleepiness CVA (cerebral vascular accident) Poison ramirez dermatitis Skin lesion Obesity due to excess calories Type 2 diabetes mellitus without complications Essential hypertension Hyperlipidemia LDL goal <70 History of stroke Tinea pedis Diabetes Surgical History Hx of vasectomy Family History Father Diabetes Myocardial infarct Mother Diabetes Mental health disorder Lung cancer Sister No problems noted. Sister No problems noted. Daughter No problems noted. Son No problems noted. Son No problems noted. Son No problems noted. Son No problems noted. Social History Household Members: Spouse and Family Housing: House Do you presently have visiting nurse or other home services: No Alcohol intake: never Patient Tobacco Use Status: Never used Tobacco e-Cigarette/Vaping Use: Never Used Second Hand Smoke Exposure: No Substance Use Type: Marijuana Advance Directives Date on File: 10/18/20 service: No Current occupational status: employed Current occupational exposures/hazards: No Cognitive needs: No Hearing needs: No Vision needs: No Questionnaire Thrive Questionnaire Date Thrive assessed: 06/09/24 I am a: Patient What is your living situation today?: I have a steady place to live Within the past 12 months, did the food you bought not last and you didn't have the money to get more?: Never true Within the past 12 months, did you worry whether your food would run out before you got money to buy more?: Never true Do you have trouble paying for medicines?: No Do you have trouble getting transportation to medical appointments?: No Do you have trouble paying your heating and electricity bill?: No Do you have trouble taking care of your child, family member or friend?: No Do you have trouble with day-to-day activities such as bathing, preparing meals, shopping, managing finances, etc.?: No Are you currently unemployed and looking for a job?: No Are you interested in more education?: No Please select the resources that you would like help with: None Currently or been in a relationship where the following occur: No concerns reported THRIVE Score: 0 AUDIT C Alcohol Use Questionnaire (AUDIT-C) 1. How often do you have a drink containing alcohol?: Never 3. How often do you have six or more drinks on one occasion?: Never Total Score: 0 Score Reviewed/Action Taken: No ZACH-7 AMB Questionnaire ZACH-7 Date ZACH - 7 assessed: 06/09/24 Source: Developed by Drs. Jatinder Silva, Keyana Potts, Jorge Del Toro and colleagues, with an educational nate from [employer]. Review of Systems Narrative As per HPI Physical exam (Primary Care) Vital Signs: Oxygen Delivery Method Room Air 01/08/25 16:25 General: Well-appearing, alert, oriented ?3, in no acute distress. Cardiovascular: RRR, S1-S2 appreciated, no murmurs, rubs or gallops. Respiratory: Lungs clear to auscultation bilaterally, no wheezes, rales or rhonchi. Abdomen: Soft, nontender, nondistended. Normoactive bowel sounds. Neurologic: Alert and oriented X3, cranial nerves II?XII grossly intact, sensation and strength intact in bilateral lower and upper extremities. Tobacco/Smoking Status: Tobacco use Status Tobacco use date assessed 01/08/25 01/08/25 16:28 Patient Tobacco Use Status Never used Tobacco 01/08/25 16:28 e-Cigarette/Vaping Use Never Used 01/08/25 16:28 Thrive Assessment: Date of Thrive Assessment Date Thrive assessed 06/09/24 01/08/25 16:28 Currently or been in a relationship where the following occur: No concerns reported Results Reviewed Results Reviewed: Lab results from July 2024 reviewed and discussed with patient's. Laboratory Tests 01/08/24 06/09/24 07/25/24 14:08 08:43 10:43 Hgb A1c (Clinic) 9.7 H 8.5 H Hemoglobin A1c % 9.5 H ALT 42 H Coding Level of Care Code Est Pt Level 4 (47203) Diagnoses Heart burn R12 Type 2 diabetes mellitus with hyperglycemia, with long-term current use of insulin E11.65; Z79.4 Diabetes mellitus type: type 2 Elevated LFTs R79.89 History of stroke Z86.73 Assessment & Plan Assessment & Plan (1) Heart burn: Code(s): R12 - Heartburn Category: Medical Plan: Patient reports heartburn for the past month, associated with coffee and spicy food. Uses Tums as needed. Did not use PPIs. We will check for H pylori, if negative we will start PPI. Patient educated about diet modification for GERD and gastritis. (2) Diabetes mellitus with hyperglycemia, with long-term current use of insulin: Code(s): E11.65 - Type 2 diabetes mellitus with hyperglycemia; Z79.4 - parts counterman (current) use of insulin Category: Medical Qualifiers: Diabetes mellitus type: type 2 Qualified Code(s): E11.65 - Type 2 diabetes mellitus with hyperglycemia; Z79.4 - penitentiary (current) use of insulin Plan: Currently on Lantus 20 units and Ozempic 1 mg. A1c 9.5 from July 2024. Patient lost 7 lb since May 2024. Will repeat A1c and adjust medications as needed. Patient educated on lifestyle modifications with exercise and diet changes. (3) Elevated LFTs: Code(s): R79.89 - Other specified abnormal findings of blood chemistry Category: Medical Plan: ALT was slightly elevated at 42 from July 2024, will repeat CMP. (4) History of stroke: Code(s): Z86.73 - Personal history of transient ischemic attack (TIA), and cerebral infarction without residual deficits Category: Medical Plan: Compliant with aspirin and atorvastatin, with LDL at goal 55 Orders: Orders H Pylori Breath Test Today R12 - Heartburn Comprehensive Met. Panel Today R79.89 - Other specified abnormal findings of blood chemistry Hemoglobin A1c Today E11.65 - Type 2 diabetes mellitus with hyperglycemia, Z79.4 - parts counterman (current) use of insulin Medications: Discontinued prednisone Discontinued Reason: Patient Completed Course 20 mg PO DAILY 5 days 5 tabs 0RF
--- OUTSIDE RECORDS SUMMARY | 2025-01-08 17:18 | XMS_ITS | Clinical Summary ---
Author Organization [facility] ity Address [address] [place] [address] Care Team Providers Care Jewelry Mechanic Name Role Phone Jarrett Torres MD Primary Care Provider [phone] Allergies No known active allergies Family History [...] Recorded Sex Assigned at Not on file Legal Sex Male 4:54 AM EST Gender Identity Not on file Sexual Orientation Not on file Obstetrics History Plan of Treatment Health Maintenance Due Date Last Done Comments Colorectal Cancer Screening: Colonoscopy 1979 DTaP,Tdap,and Td Vaccines (1 - Tdap) 06/26/1998 Hepatitis B Vaccines (1 of 3 - 19+ 3-dose series) 06/26/1998 HPV Vaccines (1 - 3-dose SCD M series) 06/26/2006 Depression Screening 03/18/2024 Cholesterol Screening (Lipid Panel) 03/20/2024 HIV Screening 03/20/2024 Hepatitis C Screening 03/20/2024 Social Influencers of Health Screening 03/20/2024 COVID-19 Vaccine ( - 2023-2 5 season) 2024 Influenza Vaccine (#1) 2024 RSV Immunization Adult Patie nts (1 - 1-dose 75+ series) 06/26/2054 HIB Vaccines Aged Out No longer eligi [...] patient's age to complete this topic Meningococcal B Vaccine Aged Out No l onger eligible based on patient's age to complete this topic Pneumococcal Vaccine: Pediat rics (0 to 5 Years) and At-Risk Patients (6 to 49 Years) Aged Out No longer eligible b ased on patient's age to complete this topic RSV Immunization Patients Un evan 20 months Aged Out No longer eligible b ased on patient's age to complete this topic Varicella Vaccines Aged Out No longer eligible based on patient's age to complete this topic Care Teams Jewelry Mechanic Relationship Specialty Start Date End Date Jarrett Torres MD PCP - General 06/25/05
--- OUTSIDE RECORDS SUMMARY | 2025-01-08 17:18 | XMS_ITS | Clinical Summary ---
Author Organization [facility] Address [address] [facility] [place] [phone] Phone Care Team Providers Care Car Seat Coverer Name Role Phone Sheeba Reza MD Primary Care Provid er Allergies Active Allergy Reactions Criticality Noted Date Comments Hornet Venom 09/09/2020 Medications aspirin 81 mg chewable tablet 81 mg daily. 06/12/19 Active atorvastatin (LIPITOR) 80 MG tablet Take 80 mg by mouth daily. 08/29/19 Active TRULICITY 0.75 mg/0.5 mL subcutaneous injection 0.75 MG (0.5 ML) SUBCUTANEOUS EVERY WEEK 08/17/19 Active hydrOXYzine (ATARAX) 25 MG tablet Take by mouth nightly at bedtime. 08/29/19 Active metoprolol succinate (TOPROL-XL) 100 MG 24 hr tablet Take 100 mg by mouth daily. 08/29/19 Active pioglitazone (ACTOS) 45 MG tablet Take 45 mg by mouth daily. 07/12/19 Active benzonatate (TESSALON) 100 MG capsuleIndicatio ns:Upper respiratory tract infection, unspecified type Take 1 capsule (100 mg total) by mouth 3 (three) times a day as needed for cough. 20 capsule 09/10/19 21 Active Additional Information Patient not taking.Reported on 02/06/2024 amLODIPine (NORVASC) 2.5 MG tablet Take 1 tablet by mouth every morning. 12/22/19 Active cholecalciferol (VITAMIN D3) 25 MCG (1,000 unit) tablet Take 1 tablet by mouth every morning. 10/20/19 Active ezetimibe (ZETIA) 10 mg tablet Take 1 tablet by mouth every morning. 11/09/19 Active FREESTYLE LIZ 14 DAY SENSOR kit as directed. 12/04/19 24 Active LANTUS SOLOSTAR U-100 INSULIN 100 unit/mL (3 mL) InPn injection pen INJECT 17 UNITS( 0.17 ML) SUBCUTANEOUSLY EVERY EVENING FOR 90 DAYS 12/15/19 24 Active LORazepam (ATIVAN) 0.5 MG tablet TAKE 1 TABLET BY MOUTH AT BEDTIME NEEDED FOR ANXIETY, SLEEP FOR 30 DAYS 12/16/19 24 Active losartan (COZAAR) 100 MG tablet Take 1 tablet by mouth every morning. 10/19/19 24 Active ondansetron (ZOFRAN) 4 MG tablet TAKE 1 TABLET ORALLY EVERY 8 HOURS NEEDED FOR NAUSEA AND VOMITING 01/08/20 24 Active OZEMPIC 0.25 mg or 0.5 mg (2 mg/3 mL) subcutaneous injection pen INJECT 0.5 MG (0.736 ML) SUBCUTANEOUSLY EVERY WEEK 12/30/19 24 Active Active Problems No known active problems Immunizations Immunization Administration Dates Next Due COVID-19 (Pre-01/07) Pfizer Vaccine, mRNA, PF ,04/18/2020 Influenza Quadrivalent MDCK Preservative Free IM 03/31/2022 Influenza Quadrivalent Preservative Free IM 04/2018,02/05/2019 Tdap 02/06/2024,12/06/2011 Social History Tobacco Use Types Packs/Day Years Used Date Smoking Tobacco: Never Smokeless Tobacco: Never Tobacco Cessation:Counseling Given: Not Answered Education Answer Date Recorded Are you interested in more education? Not on arleen e 07/13/2022 Are you concerned about learning? Not on file 07/13/2022 No 07/13/2022 No 07/13/2022 Digital Access Answer Date Recorded No 08/11/2022 No 08/11/2022 Reliable internet access at home? Not on file 08/11/2022 Device with a working camera? Not on file Sex and Gender Information Value Date Recorded Sex Assigned at Not on file Legal Sex Male 2:12 PM EDT Gender Identity Not on file Sexual Orientation Not on file Last Filed Vital Signs Vital Sign Reading Time Taken Comments Blood Pressure 132/82 05/13/2024 8:59 AM EST Pulse 72 05/13/2024 8:59 AM EST Temperature 36.9 C (98.4 F) 05/13/2024 8:59 AM EST Respiratory Rate 17 05/13/2024 8:59 AM EST Oxygen Saturation 98% 05/13/2024 8:59 AM EST Inhaled Oxygen Concentration - - Weight - - Height 175.3 cm (5' 9 ) 09/09/2020 2:17 PM EDT Body Mass Index - - Plan of Treatment Health Maintenance Due Date Last Done Comments CREATININE LEVEL 1979 LIPID PANEL 1979 POTASSIUM LEVEL 1979 DEPRESSION SCREENING 1991 HEPATITIS C SCREENING 06/26/1997 HIV ONE-TIME SCREENING (18-65 YEARS) 06/26/1997 COLOGUARD 06/26/2024 COLONOSCOPY 06/26/2024 COLORECTAL CANCER SCREENING 06/26/2024 FIT TEST 06/26/2024 FOBT 06/26/2024 SIGMOIDOSCOPY 06/26/2024 VIRTUAL COLONOSCOPY 06/26/2024 INFLUENZA VACCINE (#1) 2024 , 02/16/2019, 02/05/2019 COVID-19 VACCINE ( season) 2024 03/31/2022, 06/16/2021, 11/30/2020, Additional history exists Adult Td,Tdap Booster 02/05/2034 02/06/2024, 012 SMOKING STATUS SCREENING (Once After 26 Yrs) Completed 05/13/2024 HEPATITIS A VACCINES Aged Out No long er eligible based on patient's age to complete this topic HIB VACCINES Aged Out No longer eligi ble based on patient's age to complete this topic MENINGOCOCCAL VACCINES (ACWY) Aged Out No longer eligible based on patient's age to complete this topic MENINGOCOCCAL VACCINES (B) Aged Out N o longer eligible based on patient's age to complete this topic PNEUMOCOCCAL VACCINES (0-49 years) Aged Out No longer eligible based on patient's age to complete this topic Medical Devices Not on file Insurance [facility] Member Subscriber Plan / Payer (Ef fective 2015-Present) Name:Robin Rivera Relation to Subscriber:Spouse Name:GRANT RIVERA Date of :1999 (Home) Address: [address] [place] [address] Payer ID:[id number] (NAIC) Type:O Address: [place] [phone] [facility] [place] [address] [facility] Member Subscriber Plan / Payer (Ef fective 2015-Present) Name:Robin Rivera Relation to Subscriber:Spouse Name:GRANT RIVERA Date of :1999 (Home) Address: [address] [place] [address] Payer ID:[id number] (NAIC) Type:HMO Address: [phone] [facility] Member Subscriber Plan / Payer (Ef fective 2015-Present) Name:Robin Rivera Relation to Subscriber:Spouse Name:GRANT RIVERA Date of :1999 (Home) Address: [address] [place] [phone] Payer ID:[id number] (NAIC) Type:[facility] Address: [phone] [facility] Care Teams Car Seat Coverer Relationship Specialty Start Date End Date Sheeba Reza MD [address] [place] [address] PCP - General Internal Medicine 02/06/24 Additional Source Comments The information contained in this document represents components of the legal health record. It is not the complete legal health record.[facility]
== END 2025-01-08 17:06 | disposition home or self-care (01) ==
LOC: HO.HMCH 16:22
PROVIDERS: PCP Internal Medicine; Visit Provider Student in an Organized Health Care Education/Training Program
DX: E11.65 Type 2 diabetes mellitus with hyperglycemia (principal); Z79.4 Long term (current) use of insulin; R12 Heartburn; R79.89 Other specified abnormal findings of blood chemistry; Z86.73 Personal history of transient ischemic attack (TIA), and cerebral infarction without residual deficits

== ENCOUNTER 2025-01-09 08:41 | Outpatient (REF) | payer BC, SELFPAY ==
--- OUTSIDE RECORDS SUMMARY | 2019-06-29 07:42 | XMS_ITS | Continuity of Care Document ---
Author Organization [facility] nters Address [address] [place] [address] Phone Care Team Providers Care [employer] Advisor Name Role Phone No Information Unavailable Unavailable Procedures Procedure Date Drug Screen Rapid 5 Panel CS X-Ray of spine or Lumbar up to 3 view s Results Test Name Date and Time Measure Units Reference Range Abnormal Flag Status Comments Panel Description: Not Available Final RAD REPORT 11:42:19 EXAM: Final RAD REPORT 11:42:19 CR Lumbar Spine, 3 View. Final RAD REPORT 11:42:19 CLINICAL HISTORY: Final RAD REPORT 11:42:19 Pre-Employment exam Final RAD REPORT 11:42:19 COMPARISON: Final RAD REPORT 11:42:19 None provided. Final RAD REPORT 11:42:19 FINDINGS: Final RAD REPORT 11:42:19 BONES: Final RAD REPORT 11:42:19 No acute fracture or aggressive appearing osseous lesion. Final RAD REPORT 11:42:19 ALIGNMENT: Final RAD REPORT 11:42:19 There is no significant scoliosis. There is mild straightening of the normal lordotic curve which may be positional. Final RAD REPORT 11:42:19 DISCS / DEGENERATIVE CHANGES: Final RAD REPORT 11:42:19 The disc spaces are preserved. Final RAD REPORT 11:42:19 SOFT TISSUES: Final RAD REPORT 11:42:19 The soft tissues are unremarkable. Final RAD REPORT Apr-13-20 20 11:42:19 IMPRESSION: Final RAD REPORT 11:42:19 There is no fracture or other acute abnormality. Final RAD REPORT 11:42:19 Final Advance Directives Directive Yes / No Effective Date File Name No Information Encounters Encounter Description Practice Location Reason(s) For Visit Diagnoses Date Provider Providers Copied on Encounter [facility], [address], [place], [place], [id number], tel:[phone] [facility] [place] No Information 0 No Information [facility], [address], [place], [place], [id number], tel:[phone] [facility] [place] drug screen (chief complaint) Encounter for examination and observation for oth reasons [id number], [address], [place], [place], [id number], [place]. tel:[phone] Family History Family Member Type Diagnosis Age At Onset No Information Payers Payer name Insurance type Covered republican ID Authoriza tion(s) No Information Social History Type Description Quantity Date Captured Comments Sex Male Smoking Status No Information Chief Complaint And Reason For Visit No Information Reason For Referral Reason For Referral No Information History Of Present Illness Encounter Date Complaint History Of Prese nt Illness drug screen Functional Status Date Functional Assessmen t No Information Instructions Date Instruction Additional Infor mation No Information Assessments Type Assessment Date No Information Patient Care Teams Name Effective Dates (start - stop) Status Members No Information
--- OUTSIDE RECORDS SUMMARY | 2025-01-09 08:45 | XMS_ITS | Clinical Summary ---
Author Organization [facility] Address [address] [place] [address] Care Team Providers Care Distribution Manager Name Role Phone Jarrett Torres MD Primary Care Provider [phone] Allergies No known active allergies Family History [...] age to complete this topic Care Teams Distribution Manager Relationship Specialty Start Date End Date Jarrett Torres MD PCP - General 06/25/05
--- OUTSIDE RECORDS SUMMARY | 2025-01-09 08:46 | XMS_ITS | Clinical Summary ---
Author Organization [facility] Address [address] [facility] [place] [address] Phone Care Team Providers Care Certified Orthotic Fitter Name Role Phone Sheeba Reza MD Primary Care Provid er Allergies Active Allergy Reactions Criticality Noted Date Comments Hornet Venom 09/09/2020 Medications aspirin 81 mg chewable tablet 81 mg daily. 06/12/19 Active atorvastatin (LIPITOR) 80 MG tablet Take 80 mg by mouth daily. 08/29/19 Active TRULICITY 0.75 mg/0.5 mL subcutaneous injection 0.75 MG (0.5 ML) SUBCUTANEOUS EVERY WEEK 08/17/19 21 Active hydrOXYzine (ATARAX) 25 MG tablet Take [...] topic Medical Devices Not on file Insurance [facility] Member Subscriber Plan / Payer (Ef fective 2015-Present) Name:Robin Rivera Relation to Subscriber:Spouse Name:GRANT RIVERA Date of :1999 (Home) Address: [address] [place] [address] Payer ID:[id number] (NAIC) Type:O Address: [place] [phone] [facility] [place] [address] [facility] Member Subscriber Plan / Payer (Ef fective 2015-Present) Name:Robin Rivera Relation to Subscriber:Spouse Name:GRANT RIVERA Date of :1999 (Home) Address: [address] [place] [address] Payer ID:[id number] (NAIC) Type:HMO Address: [phone] [facility] Member Subscriber Plan / Payer (Ef fective 2015-Present) Name:Robin Rivera Relation to Subscriber:Spouse Name:GRANT RIVERA Date of :2000 (Home) Address: [address] [place] [phone] Payer ID:[id number] (NAIC) Type:[facility] Address: [id number] [facility] Care Teams Certified Orthotic Fitter Relationship Specialty Start Date End Date Sheeba Reza MD [address] [place] [address] PCP - General Internal Medicine 02/06/24 Additional Source Comments The information contained in this document represents components of the legal health record. It is not the complete legal health record.[facility]
[2025-01-09 10:36] LABS: Alanine Aminotransferase 36 U/L (0-40); Albumin Level 4.2 g/dL (3.5-5.0); Alkaline Phosphatase 69 U/L (39-117); Anion Gap 12 (12-20); Aspartate Amino Transferase 23 U/L (5-37); Blood Urea Nitrogen 14 mg/dL (9-16); Calcium 9.0 mg/dL (8.4-10.2); Carbon Dioxide 28 mmol/L (22-29); Chloride 105 mmol/L (96-108); Estimated Glomerular Filt Rate > 60; Potassium 4.2 mmol/L (3.3-5.1); Sodium 141 mmol/L (135-145); Total Protein 7.2 g/dL (6.5-8.0)
== END 2025-01-09 08:42 | disposition home or self-care (01) ==
LOC: HO.LAB 08:41
PROVIDERS: PCP Internal Medicine; Visit Provider Student in an Organized Health Care Education/Training Program
DX: E11.65 Type 2 diabetes mellitus with hyperglycemia (principal); R79.89 Other specified abnormal findings of blood chemistry; Z79.4 Long term (current) use of insulin
CPT/HCPCS: 36415; 80053; 83036

== ENCOUNTER 2025-01-20 14:31 | Outpatient (AMB) | payer BC, SELFPAY ==
[2025-01-20 14:34] VITALS: BP 120/80; PULSE 102; O2SAT 97; BMI 33.5
--- NOTE | 2025-01-20 14:34 | A.OFFVIS_ITS ---
Vital Signs 01/20/25 14:34 Height 5 ft 9 in Weight 227 lb 1.218 oz BMI 33.5 BP 120/80 Blood Pressure Location Rt brachial Position Sitting Pulse 102 H Pulse Source Pulse Oximeter Pulse Oximetry (%) 97 Oxygen Delivery Method Room Air Intake Visit Reasons: A1c was to high Intake Note: Patient presents today for a follow-up on Type 2 Diabetes Mellitus: Last Diabetic eye exam was on: DUE Last Podiatry exam was on: Does not see a College Administrator Most recent HbA1c: 11.5%, 01/09/2025 Random Glucose- 170 mg/dL, 14:38 PM Car Worker Required: No Accompanied by: Self / Same As Patient Allergies pioglitazone Allergy (Severe, Verified 01/08/25 16:25) Dizziness bee pollen (BEE STINGS) Allergy (Intermediate, Verified 01/08/25 16:25) Swelling metoclopramide (From REGLAN) Adverse Reaction (Intermediate, Verified 01/08/25 16:25) MUSCLE SPASMS dulaglutide (From Trulicity) Adverse Reaction (Verified 01/08/25 16:25) Diarrhea cymbalta Allergy (Intermediate, Uncoded 01/08/25 16:25) twitching Ketoconazole Allergy (Intermediate, Uncoded 01/08/25 16:25) urticaria lisinopril Allergy (Intermediate, Uncoded 01/08/25 16:25) cough tramadol Allergy (Intermediate, Uncoded 01/08/25 16:25) itchiness amoxicillin Adverse Reaction (Intermediate, Uncoded 01/08/25 16:25) diarrhea metformin Adverse Reaction (Intermediate, Uncoded 01/08/25 16:25) diarrhea HPI Comments Details: This is a 44-year-old male with IDDM, hypertension, hyperlipidemia CVA presenting for follow up diabetes. He has not been seen in > 6 months Current medication prescribed: Lantus 20 units-reports compliance Ozempic 1mg-just picked up 2mg by pcp has not taken yet A1C 10/25/25 is 11.5% from9.5% from 8.8 % Needs CGM sensors Libre2 Micro and macrovascular complications: +neuropathy, +h/o CVA Hypoglycemia: Feels when BG 130s. Has seen ophtho but overdue No podiatry. Has mild toenail fungus Exercise: work/labor ROS CONSTITUTIONAL: Denies weight loss, fever and chills. HEENT: Denies changes in vision and hearing. RESPIRATORY: Denies SOB and cough. CV: Denies palpitations and CP GI: Denies abdominal pain, nausea, vomiting and diarrhea. : Denies dysuria and urinary frequency. MSK: Denies new myalgia and joint pain. SKIN: see HPI NEUROLOGICAL: Denies headache PSYCHIATRIC: Denies recent changes in mood. PHYSICAL EXAM: GENERAL: Alert and oriented x 3. NAD EYES: EOMI. Anicteric. HENT: Moist mucous membranes. No scleral icterus. No cervical lymphadenopathy. LUNGS: Clear to auscultation bilaterally. CARDIOVASCULAR: Regular rate and rhythm. No murmur. No JVD. ABDOMEN: Soft, non-tender +bs EXTREMITIES: No edema. Non-tender. +dp pulses SKIN: mild onychomycoses NEUROLOGIC: No new focal neurological deficits. PSYCHIATRIC: Cooperative. Appropriate mood and affect [facility] Medical History Afib Daytime sleepiness CVA (cerebral vascular accident) Poison ramirez dermatitis Skin lesion Obesity due to excess calories Type 2 diabetes mellitus without complications Essential hypertension Hyperlipidemia LDL goal <70 History of stroke Tinea pedis Diabetes Surgical History Hx of vasectomy Family History Father Diabetes Myocardial infarct Mother Diabetes Mental health disorder Lung cancer Sister No problems noted. Sister No problems noted. Daughter No problems noted. Son No problems noted. Son No problems noted. Son No problems noted. Son No problems noted. Social History Household Members: Spouse and Family Housing: House Do you presently have visiting nurse or other home services: No Alcohol intake: never Patient Tobacco Use Status: Never used Tobacco e-Cigarette/Vaping Use: Never Used Second Hand Smoke Exposure: No Substance Use Type: Marijuana Advance Directives Date on File: 10/18/20 service: No Current occupational status: employed Current occupational exposures/hazards: No Cognitive needs: No Hearing needs: No Vision needs: No Physical Exam Vital Signs: Last Vital Signs Pulse 102 H 01/20/25 14:34 BP 120/80 01/20/25 14:34 Pulse Ox 97 01/20/25 14:34 Oxygen Delivery Method Room Air 01/20/25 14:34 BMI result Body Mass Index 33.5 Results Reviewed Results Reviewed: Laboratory Last Values Glucose (Clinic) 170 mg/dL (60-115) H 01/20/25 14:38 Assessment & Plan Assessment & Plan (1) Diabetes mellitus with hyperglycemia, with long-term current use of insulin: Code(s): E11.65 - Type 2 diabetes mellitus with hyperglycemia; Z79.4 - alf ( current) use of insulin Category: Medical Qualifiers: Diabetes mellitus type: type 2 Qualified Code(s): E11.65 - Type 2 diabetes mellitus with hyperglycemia; Z79.4 - alf (current) use of insulin Plan Diabetes-uncontrolled Increase lantus to 22 units Urged him to try the 2mg ozempic and if he has more nausea/doesnt tolerate then we can return to 1mg. Zofran refilled He notes he had tried to increase his lantus to 26 units just once and he dropped to 50s Treat hypoglycemia by rules of 15s Return in 4-6 weeks or sooner as needed Medications: New FreeStyle Gabriel 2 Plus Sensor (blood-glucose sensor) every 15 days 6 ea 3RF NS E11.65 - Type 2 diabetes mellitus with hyperglycemia, Z79.4 - watermelon inspector (current) use of insulin Refilled ondansetron HCl 4 mg PO Q8H PRN 60 tabs 3RF nausea and vomiting Discontinued Basaglar MagdyikPen U-100 Insulin (insulin glargine) Discontinued Reason: Doctor's Order 20 units (0.2 mL) subcut QPM 26 days 5.2 mL 3RF NS E11.9 - Type 2 diabetes mellitus without complications On Hold Ozempic (semaglutide) Hold Comment: Doctor's Order 1 mg (0.75 mL) subcut QWEEK 3 mL 3RF NS E11.65 - Type 2 diabetes mellitus with hyperglycemia, Z79.4 - alf (current) use of insulin Coding Level of Care Code Est Pt Level 4 (67605) Diagnoses Type 2 diabetes mellitus with hyperglycemia, with long-term current use of insulin E11.65; Z79.4 Diabetes mellitus type: type 2
[2025-01-20 14:42] LABS: Glucose, Whole Blood 170 mg/dL (60-115)
--- OUTSIDE RECORDS SUMMARY | 2025-01-20 17:40 | XMS_ITS | Clinical Summary ---
Author Organization [facility] Address [address] [facility] [address] [place] [address] Phone Care Team Providers Care Concrete Pourer Name Role Phone Sheeba Reza MD Primary [...] topic Medical Devices Not on file Insurance [facility] Member Subscriber Plan / Payer (Ef fective 2015-Present) Name:Robin Rivera Relation to Subscriber:Spouse Name:GRANT RIVERA Date of :1999 (Home) Address: [address] [place] [address] Payer ID:[id number] (NAIC) Type:O Address: [place] [phone] [facility] [place] [address] [facility] Member Subscriber Plan / Payer (Ef fective 2015-Present) Name:Robin Rivera Relation to Subscriber:Spouse Name:GRANT RIVERA Date of :1999 (Home) Address: [address] [place] [address] Payer ID:[id number] (NAIC) Type:HMO Address: [phone] [facility] Address: [phone] [facility] Care Teams Concrete Pourer Relationship Specialty Start Date End Date Sheeba Reza MD [address] [place] [address] PCP - General Internal Medicine 02/06/24 Additional Source Comments The information contained in this document represents components of the legal health record. It is not the complete legal health record.[facility]
== END 2025-01-20 14:54 | disposition home or self-care (01) ==
LOC: HO.ENCR 14:32
PROVIDERS: PCP Internal Medicine; Visit Provider Internal Medicine
DX: E11.65 Type 2 diabetes mellitus with hyperglycemia (principal); Z79.4 Long term (current) use of insulin

== ENCOUNTER → 2025-01-20 14:31 | Outpatient (BNVA) | payer BC, SELFPAY | PROVIDERS: PCP Internal Medicine; Visit Provider Internal Medicine | DX: E11.65 Type 2 diabetes mellitus with hyperglycemia (principal) | CPT/HCPCS: 82947 ==